=== PATIENT | female | born 1945 | race Caucasian/White ===

== ENCOUNTER → 2016-10-06 | Outpatient (CLI) | payer MEDICARE, BC ==
--- NOTE | 2016-10-06 17:17 | US ---
EXAMINATION TYPE: US venous doppler duplex LE BI DATE OF EXAM: 10/06/2016 4:54 PM COMPARISON: NONE CLINICAL HISTORY: BLE Pain and Swelling M79.661. Complains of bilateral ankle swelling with let ankle pain > right x 6 months SIDE PERFORMED: Bilateral VESSELS IMAGED: Common Femoral Vein Deep Femoral Vein Greater Saphenous Vein * Femoral Vein Popliteal Vein Small Saphenous Vein * Proximal Calf Veins (* superficial vessels) TECHNOLOGIST IMPRESSION: wnl Right Leg: Negative for DVT. Fluid collection is noted at medial malleolus = 2.8 x 0.9 x 0.8cm. Left Leg: Negative for DVT Fluid collection is noted at medial malleolus = 2.1 x 1.1 x 0.8cm. Tech findings called to Pepper at Dr Montanez's Office. IMPRESSION: No evidence of deep venous thrombosis in the left and right leg. Small joint effusions noted involving the ankle joints.
== END | disposition home or self-care (01) ==
LOC: RADUSMAIN 16:12
PROVIDERS: ATTEND Family Medicine
DX: M25.471 Effusion, right ankle (principal); M25.472 Effusion, left ankle; M79.661 Pain in right lower leg; M79.662 Pain in left lower leg; M79.89 Other specified soft tissue disorders
CPT/HCPCS: 93970

== ENCOUNTER → 2017-12-23 | Outpatient (CLI) | payer MEDICARE, BC ==
[2017-12-23 10:24] LABS: HCT 35.3 % (34.0-46.0); HGB 11.5 gm/dL (11.4-16.0); MCH 30.4 pg (25.0-35.0); MCHC 32.6 g/dL (31.0-37.0); MCV 93.2 fL (80.0-100.0); Mean Platelet Volume 7.1; Platelet Count 182 k/uL (150-450); RBC 3.79 m/uL (3.80-5.40); RDW 13.9 % (11.5-15.5); WBC 4.8 k/uL (3.8-10.6)
[2017-12-23 10:31] LABS: Partial Thromboplastin Time 22.9 sec (22.0-30.0); Prothrombin Time 9.8 sec (9.0-12.0)
[2017-12-23 10:34] LABS: Calcium 9.2 mg/dL (8.4-10.2); Potassium 5.1 mmol/L (3.5-5.1); Total Bilirubin 0.4 mg/dL (0.2-1.3); Total Protein 6.2 g/dL (6.3-8.2)
[2017-12-23 10:50] LABS: Appearance,Urine Clear (Clear); Bilirubin,Urine Negative (Negative); Blood,Urine Trace (Negative); Color,Urine Light Yellow; Glucose,Urine (UA) Negative (Negative); Ketones,Urine Negative (Negative); Leukocyte Esterase,Urine Negative (Negative); Mucus,Urine Rare /hpf; Nitrite,Urine Negative (Negative); PH, Urine 5.5 (5.0-8.0); Protein,Urine Negative (Negative); RBC,Urine <1 /hpf (0-5); Specific Gravity,Urine 1.006 (1.001-1.035); Squamous Epithelial Cell,Urine <1 /hpf (0-4); Urobilinogen,Urine <2.0 mg/dL (<2.0)
== END | disposition home or self-care (01) ==
LOC: LABPAT 09:45
PROVIDERS: ATTEND Orthopaedic Surgery
DX: Z01.818 Encounter for other preprocedural examination (principal); Z79.01 Long term (current) use of anticoagulants; Z01.812 Encounter for preprocedural laboratory examination
CPT/HCPCS: 36415; 80053; 81001; 85027; 85610; 85730; 86850; 86900; 86901; 87070; 93005

== ENCOUNTER 2018-01-03 05:34 | Inpatient (IN) | payer MEDICARE, BC ==
[2017-12-27 14:46] VITALS: BMI 34.2
[~2018-01-03 05:34] MED LIST: ACETAMINOPHEN TAB 500 MG TAB PO ONE; LIDOCAINE 1% 20 ML VIAL (10MG/ML) FOR IV START INTRADERMA PRN; MELOXICAM 7.5 MG TAB PO ONE; MORPHINE SULFATE 4 MG/ML SYRINGE IV PRN; ONDANSETRON ODT 4 MG TAB PO ONE; TRANEXAMIC ACID 1,000 MG in SODIUM CHLORIDE 0.9% 100 ML IVPB ONE; ceFAZolin IN SWFI 2 GM/20 ML SYRINGE IVP ONE
[2018-01-03] MEDS ORDERED: ROPIVACAINE 246.25 MG, EPINEPHrine 0.5 MG, KETOROLAC 30 MG, cloNIDine HCL/PF 80 MCG, WA... MISCELLANE ONE ×5 (05:51)
[2018-01-03 06:55] LABS: Glucose,Whole Blood 99 mg/dL (75-99)
[2018-01-03] MEDS: LACTATED RINGERS 1,000 ML IV SCH (06:55)
[2018-01-03] MEDS ORDERED: ONDANSETRON 4 MG/2 ML VIAL IVP ONE (06:55)
[2018-01-03] MEDS ORDERED: HYDROcodone/APAP 5-325MG 1 EACH TAB PO PRN (07:25)
[2018-01-03] MEDS ORDERED: DIAZEPAM 5 MG TAB PO PRN ×2 (07:25)
[2018-01-03] MEDS ORDERED: hydrOXYzine PAMOATE 25 MG CAP PO PRN (07:25)
[2018-01-03] MEDS ORDERED: NALOXONE 0.4 MG/ML 1 ML VIAL IV PRN (07:25)
[2018-01-03] MEDS ORDERED: ONDANSETRON 4 MG/2 ML VIAL IVP PRN (07:25)
[2018-01-03] MEDS ORDERED: MORPHINE SULFATE 4 MG/ML SYRINGE IVP PRN ×3 (07:25)
[2018-01-03] MEDS ORDERED: MAGNESIUM HYDROXIDE 2,400 MG/10 ML CUP PO PRN (07:25)
[2018-01-03] MEDS ORDERED: MIDAZOLAM 2 MG/2 ML VIAL ONE (07:32)
[2018-01-03] MEDS ORDERED: HEPARIN SODIUM,PORCINE 10,000 UNIT/ML 1 ML VIAL ONE (07:32)
[2018-01-03] MEDS ORDERED: TRANEXAMIC ACID 1,000 MG/10 ML VIAL ONE (07:32)
[2018-01-03] MEDS ORDERED: SODIUM CHLORIDE 0.9% IRRIG 1,000 ML BTL IRRIGATION ONE (07:32)
[2018-01-03] MEDS ORDERED: fentaNYL (PF) 50 MCG/ML 2 ML AMP ONE (07:32)
[2018-01-03] MEDS ORDERED: SODIUM CHLORIDE 0.9% 100 ML BAG ONE (07:32)
[2018-01-03] MEDS ORDERED: PHENYLEPHRINE-0.9% NACL SYG 1 MG/10 ML SYRINGE ONE (07:32)
[2018-01-03] MEDS ORDERED: ceFAZolin 3,000 MG in SODIUM CHLORIDE 0.9% IRRIGATIO 3,000 ML IRRIGATION ONE (08:11)
[2018-01-03] MEDS ORDERED: LACTATED RINGERS 1,000 ML IV ONE (09:16)
--- NOTE | 2018-01-03 09:20 | P.OP ---
Date of Procedure: 01/03/18 Preoperative Diagnosis: Severe osteoarthritis left hip Postoperative Diagnosis: Severe osteoarthritis left hip Procedure(s) Performed: Left total hip arthroplasty with a direct anterior approach Implants: Celestin and nephew Polarstem size 1 standard Celestin & Nephew R3, 3 hole acetabular shell, 48 mm Celestin & Nephew reflection 6.5 mm cancellus screw, 20 mm 2 Celestin [employer] Nephew R3, XLPE 20 acetabular liner Celestin & Nephew Oxinium femoral head 32 m, +0 All components were press-fit. The articulation is Oxinium on polyethylene. Anesthesia: spinal Surgeon: Raghu Morris Freight Clerk #1: Marilee Swenson Estimated Blood Loss (ml): 350 (124 mL returned with Cell Saver) Pathology: other (Femoral head) Condition: stable Disposition: PACU Indications for Procedure: After failure of conservative treatment we discussed the surgical and nonsurgical treatment options at length. Patient wishes to proceed with a total hip arthroplasty with a direct anterior approach. Complications specific to this procedure were discussed at length, including but not limited to infection, leg length discrepancy, dislocation, and nerve injury. Patient is aware of all these complications and informed consent was obtained Operative Findings: The operative findings are consistent with severe osteoarthritis of the left hip Description of Procedure: Patient was seen and evaluated in the preoperative area, consent was reviewed, and the surgical site was marked with a skin marker. Patient was then brought to the operating room and given prophylactic antibiotics intravenously. 1 g of Tranexamic acid was also given. A spinal anesthetic was administered by the anesthesia department. The patient was then placed on the [place] table with the bony prominences well-padded. The hip area was then prepped and draped in usual sterile fashion. A universal timeout was then performed, which confirmed the patient's name, surgical site, ALLERGIES, and procedure being performed. Next the incision site was located at 1 cm distal and 1 cm lateral to the anterior superior iliac spine. The skin and subcutaneous tissues were sharply incised. Incision was carefully dissected down to the fascia overlying the tensor fascia priti muscle. This fascia was then incised in line with the incision. Next, using blunt finger dissection, the tensor fascia priti muscle was dissected off its investing fascia. The muscle was then carefully retracted laterally with a cobra retractor over the lateral neck of the femur. Next, the circumflex vessels were identified and cauterized using the AquaMantis device. The anterior hip capsule was then exposed. The capsule was then opened and an inverted T fashion. Cobra retractors were then placed intracapsularly. The proximal femur was then visualized. The femoral neck was then osteotomized appropriate level above the lesser trochanter. Small amount of traction was placed with the [place] table. A small wedge of bone was then removed from the remaining femoral head. Next, using a corkscrew femoral head was easily removed from the acetabulum. On gross visual inspection, the femoral head had complete loss of articular cartilage in multiple periarticular osteophytes. Attention was then turned to the acetabulum. the acetabulum was exposed and any remaining labrum was excised. Sequential reaming of the acetabulum was performed using fluoroscopic guidance. When the appropriate size was reached, a trial was then placed. The position and fit of the trial was checked with fluoroscopy. The trial was then removed. Then, using fluoroscopic guidance, the final implant was impacted at 20 of anteversion and 40 of abduction, and fully seated in the acetabulum. 2 screws were then placed in the acetabulum. Again fluoroscopy was used to check position of the screws. Next, the liner was then impacted, with a 20 elevated liner located in the anterior superior quadrant. Component locking was confirmed. Attention was then directed to the femur. With the aid of the [place] table, the femur was externally rotated to approximately 130, extended, and abducted under the opposite leg. A side hook was then placed under the proximal femur, and the side hook elevator was used to elevate the proximal femur. Retractors were then placed. A capsular release was performed, as well as a release of the conjoined tendon, which afforded excellent visualization of the proximal femur. Next, a box osteotome was used to lateralize the proximal femur. A chicken handler was then used to locate the femoral canal. Sequential broaching was then performed with appropriate size which afforded excellent fixation in the proximal femur. A trial was then placed with appropriate head and neck, and the hip was gently reduced with the aid of the [place] table. Fluoroscopy was then used to check position of the components, as well as to ensure equal leg lengths. The hip was then gently dislocated and the trials were then removed. Final implants were then impacted and the hip was again reduced. Final fluoroscopic x-rays confirmed that the components were in anatomic position, as well as equal leg lengths. The hip was also taken through range of motion, and found to be stable. The hip was then copiously irrigated with antibiotic solution with pulsatile lavage. The hip was then irrigated with Irrisept solution. The soft tissues were then injected with a ropivacaine solution, which consisted of 246.25 mg of ropivacaine, 0.5 mg of epinephrine, 30 mg of Toradol, 80 g of clonidine, and 48.45 mL of sterile water, for a total of 100 mL of fluid injected. A second dose of 1 g of Tranexamic acid was also given. the fascia was then closed with 2-0 strata fix suture. The subcutaneous tissue was closed with 3-0 Vicryl. The subcuticular tissue was closed with 3-0 strata fix suture. The skin was then closed with Dermabond glue and a sterile silver dressing. The patient was then transferred to the recovery room in stable condition. The assistant community director HEATHER Mast was required due to the complexity of surgery, and the need for skilled golf course assistant for positioning, draping, exposure, retraction, and closure of the wound.
--- NOTE | 2018-01-03 09:38 | XR ---
EXAMINATION TYPE: XR Hip Limited LT DATE OF EXAM: 01/03/2018 COMPARISON: NONE HISTORY: Left anterior hip replacement TECHNIQUE: One view submitted. FINDINGS: There is a prosthetic hip in near anatomic alignment. There is soft tissue edema and emphysema. IMPRESSION: 1. Postoperative change. Appears in near-anatomic alignment.
--- NOTE | 2018-01-03 10:00 | FL ---
EXAMINATION TYPE: FL guidance operating room, XR Hip Limited LT DATE OF EXAM: 01/03/2018 CLINICAL HISTORY: Left hip pain TECHNIQUE: Fluoroscopy. COMPARISON: None. FINDINGS: Fluoroscopic guidance was provided during procedure performed by Dr. Morris. A total of 32 seconds of fluoroscopic time was utilized during the procedure and 2 spot images was acquired dem onstrating a left hip arthroplasty.
[2018-01-03 11:19] LABS: Glucose,Whole Blood 105 mg/dL (75-99)
[2018-01-03] MEDS: HYDROcodone/APAP 5-325MG 1 EACH TAB PO PRN ×2 (13:48→22:32)
[2018-01-03] MEDS: ceFAZolin IN SWFI 2 GM/20 ML SYRINGE IVP SCH (15:49)
[2018-01-03 16:59] LABS: Glucose,Whole Blood 145 mg/dL (75-99)
[2018-01-03] MEDS ORDERED: AMITRIPTYLINE HCL 25 MG TAB PO PRN (17:58)
--- NOTE | 2018-01-03 18:06 | P.CONS ---
History of Present Illness - Reason for Consult Recommendations regarding antidepressive medications. - History of Present Illness She was admitted secondary to severe osteoarthritis of the left hip and total left hip arthroplasty direct anterior approach patient successfully underwent surgery did not pass gas yet patient is postoperative day 0 today. Patient denied any fever chills nausea vomiting diarrhea. Does have history of hypertension. Blood pressures in the low normal side which is expected postsurgery because of which showed holding antidepressive medications. Review of Systems REVIEW OF SYSTEMS: CONSTITUTIONAL: No fever, no malaise, no fatigue. HEENT: No recent visual problems or hearing problems. Denied any sore throat. CARDIOVASCULAR: No chest pain, orthopnea, PND, no palpitations, no syncope. PULMONARY: No shortness of breath, no cough, no hemoptysis. GASTROINTESTINAL: No diarrhea, no nausea, no vomiting, no abdominal pain. Normoactive bowel sounds. NEUROLOGICAL: No headaches, no weakness, no numbness. HEMATOLOGICAL: Denies any bleeding or petechiae. GENITOURINARY: Denies any burning micturition, frequency, or urgency. MUSCULOSKELETAL/RHEUMATOLOGICAL: Denies any joint pain, swelling, or any muscle pain. ENDOCRINE: Denies any polyuria or polydipsia. The rest of the 14-point review of systems is negative. Past Medical History Past Medical History: CVA/TIA, Diabetes Mellitus, Eye Disorder, Hyperlipidemia, Hypertension, Osteoarthritis (OA), Thyroid Disorder Additional Past Medical History / Comment(s): MACULAR DEGENERATION, TIA-2016-no residual effects History of Any Multi-Drug Resistant Organisms: None Reported Past Surgical History: Hernia Repair, Joint Replacement, Tonsillectomy Additional Past Surgical History / Comment(s): thyroid removed, bilateral knee replacements, TLHA Past Anesthesia/Blood Transfusion Reactions: Postoperative Nausea & Vomiting ( PONV) Past Psychological History: No Psychological Hx Reported Smoking Status: Never smoker Past Alcohol Use History: None Reported Past Drug Use History: None Reported - Past Family History Brother(s) Family Medical History: Cancer Mother Family Medical History: Myocardial Infarction (OR) Father Family Medical History: Congestive Heart Failure (CHF) Medications and Allergies Home Medications Medication Instructions Recorded Confirmed Type Cholecalciferol [Vitamin D3] 1,000 unit PO DAILY@1200 03/10/15 01/03/18 History Omeprazole [PriLOSEC] 20 mg PO AC-BRKFST 03/10/15 01/03/18 History Vit C/E/Zn/Coppr/Lutein/Zeaxan 1 cap PO BID 03/10/15 01/03/18 History [Preservision Areds 2 Softgel] Aspirin EC [Ecotrin Low Dose] 81 mg PO DAILY #30 tablet. 03/13/15 01/03/18 Rx metFORMIN HCL [Glucophage] 500 mg PO HS #0 03/13/15 01/03/18 Rx Acetaminophen [Tylenol Arthritis] 650 mg PO BID 07/02/16 01/03/18 History Atorvastatin [Lipitor] 20 mg PO HS 07/02/16 01/03/18 History Lisinopril [Zestril] 2.5 mg PO DAILY 07/02/16 01/03/18 History Amitriptyline HCl [Elavil] 25 mg PO HS PRN 12/27/17 01/03/18 History Levothyroxine Sodium [Synthroid] 88 mcg PO DAILY 01/03/18 01/03/18 History Allergies Allergy/AdvReac Type Severity Reaction Status Date / Time No Known Allergies Allergy Verified 01/03/18 12:52 Physical Exam Vitals: Vital Signs Temp Pulse Resp BP BP Pulse Ox 01/03/18 12:30 73 16 109/67 98 01/03/18 12:15 75 16 107/66 98 01/03/18 12:00 73 16 123/73 97 01/03/18 11:45 73 16 123/70 98 01/03/18 11:30 78 16 126/59 82 L 01/03/18 11:15 73 16 121/76 97 01/03/18 11:00 76 16 97/57 95 01/03/18 10:45 75 16 134/77 98 01/03/18 10:30 98.7 F 73 16 129/73 97 01/03/18 10:00 67 18 117/56 95 01/03/18 09:45 68 16 120/53 96 01/03/18 09:39 98.4 F 73 16 118/58 97 01/03/18 06:33 97.6 F 74 16 176/79 95 Intake and Output 01/03/18 01/03/18 01/03/18 06:59 14:59 22:59 Intake Total 100 1431 Output Total 650 Balance 100 781 Intake: IV 100 1131 Sodium Chloride 0.9% 1, 130 000 ml @ 65 mls/hr IV . [id number] [facility] Rx#:[id number] Oral 300 Output: Urine 300 Estimated Blood Loss 350 Other: # Voids 1 Weight 79.379 kg PHYSICAL EXAMINATION: GENERAL: The patient is alert and oriented x3, not in any acute distress. Well developed, well nourished. HEENT: Pupils are round and equally reacting to light. EOMI. No scleral icterus. No conjunctival pallor. Normocephalic, atraumatic. No pharyngeal erythema. No thyromegaly. CARDIOVASCULAR: S1 and S2 present. No murmurs, rubs, or gallops. PULMONARY: Chest is clear to auscultation, no wheezing or crackles. ABDOMEN: Soft, nontender, nondistended, normoactive bowel sounds. No palpable organomegaly. MUSCULOSKELETAL: Deferred to orthopedic surgery EXTREMITIES: No cyanosis, clubbing, or pedal edema. NEUROLOGICAL: Gross neurological examination did not reveal any focal deficits. SKIN: No rashes. Results Labs: Abnormal Lab Results - Last 24 Hours (Table) 01/03/18 01/03/18 Range/Units 11:16 16:56 POC Glucose (mg/dL) 105 H 145 H (75-99) mg/dL Assessment and Plan Plan: Postoperative day 0, left hip arthroplasty: Pain management DVT prophylaxis per primary service -CVA /TIA in the past -type 2 diabetes mellitus: Patient will be resumed on her home regimen along with sliding scale and titrate the diabetes medications according to the blood sugars and sliding scale requirements -Hyperlipidemia -hypertension: Hold off on lisinopril to prevent perioperative hypotension -Hypothyroidism For rest rest of the above chronic medical problems patient will be resumed on appropriate home medications.
[2018-01-03 19:58] LABS: Glucose,Whole Blood 132 mg/dL (75-99)
[2018-01-03] MEDS ORDERED: ACETAMINOPHEN TAB 500 MG TAB PO PRN (21:00)
[2018-01-03] MEDS: ATORVASTATIN 20 MG TAB PO SCH (22:31)
[2018-01-03] MEDS: metFORMIN 500 MG TAB PO SCH (22:31)
[2018-01-03] MEDS: SENNOSIDES-DOCUSATE SODIUM 1 EACH TAB PO SCH (22:32)
[2018-01-03] MEDS: INSULIN ASPART 100 UNIT/ML 1 ML 10 ML VIAL SQ SCH (22:33)
[2018-01-03] MEDS: SODIUM CHLORIDE 0.9% 1,000 ML IV SCH (22:36)
[2018-01-03] MEDS: ASPIRIN 325 MG TAB PO SCH (23:24)
[2018-01-04] MEDS: ceFAZolin IN SWFI 2 GM/20 ML SYRINGE IVP SCH (00:30)
[2018-01-04] MEDS: SODIUM CHLORIDE 0.9% 1,000 ML IV SCH ×2 (00:38→07:51)
[2018-01-04] MEDS: LEVOTHYROXINE 88 MCG TAB PO SCH (07:09)
[2018-01-04 07:19] LABS: Glucose,Whole Blood 128 mg/dL (75-99)
[2018-01-04 07:40] LABS: Basophils % (A) 0 %; Eosinophils % (A) 1 %; HCT 28.3 % (34.0-46.0); Lymphocytes # (A) 0.6 k/uL (1.0-4.8); Lymphocytes % (A) 12 %; MCHC 33.1 g/dL (31.0-37.0); MCV 93.9 fL (80.0-100.0); Mean Platelet Volume 7.8; Monocytes # (A) 0.3 k/uL (0-1.0); Monocytes % (A) 6 %; Neutrophils # (A) 4.2 k/uL (1.3-7.7); Neutrophils % (A) 81 %; Platelet Count 159 k/uL (150-450); RBC 3.02 m/uL (3.80-5.40); RDW 14.4 % (11.5-15.5); WBC 5.2 k/uL (3.8-10.6)
[2018-01-04 07:43] LABS: HGB 9.4 gm/dL (11.4-16.0)
[2018-01-04] MEDS: LACTATED RINGERS 1,000 ML IV SCH (07:47)
[2018-01-04] MEDS: INSULIN ASPART 100 UNIT/ML 1 ML 10 ML VIAL SQ SCH ×4 (07:47→20:52)
[2018-01-04] MEDS: MELOXICAM 7.5 MG TAB PO SCH (07:49)
[2018-01-04] MEDS: PANTOPRAZOLE 40 MG TABLET PO SCH (07:49)
[2018-01-04] MEDS: ASPIRIN 325 MG TAB PO SCH ×2 (07:49→20:47)
[2018-01-04] MEDS ORDERED: ASPIRIN 81 MG PO SCH (09:00)
--- NOTE | 2018-01-04 09:25 | P.PN ---
Subjective Progress Note Date: 01/04/18 This is a 72-year-old female who is status post left total hip arthroplasty. This is postoperative day #1. Patient is seen and evaluated at bedside with Dr. Raghu Morris. Patient does complain of some soreness to the left hip, but states that she has been up and walking with physical therapy. Patient denies any fever/chills, numbness, weakness, tingling, abdominal pain, shortness of breath or chest pain. Objective - Vital Signs Vital signs: Vital Signs Temp 98.4 F 01/04/18 07:41 Pulse 72 01/04/18 07:41 Resp 16 01/04/18 07:42 BP 125/67 01/04/18 07:41 Pulse Ox 96 01/04/18 07:41 Intake & Output 01/03/18 01/04/18 01/04/18 18:59 06:59 18:59 Intake Total 1821 250 Output Total 650 Balance 1171 250 Weight 79.379 kg Intake: IV 1131 Sodium Chloride 0.9% 1, 130 000 ml @ 65 mls/hr IV . [id number] [facility] Rx#:[id number] Oral 690 250 Output: Urine 300 Estimated Blood Loss 350 Other: Voiding Method Toilet Toilet # Voids 1 1 2 - Exam Vital signs are stable. Patient is in no acute distress and is alert and oriented 3. Calf is soft and nontender to palpation. Dressing is clean, dry, and intact. Patient has full foot and ankle motion without pain or difficulty. Neurovascular status and circulatory status are intact. - Labs CBC & Chem 7: 01/04/18 06:52 Labs: Abnormal Lab Results - Last 24 Hours (Table) 01/03/18 01/03/18 01/03/18 Range/Units 11:16 16:56 19:56 RBC (3.80-5.40) m/uL Hgb (11.4-16.0) gm/dL Hct (34.0-46.0) % Lymphocytes # (1.0-4.8) k/uL POC Glucose (mg/dL) 105 H 145 H 132 H (75-99) mg/dL 01/04/18 01/04/18 Range/Units 06:52 07:14 RBC 3.02 L (3.80-5.40) m/uL Hgb 9.4 L D (11.4-16.0) gm/dL Hct 28.3 L (34.0-46.0) % Lymphocytes # 0.6 L (1.0-4.8) k/uL POC Glucose (mg/dL) 128 H (75-99) mg/dL Assessment and Plan (1) S/P total hip arthroplasty Current Visit: Yes Status: Acute Code(s): Z96.649 - PRESENCE OF UNSPECIFIED ARTIFICIAL HIP JOINT SNOMED Code(s): 103751867768 (2) Primary osteoarthritis of left hip Current Visit: Yes Status: Acute Code(s): M16.12 - UNILATERAL PRIMARY OSTEOARTHRITIS, LEFT HIP SNOMED Code(s): 705335561 Plan: Continue routine postop care. Continue antocoagulation with aspirin. Weightbearing as tolerated with a walker. Leave dressing in place for 10 days. Likely discharge home with home care tomorrow.
[2018-01-04] MEDS: HYDROcodone/APAP 5-325MG 1 EACH TAB PO PRN ×2 (09:40→20:45)
[2018-01-04] MEDS ORDERED: HYDROmorphone 2 MG TAB PO PRN ×3 (09:47→09:48)
[2018-01-04 11:13] LABS: Glucose,Whole Blood 133 mg/dL (75-99)
[2018-01-04 16:48] LABS: Glucose,Whole Blood 150 mg/dL (75-99)
--- NOTE | 2018-01-04 20:45 | PN ---
PROGRESS NOTE DATE OF SERVICE: 01/04/2018. INTERVAL HISTORY: This 72-year-old woman who was admitted after left hip arthroplasty is improving significantly. No chest pain. No palpitations. No fever. EXAM: Alert and oriented x3. Pulse 79, blood pressure 112/69, respirations 16, temperature 97.8, pulse ox 100% on room air. HEENT: Conjunctivae normal. NECK: No jugular venous distention. CARDIOVASCULAR: S1, S2 muffled. RESPIRATORY: Breath sounds diminished in the bases. No rhonchi. No crackles. ABDOMEN: Soft, nontender. LEGS: Status post surgery. NERVOUS SYSTEM: No focal deficits. LABS: Hemoglobin 9.5. Accu-Chek 133. ASSESSMENT: 1. Status post left hip arthroplasty. 2. Diabetes mellitus type 2. 3. History of cerebrovascular accident. 4. Hyperlipidemia. 5. Hypertension. 6. Hypothyroidism. RECOMMENDATIONS AND DISCUSSION: Recommend to continue with current medical management and symptomatic treatment. Incentive spirometry, PT/OT evaluation. Closely monitor with Orthopedic Surgery. Further recommendations to follow. MMODL / IJN: [id number] /
[2018-01-04] MEDS: ATORVASTATIN 20 MG TAB PO SCH (20:47)
[2018-01-04] MEDS: metFORMIN 500 MG TAB PO SCH (20:48)
[2018-01-04] MEDS: SENNOSIDES-DOCUSATE SODIUM 1 EACH TAB PO SCH (20:49)
[2018-01-04 21:03] LABS: Glucose,Whole Blood 157 mg/dL (75-99)
[2018-01-05] MEDS: SODIUM CHLORIDE 0.9% 1,000 ML IV SCH (05:00)
[2018-01-05] MEDS: LACTATED RINGERS 1,000 ML IV SCH (05:00)
[2018-01-05 07:03] LABS: Glucose,Whole Blood 132 mg/dL (75-99)
[2018-01-05 08:21] VITALS: BP 131/72; PULSE 95; RESP 16
[2018-01-05] MEDS: LEVOTHYROXINE 88 MCG TAB PO SCH (08:22)
--- NOTE | 2018-01-05 08:29 | P.DS ---
Providers Date of admission: 01/03/18 05:34 Expected date of discharge: 01/05/18 Attending physician: Raghu Morris Consults: 01/03/18 07:25 Consult Physician Routine Consulting Provider: Janny Ortiz Consult Reason/Comments: medical management Do you want consulting provider notified?: Yes Primary care physician: Rupinder Montanez - Discharge Diagnosis(es) (1) Primary osteoarthritis of left hip Current Visit: Yes Status: Acute (2) S/P total hip arthroplasty Current Visit: Yes Status: Acute Hospital Course: This is a 72-year-old female with known history of degenerative arthritis of the left hip. The patient presents for evaluation. After discussion and consideration patient elects to proceed with total hip arthroplasty. The patient is seen preoperatively by her primary care physician and cleared for surgery. Patient is admitted to [facility] on 01/03/2018 for total left hip arthroplasty. The procedures performed without complication or sequelae. The patient is doing well postoperatively. Labs and vital signs are stable on day of discharge. On day of discharge patient's hip incision is healing well. There is minimal erythema. There is no drainage noted at this time. There is minimal soft tissue swelling to the hip and thigh. Patient has full foot and ankle motion without difficulty or pain. Neurovascular status to the left lower extremity is intact. Patient is discharged to home in good condition. Pertinent Studies: Laboratory Tests 01/04/18 06:52 WBC 5.2 RBC 3.02 L Hgb 9.4 L D Hct 28.3 L Patient Condition at Discharge: Stable Plan - Discharge Summary Discharge Rx Participant: Yes New Discharge Prescriptions: New Aspirin 325 mg PO BID #60 tab HYDROcodone/APAP 5-325MG [[place] 5-325] 1 - 2 tab PO Q4-6H PRN #90 tab PRN Reason: Pain Sennosides [Senokot] 1 tab PO BID #60 tablet No Action Omeprazole [PriLOSEC] 20 mg PO AC-BRKFST Vit C/E/Zn/Coppr/Lutein/Zeaxan [Preservision Areds 2 Softgel] 1 cap PO BID Cholecalciferol [Vitamin D3] 1,000 unit PO DAILY@1200 Aspirin EC [Ecotrin Low Dose] 81 mg PO DAILY #30 tablet. metFORMIN HCL [Glucophage] 500 mg PO HS #0 Lisinopril [Zestril] 2.5 mg PO DAILY Atorvastatin [Lipitor] 20 mg PO HS Acetaminophen [Tylenol Arthritis] 650 mg PO BID Amitriptyline HCl [Elavil] 25 mg PO HS PRN PRN Reason: sleep Levothyroxine Sodium [Synthroid] 88 mcg PO DAILY Discharge Medication List Cholecalciferol [Vitamin D3] 1,000 unit PO DAILY@1200 03/10/15 [History] Omeprazole [PriLOSEC] 20 mg PO AC-BRKFST 03/10/15 [History] Vit C/E/Zn/Coppr/Lutein/Zeaxan [Preservision Areds 2 Softgel] 1 cap PO BID 03/10 [History] Aspirin EC [Ecotrin Low Dose] 81 mg PO DAILY #30 tablet. 03/13/15 [Rx] metFORMIN HCL [Glucophage] 500 mg PO HS #0 03/13/15 [Rx] Acetaminophen [Tylenol Arthritis] 650 mg PO BID 07/02/16 [History] Atorvastatin [Lipitor] 20 mg PO HS 07/02/16 [History] Lisinopril [Zestril] 2.5 mg PO DAILY 07/02/16 [History] Amitriptyline HCl [Elavil] 25 mg PO HS PRN 12/27/17 [History] Levothyroxine Sodium [Synthroid] 88 mcg PO DAILY 01/03/18 [History] Aspirin 325 mg PO BID #60 tab 01/04/18 [Rx] HYDROcodone/APAP 5-325MG [[place] 5-325] 1 - 2 tab PO Q4-6H PRN #90 tab 01/04/18 [ Rx] Sennosides [Senokot] 1 tab PO BID #60 tablet 01/04/18 [Rx] Follow up Appointment(s)/Referral(s): [facility], [NON-STAFF] - Rupinder Montanez DO [Primary Care Provider] - 01/11/18 3:15 pm Raghu Morris DO [Doctor of Osteopathic Medicine] - 01/19/18 1:50 pm Activity/Diet/Wound Care/Special Instructions: Weightbearing as tolerated with walker Leave dressing intact. Dressing may be removed by home care nurse in 10 days. May shower with dressing on. Follow-up with [facility] in 2 weeks, please call with any questions or concerns [phone] Discharge Disposition: HOME WITH HOME HEALTH SERVICES
[2018-01-05] MEDS: INSULIN ASPART 100 UNIT/ML 1 ML 10 ML VIAL SQ SCH ×2 (08:37→12:07)
[2018-01-05 08:39] VITALS: TEMP 98.2
[2018-01-05] MEDS: ASPIRIN 325 MG TAB PO SCH (08:39)
[2018-01-05] MEDS: PANTOPRAZOLE 40 MG TABLET PO SCH (08:39)
[2018-01-05] MEDS: MELOXICAM 7.5 MG TAB PO SCH (08:39)
[2018-01-05 11:48] LABS: Glucose,Whole Blood 117 mg/dL (75-99)
--- NOTE | 2018-01-05 15:46 | PN ---
PROGRESS NOTE DATE OF SERVICE: 01/05/2018 This 72-year-old woman who was admitted after left hip arthroplasty is improving significantly. No chest pain. No palpitations. No fever. On exam, alert and oriented x3. Pulse is 95, blood pressure 131/72, respiration 16, temperature 98.2, pulse ox 97% on room air. HEENT: Conjunctivae normal. NECK: No jugular venous distention. CARDIOVASCULAR SYSTEM: S1, S2 muffled. RESPIRATORY SYSTEM: Breath sounds diminished at the bases. No rhonchi. No crackles. ABDOMEN: Soft, non-tender. LEGS: No edema. No swelling. Status post surgery. NERVOUS SYSTEM: No focal deficit. LABS: Hemoglobin 9.4. Accu-Cheks are noted. ASSESSMENT: 1. Status post left hip arthroplasty. 2. Diabetes mellitus, type 2. 3. History of cerebrovascular accident. 4. Hyperlipidemia. 5. Hypertension. 6. Hypothyroidism. RECOMMENDATIONS AND DISCUSSION: I recommend to continue current medication, continue symptomatic treatment. Incentive spirometry. Resume the home medications. The rest of the medications per Orthopedic Surgery. Follow closely with the primary physician in the outpatient setting. Thank you, Dr. Morris. MMROBERTL / MISTYN: [id number] /
== END 2018-01-05 15:05 | disposition home health service (06) | DRG 470 ==
LOC: 2ORMAIN 05:34 → 3SUR 09:35
PROVIDERS: ADMIT Orthopaedic Surgery; ATTEND Orthopaedic Surgery
PROC: 0SRB06A Replacement of Left Hip Joint with Oxidized Zirconium on Polyethylene Synthetic Substitute, Uncemented, Open Approach (ICD-10-PCS; principal; 2018-01-03 07:30)
DX: M16.12 Unilateral primary osteoarthritis, left hip (principal); E11.9 Type 2 diabetes mellitus without complications; E78.5 Hyperlipidemia, unspecified; H35.30 Unspecified macular degeneration; I10 Essential (primary) hypertension; E89.0 Postprocedural hypothyroidism; Z96.653 Presence of artificial knee joint, bilateral; Z79.84 Long term (current) use of oral hypoglycemic drugs; Z79.899 Other long term (current) drug therapy; Z82.49 Family history of ischemic heart disease and other diseases of the circulatory system; Z86.73 Personal history of transient ischemic attack (TIA), and cerebral infarction without residual deficits; Z79.82 Long term (current) use of aspirin; Z79.890 Hormone replacement therapy
CPT/HCPCS: 73501; 85025; 86850; 86900; 86901; 88300

== ENCOUNTER → 2018-03-21 | Outpatient (CLI) | payer MEDICARE, BC ==
--- NOTE | 2018-03-21 10:09 | US ---
EXAMINATION TYPE: US abdomen limited DATE OF EXAM: 03/21/2018 COMPARISON: NONE CLINICAL HISTORY: 72-year-old female K30 Dyspepsia, K80 Cholelithiasis. TECHNIQUE: Multiple sonographic images of the right upper quadrant are obtained. FINDINGS: EXAM MEASUREMENTS: Liver Length: 14.7 cm Gallbladder Wall: 0.2 cm CBD: 0.5 cm Right Kidney: 9.0 x 3.6 x 4.2 cm QUILL COLLECTOR NOTES: Exam limited by excessive midline bowel gas. Pancreas: Only a small portion of the pancreatic neck and body is seen and shows no gross abnormalit y. Limited visualization due to midline bowel gas Liver: visualized portions wnl, visualization limited by midline bowel gas Gallbladder: No abnormal distention, wall thickening, pericholecystic fluid, or shadowing calculi. Evidence for sonographic Carranza's sign: No CBD: wnl Right Kidney: No hydronephrosis. IMPRESSION: Some exam limitations due to shadowing from bowel gas. No specific abnormality seen in the right uppe r quadrant.
--- NOTE | 2018-03-21 11:37 | FL ---
EXAMINATION: Upper GI examination DATE: 03/21/2018 CLINICAL INDICATION: 72-year-old female dysphasia, patient feels hot on the inside and feels bloated/ gassy COMPARISON: None Total Fluoroscopy Time: 1 minute 16 seconds. Coronal images: 36 FINDINGS: The esophagus has a normal course and caliber. There are moderate tertiary peristaltic contractions d emonstrated. The mucosa appears normal. There is a moderate-sized sliding hiatal hernia and severe spontaneous gastroesophageal reflux when t he patient is brought supine. The stomach and duodenum are free of any persistent filling defect and demonstrate a normal mucosal p attern. Small diverticulum of the third portion of the duodenum. IMPRESSION: 1. Moderate-sized sliding hiatal hernia with severe spontaneous gastroesophageal reflux when the franko ent is brought supine. 2. No abnormal narrowing or mucosal abnormality seen. 3. Incidental small diverticulum of the third portion of the duodenum.
== END | disposition home or self-care (01) ==
LOC: RADUSWWP 06:49
PROVIDERS: ATTEND Family Medicine
DX: K44.9 Diaphragmatic hernia without obstruction or gangrene (principal); K21.9 Gastro-esophageal reflux disease without esophagitis; R10.13 Epigastric pain
CPT/HCPCS: 74246; 76705

== ENCOUNTER → 2018-05-23 | Outpatient (CLI) | payer MEDICARE, BC ==
[~2018-05-23] MED LIST changes: -ACETAMINOPHEN TAB 500 MG TAB PO ONE; -LIDOCAINE 1% 20 ML VIAL (10MG/ML) FOR IV START INTRADERMA PRN; -MELOXICAM 7.5 MG TAB PO ONE; -MORPHINE SULFATE 4 MG/ML SYRINGE IV PRN; -ONDANSETRON ODT 4 MG TAB PO ONE; +REGADENOSON 0.4 MG/5 ML SYRINGE IV ONE; -TRANEXAMIC ACID 1,000 MG in SODIUM CHLORIDE 0.9% 100 ML IVPB ONE; -ceFAZolin IN SWFI 2 GM/20 ML SYRINGE IVP ONE
--- NOTE | 2018-05-23 11:56 | NM ---
EXAMINATION TYPE: NM stress lexiscan cardiolite DATE OF EXAM: 05/23/2018 COMPARISON: 03/11/2015 HISTORY: Chest pain TECHNIQUE: After the intravenous administration of 10.31 mCi Tc 99m Sestamibi - Cardiolite resting S PECT images acquired 45 minutes post injection. The patient received 0.4mg Lexiscan, 25.5 mCi Tc 99m Sestamibi - Stress images obtained [address] injection FINDINGS: Review of stress and rest SPECT images demonstrates no distinct perfusion abnormality. Gated analysi s shows normal wall motion with an estimated left ventricular ejection fraction of 67 %. IMPRESSION: No scintigraphic evidence for reversible ischemia.
--- NOTE | 2018-05-23 18:33 | P.STRESS ---
- Stress Test Note Stress Test Results/Findings: Exam Performed: NM stress lexiscan cardiolite Exam Date: 05/23/18 Reason for Exam: Chest Pain Height: 5 ft Weight: 77.111 kg Protocol: Melisa Scan Stage: na Duration of Exercise: na Resting Heart Rate: 74 Resting Blood Pressure: 155/78 Maximum Achieved Heart Rate: 104 Maximum Achieved Blood Pressure: 168/58 85% PMHR: na 100% PMHR: na METS: na Technologist Comment: Stress Test Results/Findings: This is a 72-year-old female with history of hypertension, hypercholesterolemia and family history being evaluated for chest pains. Stress data: Baseline EKG showed sinus rhythm with normal MI interval and QRS duration. Blood pressure at rest is 155/78 with pulse rate of 74. A standard dose of Lexiscan was infused EKGs taken during and after infusion did not reveal any changes of ischemia. Final impression: #1. Negative Lexiscan stress test #2. Report on the nuclear images to be given by the radiologist.
--- NOTE | 2018-05-25 12:24 | EST ---
Stress Test Results/Findings: Exam Performed: NM stress lexiscan cardiolite Exam Date: 05/23/18 Reason for Exam: Chest Pain Height: 5 ft Weight: 77.111 kg Protocol: Melisa Scan Stage: na Duration of Exercise: na Resting Heart Rate: 74 Resting Blood Pressure: 155/78 Maximum Achieved Heart Rate: 104 Maximum Achieved Blood Pressure: 168/58 85% PMHR: na 100% PMHR: na METS: na Technologist Comment: Stress Test Results/Findings: This is a 72-year-old female with history of hypertension, hypercholesterolemia and family history being evaluated for chest pains. Stress data: Baseline EKG showed sinus rhythm with normal NE interval and QRS duration. Blood pressure at rest is 155/78 with pulse rate of 74. A standard dose of Lexiscan was infused EKGs taken during and after infusion did not reveal any changes of ischemia. Final impression: #1. Negative Lexiscan stress test #2. Report on the nuclear images to be given by the radiologist. LENI
== END ==
LOC: RADNMMAIN 08:08
PROVIDERS: ATTEND Family Medicine
DX: E78.5 Hyperlipidemia, unspecified (principal); I10 Essential (primary) hypertension; R07.9 Chest pain, unspecified
CPT/HCPCS: 93017; 78452; A9500; J2785

== ENCOUNTER → 2018-12-22 | Outpatient (CLI) | payer MEDICARE, BC ==
--- NOTE | 2018-12-22 10:47 | MR ---
EXAMINATION TYPE: MR lumbar spine wo con DATE OF EXAM: 12/22/2018 COMPARISON: None HISTORY: Low back pain, spondylosis w/o myelopathy TECHNIQUE: Multiplanar, multisequence images of the lumbar spine were acquired. L1-L2: Posterior broad-based disc bulge causes mild anterior mass effect on the thecal sac. There is some facet arthropathy change present. No significant foraminal encroachment. L2-L3: Facet arthropathy with hypertrophic changes of the ligamentum flavum causes some posterior lat eral mass effect on the thecal sac. No significant central stenosis. Listhesis is noted, circumferent ial extension endplate disc complex causes foraminal encroachment greater on the right. L3-L4: Posterior broad-based disc bulge causes anterior mass effect on the thecal sac, there is moder ate central canal stenosis. Facet arthropathy with hypertrophic change of the ligamentum flavum cause s some posterior lateral mass effect on the thecal sac. Circumferential extension of endplate disc co mplex causes foraminal encroachment greater on the right. L4-L5: Listhesis contributes to cause some moderate to severe central canal stenosis, there is a tref oil appearance to the thecal sac due to facet arthropathy with hypertrophic changes causing posterior lateral mass effect on the thecal sac, broad-based posterior disc bulge contributes with the listhes is to cause some anterior mass effect on the thecal sac. There is bilateral foraminal encroachment no tejinder. L5-S1: Broad-based posterior disc bulge causes mild anterior mass effect on the thecal sac. Facet art hropathy with hypertrophy of the ligamentum flavum causes some posterior lateral mass effect on the t hecal sac. Circumferential extension endplate disc complex results in encroachment bilaterally of the neural foramina. Lumbar segments are intact. No paraspinal masses are identified. Conus medullaris has a normal appe arance. Lumbar vertebral bodies show preserved height. There is anterolisthesis grade 1 L5-S1, L4-5, retrolisthesis grade 1 L3-4, L2-3 and anterolisthesis grade 1 L1-2. Loss of disc height signal is gre atest at L2-3 but also present L4-5, there is associated vacuum phenomenon. Multilevel spondylosis wi th endplate discogenic marrow signal changes are present. There is mild spinal curvature. IMPRESSION: Degenerative disc disease, facet arthropathy, spinal stenosis, foraminal encroachment as described. S marisabel curvature.
== END | disposition home or self-care (01) ==
LOC: RADMRIMAIN 08:49
PROVIDERS: ATTEND Physical Medicine & Rehabilitation
DX: M48.061 Spinal stenosis, lumbar region without neurogenic claudication (principal); M51.37 Other intervertebral disc degeneration, lumbosacral region; M46.97 Unspecified inflammatory spondylopathy, lumbosacral region
CPT/HCPCS: 72148

== ENCOUNTER 2019-10-18 17:34 | Inpatient (IN) | payer BC, MEDICARE ==
[2019-10-18] MEDS ORDERED: ONDANSETRON 4 MG/2 ML VIAL IVP PRN (18:15)
[2019-10-18] MEDS ORDERED: NALOXONE 0.4 MG/ML 1 ML VIAL IV PRN (18:15)
[2019-10-18] MEDS ORDERED: HYDROmorphone 0.5 MG/0.5 ML SYRINGE IVP PRN (18:15)
--- NOTE | 2019-10-18 18:15 | ED ---
General Adult HPI - General Chief complaint: Extremity Injury, Lower Stated complaint: knee injury Time Seen by Provider: 10/18/19 17:37 Source: patient, family, EMS, RN notes reviewed, old records reviewed (Chart reviewed from [facility], [place]) Mode of arrival: EMS Limitations: physical limitation - History of Present Illness Initial comments: Patient is a pleasant 74-year-old female presenting to the emergency Department with right leg injury. Patient was leaning up on a car when she got off with one leg and her other leg and. Patient complained of severe sudden discomfort at that time. Patient was seen at [facility] and diagnosed with a distal femur fracture, just above right knee arthroplasty. Patient states discomfort is tolerable at this time following pain medication and knee immobilizer. Patient denies any other injury or area of concern. No chest or back pain. No abdominal pain. No head injury. No neck pain. Patient had knee surgery done approximately [address] Zavala. Patient did have right hip surgery done within the past year or [address] Morris who did accept transfer of patient. - Related Data Home Medications Medication Instructions Recorded Confirmed Cholecalciferol [Vitamin D3 (25 1,000 unit PO DAILY@1200 03/10/15 01/03/18 Mcg = 1000 Iu)] Omeprazole [PriLOSEC] 20 mg PO AC-BRKFST 03/10/15 01/03/18 Vit C/E/Zn/Coppr/Lutein/Zeaxan 1 cap PO BID 03/10/15 01/03/18 [Preservision Areds 2 Softgel] Acetaminophen [Tylenol Arthritis] 650 mg PO BID 07/02/16 01/03/18 Atorvastatin [Lipitor] 20 mg PO HS 07/02/16 01/03/18 Lisinopril [Zestril] 2.5 mg PO DAILY 07/02/16 01/03/18 Amitriptyline HCl [Elavil] 25 mg PO HS PRN 12/27/17 01/03/18 Levothyroxine Sodium [Synthroid] 88 mcg PO DAILY 01/03/18 01/03/18 Previous Rx's Medication Instructions Recorded Aspirin EC [Ecotrin Low Dose] 81 mg PO DAILY #30 tablet. 03/13/15 metFORMIN HCL [Glucophage] 500 mg PO HS #0 03/13/15 Aspirin 325 mg PO BID #60 tab 01/04/18 HYDROcodone/APAP 5-325MG [Jay 1 - 2 tab PO Q4-6H PRN #90 tab 01/04/18 5-325] Sennosides [Senokot] 1 tab PO BID #60 tablet 01/04/18 Allergies Allergy/AdvReac Type Severity Reaction Status Date / Time No Known Allergies Allergy Verified 10/18/19 17:43 Review of Systems ROS Statement: Those systems with pertinent positive or pertinent negative responses have been documented in the HPI. ROS Other: All systems not noted in ROS Statement are negative. Constitutional: Denies: fever Eyes: Denies: eye pain ENT: Denies: ear pain Respiratory: Denies: cough Cardiovascular: Denies: chest pain Endocrine: Denies: fatigue Gastrointestinal: Denies: vomiting Genitourinary: Denies: dysuria Musculoskeletal: Reports: as per HPI Skin: Denies: rash Neurological: Denies: weakness Past Medical History Past Medical History: Diabetes Mellitus, Eye Disorder, Hyperlipidemia, Osteoarthritis (OA), Thyroid Disorder Additional Past Medical History / Comment(s): SEE DR MELTON'S HISTORY AND PHYSICAL, MACULAR DEGENERATION, History of Any Multi-Drug Resistant Organisms: None Reported Past Surgical History: Hernia Repair, Joint Replacement, Tonsillectomy Additional Past Surgical History / Comment(s): thyroid removed, bilateral knee replacements, TLHA Past Anesthesia/Blood Transfusion Reactions: Postoperative Nausea & Vomiting (PONV) Past Psychological History: No Psychological Hx Reported Smoking Status: Never smoker Past Alcohol Use History: None Reported Past Drug Use History: None Reported - Past Family History Brother(s) Family Medical History: Cancer Mother Family Medical History: Myocardial Infarction ([place]) Father Family Medical History: Congestive Heart Failure (CHF) General Exam Limitations: physical limitation General appearance: alert, in no apparent distress Head exam: Present: normocephalic Eye exam: Present: normal appearance, PERRL ENT exam: Present: normal oropharynx Neck exam: Present: normal inspection. Absent: tenderness Respiratory exam: Present: normal lung sounds bilaterally Cardiovascular Exam: Present: regular rate, normal rhythm Expanded Peripheral pulses: 2+: Dorsalis Pedis (R), Dorsalis Pedis (L) GI/Abdominal exam: Present: soft. Absent: distended, tenderness Extremities exam: Present: tenderness (Superior to the right knee), other (No other areas of tenderness. Distal extremities are neurovascularly intact. Limited range of motion of right knee secondary to pain.) Neurological exam: Present: alert. Absent: motor sensory deficit Psychiatric exam: Present: normal affect, normal mood Skin exam: Present: normal color Course Vital Signs 10/18/19 17:38 Temperature 97.4 F L Pulse Rate 94 Respiratory 16 Rate Blood Pressure 140/70 O2 Sat by Pulse 95 Oximetry Medical Decision Making - Medical Decision Making Case was discussed with Dr. Juarez, who will admit. He does request medical consult for clearance. Disposition Clinical Impression: Femoral distal fracture Disposition: ADMITTED IP TO THIS HOSP Is patient prescribed a controlled substance at d/c from ED?: No Decision Time: 18:15
[2019-10-18] MEDS: SODIUM CHLORIDE 0.9% 1,000 ML IV SCH (18:58)
[2019-10-18 18:59] LABS: Basophils % (A) 0 %; Eosinophils % (A) 0 %; HCT 34.1 % (34.0-46.0); HGB 11.4 gm/dL (11.4-16.0); Lymphocytes # (A) 0.7 k/uL (1.0-4.8); Lymphocytes % (A) 10 %; MCH 31.9 pg (25.0-35.0); MCHC 33.5 g/dL (31.0-37.0); MCV 95.3 fL (80.0-100.0); Mean Platelet Volume 7.5; Monocytes # (A) 0.3 k/uL (0-1.0); Monocytes % (A) 4 %; Neutrophils % (A) 84 %; Platelet Count 248 k/uL (150-450); RBC 3.58 m/uL (3.80-5.40); RDW 13.1 % (11.5-15.5); WBC 7.1 k/uL (3.8-10.6)
[2019-10-18] MEDS: FAMOTIDINE 20 MG TAB PO SCH (22:20)
[2019-10-19 00:42] LABS: Glucose,Whole Blood 135 mg/dL (75-99)
[2019-10-19] MEDS: MORPHINE SULFATE 4 MG/ML SYRINGE IV PRN ×2 (04:44→11:05)
--- NOTE | 2019-10-19 09:03 | P.HPOR ---
History of Present Illness H&P Date: 10/19/19 Chief Complaint: Right femur fracture This is a 74-year-old female transferred from [facility] yesterday after sustaining injury to her right knee. The patient states that she was cleaning windows insider truck and went to step out of her truck when her right foot got caught and she was unable to move. She came out of the truck abruptly with her right foot planted and thinks she may have twisted her right leg. She was unable to ambulate after that. She did not fall to the ground. She states that she remained outside in the cold for about a half hour before someone was able to help her in the house. She continues to complain of pain about the right knee. She was found to have a periprosthetic fracture of the distal femur and transferred to [facility] under the care of Dr. Raghu Morris. Past Medical History Past Medical History: Diabetes Mellitus, Eye Disorder, Hyperlipidemia, Osteoarthritis (OA), Thyroid Disorder Additional Past Medical History / Comment(s): SEE DR MELTON'S HISTORY AND PHYSICAL, MACULAR DEGENERATION, History of Any Multi-Drug Resistant Organisms: None Reported Past Surgical History: Hernia Repair, Joint Replacement, Tonsillectomy Additional Past Surgical History / Comment(s): thyroid removed, bilateral knee replacements, TLHA Past Anesthesia/Blood Transfusion Reactions: Postoperative Nausea & Vomiting (PONV) Past Psychological History: No Psychological Hx Reported Smoking Status: Never smoker Past Alcohol Use History: None Reported Past Drug Use History: None Reported - Past Family History Brother(s) Family Medical History: Cancer Mother Family Medical History: Myocardial Infarction ([place]) Father Family Medical History: Congestive Heart Failure (CHF) Medications and Allergies Home Medications Medication Instructions Recorded Confirmed Type Vit C/E/Zn/Coppr/Lutein/Zeaxan 1 cap PO BID 03/10/15 10/18/19 History [Preservision Areds 2 Softgel] Aspirin EC [Ecotrin Low Dose] 81 mg PO DAILY #30 tablet. 03/13/15 10/18/19 Rx Lisinopril [Zestril] 5 mg PO HS 07/02/16 10/18/19 History Levothyroxine Sodium [Synthroid] 88 mcg PO DAILY 01/03/18 10/18/19 History Acetaminophen Tab [Tylenol Tab] 1,000 mg PO BID 10/18/19 10/18/19 History Atorvastatin [Lipitor] 20 mg PO HS 10/18/19 10/18/19 History Pantoprazole Sodium [Protonix] 40 mg PO BID 10/18/19 10/18/19 History metFORMIN HCL ER [Glucophage Xr] 500 mg PO HS 10/18/19 10/18/19 History Allergies Allergy/AdvReac Type Severity Reaction Status Date / Time No Known Allergies Allergy Verified 10/18/19 19:49 Physical Examination This is a pleasant 74-year-old female in no acute distress. She is alert and oriented 3. Exam of the head neck reveal no obvious deformity. She has full cervical spine motion without difficulty or pain. Exam of the upper extremities reveals no deformity. She has fairly good shoulder, elbow, wrist and finger motion bilaterally. Neurovascular status the upper extremities is intact. Exam of the lower extremities reveals that there is a knee immobilizer in place to the right leg. She has full foot and ankle motion bilaterally. No hip pain with logroll. Neurovascular status to the lower extremities is intact. Results X-rays of the right knee taken in [place] reveal a minimally displaced distal femoral periprosthetic fracture. No other fractures identified. - Labs Labs: Abnormal Lab Results - Last 24 Hours (Table) 10/18/19 10/19/19 Range/Units 18:32 00:38 RBC 3.58 L (3.80-5.40) m/uL Lymphocytes # 0.7 L (1.0-4.8) k/uL POC Glucose (mg/dL) 135 H (75-99) mg/dL H & H 10/18/19 Range/Units 18:32 Hgb 11.4 (11.4-16.0) gm/dL Hct 34.1 (34.0-46.0) % Result Diagrams: 10/18/19 18:32 Assessment and Plan (1) History of total bilateral knee replacement Current Visit: Yes Status: Acute Code(s): Z96.653 - PRESENCE OF ARTIFICIAL KNEE JOINT, BILATERAL SNOMED Code(s): 2252641770683 (2) History of left hip replacement Current Visit: Yes Status: Acute Code(s): Z96.642 - PRESENCE OF LEFT ARTIFICIAL HIP JOINT SNOMED Code(s): 038114667 (3) Femoral distal fracture Current Visit: Yes Status: Acute Code(s): S72.409A - UNSP FRACTURE OF LOWER END OF UNSP FEMUR, INIT FOR CLOS FX SNOMED Code(s): 255445666 (4) Diabetes Current Visit: No Status: Acute Code(s): E11.9 - TYPE 2 DIABETES MELLITUS WITHOUT COMPLICATIONS SNOMED Code(s): 77986411 (5) HTN (hypertension) Current Visit: No Status: Acute Code(s): I10 - ESSENTIAL (PRIMARY) HY PERTENSION SNOMED Code(s): 53437152 (6) Hyperlipemia Current Visit: No Status: Acute Code(s): E78.5 - HYPERLIPIDEMIA, UNSPECIFIED SNOMED Code(s): 41873585 (7) Periprosthetic fracture around internal prosthetic right knee joint Current Visit: Yes Status: Acute Code(s): M97.11XA - PERIPROSTH FRACTURE AROUND INTERNAL PROSTH R KNEE JT, INIT SNOMED Code(s): 742238549 Plan: The clinical and x-ray findings are discussed with the patient. I have reviewed the case with Dr. Raghu Morrsi. We will obtain a computed tomography scan for further assessment of the periprosthetic fracture and will discuss surgical versus non-surgical treatment. At this time she is nonweightbearing to the right lower extremity with a walker. Knee immobilizer should remain in place. I will consult physical therapy to do an evaluation for gait training.
--- NOTE | 2019-10-19 09:55 | XR ---
EXAMINATION TYPE: XR Hip RT and AP Pelvis DATE OF EXAM: 10/19/2019 COMPARISON: None HISTORY: Right hip pain TECHNIQUE: 2 view right hip with AP pelvis FINDINGS: Right femoral head articulates with the acetabulum. Joint spaces narrowed. No acute fractur es identified. Left hip prosthesis is present. Pelvis appears intact. Symphysis pubis and sacroiliac joints are inta ct. Normal bowel gas is present. IMPRESSION: 1. Moderate osteoarthritic degenerative change right hip
--- NOTE | 2019-10-19 10:47 | P.CRDCN ---
History of Present Illness History of present illness: HISTORY OF PRESENTING ILLNESS This is a pleasant 74-year-old female past medical history significant for mild nonobstructive coronary artery disease, diabetes mellitus, hypertension and dyslipidemia. She follows in the office with Dr. Deleon. We have been asked to see in consultation for preoperative evaluation. She states yesterday while she was cleaning the windows in her vehicle and her foot got stuck on the running board and she fell. On arrival to [facility] she was found to have a femur fracture. She was transferred here for further evaluation and surgery. She is seen and examined sitting up in bed with family at bedside in no acute distress. She denies chest pain, shortness of breath, dizziness or palpitations. She denies having any symptoms surrounding her fall. She did not get dizzy and there was no LOC. She recently underwent a Lexiscan stress test in the office August 2019 revealing a normal perfusion study with no evidence of stress-induced reversibility. Most recent echocardiogram obtained in the office July 2019 revealed preserved LV systolic function with ejection fraction 50% and mild MR DIAGNOSTICS EKG reveals sinus mechanism heart rate of 95. Laboratory reviewed, WBC 7.1, hemoglobin 11.4, platelets 248. Current cardiac medications include aspirin 81 mg daily, atorvastatin 20 mg daily and lisinopril 5 mg at bedtime. REVIEW OF SYSTEMS At the time of my exam: CONSTITUTIONAL: Denies fever or chills. CARDIOVASCULAR: Denies chest pain, shortness of breath, orthopnea, PND or palpitations. RESPIRATORY: Denies cough. GASTROINTESTINAL: Denies abdominal pain, diarrhea, constipation, nausea or vomiting. MUSCULOSKELETAL: Denies myalgias. NEUROLOGIC: Denies numbness, tingling or weakness. ENDOCRINE: Denies fatigue, weight change, polydipsia or polyurina. GENITOURINARY: Denies burning, hematuria or urgency with micturation. HEMATOLOGIC: Denies history of anemia or bleeding. PHYSICAL EXAMINATION Blood pressure 148/75 heart rate 83 afebrile and maintaining oxygen saturation on room air. CONSTITUTIONAL: No apparent distress. HEENT: Head is normocephalic. Pupils are equal, round. Sclerae anicteric. Mucous membranes of the mouth are moist. No JVD. No carotid bruit. CHEST EXAMINATION: Lungs are clear to auscultation. No chest wall tenderness is noted on palpation or with deep breathing. HEART EXAMINATION: Regular rate and rhythm. S1, S2 heard. Faint systolic ejection murmur at the left sternal border, no gallops or rub. ABDOMEN: Soft, nontender. Positive bowel sounds. EXTREMITIES: 2+ peripheral pulses, no lower extremity edema and no calf tenderness. NEUROLOGIC EXAMINATION: Patient is awake, alert and oriented x3. ASSESSMENT Right distal femoral fracture Hypertension Dyslipidemia Diabetes mellitus PLAN Stable from a cardiac perspective. No symptoms of angina or shortness of breath. Clinically she is euvolemic. No absolute contraindications to undergo surgical intervention. Recommend cautious fluid administration and optimal blood pressure control. Thank you kindly for this consultation. Nurse Practitioner note has been reviewed, I agree with a documented findings and plan of care. Patient was seen and examined. Past Medical History Past Medical History: Diabetes Mellitus, Eye Disorder, Hyperlipidemia, Osteoarthritis (OA), Thyroid Disorder Additional Past Medical History / Comment(s): SEE DR DELEON'S HISTORY AND PHYSICAL, MACULAR DEGENERATION, History of Any Multi-Drug Resistant Organisms: None Reported Past Surgical History: Hernia Repair, Joint Replacement, Tonsillectomy Additional Past Surgical History / Comment(s): thyroid removed, bilateral knee replacements, TLHA Past Anesthesia/Blood Transfusion Reactions: Postoperative Nausea & Vomiting (PONV) Past Psychological History: No Psychological Hx Reported Smoking Status: Never smoker Past Alcohol Use History: None Reported Past Drug Use History: None Reported - Past Family History Brother(s) Family Medical History: Cancer Mother Family Medical History: Myocardial Infarction ([place]) Father Family Medical History: Congestive Heart Failure (CHF) Medications and Allergies Home Medications Medication Instructions Recorded Confirmed Type Vit C/E/Zn/Coppr/Lutein/Zeaxan 1 cap PO BID 03/10/15 10/18/19 History [Preservision Areds 2 Softgel] Aspirin EC [Ecotrin Low Dose] 81 mg PO DAILY #30 tablet. 03/13/15 10/18/19 Rx Lisinopril [Zestril] 5 mg PO HS 07/02/16 10/18/19 History Levothyroxine Sodium [Synthroid] 88 mcg PO DAILY 01/03/18 10/18/19 History Acetaminophen Tab [Tylenol Tab] 1,000 mg PO BID 10/18/19 10/18/19 History Atorvastatin [Lipitor] 20 mg PO HS 10/18/19 10/18/19 History Pantoprazole Sodium [Protonix] 40 mg PO BID 10/18/19 10/18/19 History metFORMIN HCL ER [Glucophage Xr] 500 mg PO HS 10/18/19 10/18/19 History Allergies Allergy/AdvReac Type Severity Reaction Status Date / Time No Known Allergies Allergy Verified 10/18/19 19:49 Physical Exam Vitals: Vital Signs Temp Pulse Pulse Resp BP BP Pulse Ox 10/19/19 04:35 97.8 F 83 20 148/75 97 10/19/19 00:51 97.6 F 87 20 130/71 96 10/18/19 23:50 87 18 97 10/18/19 23:00 124/59 10/18/19 22:00 117/83 10/18/19 20:00 117/57 98 10/18/19 18:00 90 18 105/60 10/18/19 17:38 97.4 F L 94 16 140/70 95 Intake and Output 10/18/19 10/19/19 10/19/19 22:59 06:59 14:59 Intake Total 0 240 Output Total 600 Balance -600 240 Intake: Oral 0 240 Output: Urine 600 Other: Voiding Method Indwelling Catheter Weight 79.379 kg Results 10/18/19 18:32 CBC 10/18/19 Range/Units 18:32 WBC 7.1 (3.8-10.6) k/uL RBC 3.58 L (3.80-5.40) m/uL Hgb 11.4 (11.4-16.0) gm/dL Hct 34.1 (34.0-46.0) % Plt Count 248 (150-450) k/uL Current Medications Generic Name Dose Route Start Last Admin Trade Name Freq PRN Reason Stop Dose Admin Famotidine 20 mg 10/18/19 21:00 10/18/19 22:20 Pepcid PO 20 mg BID MIGUEL Administration Hydromorphone HCl 0.5 mg 10/18/19 18:15 10/18/19 23:52 Dilaudid IVP 0.5 mg Q3HR PRN Administration Moderate Pain Sodium Chloride 1,000 mls @ 75 mls/hr 10/18/19 18:15 10/18/19 18:58 Saline 0.9% IV 75 mls/hr .[id number] MIGUEL Administration Morphine Sulfate 4 mg 10/18/19 18:15 10/19/19 04:44 Morphine Sulfate (Inj) IV 4 mg Q4HR PRN Administration Severe Pain Naloxone HCl 0.2 mg 10/18/19 18:15 Narcan IV Q2M PRN Opioid Reversal Ondansetron HCl 4 mg 10/18/19 18:15 Zofran IVP Q8HR PRN Nausea And Vomiting Intake and Output 10/18/19 10/19/19 10/19/19 22:59 06:59 14:59 Intake Total 0 240 Output Total 600 Balance -600 240 Intake: Oral 0 240 Output: Urine 600 Other: Voiding Method Indwelling Catheter Weight 79.379 kg 10/18/19 18:32
[2019-10-19] MEDS: FAMOTIDINE 20 MG TAB PO SCH ×2 (10:51→21:33)
[2019-10-19] MEDS: SODIUM CHLORIDE 0.9% 1,000 ML IV SCH ×2 (11:11→20:55)
--- NOTE | 2019-10-19 14:04 | CT ---
EXAMINATION TYPE: CT knee RT wo con DATE OF EXAM: 10/19/2019 COMPARISON: None HISTORY: distal femur periprosthetic fx- surgical planning CT DLP: 886.7 mGycm Automated exposure control for dose reduction was used. FINDINGS: There is an oblique fracture from the dorsal metaphyseal femur to the anterior femoral component. No additional fractures are identified. Beam hardening artifact causes limitation at the level of the prosthesis. IMPRESSION: OBLIQUE FRACTURE DISTAL METAPHYSEAL RIGHT FEMUR EXTENDING TOWARDS THE ANTERIOR SUPERIOR PORTION OF TH E PROSTHESIS.
[2019-10-19] MEDS ORDERED: ACETAMINOPHEN TAB 325 MG TAB PO PRN (16:22)
--- NOTE | 2019-10-19 16:24 | P.CONS ---
History of Present Illness - Reason for Consult Consult date: 10/19/19 Medical management Requesting physician: Raghu Morris - Chief Complaint Femoral fracture - History of Present Illness 74 show female with PMH of diverticulitis, hypothyroidism, hypertension, coronary artery disease presents the ED after mechanical fall. On Wednesday she was attempting to clean her truck when she stepped off the railing in her right foot got caught under the car. Patient denied any loss of consciousness. Patient states that she experienced right lower extremity pain right after the fall and was unable to ambulate after that. She was able to present to [facility] yesterday. CT of the right knee shows oblique fracture distal metaphyseal right femoral extending towards the anterior superior portion of the prosthesis. Patient was transferred to [facility] for orthopedic evaluation. Patient was seen and examined. No acute events overnight. Patient reports well-controlled right lower extremity pain when not moving her extremity. She denies any chest pain, shortness of breath or palpitations. She denies any headache, lower cordell edema, nausea vomiting, fever or chills, cough, changes in urination or bowel habits. No changes in appetite or weight. Review of Systems Pertinent positives and negatives as discussed in HPI, a complete review of systems was performed and all other systems are negative. Past Medical History Past Medical History: Diabetes Mellitus, Eye Disorder, Hyperlipidemia, Osteoarthritis (OA), Thyroid Disorder Additional Past Medical History / Comment(s): SEE DR MELTON'S HISTORY AND PHYSICAL, MACULAR DEGENERATION, History of Any Multi-Drug Resistant Organisms: None Reported Past Surgical History: Hernia Repair, Joint Replacement, Tonsillectomy Additional Past Surgical History / Comment(s): thyroid removed, bilateral knee replacements, TLHA Past Anesthesia/Blood Transfusion Reactions: Postoperative Nausea & Vomiting (PONV) Past Psychological History: No Psychological Hx Reported Smoking Status: Never smoker Past Alcohol Use History: None Reported Past Drug Use History: None Reported - Past Family History Brother(s) Family Medical History: Cancer Mother Family Medical History: Myocardial Infarction (AK) Father Family Medical History: Congestive Heart Failure (CHF) Medications and Allergies Home Medications Medication Instructions Recorded Confirmed Type Vit C/E/Zn/Coppr/Lutein/Zeaxan 1 cap PO BID 03/10/15 10/18/19 History [Preservision Areds 2 Softgel] Aspirin EC [Ecotrin Low Dose] 81 mg PO DAILY #30 tablet. 03/13/15 10/18/19 Rx Lisinopril [Zestril] 5 mg PO HS 07/02/16 10/18/19 History Levothyroxine Sodium [Synthroid] 88 mcg PO DAILY 01/03/18 10/18/19 History Acetaminophen Tab [Tylenol Tab] 1,000 mg PO BID 10/18/19 10/18/19 History Atorvastatin [Lipitor] 20 mg PO HS 10/18/19 10/18/19 History Pantoprazole Sodium [Protonix] 40 mg PO BID 10/18/19 10/18/19 History metFORMIN HCL ER [Glucophage Xr] 500 mg PO HS 10/18/19 10/18/19 History Allergies Allergy/AdvReac Type Severity Reaction Status Date / Time No Known Allergies Allergy Verified 10/18/19 19:49 Physical Exam Vitals: Vital Signs Temp Pulse Pulse Resp BP BP Pulse Ox 10/19/19 12:12 97.7 F 86 16 122/72 96 10/19/19 04:35 97.8 F 83 20 148/75 97 10/19/19 00:51 97.6 F 87 20 130/71 96 10/18/19 23:50 87 18 97 10/18/19 23:00 124/59 10/18/19 22:00 117/83 10/18/19 20:00 117/57 98 10/18/19 18:00 90 18 105/60 10/18/19 17:38 97.4 F L 94 16 140/70 95 Intake and Output 10/19/19 10/19/19 10/19/19 06:59 14:59 22:59 Intake Total 0 560 Output Total 600 900 Balance -600 -340 Intake: Oral 0 560 Output: Urine 600 900 Other: Voiding Method Indwelling Catheter Indwelling Catheter Indwelling Catheter General: [non toxic], [no distress], [appears at stated age] Derm: [warm], [dry] Head: [atraumatic], [normocephalic], [symmetric] Eyes: [EOMI], [no lid lag], [anicteric sclera] Mouth: [no lip lesion], [mucus membranes moist] Cardiovascular: [S1S2 reg], [systolic murmur], [positive posterior tibial pulse bilateral], Lungs: [CTA bilateral], [no rhonchi, no rales] , [no accessory muscle use] Abdominal: [soft], [ nontender to palpation], [no guarding], [no appreciable organomegaly] Ext: [no gross muscle atrophy], [no edema], [no contractures], [right lower extremity brace in place] Neuro: [ CN II-XI grossly intact], [no focal neuro deficits] Psych: [Alert], [oriented], [appropriate affect] Results CBC & Chem 7: 10/18/19 18:32 Labs: Abnormal Lab Results - Last 24 Hours (Table) 10/18/19 10/19/19 Range/Units 18:32 00:38 RBC 3.58 L (3.80-5.40) m/uL Lymphocytes # 0.7 L (1.0-4.8) k/uL POC Glucose (mg/dL) 135 H (75-99) mg/dL Assessment and Plan Assessment: Hypertension Hypothyroidism Coronary artery disease Diabetes mellitus Right distal femoral fracture BP 122/72. Plans: Continue lisinopril. Monitor vitals, justifications as necessary. Plans: Continue Synthroid. Cardiac catheterization in 2014 shows mild LAD disease. Stress test done in 2018 negative. Plans: Resume Lipitor. Hold aspirin. Patient cleared for surgery from cardiology standpoint. Houqe-qg-nbyl glucose 135. Plans: Discontinue metformin. Regular Accu-Cheks. Hypoglycemic precautions Plans: Management as per orthopedic surgery. DVT prophylaxis: [Lovenox] Discussed with: [Patient and family] Anticipated discharge: [1-2 days] Anticipated discharge place: [Home versus rehab] A total of [45] minutes was spent on the care of this complex patient more than 50% of the time was spent in counseling and care coordination. Patient names her Javier decision maker if she can't make decisions for herself. Patient elected to be full code.
[2019-10-19] MEDS: ENOXAPARIN 40 MG/0.4 ML SYRINGE SQ SCH (16:51)
[2019-10-19] MEDS: ASPIRIN 81 MG PO SCH (16:52)
[2019-10-19] MEDS: LISINOPRIL 5 MG TAB PO SCH (21:33)
[2019-10-19] MEDS: ATORVASTATIN 20 MG TAB PO SCH (21:33)
[2019-10-19] MEDS: PANTOPRAZOLE 40 MG TABLET PO SCH (21:33)
[2019-10-19] MEDS: HYDROcodone/APAP 5-325MG 1 EACH TAB PO PRN (21:57)
[2019-10-20] MEDS: LEVOTHYROXINE 88 MCG TAB PO SCH (05:49)
[2019-10-20] MEDS: ENOXAPARIN 40 MG/0.4 ML SYRINGE SQ SCH (08:04)
[2019-10-20] MEDS: SODIUM CHLORIDE 0.9% 1,000 ML IV SCH ×2 (08:04→23:29)
[2019-10-20] MEDS: ASPIRIN 81 MG PO SCH (08:04)
[2019-10-20] MEDS: FAMOTIDINE 20 MG TAB PO SCH (08:04)
[2019-10-20] MEDS: PANTOPRAZOLE 40 MG TABLET PO SCH ×2 (08:04→21:10)
--- NOTE | 2019-10-20 08:54 | P.PN ---
Subjective Progress Note Date: 10/20/19 Principal diagnosis: Periprosthetic fracture right distal femur. This is a 74-year-old female admitted via transfer from [facility] on 10/18/2019 with a periprosthetic fracture to the distal femur. Computed tomography scan was done yesterday which shows the transverse fracture about the distal femur just proximal to the femoral component. The fracture is minimally displaced. The patient is stable from an orthopedic standpoint. She would like to consider inpatient rehab since she will be nonweightbearing to the right lower extremity for several weeks. Objective - Vital Signs Vital signs: Vital Signs Temp 97.9 F 10/20/19 04:33 Pulse 81 10/20/19 04:33 Resp 16 10/20/19 04:33 BP 143/69 10/20/19 04:33 Pulse Ox 95 10/20/19 04:33 Intake & Output 10/19/19 10/20/19 10/20/19 18:59 06:59 18:59 Intake Total 560 Output Total 900 875 Balance -340 -875 Intake: Oral 560 Output: Urine 900 875 Other: Voiding Method Indwelling Catheter Indwelling Catheter Indwelling Catheter # Voids 400 - Exam This is a pleasant 74-year-old female in no acute distress. She is alert and oriented 3. Her family is present at bedside. Exam of the right lower extremity reveals her knee immobilizer is in place. She has full foot and ankle motion without difficulty or pain. Neurovascular status to the lower extremity is intact. Pedal pulse +2/4. - Labs CBC & Chem 7: 10/18/19 18:32 Assessment and Plan (1) History of total bilateral knee replacement Current Visit: Yes Status: Acute Code(s): Z96.653 - PRESENCE OF ARTIFICIAL KNEE JOINT, BILATERAL SNOMED Code(s): 2548429636979 (2) History of left hip replacement Current Visit: Yes Status: Acute Code(s): Z96.642 - PRESENCE OF LEFT ARTIFICIAL HIP JOINT SNOMED Code(s): 392492348 (3) Femoral distal fracture Current Visit: Yes Status: Acute Code(s): S72.409A - UNSP FRACTURE OF LOWER END OF UNSP FEMUR, INIT FOR CLOS FX SNOMED Code(s): 669319806 (4) Diabetes Current Visit: No Status: Acute Code(s): E11.9 - TYPE 2 DIABETES MELLITUS W ITHOUT COMPLICATIONS SNOMED Code(s): 06534245 (5) HTN (hypertension) Current Visit: No Status: Acute Code(s): I10 - ESSENTIAL (PRIMARY) HYPERTENSION SNOMED Code(s): 70338251 (6) Hyperlipemia Current Visit: No Status: Acute Code(s): E78.5 - HYPERLIPIDEMIA, UNSPECIFIED SNOMED Code(s): 59673894 (7) Periprosthetic fracture around internal prosthetic right knee joint Current Visit: Yes Status: Acute Code(s): M97.11XA - PERIPROSTH FRACTURE AROUND INTERNAL PROSTH R KNEE JT, INIT SNOMED Code(s): 219625543 Plan: The clinical and radiographic findings are discussed with the patient. I have reviewed the case with Dr. Raghu Morris. We are electing to proceed with conservative treatment with nonoperative management of the fracture at this time. The patient has not yet been up with physical therapy and has not been evaluated by occupational therapy. We will plan inpatient rehab transfer on Wednesday if she is cleared medically. She is strict nonweightbearing right lower extremity with walker. We will repeat an x-ray Wednesday morning for follow-up prior to her transfer. The family is aware that she will require close monitoring with x-ray.
--- NOTE | 2019-10-20 09:05 | P.PN ---
Subjective Progress Note Date: 10/20/19 Principal diagnosis: Right distal femoral fracture Patient was seen and examined. No acute events overnight. Patient reports well controlled right lower extremity pain. Patient states that she has no pain when not moving. She denies any chest pain, shortness of breath or palpitations. No nausea or vomiting. No fever or chills. Objective - Vital Signs Vital signs: Vital Signs Temp 97.9 F 10/20/19 04:33 Pulse 81 10/20/19 04:33 Resp 16 10/20/19 04:33 BP 143/69 10/20/19 04:33 Pulse Ox 95 10/20/19 04:33 Intake & Output 10/19/19 10/20/19 10/20/19 18:59 06:59 18:59 Intake Total 560 Output Total 900 875 Balance -340 -875 Intake: Oral 560 Output: Urine 900 875 Other: Voiding Method Indwelling Catheter Indwelling Catheter Indwelling Catheter # Voids 400 - Exam General: [non toxic], [no distress], [appears at stated age] Derm: [warm], [dry] Head: [atraumatic], [normocephalic], [symmetric] Eyes: [EOMI], [no lid lag], [anicteric sclera] Mouth: [no lip lesion], [mucus membranes moist] Cardiovascular: [S1S2 reg], [systolic murmur], [positive DP pulse bilateral], Lungs: [CTA bilateral], [no rhonchi, no rales] , [no accessory muscle use] Abdominal: [soft], [ nontender to palpation], [no guarding], [no appreciable organomegaly] Ext: [no gross muscle atrophy], [no edema], [no contractures], [right lower extremity brace in place] Neuro: [no focal neuro deficits] Psych: [Alert], [oriented], [appropriate affect] - Labs CBC & Chem 7: 10/18/19 18:32 Assessment and Plan Assessment: Hypertension Hypothyroidism Coronary artery disease Diabetes mellitus Right distal femoral fracture BP 143/69. Plans: Continue lisinopril. Monitor vitals, justifications as necessary. Plans: Continue Synthroid. Cardiac catheterization in 2015 shows mild LAD disease. Stress test done in 2 018 negative. Plans: Resume Lipitor. No surgical intervention planned. Aspirin restarted. Mxhoc-ru-[id number] glucose 135. Plans: Discontinue metformin. Regular Accu-Cheks. Hypoglycemic precautions Plans: Management as per orthopedic surgery. [Plans for discharge to rehab on Wednesday. Plans for conservative management with orthopedic surgery. Patient will be nonweightbearing on her right lower e xtremity. Currently has Gilliam catheter which I recommend should be discontinued. This was discussed with RN taking care of the patient.]
[2019-10-20 09:26] LABS: Basophils % (A) 0 %; Eosinophils % (A) 1 %; HCT 33.6 % (34.0-46.0); HGB 11.1 gm/dL (11.4-16.0); Lymphocytes % (A) 19 %; MCH 31.6 pg (25.0-35.0); MCV 95.7 fL (80.0-100.0); Mean Platelet Volume 7.5; Monocytes # (A) 0.3 k/uL (0-1.0); Monocytes % (A) 6 %; Neutrophils # (A) 3.8 k/uL (1.3-7.7); Neutrophils % (A) 73 %; Platelet Count 256 k/uL (150-450); RBC 3.51 m/uL (3.80-5.40); RDW 13.3 % (11.5-15.5); WBC 5.2 k/uL (3.8-10.6)
[2019-10-20 09:33] LABS: Calcium 8.9 mg/dL (8.4-10.2); Potassium 4.7 mmol/L (3.5-5.1)
[2019-10-20] MEDS: MORPHINE SULFATE 4 MG/ML SYRINGE IV PRN (15:19)
[2019-10-20] MEDS: ATORVASTATIN 20 MG TAB PO SCH (21:09)
[2019-10-20] MEDS: LISINOPRIL 5 MG TAB PO SCH (21:10)
[2019-10-21] MEDS: LEVOTHYROXINE 88 MCG TAB PO SCH (06:07)
[2019-10-21] MEDS: ENOXAPARIN 40 MG/0.4 ML SYRINGE SQ SCH (08:35)
[2019-10-21] MEDS: FAMOTIDINE 20 MG TAB PO SCH (08:35)
[2019-10-21] MEDS: SODIUM CHLORIDE 0.9% 1,000 ML IV SCH (08:35)
[2019-10-21] MEDS: ASPIRIN 81 MG PO SCH (08:35)
[2019-10-21] MEDS: PANTOPRAZOLE 40 MG TABLET PO SCH ×2 (08:35→21:16)
--- NOTE | 2019-10-21 09:40 | P.PN ---
Subjective Progress Note Date: 10/21/19 This patient is a 74-year-old female who is admitted under the care of Dr. Raghu Morris via transfer from [facility], on 10/18/2019 with a periprosthetic fracture of the distal femur. Computed tomography scan performed on 10/19/19 shows a transverse fracture of the distal femur just proximal to the femoral component. The fracture is minimally displaced. Nonoperative treatment has been recommended with strict nonweightbearing on the right lower extremity and uses a knee immobilizer. Patient is examined bedside this morning. She states she is experiencing no pain currently while laying in bed. She states she only experiences pain when she is up working with PT. She states she worked with physical therapy yesterday, and was able to sit in the bedside chair. She otherwise feels very well this morning. She has no new complaints today. Patient is stable from an orthopedic standpoint. Vital signs stable. Objective - Vital Signs Vital signs: Vital Signs Temp 98.0 F 10/21/19 05:51 Pulse 85 10/21/19 05:51 Resp 16 10/21/19 05:51 BP 147/76 10/21/19 05:51 Pulse Ox 94 L 10/21/19 05:51 Intake & Output 10/20/19 10/21/19 10/21/19 18:59 06:59 18:59 Intake Total 300 Output Total 1600 925 Balance -1600 -925 300 Intake: Oral 300 Output: Urine 1600 925 Other: Voiding Method Indwelling Catheter Indwelling Catheter Indwelling Catheter # Bowel Movements 1 - Exam On examination, the patient is sitting up in bed in no apparent distress. She is alert and oriented 3. On inspection of the right lower extremity, there is a knee immobilizer in place. The patient has good strength and motion of her right ankle and toes. Right lower extremity is warm and well-perfused, dorsalis pedis pulse +2. Neurovascular status is intact to the right lower extremity. Gilliam catheter in place. - Labs CBC & Chem 7: 10/20/19 08:55 10/20/19 08:55 Labs: Abnormal Lab Results - Last 24 Hours (Table) 10/20/19 Range/Units 08:55 Sodium 135 L (137-145) mmol/L BUN 18 H (7-17) mg/dL Glucose 132 H (74-99) mg/dL Assessment and Plan Assessment: Periprosthetic fracture of the right distal femur Plan: We will continue with non-operative treatment. The patient is to remain strictly nonweightbearing on the right lower extremity with a walker. She is to keep the knee immobilizer in place at all times. Continue physical therapy and occupational therapy. Continue pain management PRN. Medical management per internal medicine. We will plan for transfer to inpatient rehab on Wednesday. We will obtain an x-ray Wednesday morning prior to the transfer. Patient will need close monitoring with x- ray after discharge.
[2019-10-21] MEDS: HYDROcodone/APAP 5-325MG 1 EACH TAB PO PRN (12:07)
--- NOTE | 2019-10-21 12:14 | P.PN ---
Subjective Progress Note Date: 10/21/19 Principal diagnosis: Right distal femoral fracture Patient was seen and examined. No acute events overnight. Patient reports well controlled right lower extremity pain. Patient states that she has no pain when not moving. She denies any chest pain, shortness of breath or palpitations. No nausea or vomiting. No fever or chills. She currently has a Gilliam catheter that is inserted. Multiple family members are at bedside. Objective - Vital Signs Vital signs: Vital Signs Temp 98.0 F 10/21/19 05:51 Pulse 85 10/21/19 05:51 Resp 16 10/21/19 05:51 BP 147/76 10/21/19 05:51 Pulse Ox 94 L 10/21/19 05:51 Intake & Output 10/20/19 10/21/19 10/21/19 18:59 06:59 18:59 Intake Total 300 Output Total 1600 925 Balance -1600 -925 300 Intake: Oral 300 Output: Urine 1600 925 Other: Voiding Method Indwelling Catheter Indwelling Catheter Indwelling Catheter # Bowel Movements 1 - Exam General: [non toxic], [no distress], [appears at stated age] Derm: [warm], [dry] Head: [atraumatic], [normocephalic], [symmetric] Eyes: [EOMI], [no lid lag], [anicteric sclera] Mouth: [no lip lesion], [mucus membranes moist] Cardiovascular: [S1S2 reg], [systolic murmur], [positive DP pulse bilateral], Lungs: [CTA bilateral], [no rhonchi, no rales] , [no accessory muscle use] Abdominal: [soft], [ nontender to palpation], [no guarding], [no appreciable organomegaly] Ext: [no gross muscle atrophy], [no edema], [no contractures], [right lower extremity brace in place] Neuro: [no focal neuro deficits] Psych: [Alert], [oriented], [appropriate affect] - Labs CBC & Chem 7: 10/20/19 08:55 10/20/19 08:55 Assessment and Plan Assessment: Hypertension Hypothyroidism Coronary artery disease Diabetes mellitus Right distal femoral fracture BP 147/76. Plans: Continue lisinopril. Monitor vitals, justifications as necessary. Plans: Continue Synthroid. Cardiac catheterization in 2015 shows mild LAD disease. Stress test done in 2018 negative. Plans: Resume Lipitor. No surgical intervention planned. Aspirin restarted. Zlxag-mq-eruw glucose 132. Plans: Discontinue metformin. Regular Accu-Cheks. Hypoglycemic precautions Plans: Management as per orthopedic surgery. [Plans for discharge to rehab [facility] on Wednesday. Plans for conservative management with orthopedic surgery. Patient will be nonweightbearing on her right lower extremity. Currently has Gilliam catheter which will be discontinued this afternoon, I discussed the risks of having Gilliam for prolonged period of time with the family. This was discussed with RN taking care of the patient.]
[2019-10-21] MEDS: LISINOPRIL 5 MG TAB PO SCH (21:16)
[2019-10-21] MEDS: ATORVASTATIN 20 MG TAB PO SCH (21:16)
[2019-10-22] MEDS: SODIUM CHLORIDE 0.9% 1,000 ML IV SCH ×2 (02:08→16:10)
[2019-10-22] MEDS: LEVOTHYROXINE 88 MCG TAB PO SCH (05:13)
[2019-10-22] MEDS: PANTOPRAZOLE 40 MG TABLET PO SCH ×2 (08:03→20:36)
[2019-10-22] MEDS: ENOXAPARIN 40 MG/0.4 ML SYRINGE SQ SCH (08:03)
[2019-10-22] MEDS: ASPIRIN 81 MG PO SCH (08:03)
[2019-10-22] MEDS: FAMOTIDINE 20 MG TAB PO SCH (08:03)
--- NOTE | 2019-10-22 10:42 | P.PN ---
Subjective Progress Note Date: 10/22/19 This patient is a 74-year-old female who is admitted under the care of Dr. Raghu Morris via transfer from [facility], on 10/18/2019 with a right periprosthetic fracture of the distal femur. Computed tomography scan performed on 10/19/19 shows a transverse fracture of the distal femur just proximal to the femoral component. The fracture is minimally displaced. Nonoperative treatment has been recommended with strict nonweightbearing on the right lower extremity and uses a knee immobilizer. Patient is examined bedside this morning. She states the pain in her right knee is well-controlled, she only experiences pain when up out of bed. She has not been up with therapy today. She continues to remain non-weight bearing on the right lower extremity in the knee immobilizer. She has no new complaints today. She denies chest pain, shortness of breath, nausea, vomiting. Vital signs stable. Objective - Vital Signs Vital signs: Vital Signs Temp 98.9 F 10/22/19 06:31 Pulse 82 10/22/19 06:31 Resp 18 10/22/19 06:31 BP 145/74 10/22/19 06:31 Pulse Ox 96 10/22/19 06:31 Intake & Output 10/21/19 10/22/19 10/22/19 18:59 06:59 18:59 Intake Total 600 400 Output Total 650 300 Balance -50 100 Intake: Oral 600 400 Output: Urine 650 300 Other: Voiding Method Bedpan Bedpan # Voids 2 - Exam On examination, the patient is sitting up in bed in no apparent distress. She is alert and oriented 3. On inspection of the right lower extremity, there is a knee immobilizer in place. The patient has good strength and motion of her right ankle and toes. Right lower extremity is warm and well-perfused, dorsalis pedis pulse +2. Neurovascular status is intact to the right lower extremity. Gilliam catheter has been removed. - Labs CBC & Chem 7: 10/20/19 08:55 10/20/19 08:55 Assessment and Plan Assessment: Periprosthetic fracture of the right distal femur Plan: We will continue with non-operative treatment. The patient is to remain strictly nonweightbearing on the right lower extremity with a walker. She is to keep the knee immobilizer in place at all times. Continue physical therapy and occupational therapy. Continue pain management PRN. Medical management per internal medicine. We will plan for transfer to inpatient rehab on Wednesday. We will obtain an x-ray Wednesday morning prior to the transfer. Patient will need close monitoring with x- ray after discharge, which was discussed with the patient.
--- NOTE | 2019-10-22 13:35 | P.PN ---
Subjective Progress Note Date: 10/22/19 Principal diagnosis: Right distal femoral fracture Patient was seen and examined. No acute events overnight. Patient reports well controlled right lower extremity pain. Patient states that she has no pain when not moving. She denies any chest pain, shortness of breath or palpitations. No nausea or vomiting. No fever or chills. Only catheter was discontinued yesterday and switched to external catheter. Objective - Vital Signs Vital signs: Vital Signs Temp 98.9 F 10/22/19 06:31 Pulse 82 10/22/19 06:31 Resp 18 10/22/19 06:31 BP 145/74 10/22/19 06:31 Pulse Ox 96 10/22/19 06:31 Intake & Output 10/21/19 10/22/19 10/22/19 18:59 06:59 18:59 Intake Total 600 400 Output Total 650 300 Balance -50 100 Intake: Oral 600 400 Output: Urine 650 300 Other: Voiding Method Bedpan Bedpan # Voids 2 - Exam General: [non toxic], [no distress], [appears at stated age] Derm: [warm], [dry] Head: [atraumatic], [normocephalic], [symmetric] Eyes: [EOMI], [no lid lag], [anicteric sclera] Mouth: [no lip lesion], [mucus membranes moist] Cardiovascular: [S1S2 reg], [systolic murmur], [positive DP pulse bilateral], Lungs: [CTA bilateral], [no rhonchi, no rales] , [no accessory muscle use] Abdominal: [soft], [ nontender to palpation], [no guarding], [no appreciable organomegaly] Ext: [no gross muscle atrophy], [no edema], [no contractures], [right lower extremity brace in place] Neuro: [no focal neuro deficits] Psych: [Alert], [oriented], [appropriate affect] - Labs CBC & Chem 7: 10/20/19 08:55 10/20/19 08:55 Assessment and Plan Assessment: Hypertension Hypothyroidism Coronary artery disease Diabetes mellitus Right distal femoral fracture BP 145/74. Plans: Continue lisinopril. Monitor vitals, justifications as necessary. Plans: Continue Synthroid. Cardiac catheterization in 2014 shows mild LAD disease. Stress test done in 2018 negative. Plans: Resume Lipitor. No surgical intervention planned. Aspirin restarted. Tcljq-fe-jcqm glucose 132. Plans: Discontinue metformin. Regular Accu-Cheks. Hypoglycemic precautions Plans: Management as per orthopedic surgery. [Plans for discharge to rehab [facility] on Wednesday. Plans for conservati ve management with orthopedic surgery. Patient will be nonweightbearing on her right lower extremity.]
[2019-10-22] MEDS: HYDROcodone/APAP 5-325MG 1 EACH TAB PO PRN (17:56)
[2019-10-22] MEDS: LISINOPRIL 5 MG TAB PO SCH (20:32)
[2019-10-22] MEDS: ATORVASTATIN 20 MG TAB PO SCH (20:32)
[2019-10-22 22:26] VITALS: RESP 18
[2019-10-23] MEDS: SODIUM CHLORIDE 0.9% 1,000 ML IV SCH (05:56)
[2019-10-23] MEDS: LEVOTHYROXINE 88 MCG TAB PO SCH (05:57)
[2019-10-23] MEDS: PANTOPRAZOLE 40 MG TABLET PO SCH (08:20)
[2019-10-23] MEDS: ENOXAPARIN 40 MG/0.4 ML SYRINGE SQ SCH (08:20)
[2019-10-23] MEDS: ASPIRIN 81 MG PO SCH (08:20)
[2019-10-23] MEDS: FAMOTIDINE 20 MG TAB PO SCH (08:20)
--- NOTE | 2019-10-23 09:57 | P.PN ---
Subjective Chart was reviewed patient was seen and examined. She does not have any new complaints today. Objective - Vital Signs Vital signs: Vital Signs Temp 98.3 F 10/23/19 05:00 Pulse 79 10/23/19 05:00 Resp 18 10/23/19 05:00 BP 123/67 10/23/19 05:00 Pulse Ox 96 10/23/19 05:00 Intake & Output 10/22/19 10/23/19 10/23/19 18:59 06:59 18:59 Intake Total 300 300 Output Total 400 200 0 Balance -400 100 300 Intake: Oral 300 300 Output: Urine 400 200 Stool 0 0 Other: Voiding Method Bedpan - Exam Vital Signs: I have reviewed the vital signs. GENERAL awake and alert oriented 3 Eyes: PERRL, extraoculry movements intact, clear conjunctiva Head: : Atraumatic external nose and ears, oropharyngeal mucosa is moist without lesions or exudates Neck: Symmetric, trachea midline, No thyromegaly, no masses or neck vain pulsation, no neck rigidity CVS: +S1/S2, No murmurs or gallops. Peripheral pulses 2+ and equal in all extremities. RESP: Unlabored respiratory effort. Clear to auscultation bilaterally. Abdomen: Bowel sounds present in all 4 quadrants, Soft to palpation, Nontender/Nondistended, No hepatosplenomegaly, no hernias or masses, no CVA tnderness - Labs CBC & Chem 7: 10/20/19 08:55 10/20/19 08:55 Assessment and Plan Assessment: 1. Hypertension 2. Hypothyroidism 3. Type 2 diabetes mellitus 4. Fall Patient is stable for discharge from medicine standpoint and I do not anticipate any changes in her home medication time of discharge. She should certainly follow-up with her primary care physician closely and have TSH checked on outpatient basis.
--- NOTE | 2019-10-23 10:23 | XR ---
EXAMINATION TYPE: XR knee complete RT DATE OF EXAM: 10/23/2019 CLINICAL HISTORY: Follow-up fracture TECHNIQUE: Three views of the right knee are obtained. COMPARISON: October 18, 2019 FINDINGS: There is distal right femoral diametaphyseal fracture noted with mild angulation. Displacem ent of 4.7 mm noted. Total knee arthroplasty noted to be in place with the femoral and tibial compone nts appearing well seated. Associated soft tissue swelling identified. IMPRESSION: Fracture as described.
--- NOTE | 2019-10-23 12:00 | P.DS ---
Providers Date of admission: 10/18/19 18:16 Expected date of discharge: 10/23/19 Attending physician: Raghu Morris Consults: 10/18/19 18:32 Consult Physician Urgent Consulting Provider: Joey Salter Consult Reason/Comments: medical clearance Do you want consulting provider notified?: Yes 10/19/19 08:02 Consult Physician Stat Consulting Provider: Jake Muir Consult Reason/Comments: medical clearance, known CAD Do you want consulting provider notified?: Yes Primary care physician: Rupinder Montanez - Discharge Diagnosis(es) (1) History of total bilateral knee replacement Current Visit: Yes Status: Acute (2) History of left hip replacement Current Visit: Yes Status: Acute (3) Femoral distal fracture Current Visit: Yes Status: Acute (4) Diabetes Current Visit: No Status: Acute (5) HTN (hypertension) Current Visit: No Status: Acute (6) Hyperlipemia Current Visit: No Status: Acute (7) Periprosthetic fracture around internal prosthetic right knee joint Current Visit: Yes Status: Acute Hospital Course: This patient is a 74-year-old female who is admitted under the care of Dr. Raghu Morris via transfer from [facility], on 10/18/2019 with a right periprosthetic fracture of the distal femur. Computed tomography scan performed on 10/19/19 shows a transverse fracture of the distal femur just proximal to the femoral component. The fracture is minimally displaced. Nonoperative treatment has been recommended with strict nonweightbearing on the right lower extremity and uses a knee immobilizer. The patient is doing well on 10/23/2019. She has worked with physical therapy and patient therapy. It is recommended that she be transferred to inpatient rehab for PT and OT. She is strict nonweightbearing to the right lower extremity with walker. Plan - Discharge Summary Discharge Rx Participant: No New Discharge Prescriptions: New HYDROcodone/APAP 5-325MG [[place] 5-325] 1 each PO Q4HR PRN #30 tab PRN Reason: Moderate Pain Continue Aspirin EC [Ecotrin Low Dose] 81 mg PO DAILY #[address] tablet.[address] Usha Cohen Vit C/E/Zn/Coppr/Lutein/Zeaxan [Preservision Areds 2 Softgel] 1 cap PO BID Lisinopril [Zestril] 5 mg PO HS Levothyroxine Sodium [Synthroid] 88 mcg PO DAILY Atorvastatin [Lipitor] 20 mg PO HS Acetaminophen Tab [Tylenol Tab] 1,000 mg PO BID Pantoprazole Sodium [Protonix] 40 mg PO BID metFORMIN HCL ER [Glucophage Xr] 500 mg PO HS Discharge Medication List Vit C/E/Zn/Coppr/Lutein/Zeaxan [Preservision Areds 2 Softgel] 1 cap PO BID 03/10/15 [History] Aspirin EC [Ecotrin Low Dose] 81 mg PO DAILY #30 tablet. 03/13/15 [Rx] Lisinopril [Zestril] 5 mg PO HS 07/02/16 [History] Levothyroxine Sodium [Synthroid] 88 mcg PO DAILY 01/03/18 [History] Acetaminophen Tab [Tylenol Tab] 1,000 mg PO BID 10/18/19 [History] Atorvastatin [Lipitor] 20 mg PO HS 10/18/19 [History] Pantoprazole Sodium [Protonix] 40 mg PO BID 10/18/19 [History] metFORMIN HCL ER [Glucophage Xr] 500 mg PO HS 10/18/19 [History] HYDROcodone/APAP 5-325MG [[place] 5-325] 1 each PO Q4HR PRN #30 tab 10/23/19 [Rx] Follow up Appointment(s)/Referral(s): Rigoberto Deleon MD [STAFF PHYSICIAN] - 4 Weeks Rupinder Montanez DO [Primary Care Provider] - 1-2 days Raghu Morris DO [Doctor of Osteopathic Medicine] - 10 Days Activity/Diet/Wound Care/Special Instructions: Strict nonweightbearing right lower extremity with walker. Check skin daily for sores. Maintain knee immobilizer. Discharge Disposition: TRANSFER TO SNF/ECF
[2019-10-23 14:58] VITALS: BP 121/73; PULSE 80; TEMP 99.2
== END 2019-10-23 16:40 | DRG 534 ==
LOC: EC 17:34 → 4SSUR 18:16 → 6NMEDSUR 23:42
PROVIDERS: ADMIT Orthopaedic Surgery; ATTEND Orthopaedic Surgery
DX: S72.491A Other fracture of lower end of right femur, initial encounter for closed fracture (principal); M97.11XA Periprosthetic fracture around internal prosthetic right knee joint, initial encounter; E78.5 Hyperlipidemia, unspecified; E11.9 Type 2 diabetes mellitus without complications; M19.90 Unspecified osteoarthritis, unspecified site; H35.30 Unspecified macular degeneration; I10 Essential (primary) hypertension; I25.10 Atherosclerotic heart disease of native coronary artery without angina pectoris; R11.2 Nausea with vomiting, unspecified; E03.9 Hypothyroidism, unspecified; X50.1XXA Overexertion from prolonged static or awkward postures, initial encounter; Z79.899 Other long term (current) drug therapy; Z79.890 Hormone replacement therapy; Z79.82 Long term (current) use of aspirin; Z79.84 Long term (current) use of oral hypoglycemic drugs; Z87.19 Personal history of other diseases of the digestive system; Z96.642 Presence of left artificial hip joint; Z96.653 Presence of artificial knee joint, bilateral; Z98.890 Other specified postprocedural states; Z82.49 Family history of ischemic heart disease and other diseases of the circulatory system; Z80.9 Family history of malignant neoplasm, unspecified
CPT/HCPCS: 73502; 80048; 85025; 93005; 96374; 99285

== ENCOUNTER 2019-11-06 09:55 | Inpatient (IN) | payer MEDICARE ==
[2019-11-06] MEDS ORDERED: HYDROcodone/APAP 5-325MG 1 EACH TAB PO PRN (12:00)
[2019-11-06 12:15] LABS: Glucose,Whole Blood 101 mg/dL (75-99)
[2019-11-06 12:40] LABS: Albumin 3.6 g/dL (3.5-5.0); Calcium 8.8 mg/dL (8.4-10.2); Total Bilirubin 0.3 mg/dL (0.2-1.3); Total Protein 6.1 g/dL (6.3-8.2)
[2019-11-06 12:42] LABS: INR 0.9 (<1.2); Partial Thromboplastin Time 22.2 sec (22.0-30.0); Prothrombin Time 9.6 sec (9.0-12.0)
[2019-11-06 13:14] LABS: Basophils % (A) 0 %; Eosinophils # (A) 0.1 k/uL (0-0.7); Eosinophils % (A) 1 %; HCT 34.2 % (34.0-46.0); HGB 11.3 gm/dL (11.4-16.0); Lymphocytes # (A) 0.9 k/uL (1.0-4.8); Lymphocytes % (A) 15 %; MCH 31.9 pg (25.0-35.0); MCHC 33.1 g/dL (31.0-37.0); MCV 96.3 fL (80.0-100.0); Mean Platelet Volume 7.5; Monocytes # (A) 0.3 k/uL (0-1.0); Monocytes % (A) 5 %; Neutrophils # (A) 4.5 k/uL (1.3-7.7); Neutrophils % (A) 77 %; Platelet Count 310 k/uL (150-450); RBC 3.55 m/uL (3.80-5.40); RDW 13.2 % (11.5-15.5); WBC 5.8 k/uL (3.8-10.6)
--- NOTE | 2019-11-06 13:15 | P.HPOR ---
History of Present Illness H&P Date: 11/06/19 This patient is a 74-year-old female who sustained a fall on 10/18/19. She was initially evaluated at [facility], where x-rays were taken and revealed a right periprosthetic fracture of the distal femur. She was transferred to [facility], and was admitted under the care of Dr. Raghu Morris on 10/18/19. Nonoperative treatment was recommended at that time with strict nonweightbearing on the right lower extremity with a walker and a knee immobilizer. Patient was discharged to [facility] on 10/23/19. She was followed by Dr. Morris on an outpatient basis, and operative treatment was recommended at that time. Patient was direct admitted to Dr. Morris on 11/06/19, and is scheduled to undergo an ORIF of right periprosthetic distal femur fracture on 11/07/19 pending medical clearance. Past Medical History Past Medical History: Diabetes Mellitus, Eye Disorder, Hyperlipidemia, Hypertension, Osteoarthritis (OA), Thyroid Disorder Additional Past Medical History / Comment(s): fx rt femur,hx "borderline diabetes", MACULAR DEGENERATION chaz eyes History of Any Multi-Drug Resistant Organisms: None Reported Past Surgical History: Hernia Repair, Tonsillectomy Additional Past Surgical History / Comment(s): thyroid removed, bilateral knee replacements, TLHA Past Anesthesia/Blood Transfusion Reactions: No Reported Reaction Type of Cardiac Device: Loop Device Placement Date:: 2016 left chest Smoking Status: Never smoker - Past Family History Brother(s) Family Medical History: No Reported History Mother Family Medical History: Myocardial Infarction (DC) Father Family Medical History: Congestive Heart Failure (CHF) Medications and Allergies Home Medications Medication Instructions Recorded Confirmed Type Aspirin EC [Ecotrin Low Dose] 81 mg PO DAILY #30 tablet. 03/13/15 11/03/19 Rx Lisinopril [Zestril] 5 mg PO QAM 07/02/16 11/03/19 History Levothyroxine Sodium [Synthroid] 88 mcg PO QAM 01/03/18 11/03/19 History Atorvastatin [Lipitor] 20 mg PO HS 10/18/19 11/03/19 History Pantoprazole Sodium [Protonix] 40 mg PO BID 10/18/19 10/18/19 History metFORMIN HCL ER [Glucophage Xr] 500 mg PO HS 10/18/19 11/03/19 History Acetaminophen Tab [Tylenol] 650 mg PO Q6HR PRN tab 10/23/19 11/03/19 Rx Enoxaparin [Lovenox] 40 mg SQ DAILY syringe 10/23/19 11/03/19 Rx HYDROcodone/APAP 5-325MG [[place] 1 each PO Q4HR PRN #30 tab 10/23/19 11/03/19 Rx 5-325] Vitc/E/Zinc/Copper/Lutein/Zeax 1 each PO BID 11/03/19 11/03/19 History [Icaps Areds2 Tablet] Allergies Allergy/AdvReac Type Severity Reaction Status Date / Time No Known Allergies Allergy Verified 10/18/19 19:49 Physical Examination Patient was examined on 11/03/[address] Morris. Examination reveals pain around the right knee. Immobilizer is intact. Neurovascular circulatory status are intact. Results x-rays of the right knee taken at [facility] dated 11/03/19 shows a periprosthetic fracture of the distal femur with anterior displacement of the proximal fragment. - Labs Labs: Abnormal Lab Results - Last 24 Hours (Table) 11/06/19 Range/Units 12:14 POC Glucose (mg/dL) 101 H (75-99) mg/dL Result Diagrams: 11/06/19 12:14 Assessment and Plan Assessment: Pperiprosthetic fracture right distal femur with displacement. Plan: - We will plan for an ORIF of the right periprosthetic distal femur fracture tomorrow with Dr. Morris, pending medical clearance. - PRN pain management. - NPO diet at midnight. Patient discussed with Dr. Morris.
--- NOTE | 2019-11-06 14:22 | XR ---
EXAMINATION TYPE: XR chest 1V portable DATE OF EXAM: 11/06/2019 COMPARISON: NONE HISTORY: Preoperative clearance TECHNIQUE: Single frontal view of the chest is obtained. FINDINGS: There is no focal air space opacity, pleural effusion, or pneumothorax seen. Cardiac loop recorder is identified. The cardiac silhouette size is within normal limits. The osseous structures are intact but demineralized with degenerative changes of the spine and shoulders. IMPRESSION: No acute process.
[2019-11-06] MEDS ORDERED: ACETAMINOPHEN TAB 325 MG TAB PO PRN (16:41)
[2019-11-06] MEDS ORDERED: ALPRAZolam 0.25 MG TAB PO PRN (16:43)
[2019-11-06] MEDS ORDERED: TEMAZEPAM 15 MG CAP PO PRN (16:43)
[2019-11-06 17:06] LABS: Glucose,Whole Blood 107 mg/dL (75-99)
[2019-11-06] MEDS: INSULIN ASPART (NovoLOG) 100 UNIT/ML VIAL SQ SCH ×2 (17:14→22:30)
[2019-11-06] MEDS: metFORMIN 500 MG TAB PO SCH (17:25)
[2019-11-06] MEDS: VIT A,C & E-LUTEIN-MINERALS 1 EACH TAB PO SCH (20:14)
[2019-11-06] MEDS: PANTOPRAZOLE 40 MG TABLET PO SCH (20:14)
[2019-11-06] MEDS: ATORVASTATIN 20 MG TAB PO SCH (20:14)
[2019-11-06 21:46] LABS: Glucose,Whole Blood 153 mg/dL (75-99)
--- NOTE | 2019-11-06 23:23 | CONS ---
CONSULTATION DATE OF SERVICE: 11/06/2019 REASON FOR CONSULTATION: Advice regarding multiple medical issues including diabetes mellitus as well as preoperative clearance. HISTORY OF PRESENT ILLNESS: This 74-year-old woman with a past medical history of diabetes type 2, hypertension, hyperlipidemia, hypothyroidism, history of thyroid removal, being followed by Dr. Rupinder Montanez in the outpatient setting had suffered a right femur distal periprosthetic fracture. The patient was in [facility] under the care of Dr. Elaine for PT/OT rehabilitation. Dr. Morris is planning surgery tomorrow and the patient directly admitted to [facility] for further evaluation and treatment. There is no history of fever, rigors or chills. No history of headache, loss of consciousness, chest pain, palpitations, shortness of breath, hematochezia or melena at this time. PAST MEDICAL HISTORY: Diabetes type 2, hypertension, history of DJD, history of macular degeneration, history of hernia repair. MEDICATIONS: Medications prior to admission include home medications are: 1. Glucophage XR 500 mg q.h.s. 2. Vitamin C. 3. Zestril 5 mg daily. 4. Synthroid 88 mcg p.o. daily. 5. [place] 5 mg q.4 p.r.n. 6. Lovenox 40 mg subcu daily. 7. Lipitor 20 mg daily. 8. Ecotrin 81 mg p.o. daily. 9. Tylenol 650 q.6h p.r.n. 10.Protonix 40 mg p.o. b.i.d. ALLERGIES: None. FAMILY HISTORY: History of myocardial infarction in the family. SOCIAL HISTORY: No history of smoking. No history of alcohol intake. REVIEW OF SYSTEMS: ENT: No diminished vision. No diminished hearing. CARDIOVASCULAR: No angina or palpitations. Respiration: No cough or hemoptysis. GI no nausea or vomiting. no dysuria. Nervous System: As mentioned earlier. ALLERGY/IMMUNOLOGY: No asthma or hayfever. MUSCULOSKELETAL: As mentioned earlier. HEMATOLOGY/ONCOLOGY: No history of anemia. ENDOCRINE: History of diabetes. CONSTITUTIONAL: As mentioned earlier. DERMATOLOGY: Negative. RHEUMATOLOGY negative. PSYCHIATRY as mentioned earlier. PHYSICAL EXAMINATION: Alert and oriented times three. Pulse 79, blood pressure 127/60, respiration 16, temperature 97.7, pulse ox 94% on room air. HEENT conjunctivae normal. NECK: No JVD. CARDIOVASCULAR: S1, S2 muffled. RESPIRATORY: Breath sounds diminished in the bases. No rhonchi. No crackles. ABDOMEN: Soft, nontender. No mass palpable. LEGS status post hip fracture. NERVOUS SYSTEM: Higher functions as mentioned earlier. Moves all 4 limbs. No focal motor or sensory deficits. LYMPHATICS: No lymph nodes palpable in the neck, axillae or groin. SKIN: No ulcers. No rashes and no bleeding. JOINTS: No active deforming arthropathy. LABS: WBC 5.3, hemoglobin 7.3, sodium 130, potassium 5. Glucose 101, alkaline phosphatase 213, total protein 6.1. ASSESSMENT: 1. Status post right femur periprosthetic fracture. 2. Gait dysfunction. 3. Hyponatremia. 4. Anemia, normocytic anemia of chronic disease. 5. Diabetes mellitus type 2. 6. Hyperlipidemia. 7. Hypertension. 8. History of degenerative joint disease. 9. Hypothyroidism. 10.History of macular degeneration. 11.Anemia. 12.Hyponatremia. RECOMMENDATIONS AND DISCUSSION: This 74-year-old woman who presented with multiple medical issues, at this time, I recommend to continue current medications, management and symptomatic treatment. Continue the home medications. DVT prophylaxis. Incentive spirometry. I would also recommend repeat labs, chest x-ray, EKG. Patient is cleared for surgery at this time. Patient is stable. We will continue to monitor. A copy of this dictation being forwarded to Dr. Rupinder Montanez who is the primary physician. MMROBERTL / MISTYN: [id number] /
[2019-11-07] MEDS: LEVOTHYROXINE 88 MCG TAB PO SCH (05:47)
[2019-11-07 06:51] LABS: Glucose,Whole Blood 104 mg/dL (75-99)
[2019-11-07] MEDS: metFORMIN 500 MG TAB PO SCH ×2 (07:04→20:06)
[2019-11-07] MEDS: INSULIN ASPART (NovoLOG) 100 UNIT/ML VIAL SQ SCH ×3 (07:04→20:12)
[2019-11-07] MEDS: VIT A,C & E-LUTEIN-MINERALS 1 EACH TAB PO SCH ×2 (07:04→20:04)
[2019-11-07] MEDS: LISINOPRIL 5 MG TAB PO SCH (07:04)
[2019-11-07] MEDS: PANTOPRAZOLE 40 MG TABLET PO SCH ×2 (07:04→20:06)
[2019-11-07 11:50] LABS: Glucose,Whole Blood 95 mg/dL (75-99)
[2019-11-07 12:03] VITALS: BMI 32.5
[2019-11-07] MEDS ORDERED: DEXAMETHASONE SOD PHOSPHATE 10 MG/ML 1 ML VIAL IV ONE (12:45)
[2019-11-07] MEDS ORDERED: LIDOCAINE 1% (10MG/ML) FOR IV START INTRADERMA ONE (12:45)
[2019-11-07] MEDS ORDERED: ONDANSETRON 4 MG/2 ML VIAL IVP ONE (12:45)
[2019-11-07] MEDS ORDERED: LACTATED RINGERS 1,000 ML IV ONE ×2 (12:50→15:26)
[2019-11-07 13:05] LABS: Glucose,Whole Blood 90 mg/dL (75-99)
[2019-11-07] MEDS ORDERED: MIDAZOLAM 2 MG/2 ML VIAL ONE (14:36)
[2019-11-07] MEDS ORDERED: KETAMINE 10 MG/ML 20 ML VIAL ONE (14:36)
[2019-11-07] MEDS ORDERED: PROPOFOL 10 MG/ML 20 ML VIAL IV ONE (14:36)
[2019-11-07] MEDS ORDERED: ceFAZolin 3,000 MG in SODIUM CHLORIDE 0.9% IRRIGATIO 3,000 ML IRRIGATION ONE (15:19)
--- NOTE | 2019-11-07 17:20 | P.OP ---
Date of Procedure: 11/07/19 Preoperative Diagnosis: Periprosthetic fracture right distal femur Postoperative Diagnosis: Periprosthetic fracture right distal femur Procedure(s) Performed: Open reduction and internal fixation periprosthetic fracture right distal femur Implants: [employer] Distal Femoral locking plate Anesthesia: spinal Surgeon: Raghu Morris Mine Safety Manager #1: Cassandra Mccann Estimated Blood Loss (ml): 300 Pathology: none sent Condition: stable Disposition: PACU Indications for Procedure: This is a 74-year-old female that presented to the hospital last week after falling. She sustained a periprosthetic fracture of the right distal femur just proximal to a right total knee arthroplasty. Initially the fracture was minimally displaced and patient was treated with closed methods. On her follow- up the fracture found to be displaced. After discussing the surgical nonsurgical treatment options with her and her at length, I recommended open reduction and internal fixation of the distal femur periprosthetic fracture. Informed consent was obtained. Operative Findings: Operative findings are consistent with a comminuted periprosthetic fracture right distal femur just proximal to the right total knee arthroplasty Description of Procedure: The patient was seen and evaluated in the preoperative area. The consent was reviewed and the operative site was marked with a skin marker. Patient was then brought to the operating room and given 2 g of Ancef by the anesthesia department. A general anesthetic was then administered by the anesthesia department. The lower extremity was then prepped and draped in the usual sterile fashion. A universal timeout was then performed which confirmed the patient's name, surgical site, ALLERGIES, and consent. Procedure began by making a lateral incision at the knee and extending the incision down to the lateral epicondyle. Next the appropriate length plate was inserted percutaneously after reduction was obtained. Fluoroscopic x-rays confirmed concentric reduction and placement of the plate laterally and AP. Provisional pins were placed in the plate. Next, the appropriate screws were then drilled and placed distally. Next using the targeting guide, screws then placed proximally through stab incisions. After all the screws been placed the targeting guide was then removed. Fluoroscopic x-rays confirmed concentric reduction of the fracture and anatomic placement of the plate and screws. Wound was then irrigated and closed closed with 2-0 Vicryl for the subcutaneous tissue and madisyn for the skin. Sterile dressings were applied, and a well- padded knee immobilizer was placed. Patient was then transported to the recovery room in stable condition. The visual merchandising assistant Cassandra Mccann NP was required due to the complexity of the surgery and the need for a skilled surgical scheduler.
[2019-11-07] MEDS ORDERED: NA PHOS,M-B/NA PHOS,DI-BA 133 ML ENEMA RECTAL PRN (17:38)
[2019-11-07] MEDS ORDERED: BISACODYL 10 MG SUPP RECTAL PRN (17:38)
[2019-11-07] MEDS ORDERED: HYDROmorphone 0.5 MG/0.5 ML SYRINGE IVP PRN ×3 (17:38)
[2019-11-07] MEDS ORDERED: ONDANSETRON 4 MG/2 ML VIAL IVP PRN (17:38)
[2019-11-07] MEDS ORDERED: hydrOXYzine PAMOATE 25 MG CAP PO PRN (17:38)
[2019-11-07] MEDS ORDERED: MAGNESIUM HYDROXIDE 2,400 MG/10 ML CUP PO PRN (17:38)
[2019-11-07] MEDS ORDERED: HYDROcodone/APAP 5-325MG 1 EACH TAB PO PRN (17:38)
[2019-11-07] MEDS ORDERED: NALOXONE 0.4 MG/ML 1 ML VIAL IV PRN (17:38)
[2019-11-07 20:04] LABS: Glucose,Whole Blood 216 mg/dL (75-99)
[2019-11-07] MEDS: HYDROcodone/APAP 5-325MG 1 EACH TAB PO PRN (20:05)
[2019-11-07] MEDS: SENNOSIDES-DOCUSATE SODIUM 1 EACH TAB PO SCH (20:06)
[2019-11-07] MEDS: ATORVASTATIN 20 MG TAB PO SCH (20:12)
[2019-11-07] MEDS: SODIUM CHLORIDE 0.9% 1,000 ML IV SCH (21:11)
--- NOTE | 2019-11-07 22:56 | PN ---
PROGRESS NOTE DATE OF SERVICE: 11/07/2019 This 74-year-old woman was admitted after right femoral periprosthetic fracture, is being closely monitored. No chest pain. No palpitations. No fever. The patient underwent ORIF today of the right distal femur. EXAM: Alert and oriented times three. Pulse is 80. Blood pressure 140/70, respirations 16, temperature 97 degrees. HEENT is conjunctivae normal. NECK: No JVD. CARDIOVASCULAR: S1, S2 muffled. RESPIRATIONS: Breath sounds diminished in the bases. A few scattered rhonchi and crackles. ABDOMEN is soft, nontender. LEGS are no edema. No swelling. CENTRAL NERVOUS SYSTEM: No focal deficits. LABS: Noted. ASSESSMENT: 1. Status post right femoral periprosthetic fracture and status post ORIF of the periprosthetic fracture right distal femur. 2. Gait dysfunction. 3. Hyponatremia. 4. Anemia, normocytic anemia of chronic disease. 5. Diabetes type 2. 6. Hypertension. 7. Hyperlipidemia. 8. History of degenerative joint disease. 9. History of hypothyroid. 10.History of macular degeneration. 11.Anemia. 12.Hyponatremia. RECOMMENDATIONS AND DISCUSSION: In this 74-year-old woman who presented with multiple complex medical issues. We will monitor the patient closely. Continue the current medications, management and symptomatic treatment. Otherwise, I recommend continue incentive spirometry. DVT prophylaxis. Repeat labs. PT/OT evaluation. The patient has multiple complex medical issues as listed above. The patient might be a candidate for rehab at this time. We will continue to monitor along with Orthopedic surgery. Further recommendations to follow. See orders for details. MMODL / IJN: [id number] /
[2019-11-08] MEDS: LEVOTHYROXINE 88 MCG TAB PO SCH (05:05)
[2019-11-08 06:51] LABS: Glucose,Whole Blood 115 mg/dL (75-99)
[2019-11-08] MEDS: INSULIN ASPART (NovoLOG) 100 UNIT/ML VIAL SQ SCH ×4 (07:27→20:45)
[2019-11-08 07:31] LABS: Basophils % (A) 0 %; Eosinophils % (A) 0 %; HCT 30.6 % (34.0-46.0); HGB 9.9 gm/dL (11.4-16.0); Lymphocytes % (A) 14 %; MCH 31.3 pg (25.0-35.0); MCHC 32.4 g/dL (31.0-37.0); MCV 96.7 fL (80.0-100.0); Mean Platelet Volume 7.7; Monocytes # (A) 0.5 k/uL (0-1.0); Monocytes % (A) 7 %; Neutrophils # (A) 5.4 k/uL (1.3-7.7); Neutrophils % (A) 77 %; Platelet Count 298 k/uL (150-450); RBC 3.16 m/uL (3.80-5.40); RDW 13.2 % (11.5-15.5)
[2019-11-08] MEDS: VIT A,C & E-LUTEIN-MINERALS 1 EACH TAB PO SCH ×2 (08:02→20:47)
[2019-11-08] MEDS: LISINOPRIL 5 MG TAB PO SCH (08:02)
[2019-11-08] MEDS: PANTOPRAZOLE 40 MG TABLET PO SCH ×2 (08:03→20:47)
[2019-11-08] MEDS: RIVAROXABAN 10 MG TAB PO SCH (08:03)
[2019-11-08] MEDS: metFORMIN 500 MG TAB PO SCH ×2 (08:03→17:17)
[2019-11-08] MEDS: HYDROcodone/APAP 5-325MG 1 EACH TAB PO PRN ×2 (08:03→16:28)
--- NOTE | 2019-11-08 08:15 | FL ---
EXAMINATION TYPE: FL guidance operating room DATE OF EXAM: 11/07/2019 HISTORY: Fluoroscopy time 38 seconds of fluoroscopy provided. IMPRESSION: 1. Fluoroscopy time.
--- NOTE | 2019-11-08 08:16 | XR ---
EXAMINATION TYPE: XR femur RT DATE OF EXAM: 11/07/2019 COMPARISON: NONE HISTORY: Postop TECHNIQUE: 2 view submitted FINDINGS: Postsurgical change appears in near-anatomic alignment. IMPRESSION: Postoperative change
--- NOTE | 2019-11-08 08:36 | P.PN ---
Subjective Progress Note Date: 11/08/19 Principal diagnosis: Status post right ORIF distal periprosthetic femur fracture This is a 74 year-old female status post right ORIF distal periprosthetic femur fracture. This is post-op day 1. The patient was evaluated at the bedside today. The patient denies nausea, vomiting, abdominal pain, shortness of breath, and chest pain this morning. She states her pain is controlled at this time. The patient has not been up with physical therapy. Objective - Vital Signs Vital signs: Vital Signs Temp 98.2 F 11/08/19 08:06 Pulse 85 11/08/19 08:06 Resp 16 11/08/19 08:06 BP 108/60 11/08/19 08:06 Pulse Ox 96 11/08/19 08:06 Intake & Output 11/07/19 11/08/19 11/08/19 18:59 06:59 18:59 Intake Total 1801 480 Output Total 470 200 Balance 1331 280 Weight 75.5 kg Intake: IV 1801 Oral 480 Output: Urine 170 200 Estimated Blood Loss 300 Other: Voiding Method Indwelling Catheter # Voids 1 - Exam The patient does not appear in acute distress. Alert and orientated x3. Dressing is clean dry and intact. Incision appears fine with no erythema or active drainage. Calf is soft and nontender. Good foot and ankle motion without difficulty. Sensation and circulatory status is intact. - Labs CBC & Chem 7: 11/08/19 06:30 11/06/19 12:14 Labs: Abnormal Lab Results - Last 24 Hours (Table) 11/07/19 11/08/19 11/08/19 Range/Units 20:02 06:30 06:49 RBC 3.16 L (3.80-5.40) m/uL Hgb 9.9 L (11.4-16.0) gm/dL Hct 30.6 L (34.0-46.0) % POC Glucose (mg/dL) 216 H 115 H (75-99) mg/dL Assessment and Plan (1) Diabetes Current Visit: No Status: Acute Code(s): E11.9 - TYPE 2 DIABETES MELLITUS WITHOUT COMPLICATIONS SNOMED Code(s): 94198078 (2) HTN (hypertension) Current Visit: No Status: Acute Code(s): I10 - ESSENTIAL (PRIMARY) HYPERTENSION SNOMED Code(s): 24996750 (3) Hyperlipemia Current Visit: No Status: Acute Code(s): E78.5 - HYPERLIPIDEMIA, UNSPECIFIED SNOMED Code(s): 64293313 (4) Periprosthetic fracture around internal prosthetic right knee joint Current Visit: No Status: Acute Code(s): M97.11XA - PERIPROSTH FRACTURE AROUND INTERNAL PROSTH R KNEE JT, INIT SNOMED Code(s): 826995470 Plan: 1. Continue pain control 2. Anticoagulation with Xarelto 3. Continue physical therapy and ambulation, non-weightbearing with knee immobilizer in place. 4. Anticipate discharge back to skill rehab tomorrow
[2019-11-08 11:33] LABS: Glucose,Whole Blood 136 mg/dL (75-99)
[2019-11-08 16:39] LABS: Glucose,Whole Blood 172 mg/dL (75-99)
[2019-11-08 20:17] LABS: Glucose,Whole Blood 144 mg/dL (75-99)
[2019-11-08 20:46] LABS: Glucose,Whole Blood 124 mg/dL (75-99)
[2019-11-08] MEDS: SENNOSIDES-DOCUSATE SODIUM 1 EACH TAB PO SCH (20:47)
[2019-11-08] MEDS: ATORVASTATIN 20 MG TAB PO SCH (20:51)
--- NOTE | 2019-11-08 21:20 | PN ---
PROGRESS NOTE DATE OF SERVICE: 11/08/2019 This 74 -year-old gentleman admitted with right femoral periprosthetic fracture, underwent ORIF. The patient being closely monitored. No chest pain. No palpitations. No fever. PHYSICAL EXAMINATION: Alert and oriented times three. Pulse 89. Blood pressure 103/57, respiration 15, temp 98.2, pulse ox 98% on room air. HEENT: Conjunctivae normal. NECK: No JVD. CARDIOVASCULAR: S1, S2 muffled. RESPIRATIONS: Breath sounds diminished in the bases. No rhonchi. No crackles. ABDOMEN is soft, nontender. LEGS are no edema. No swelling. NERVOUS SYSTEM: No focal deficits. LABS: WBC 7, hemoglobin 9.8. Glucose noted. ASSESSMENT: 1. Status post right femoral periprosthetic fracture and status post ORIF of the periprosthetic fracture right distal femur. 2. Gait dysfunction. 3. Hyponatremia. 4. Anemia, normocytic anemia of chronic disease. 5. Diabetes type 2. 6. Hypertension. 7. Hyperlipidemia. 8. History of degenerative joint disease. 9. History of hypothyroidism. 10.History of macular degeneration. 11.Anemia. 12.Hyponatremia. RECOMMENDATIONS AND DISCUSSION: Recommend to continue current medications, management and symptomatic treatment. Otherwise, at this time, we will monitor the patient closely. Continue to monitor blood sugars closely. Otherwise closely follow with Orthopedic surgery. Possible ECF rehab. Further recommendations to follow. MARY / ADIS: [id number] /
[2019-11-09] MEDS: LEVOTHYROXINE 88 MCG TAB PO SCH (05:41)
[2019-11-09 06:56] LABS: Glucose,Whole Blood 124 mg/dL (75-99)
[2019-11-09] MEDS: SODIUM CHLORIDE 0.9% 1,000 ML IV SCH ×2 (07:23→09:02)
[2019-11-09] MEDS: INSULIN ASPART (NovoLOG) 100 UNIT/ML VIAL SQ SCH (07:24)
--- NOTE | 2019-11-09 08:54 | P.DS ---
Providers Date of admission: 11/06/19 10:59 Expected date of discharge: 11/09/19 Attending physician: Raghu Morris Consults: 11/06/19 12:04 Consult Physician Urgent Consulting Provider: Janny Ortiz Consult Reason/Comments: Medical clearance for surgery tomorrow Do you want consulting provider notified?: Yes Primary care physician: Dino Elaine - Discharge Diagnosis(es) (1) Diabetes Current Visit: No Status: Acute (2) HTN (hypertension) Current Visit: No Status: Acute (3) Hyperlipemia Current Visit: No Status: Acute (4) Periprosthetic fracture around internal prosthetic right knee joint Current Visit: No Status: Acute Hospital Course: This is a pleasant 74-year-old female who was admitted 2 weeks ago for a periprosthetic distal femur fracture. The patient was initially treated with closed treatment, knee immobilizer, and was discharged to skilled rehab. She did follow-up in our office and there was further displacement of her fracture and it was decided she will undergo an ORIF. The patient was direct admitted and seen preoperatively and medically cleared for surgery. The patient underwent an ORIF of the right distal femur periprosthetic fracture on 11/09/[address] Raghu Morris. The procedure was performed without complications or sequelae. The patient has done well postoperatively. The patient was seen and evaluated at bedside today and denies any new complaints. Pain is reasonably controlled. Dressing is clean dry and intact. Incision looks fine with no erythema or active drainage. Calf is soft and nontender. The patient has full foot and ankle motion without difficulty. Patient's right lower extremity is neurovascular intact. Patient is orthopedically stable for discharge to skilled rehab today. See medication reconciliation for accurate list of discharge medications Pertinent Studies: Laboratory Tests 11/08/19 11/09/19 06:30 06:53 WBC 7.0 RBC 3.16 L Hgb 9.9 L Hct 30.6 L POC Glucose (mg/dL) 124 H Patient Condition at Discharge: Stable Plan - Discharge Summary Discharge Rx Participant: No New Discharge Prescriptions: New HYDROcodone/APAP 5-325MG [[place] 5] 1 - 2 each PO Q4-6H PRN #56 tab PRN Reason: Pain Sennosides-Docusate Sodium [Senokot-S] 2 tab PO DAILY #30 tablet Rivaroxaban [Xarelto] 10 mg PO DAILY #30 tab No Action Aspirin EC [Ecotrin Low Dose] 81 mg PO DAILY #30 tablet. Lisinopril [Zestril] 5 mg PO QAM Levothyroxine Sodium [Synthroid] 88 mcg PO QAM Atorvastatin [Lipitor] 20 mg PO HS Pantoprazole Sodium [Protonix] 40 mg PO BID metFORMIN HCL ER [Glucophage Xr] 500 mg PO HS HYDROcodone/APAP 5-325MG [[place] 5-325] 1 each PO Q4HR PRN #30 tab PRN Reason: Moderate Pain Enoxaparin [Lovenox] 40 mg SQ DAILY syringe Acetaminophen Tab [Tylenol] 650 mg PO Q6HR PRN tab PRN Reason: Mild Pain Or Fever > 100.5 Vitc/E/Zinc/Copper/Lutein/Zeax [Icaps Areds2 Tablet] 1 each PO BID Discharge Medication List Aspirin EC [Ecotrin Low Dose] 81 mg PO DAILY #30 tablet. 03/13/15 [Rx] Lisinopril [Zestril] 5 mg PO QAM 07/02/16 [History] Levothyroxine Sodium [Synthroid] 88 mcg PO QAM 01/03/18 [History] Atorvastatin [Lipitor] 20 mg PO HS 10/18/19 [History] Pantoprazole Sodium [Protonix] 40 mg PO BID 10/18/19 [History] metFORMIN HCL ER [Glucophage Xr] 500 mg PO HS 10/18/19 [History] Acetaminophen Tab [Tylenol] 650 mg PO Q6HR PRN tab 10/23/19 [Rx] Enoxaparin [Lovenox] 40 mg SQ DAILY syringe 10/23/19 [Rx] HYDROcodone/APAP 5-325MG [[place] 5-325] 1 each PO Q4HR PRN #30 tab 10/23/19 [Rx] Vitc/E/Zinc/Copper/Lutein/Zeax [Icaps Areds2 Tablet] 1 each PO BID 11/03/19 [History] HYDROcodone/APAP 5-325MG [[place] 5] 1 - 2 each PO Q4-6H PRN #56 tab 11/09/19 [Rx] Rivaroxaban [Xarelto] 10 mg PO DAILY #30 tab 11/09/19 [Rx] Sennosides-Docusate Sodium [Senokot-S] 2 tab PO DAILY #30 tablet 11/09/19 [Rx] Follow up Appointment(s)/Referral(s): Raghu Morris DO [Doctor of Osteopathic Medicine] - 2 Weeks Activity/Diet/Wound Care/Special Instructions: Non-weightbearing with walker and knee immobilizer May remove immobilizer for skin checks daily and bathing Keep incisions clean and dry Change dressings daily and as needed. May shower with incisions covered. Xarelto for DVT prophylaxis Renetta to removed in office at follow up appointment. Follow up with Dr. Raghu Morris in 2 weeks. Call [facility] with questions or concerns, Discharge Disposition: TRANSFER TO SNF/ECF
[2019-11-09] MEDS: PANTOPRAZOLE 40 MG TABLET PO SCH (09:01)
[2019-11-09] MEDS: RIVAROXABAN 10 MG TAB PO SCH (09:01)
[2019-11-09] MEDS: LISINOPRIL 5 MG TAB PO SCH (09:01)
[2019-11-09 09:02] VITALS: BP 138/65; PULSE 89; RESP 15; TEMP 98.7
[2019-11-09] MEDS: VIT A,C & E-LUTEIN-MINERALS 1 EACH TAB PO SCH (09:02)
[2019-11-09] MEDS: metFORMIN 500 MG TAB PO SCH (09:02)
[2019-11-09 09:37] LABS: Basophils % (A) 0 %; Eosinophils # (A) 0.1 k/uL (0-0.7); Eosinophils % (A) 1 %; HCT 25.7 % (34.0-46.0); HGB 8.8 gm/dL (11.4-16.0); Lymphocytes % (A) 15 %; MCH 32.5 pg (25.0-35.0); MCHC 34.2 g/dL (31.0-37.0); MCV 95.1 fL (80.0-100.0); Mean Platelet Volume 7.8; Monocytes # (A) 0.4 k/uL (0-1.0); Monocytes % (A) 6 %; Neutrophils # (A) 4.9 k/uL (1.3-7.7); Neutrophils % (A) 77 %; Platelet Count 273 k/uL (150-450); RDW 13.4 % (11.5-15.5); WBC 6.4 k/uL (3.8-10.6)
--- NOTE | 2019-11-09 20:19 | PN ---
PROGRESS NOTE DATE OF SERVICE: 11/09/2019 This 74-year-old woman was admitted with periprosthetic fracture ORIF. No chest pain. No palpitations. ECF rehab is being planned. No fever. No cough. EXAM: Alert and oriented times three. Pulse 89, blood pressure 135/60, respiration 16, temperature 98.7, pulse ox 100 percent on room air. HEENT: Conjunctivae normal. NECK: No JVD. CARDIOVASCULAR: S1, S2 muffled. RESPIRATORY: Breath sounds diminished in the bases. No rhonchi. No crackles. ABDOMEN soft. LEGS status post surgery. CENTRAL NERVOUS SYSTEM: No focal deficits. LABS: Hemoglobin 8.8, glucose 124. ASSESSMENT: 1. Status post right femoral periprosthetic fracture and ORIF of the periprosthetic fracture, right distal femur. 2. Gait dysfunction. 3. Hyponatremia. 4. Anemia, normocytic anemia of chronic disease. 5. Diabetes mellitus type 2. 6. Hypertension. 7. Hyperlipidemia. 8. History of degenerative joint disease. 9. History of hypothyroidism. 10.History of hypothyroidism. 11.History of macular degeneration. 12.History of anemia. 13.History of hyponatremia. RECOMMENDATIONS AND DISCUSSION: Recommend to continue to monitor and symptomatic treatment. Otherwise, at this time, I recommend resume the home medications. DVT prophylaxis. Closely follow with Orthopedic surgery and as well as Dr. Elaine in the outpatient setting. MMODL / IJN: [id number] /
== END 2019-11-09 11:30 | DRG 481 ==
LOC: 4SSUR 10:59 → EDSTATUS 11-07 09:55
PROVIDERS: ADMIT Orthopaedic Surgery; ATTEND Orthopaedic Surgery
PROC: 0QSB04Z Reposition Right Lower Femur with Internal Fixation Device, Open Approach (ICD-10-PCS; principal; 2019-11-07 14:45)
DX: S72.401G Unspecified fracture of lower end of right femur, subsequent encounter for closed fracture with delayed healing (principal); E87.1 Hypo-osmolality and hyponatremia; M97.01XD Periprosthetic fracture around internal prosthetic right hip joint, subsequent encounter; D63.8 Anemia in other chronic diseases classified elsewhere; E03.9 Hypothyroidism, unspecified; E11.9 Type 2 diabetes mellitus without complications; E78.5 Hyperlipidemia, unspecified; Z96.653 Presence of artificial knee joint, bilateral; I10 Essential (primary) hypertension; R26.9 Unspecified abnormalities of gait and mobility; M19.90 Unspecified osteoarthritis, unspecified site; Z79.82 Long term (current) use of aspirin; Z79.84 Long term (current) use of oral hypoglycemic drugs; Z79.890 Hormone replacement therapy; Z79.899 Other long term (current) drug therapy; Z82.49 Family history of ischemic heart disease and other diseases of the circulatory system; W18.30XD Fall on same level, unspecified, subsequent encounter
CPT/HCPCS: 71045; 80053; 85025; 85610; 85730; 86850; 86900; 86901; 93005

== ENCOUNTER → 2020-05-08 | Day surgery (SDC) | payer MEDICARE ==
[2020-05-02 13:23] VITALS: BMI 32.2
[~2020-05-08] MED LIST changes: +LIDOCAINE 1% INJ 10MG/ML (20 ML MDV) ONE; +LIDOCAINE 1% INJ 10MG/ML (20 ML MDV) SQ ONE; +MIDAZOLAM 2 MG/2 ML VIAL IVP ONE; -REGADENOSON 0.4 MG/5 ML SYRINGE IV ONE; +SODIUM CHLORIDE 0.9% 1,000 ML IV SCH; +SODIUM CHLORIDE 0.9% 500 ML 500 ML IV ONE
[2020-05-08 07:00] LABS: Glucose,Whole Blood 97 mg/dL (75-99)
[2020-05-08 07:02] VITALS: RESP 16; TEMP 98.2
--- NOTE | 2020-05-08 07:49 | P.PCN ---
Preoperative Diagnosis: Loop explant under sedation and local anesthesia. Patient was brought to the EP lab in a fasting state. Written informed consent was obtained prior to the procedure. The subcutaneous device was successfully explanted under local anesthesia. Preoperative antibiotics were administered. The wound was closed in layers and dressed per protocol. Result: Successful loop monitor explantation. Patient underwent EP procedure under conscious sedation/moderate sedation, monitoring of the level of consciousness and physiologic parameters including but not limited to vital signs and oxygenation. Patient tolerated the procedure well without any acute complications. Start time: 838 Stop time: 148
[2020-05-08 08:26] VITALS: BP 136/62; PULSE 78
== END | disposition home or self-care (01) ==
LOC: CATHEP 06:23
PROVIDERS: ATTEND Internal Medicine Clinical Cardiac Electrophysiology
DX: Z45.09 Encounter for adjustment and management of other cardiac device (principal); Z86.73 Personal history of transient ischemic attack (TIA), and cerebral infarction without residual deficits; I10 Essential (primary) hypertension; E78.5 Hyperlipidemia, unspecified; I73.9 Peripheral vascular disease, unspecified; I65.23 Occlusion and stenosis of bilateral carotid arteries; I25.10 Atherosclerotic heart disease of native coronary artery without angina pectoris; E11.9 Type 2 diabetes mellitus without complications; Z87.81 Personal history of (healed) traumatic fracture; Z91.81 History of falling; Z98.890 Other specified postprocedural states; Z79.84 Long term (current) use of oral hypoglycemic drugs; Z79.899 Other long term (current) drug therapy; Z79.82 Long term (current) use of aspirin; Z79.890 Hormone replacement therapy
CPT/HCPCS: 33286; J2250; J0690; J2001

== ENCOUNTER → 2020-12-02 | Outpatient (CLI) | payer MEDICARE ==
[2020-12-02 12:04] LABS: Albumin 4.4 g/dL (3.5-5.0); Calcium 9.4 mg/dL (8.4-10.2); Potassium 5.3 mmol/L (3.5-5.1); Total Bilirubin 0.5 mg/dL (0.2-1.3); Total Protein 6.9 g/dL (6.3-8.2)
[2020-12-02 12:14] LABS: INR 0.9 (<1.2); Partial Thromboplastin Time 22.2 sec (22.0-30.0); Prothrombin Time 9.5 sec (9.0-12.0)
[2020-12-02 12:50] LABS: HCT 37.3 % (34.0-46.0); HGB 12.9 gm/dL (11.4-16.0); MCH 33.6 pg (25.0-35.0); MCHC 34.7 g/dL (31.0-37.0); Mean Platelet Volume 7.2; Platelet Count 239 k/uL (150-450); RBC 3.85 m/uL (3.80-5.40); RDW 13.7 % (11.5-15.5); WBC 6.2 k/uL (3.8-10.6)
[2020-12-02 14:13] LABS: Appearance,Urine Clear (Clear); Bacteria,Urine Moderate /hpf; Bilirubin,Urine Negative (Negative); Blood,Urine Small (Negative); Color,Urine Light Yellow; Glucose,Urine (UA) Negative (Negative); Ketones,Urine Negative (Negative); Leukocyte Esterase,Urine Large (Negative); Nitrite,Urine Negative (Negative); Protein,Urine Negative (Negative); RBC,Urine 2 /hpf (0-5); Specific Gravity,Urine 1.003 (1.001-1.035); Squamous Epithelial Cell,Urine <1 /hpf (0-4); Urobilinogen,Urine <2.0 mg/dL (<2.0); WBC,Urine 57 /hpf (0-5)
== END | disposition home or self-care (01) ==
LOC: LABPAT 10:58
PROVIDERS: ATTEND Orthopaedic Surgery
DX: Z01.812 Encounter for preprocedural laboratory examination (principal); Z79.01 Long term (current) use of anticoagulants
CPT/HCPCS: 36415; 80053; 81001; 85027; 85610; 85730; 87070

== ENCOUNTER 2020-12-10 11:55 | Day surgery (SDC) | payer MEDICARE ==
[2020-12-03 13:38] VITALS: BMI 33.2
[~2020-12-10 11:55] MED LIST changes: +ACETAMINOPHEN TAB 500 MG TAB PO PRN; +GABAPENTIN 300 MG CAP PO PRN; +HYDROmorphone 0.5 MG/0.5 ML SYRINGE IVP PRN; +LIDOCAINE 1% (10MG/ML) FOR IV START INTRADERMA PRN; -LIDOCAINE 1% INJ 10MG/ML (20 ML MDV) ONE; -LIDOCAINE 1% INJ 10MG/ML (20 ML MDV) SQ ONE; +MELOXICAM 7.5 MG TAB PO PRN; +MIDAZOLAM 2 MG/2 ML VIAL IV PRN; -MIDAZOLAM 2 MG/2 ML VIAL IVP ONE; -SODIUM CHLORIDE 0.9% 1,000 ML IV SCH; -SODIUM CHLORIDE 0.9% 500 ML 500 ML IV ONE; +TRANEXAMIC ACID 1,000 MG in SODIUM CHLORIDE 0.9% 100 ML IVPB PRN
[2020-12-10] MEDS ORDERED: ONDANSETRON 4 MG/2 ML VIAL ONE (12:42)
[2020-12-10 12:49] LABS: Glucose,Whole Blood 96 mg/dL (75-99)
[2020-12-10] MEDS: LACTATED RINGERS 1,000 ML IV SCH ×2 (12:53→17:05)
[2020-12-10] MEDS ORDERED: DEXAMETHASONE SOD PHOSPHATE 4 MG/ML 1 ML VIAL IV ONE (12:55)
[2020-12-10] MEDS ORDERED: MIDAZOLAM 2 MG/2 ML VIAL ONE (14:15)
[2020-12-10] MEDS ORDERED: HEPARIN SODIUM,PORCINE 10,000 UNIT/ML 1 ML VIAL ONE (14:15)
[2020-12-10] MEDS ORDERED: TRANEXAMIC ACID 1,000 MG/10 ML VIAL ONE (14:15)
[2020-12-10] MEDS ORDERED: SODIUM CHLORIDE 0.9% 100 ML BAG ONE (14:15)
[2020-12-10] MEDS ORDERED: PHENYLEPHRINE-0.9% NACL SYG 1,000 MCG/10 ML SYRINGE ONE (14:15)
[2020-12-10] MEDS ORDERED: PROPOFOL 10 MG/ML 20 ML VIAL IV ONE (14:15)
[2020-12-10] MEDS ORDERED: SODIUM CHLORIDE 0.9% IRRIG 1,000 ML BTL IRRIGATION ONE (14:15)
[2020-12-10] MEDS ORDERED: NALOXONE 0.4 MG/ML 1 ML VIAL IV PRN (14:20)
[2020-12-10] MEDS ORDERED: ONDANSETRON 4 MG/2 ML VIAL IVP PRN (14:20)
[2020-12-10] MEDS ORDERED: HYDROmorphone 0.5 MG/0.5 ML SYRINGE IVP PRN ×2 (14:20)
[2020-12-10] MEDS ORDERED: MAGNESIUM HYDROXIDE 2,400 MG/10 ML CUP PO PRN (14:20)
[2020-12-10] MEDS ORDERED: HYDROmorphone 0.2 MG/1 ML SYRINGE IVP PRN (14:20)
[2020-12-10] MEDS ORDERED: ceFAZolin 3,000 MG in SODIUM CHLORIDE 0.9% IRRIGATIO 3,000 ML IRRIGATION ONE (14:21)
[2020-12-10] MEDS ORDERED: HYDROcodone/APAP 7.5-325MG 1 EACH TAB PO PRN ×2 (14:23)
[2020-12-10] MEDS: ROPIVACAINE 246.25 MG, EPINEPHrine 0.5 MG, KETOROLAC 30 MG, cloNIDine HCL/PF 80 MCG, WA... MISCELLANE PRN ×10 (14:50→15:27)
--- NOTE | 2020-12-10 15:33 | P.OP ---
Date of Procedure: 12/10/20 Preoperative Diagnosis: Severe osteoarthritis right hip Postoperative Diagnosis: Severe osteoarthritis right hip Procedure(s) Performed: Right total hip arthroplasty with a direct anterior approach Implants: [employer] Polarstem standard size 1 [employer] R3, 3 hole hemispherical acetabular shell, 48 mm [employer] Reflection 6.5 mm cancellus screw, 20 mm 2 [employer] R3, XLPE 20 acetabular liner [employer] Oxinium femoral head 32 m, +0 All components were press-fit. The articulation is Oxinium on polyethylene. Anesthesia: spinal Surgeon: Raghu Morris Customer Service Consultant #1: Marilee Swenson Estimated Blood Loss (ml): 250 (120 mL returned with Cell Saver) Pathology: other (Femoral head) Condition: stable Disposition: PACU Indications for Procedure: After failure of conservative treatment we discussed the surgical and nonsurgical treatment options at length. Patient wishes to proceed with a total hip arthroplasty with a direct anterior approach. Complications specific to this procedure were discussed at length, including but not limited to infection, leg length discrepancy, dislocation, nerve injury, and fracture. Covid-19 was also discussed at length with the patient, and they are aware of the current policies and procedures. The patient was given the option of delaying surgery, but they elect to proceed knowing these risks. Patient is aware of all these complications and informed consent was obtained Operative Findings: The operative findings are consistent with severe osteoarthritis of the right hip Description of Procedure: Patient was seen and evaluated in the preoperative area and the consent was reviewed. The operative site was marked with a skin marker. The patient was then brought to the operating room and given preoperative antibiotics intravenously. 1 g of Tranexamic acid was also given intravenously. A spinal anesthetic was administered by the anesthesia department. The patient was then placed on the Bon[place] table with the bony prominences well-padded. The hip area was then prepped with a ChloraPrep solution and draped in the usual sterile fashion. A universal timeout was then performed, which confirmed the patient's name, surgical site, ALLERGIES, and procedure being performed on the consent. Next the incision site was located at 1 cm distal and 1 cm lateral to the anterior superior iliac spine. The skin and subcutaneous tissues were sharply incised. Incision was carefully dissected down to the fascia overlying the tensor fascia priti muscle. This fascia was then incised in line with the incision. Care was taken to stay laterally in order to avoid injuring the lateral femoral cutaneous nerve. Next, using blunt finger dissection, the tensor fascia priti muscle was dissected off its investing fascia. The muscle was then carefully retracted laterally with a cobra retractor over the lateral neck of the femur. Next, the circumflex vessels were identified and cauterized using the AquaMantis device. The anterior hip capsule was then exposed. The capsule was then opened and an inverted T fashion. Cobra retractors were then placed intracapsularly. The retractors were maintained intracapsular throughout the procedure. The proximal femur was then visualized. A small amount of traction was placed on the leg. The femoral neck was then osteotomized appropriate level above the lesser trochanter. A small wedge of bone was then removed from the remaining femoral head. Next, using a corkscrew the femoral head was removed from the acetabulum. On gross visual inspection, the femoral head had complete loss of articular cartilage and multiple periarticular osteophytes. The femoral head was then measured. Attention was then turned to the acetabulum. The acetabulum was exposed and any remaining labrum was excised. Sequential reaming of the acetabulum was performed using fluoroscopic guidance until there was a good bed of bleeding cancellus bone. When the appropriate size was reached, a trial was then placed. The position and fit of the trial was checked with fluoroscopy. The trial was then removed. Then, using fluoroscopic guidance, the final implant was impacted at 20 of anteversion and 40 of abduction, and fully seated in the acetabulum. 2 screws were then placed in the acetabulum. Again fluoroscopy was used to check position of the screws. Next, the liner was then impacted, with a 20 elevated liner located in the anterior superior quadrant. Component locking was confirmed. Attention was then directed to the femur. With the aid of the Boncarbo table, the femur was externally rotated to approximately 130, extended, and adducted under the opposite leg. A side hook was then placed under the proximal femur, and the side hook elevator was used to elevate the proximal femur while releasing the capsule. Retractors were then placed. A capsular release was performed, as well as a release of the conjoined tendon, which afforded excellent visualization of the proximal femur. Next, a box osteotome was used to lateralize the proximal femur. A pull up hand was then used to locate the femoral canal. Sequential broaching was then performed with appropriate size which afforded excellent fixation in the proximal femur. A trial was then placed with appropriate head and neck, and the hip was gently reduced with the aid of the Boncarbo table. Fluoroscopy was then used to check position of the components, as well as to ensure equal leg lengths. The hip was then gently dislocated and the trials were then removed. Final implants were then impacted and the hip was again reduced. Final fluoroscopic x-rays confirmed that the components were in anatomic position, as well as equal leg lengths. The hip was also taken through range of motion, and found to be stable. The hip was then copiously irrigated with antibiotic solution with pulsatile lavage. The hip was then irrigated with Irrisept solution. The soft tissues were then injected with a ropivacaine solution, which consisted of 246.25 mg of ropivacaine, 0.5 mg of epinephrine, 30 mg of Toradol, 80 g of clonidine, and 48.45 mL of sterile water, for a total of 100 mL of fluid injected. A second dose of 1 g of Tranexamic acid was also given intravenously. Any blood collected by Cell Saver was then returned to the patient at this time. The fascia was then closed with 2-0 strata fix suture. The subcutaneous tissue was closed with 3-0 Vicryl. The subcuticular tissue was closed with 3-0 strata fix suture. The skin was then closed with Exofin skin glue. After the glue and dried, and Optifoam silver impregnated dressing was applied. The patient was then transferred to the recovery room in stable condition. The speech pathology assistant HEATHER Mast was required due to the complexity of surgery, and the need for skilled surgical attendant for positioning, draping, exposure, retraction, and closure of the wound.
[2020-12-10] MEDS ORDERED: LACTATED RINGERS 1,000 ML IV ONE ×2 (15:54)
--- NOTE | 2020-12-10 16:17 | XR ---
Fluoroscopy and limited right hip HISTORY: Right hip arthroplasty 19 seconds fluoroscopy time supplied to the referring clinician. 2 intraoperative C-arm images docum ent the procedure. See dictated report from orthopedic surgery.
--- NOTE | 2020-12-10 16:37 | FL ---
Fluoroscopy HISTORY: Hip replacement 19 seconds fluoroscopy time supplied to the referring clinician. 2 intraoperative C-arm images docum ent the procedure. See dictated report from orthopedic surgery.
[2020-12-10 16:57] LABS: Glucose,Whole Blood 161 mg/dL (75-99)
[2020-12-10] MEDS: SODIUM CHLORIDE 0.9% 1,000 ML IV SCH (17:45)
[2020-12-10] MEDS: ASPIRIN 325 MG TAB PO SCH (21:00)
[2020-12-10] MEDS ORDERED: SENNOSIDES-DOCUSATE SODIUM 1 EACH TAB PO SCH (21:00)
[2020-12-11 05:01] VITALS: BP 121/73; PULSE 68; RESP 16; TEMP 97.5
[2020-12-11 07:09] LABS: Basophils % (A) 0 %; Eosinophils % (A) 0 %; HCT 27.6 % (34.0-46.0); Lymphocytes # (A) 0.9 k/uL (1.0-4.8); Lymphocytes % (A) 13 %; MCH 33.1 pg (25.0-35.0); MCHC 34.6 g/dL (31.0-37.0); MCV 95.6 fL (80.0-100.0); Mean Platelet Volume 7.4; Monocytes # (A) 0.5 k/uL (0-1.0); Monocytes % (A) 7 %; Neutrophils # (A) 5.4 k/uL (1.3-7.7); Neutrophils % (A) 79 %; Platelet Count 190 k/uL (150-450); RBC 2.89 m/uL (3.80-5.40); RDW 13.8 % (11.5-15.5); WBC 6.8 k/uL (3.8-10.6)
[2020-12-11 07:19] LABS: HGB 9.6 gm/dL (11.4-16.0)
[2020-12-11] MEDS: SODIUM CHLORIDE 0.9% 1,000 ML IV SCH (09:59)
--- NOTE | 2020-12-11 10:08 | P.DS ---
Providers Expected date of discharge: 12/11/20 Attending physician: Raghu Morris Consults: 12/10/20 14:20 Consult Physician Routine Consulting Provider: Maryann Hernandez Consult Reason/Comments: medical management Do you want consulting provider notified?: Yes Primary care physician: Rupinder Montanez - Discharge Diagnosis(es) (1) Primary osteoarthritis of right hip Current Visit: Yes Status: Acute (2) Status post total hip replacement, right Current Visit: Yes Status: Acute Hospital Course: This is a pleasant 75-year-old female who is seen in her office with complaint of right hip pain. She has failed outpatient conservative treatment and would like to proceed with total hip arthroplasty. Patient is admitted to the [facility] on 12/10/2020 for total right hip arthroplasty with direct anterior approach. She was seen preoperatively by her primary care physician and cleared for surgery.She is doing well postoperatively. Vital signs and labs are stable. The patient may be discharged to home today in good condition. Please see med rec for accurate list of home medications. Patient Condition at Discharge: Good Plan - Discharge Summary Discharge Rx Participant: No New Discharge Prescriptions: New Aspirin 325 mg PO BID #60 tab HYDROcodone/APAP 7.5-325MG [[place] 7.5-325] 1 - 2 tab PO Q6H PRN #32 tab PRN Reason: Pain Sennosides [Senokot] 2 tab PO DAILY PRN #60 tablet PRN Reason: Constipation No Action Aspirin EC [Ecotrin Low Dose] 81 mg PO DAILY #30 tablet. lisinopriL [Zestril] 5 mg PO HS Levothyroxine Sodium [Synthroid] 88 mcg PO QAM Atorvastatin [Lipitor] 20 mg PO HS Pantoprazole Sodium [Protonix] 40 mg PO QAM metFORMIN HCL ER [Glucophage Xr] 500 mg PO DAILY Acetaminophen Tab [Tylenol] 650 mg PO Q6HR PRN tab PRN Reason: Mild Pain Or Fever > 100.5 Vitc/E/Zinc/Copper/Lutein/Zeax [Icaps Areds2 Tablet] 1 each PO BID Melatonin 5 mg PO HS Cholecalciferol [Vitamin D3 (25 Mcg = 1000 Iu)] 1,000 unit PO DAILY Ferrous Sulfate [Iron (65 MG Elemental)] 325 mg PO Q48H Cannabidiol (Cbd) [Epidiolex] 1 dose PO DAILY PRN PRN Reason: Pain Ascorbic Acid [Vitamin C] 500 mg PO DAILY Discharge Medication List Aspirin EC [Ecotrin Low Dose] 81 mg PO DAILY #30 tablet. 03/13/15 [Rx] lisinopriL [Zestril] 5 mg PO HS 07/02/16 [History] Levothyroxine Sodium [Synthroid] 88 mcg PO QAM 01/03/18 [History] Atorvastatin [Lipitor] 20 mg PO HS 10/18/19 [History] Pantoprazole Sodium [Protonix] 40 mg PO QAM 10/18/19 [History] metFORMIN HCL ER [Glucophage Xr] 500 mg PO DAILY 10/18/19 [History] Acetaminophen Tab [Tylenol] 650 mg PO Q6HR PRN tab 10/23/19 [Rx] Vitc/E/Zinc/Copper/Lutein/Zeax [Icaps Areds2 Tablet] 1 each PO BID 11/03/19 [History] Cholecalciferol [Vitamin D3 (25 Mcg = 1000 Iu)] 1,000 unit PO DAILY 05/02/20 [History] Ferrous Sulfate [Iron (65 MG Elemental)] 325 mg PO Q48H 05/02/20 [History] Melatonin 5 mg PO HS 05/02/20 [History] Ascorbic Acid [Vitamin C] 500 mg PO DAILY 12/03/20 [History] Cannabidiol (Cbd) [Epidiolex] 1 dose PO DAILY PRN 12/03/20 [History] Aspirin 325 mg PO BID #60 tab 12/10/20 [Rx] HYDROcodone/APAP 7.5-325MG [[place] 7.5-325] 1 - 2 tab PO Q6H PRN #32 tab 12/10/20 [Rx] Sennosides [Senokot] 2 tab PO DAILY PRN #60 tablet 12/10/20 [Rx] Follow up Appointment(s)/Referral(s): Raghu Morris DO [Doctor of Osteopathic Medicine] - 2 Weeks Activity/Diet/Wound Care/Special Instructions: Weightbearing as tolerated with walker. Leave dressing intact. Dressing may be removed by home care nurse or by patient in 10 days. May shower with dressing on. Please take aspirin 325mg twice daily for 30 days to prevent blood clots. Recommend use of compression stockings daily until follow up to help prevent swelling and blood clots. May remove at night before sleeping. Please follow-up with [facility] in 2 weeks and call with any questions or concerns, . Discharge Disposition: HOME WITH HOME HEALTH SERVICES
[2020-12-11] MEDS: ASPIRIN 325 MG TAB PO SCH ×2 (10:25→10:57)
== END 2020-12-11 12:15 | disposition home health service (06) ==
LOC: OR 11:55 → 5NMEDONC 16:18 → OR 12-11 12:15
PROVIDERS: ATTEND Orthopaedic Surgery
DX: M16.11 Unilateral primary osteoarthritis, right hip (principal); I10 Essential (primary) hypertension; E78.5 Hyperlipidemia, unspecified; E11.9 Type 2 diabetes mellitus without complications; E03.9 Hypothyroidism, unspecified; Z97.3 Presence of spectacles and contact lenses; E89.0 Postprocedural hypothyroidism; Z96.653 Presence of artificial knee joint, bilateral; Z96.642 Presence of left artificial hip joint; Z90.89 Acquired absence of other organs; Z98.49 Cataract extraction status, unspecified eye; Z98.890 Other specified postprocedural states; Z79.84 Long term (current) use of oral hypoglycemic drugs; Z79.890 Hormone replacement therapy; Z79.891 Long term (current) use of opiate analgesic; Z79.899 Other long term (current) drug therapy
CPT/HCPCS: 97110; 97161; 97535; 97165; 86891; 84132; 85025; 87635; 73501; 27130; P9022; C1776; J0171; J1100; J0690 ×3; J2405; J1885; J2795; J0735; 86850; 86900; 86901; 88300

== ENCOUNTER 2022-01-07 17:54 | Observation (INO) | payer MEDICARE ==
--- NOTE | 2022-01-07 19:05 | XR ---
EXAMINATION TYPE: XR chest 2V DATE OF EXAM: 01/07/2022 COMPARISON: 11/06/2019 HISTORY: Chest pain TECHNIQUE: 2 views FINDINGS: Heart is normal. Lungs are clear of infiltrate. No heart failure. There are no hilar masses . Costophrenic angles are clear IMPRESSION: No active cardiopulmonary disease. Normal heart. No change.
--- NOTE | 2022-01-07 19:20 | ED ---
General Adult HPI - General Chief complaint: Weakness Stated complaint: Chest pain Time Seen by Provider: 01/07/22 18:44 Source: patient, RN notes reviewed, old records reviewed Mode of arrival: ambulatory Limitations: no limitations - History of Present Illness Initial comments: 76-year-old female presenting for evaluation of generalized weakness, fatigue, and chest pain. Pain has been present for the past several days, worse with exertion and relieved by rest. She does have some associated dyspnea. No diaphoresis or vomiting. No dysuria or hematuria. No abdominal pain. No fever. Pain in her chest is relieved with rest. She's felt more tired and fatigued than usual. She has no prior history of CAD. - Related Data Home Medications Medication Instructions Recorded Confirmed lisinopriL [Zestril] 5 mg PO HS 07/02/16 12/10/20 Levothyroxine Sodium [Synthroid] 88 mcg PO QAM 01/03/18 12/10/20 Atorvastatin [Lipitor] 20 mg PO HS 10/18/19 12/10/20 Pantoprazole Sodium [Protonix] 40 mg PO QAM 10/18/19 12/10/20 metFORMIN HCL ER [Glucophage XR] 500 mg PO DAILY 10/18/19 12/10/20 Vitc/E/Zinc/Copper/Lutein/Zeax 1 each PO BID 11/03/19 12/10/20 [Icaps Areds2 Tablet] Cholecalciferol [Vitamin D3 (25 1,000 unit PO DAILY 05/02/20 12/10/20 Mcg = 1000 Iu)] Ferrous Sulfate [Iron (65 MG 325 mg PO Q48H 05/02/20 12/10/20 Elemental)] Melatonin 5 mg PO HS 05/02/20 12/10/20 Ascorbic Acid [Vitamin C] 500 mg PO DAILY 12/03/20 12/10/20 Cannabidiol (Cbd) [Epidiolex] 1 dose PO DAILY PRN 12/03/20 12/10/20 Previous Rx's Medication Instructions Recorded Aspirin EC [Ecotrin Low Dose] 81 mg PO DAILY #30 tablet. 03/13/15 Acetaminophen Tab [Tylenol] 650 mg PO Q6HR PRN tab 10/23/19 Aspirin 325 mg PO BID #60 tab 12/10/20 HYDROcodone/APAP 7.5-325MG [[place] 1 - 2 tab PO Q6H PRN #32 tab 12/10/20 7.5-325] Sennosides [Senokot] 2 tab PO DAILY PRN #60 tablet 12/10/20 Allergies Allergy/AdvReac Type Severity Reaction Status Date / Time No Known Allergies Allergy Verified 01/07/22 18:16 Review of Systems ROS Statement: Those systems with pertinent positive or pertinent negative responses have been documented in the HPI. ROS Other: All systems not noted in ROS Statement are negative. Past Medical History Past Medical History: Diabetes Mellitus, Eye Disorder, Hyperlipidemia, Hypertension, Osteoarthritis (OA), Thyroid Disorder Additional Past Medical History / Comment(s): See Dr Deleon H&P, macular degeneration chaz eyes, sciatica left side History of Any Multi-Drug Resistant Organisms: None Reported Past Surgical History: Appendectomy, Heart Catheterization, Hernia Repair, Joint Replacement, Tonsillectomy Additional Past Surgical History / Comment(s): ORIF rt femur, thyroid removed, bilateral knee replacements, left hip replacement, chaz cataracts, loop recorder implant and removed chaz eyelid lift, right hip replaced Past Anesthesia/Blood Transfusion Reactions: Postoperative Nausea & Vomiting (PONV) Type of Cardiac Device: Loop Device Placement Date:: 2016 left chest Past Psychological History: No Psychological Hx Reported Smoking Status: Never smoker Past Alcohol Use History: None Reported Past Drug Use History: None Reported - Past Family History Brother(s) Family Medical History: Cancer Mother Family Medical History: Myocardial Infarction ([place]) Additional Family Medical History / Comment(s): Mother from a massive [place] at the age of 78 or 79 yrs. Father Family Medical History: Congestive Heart Failure (CHF) General Exam Limitations: no limitations General appearance: alert, in no apparent distress Head exam: Present: atraumatic, normocephalic Eye exam: Present: normal appearance, PERRL ENT exam: Present: normal exam Neck exam: Present: normal inspection. Absent: tenderness, meningismus Respiratory exam: Present: normal lung sounds bilaterally. Absent: respiratory distress, wheezes Cardiovascular Exam: Present: regular rate, normal rhythm GI/Abdominal exam: Present: soft. Absent: distended, tenderness, guarding Extremities exam: Present: normal inspection, normal capillary refill. Absent: pedal edema, calf tenderness Neurological exam: Present: alert, oriented X3, CN II-XII intact. Absent: motor sensory deficit Psychiatric exam: Present: normal affect, normal mood Skin exam: Present: warm, dry, intact. Absent: cyanosis, diaphoretic Course Vital Signs 01/07/22 01/07/22 18:16 20:29 Temperature 98 F Pulse Rate 89 80 Respiratory 16 16 Rate Blood Pressure 117/66 130/68 O2 Sat by Pulse 96 98 Oximetry EKG Findings - EKG Comments: EKG Findings:: Sinus rhythm, rate of 87, [place] interval 193, QRS duration 93, QTC [address] segment elevation. Medical Decision Making - Medical Decision Making 76-year-old female presenting for exertional chest pain and dyspnea. Patient has stable vitals upon arrival. She has a nonfocal neurologic exam. No current chest pain. No abdominal pain. No vomiting. No fever. Chest x-ray is unremarkable. Laboratory tests revealed mild elevation in serum creatinine. Negative initial troponin. Patient's does not have a previous history of cardiac disease. Given this central chest pain she will be placed in observation for chest pain rule out. Echo has been ordered. Serial cardiac enzymes ordered. [facility] be [facility]. - Lab Data Result diagrams: 01/07/22 19:15 01/07/22 19:15 Lab Results 01/07/22 01/07/22 01/07/22 Range/Units 19:15 19:15 19:15 WBC 4.8 (3.8-10.6) k/uL RBC 3.64 L (3.80-5.40) m/uL Hgb 12.1 (11.4-16.0) gm/dL Hct 37.0 (34.0-46.0) % MCV 101.8 H (80.0-100.0) fL MCH 33.2 (25.0-35.0) pg MCHC 32.6 (31.0-37.0) g/dL RDW 13.5 (11.5-15.5) % Plt Count 275 (150-450) k/uL MPV 7.4 Neutrophils % 70 % Lymphocytes % 20 % Monocytes % 6 % Eosinophils % 1 % Basophils % 0 % Neutrophils # 3.3 (1.3-7.7) k/uL Lymphocytes # 1.0 (1.0-4.8) k/uL Monocytes # 0.3 (0-1.0) k/uL Eosinophils # 0.1 (0-0.7) k/uL Basophils # 0.0 (0-0.2) k/uL Macrocytosis Slight PT 9.6 (9.0-12.0) sec INR 0.9 (<1.2) APTT 21.9 L (22.0-30.0) sec Sodium (137-145) mmol/L Potassium (3.5-5.1) mmol/L Chloride (98-107) mmol/L Carbon Dioxide (22-30) mmol/L Anion Gap mmol/L BUN (7-17) mg/dL Creatinine (0.52-1.04) mg/dL Est GFR (CKD-EPI)AfAm (>60 ml/min/1.73 sqM) Est GFR (CKD-EPI)NonAf (>60 ml/min/1.73 sqM) Glucose (74-99) mg/dL Plasma Lactic Acid [place] (0.7-2.0) mmol/L Calcium (8.4-10.2) mg/dL Magnesium (1.6-2.3) mg/dL Total Bilirubin (0.2-1.3) mg/dL AST (14-36) U/L ALT (4-34) U/L Alkaline Phosphatase (38-126) U/L Troponin I (0.000-0.034) ng/mL Total Protein (6.3-8.2) g/dL Albumin (3.5-5.0) g/dL Urine Color Light Yellow Urine Appearance Clear (Clear) Urine pH 5.5 (5.0-8.0) Ur Specific [place] 1.009 (1.001-1.035) Urine Protein Negative (Negative) Urine Glucose (UA) Negative (Negative) Urine Ketones Negative (Negative) Urine Blood Small H (Negative) Urine Nitrite Negative (Negative) Urine Bilirubin Negative (Negative) Urine Urobilinogen <2.0 (<2.0) mg/dL Ur Leukocyte Esterase Trace H (Negative) Urine RBC 1 (0-5) /hpf Urine WBC 2 (0-5) /hpf Ur Squamous Epith Cells 2 (0-4) /hpf Urine Bacteria Rare H (None) /hpf Urine Mucus Rare H (None) /hpf 01/07/22 01/07/22 01/07/22 Range/Units 19:15 19:15 19:27 WBC (3.8-10.6) k/uL RBC (3.80-5.40) m/uL Hgb (11.4-16.0) gm/dL Hct (34.0-46.0) % MCV (80.0-100.0) fL MCH (25.0-35.0) pg MCHC (31.0-37.0) g/dL RDW (11.5-15.5) % Plt Count (150-450) k/uL MPV Neutrophils % % Lymphocytes % % Monocytes % % Eosinophils % % Basophils % % Neutrophils # (1.3-7.7) k/uL Lymphocytes # (1.0-4.8) k/uL Monocytes # (0-1.0) k/uL Eosinophils # (0-0.7) k/uL Basophils # (0-0.2) k/uL Macrocytosis PT (9.0-12.0) sec INR (<1.2) APTT (22.0-30.0) sec Sodium 136 L (137-145) mmol/L Potassium 5.3 H (3.5-5.1) mmol/L Chloride 105 (98-107) mmol/L Carbon Dioxide 23 (22-30) mmol/L Anion Gap 8 mmol/L BUN 47 H (7-17) mg/dL Creatinine 1.59 H (0.52-1.04) mg/dL Est GFR (CKD-EPI)AfAm 36 (>60 ml/min/1.73 sqM) Est GFR (CKD-EPI)NonAf 31 (>60 ml/min/1.73 sqM) Glucose 113 H (74-99) mg/dL Plasma Lactic Acid Stanley 0.8 (0.7-2.0) mmol/L Calcium 9.3 (8.4-10.2) mg/dL Magnesium 2.8 H (1.6-2.3) mg/dL Total Bilirubin 0.3 (0.2-1.3) mg/dL AST 26 (14-36) U/L ALT 20 (4-34) U/L Alkaline Phosphatase 94 (38-126) U/L Troponin I <0.012 (0.000-0.034) ng/mL Total Protein 6.6 (6.3-8.2) g/dL Albumin 4.6 (3.5-5.0) g/dL Urine Color Urine Appearance (Clear) Urine pH (5.0-8.0) Ur Specific [place] (1.001-1.035) Urine Protein (Negative) Urine Glucose (UA) (Negative) Urine Ketones (Negative) Urine Blood (Negative) Urine Nitrite (Negative) Urine Bilirubin (Negative) Urine Urobilinogen (<2.0) mg/dL Ur Leukocyte Esterase (Negative) Urine RBC (0-5) /hpf Urine WBC (0-5) /hpf Ur Squamous Epith Cells (0-4) /hpf Urine Bacteria (None) /hpf Urine Mucus (None) /hpf Disposition Clinical Impression: Chest pain Disposition: ADMITTED IP TO THIS HOSP Condition: Stable Is patient prescribed a controlled substance at d/c from ED?: No Referrals: Nonstaff,Physician [REFERRING] - 1-2 days Time of Disposition: 20:58
[2022-01-07 19:35] LABS: Basophils % (A) 0 %; Eosinophils # (A) 0.1 k/uL (0-0.7); Eosinophils % (A) 1 %; HGB 12.1 gm/dL (11.4-16.0); Lymphocytes % (A) 20 %; MCH 33.2 pg (25.0-35.0); MCHC 32.6 g/dL (31.0-37.0); MCV 101.8 fL (80.0-100.0); Macrocytosis Slight; Mean Platelet Volume 7.4; Monocytes # (A) 0.3 k/uL (0-1.0); Monocytes % (A) 6 %; Neutrophils # (A) 3.3 k/uL (1.3-7.7); Neutrophils % (A) 70 %; Platelet Count 275 k/uL (150-450); RBC 3.64 m/uL (3.80-5.40); RDW 13.5 % (11.5-15.5); WBC 4.8 k/uL (3.8-10.6)
[2022-01-07 19:38] LABS: Albumin 4.6 g/dL (3.5-5.0); Calcium 9.3 mg/dL (8.4-10.2); Magnesium 2.8 mg/dL (1.6-2.3); Potassium 5.3 mmol/L (3.5-5.1); Total Bilirubin 0.3 mg/dL (0.2-1.3); Total Protein 6.6 g/dL (6.3-8.2)
[2022-01-07 19:39] LABS: Appearance,Urine Clear (Clear); Bacteria,Urine Rare /hpf; Bilirubin,Urine Negative (Negative); Blood,Urine Small (Negative); Color,Urine Light Yellow; Glucose,Urine (UA) Negative (Negative); Ketones,Urine Negative (Negative); Leukocyte Esterase,Urine Trace (Negative); Mucus,Urine Rare /hpf; Nitrite,Urine Negative (Negative); PH, Urine 5.5 (5.0-8.0); Protein,Urine Negative (Negative); RBC,Urine 1 /hpf (0-5); Specific Gravity,Urine 1.009 (1.001-1.035); Squamous Epithelial Cell,Urine 2 /hpf (0-4); Urobilinogen,Urine <2.0 mg/dL (<2.0); WBC,Urine 2 /hpf (0-5)
[2022-01-07 20:15] LABS: INR 0.9 (<1.2); Prothrombin Time 9.6 sec (9.0-12.0)
[2022-01-07] MEDS ORDERED: SODIUM CHLORIDE 0.9% 500 ML 500 ML IV ONE (20:15)
[2022-01-07 20:21] LABS: Partial Thromboplastin Time 21.9 sec (22.0-30.0)
[2022-01-07] MEDS: SODIUM CHLORIDE 0.9% 1,000 ML IV SCH (20:23)
[2022-01-07] MEDS ORDERED: ASPIRIN 325 MG TAB PO STA (20:38)
[2022-01-07] MEDS ORDERED: NALOXONE 0.4 MG/ML 1 ML VIAL IV PRN (20:54)
[2022-01-07] MEDS ORDERED: ACETAMINOPHEN TAB 325 MG TAB PO PRN (20:54)
[2022-01-08 02:37] VITALS: RESP 16
[2022-01-08] MEDS ORDERED: MELATONIN 5 MG TABLET PO PRN (04:01)
--- NOTE | 2022-01-08 04:02 | P.HPIM ---
History of Present Illness H&P Date: 01/07/22 Patient is 76-year-old female with a PMH of hypothyroidism, hypertension, who presents to the emergency room with complaints of chest discomfort and decreased exercise tolerance. The patient reports that over the past 1-2 weeks, she has noticed exertional chest tightness and dyspnea. Denies experiencing nausea, palpitations, diaphoresis, vomiting. Also denies fever, chills, cough, abdominal pain, diarrhea. EKG in the emergency room revealed sinus rhythm at [address]/T-wave changes noted as reviewed by me. Chest x-ray was unremarkable. Laboratory evaluation was remarkable for troponin less than 0.012, BUN 47, creatinine 1.59, potassium 5.3, troponin less than 0.012. Review of systems: Pertinent positives and negatives as discussed in HPI, a complete review of systems was performed and all other systems are negative. Physical examination: General: non toxic, no distress, appears at stated age, obese Derm: no unusual rashes/lesions no unusual ecchymoses, warm, dry Head: atraumatic, normocephalic, symmetric Eyes: EOMI, no lid lag, anicteric sclera, pupils equal round reactive to light ENT: Nose and ears atraumatic, no thrush, no pharyngeal erythema Neck: No thyromegaly, no cervical lymphadenopathy, trachea midline, supple Mouth: no lip lesion, mucus membranes moist Cardiovascular: S1S2 reg, no murmur, positive posterior tibial pulse bilateral, no edema, capillary refill less than 2 seconds Lungs: CTA bilateral, no rhonchi, no rales , no accessory muscle use Abdominal: soft, nontender to palpation, no guarding, no appreciable organomegaly, normal bowel sounds Ext: no gross muscle atrophy, muscle strength 5 out of 5 in all 4 extremities grossly, no contractures, Neuro: CN II-XI grossly intact, light touch intact all 4 extremities, finger to nose within normal limits, Psych: Alert, oriented, appropriate affect Assessment/plan Chest pain, rule out ACS -Cardiology consult -Cardiac monitoring -Trend troponin -Aspirin, statin Acute kidney injury, prerenal -IV fluids -Monitor BMP Hyperkalemia -Hold home lisinopril Chronic conditions: Hypertension, hypothyroidism, hyperlipidemia -Continue with home meds DVT prophylaxis -Heparin subq The patient is admitted with an anticipated less than 2 midnight stay for evaluation of chest pain CODE STATUS: Full Code Discussed with: Patient Anticipated discharge date: in am Anticipated discharge place: Home Past Medical History Past Medical History: Diabetes Mellitus, Eye Disorder, Hyperlipidemia, Hypertension, Osteoarthritis (OA), Thyroid Disorder Additional Past Medical History / Comment(s): See Dr Deleon H&P, macular degeneration chaz eyes, sciatica left side History of Any Multi-Drug Resistant Organisms: None Reported Past Surgical History: Appendectomy, Heart Catheterization, Hernia Repair, Joint Replacement, Tonsillectomy Additional Past Surgical History / Comment(s): ORIF rt femur, thyroid removed, bilateral knee replacements, left hip replacement, chaz cataracts, loop recorder implant and removed chaz eyelid lift, right hip replaced Past Anesthesia/Blood Transfusion Reactions: Postoperative Nausea & Vomiting (PONV) Type of Cardiac Device: Loop Device Placement Date:: 2016 left chest Past Psychological History: No Psychological Hx Reported Additional Psychological History / Comment(s): . Smoking Status: Never smoker Past Alcohol Use History: None Reported Past Drug Use History: None Reported - Past Family History Brother(s) Family Medical History: Cancer Mother Family Medical History: Myocardial Infarction ([place]) Additional Family Medical History / Comment(s): Mother from a massive [place] at the age of 78 or 79 yrs. Father Family Medical History: Congestive Heart Failure (CHF) Medications and Allergies Home Medications Medication Instructions Recorded Confirmed Type lisinopriL [Zestril] 5 mg PO HS 07/02/16 01/07/22 History Atorvastatin [Lipitor] 20 mg PO HS 10/18/19 01/07/22 History Pantoprazole Sodium [Protonix] 40 mg PO DAILY 10/18/19 01/07/22 History Cholecalciferol [Vitamin D3 (25 25 mcg PO DAILY 05/02/20 01/07/22 History Mcg = 1000 Iu)] Ferrous Sulfate [Iron (65 MG 325 mg PO DAILY 05/02/20 01/07/22 History Elemental)] Melatonin 5 mg PO HS PRN 05/02/20 01/07/22 History Acetaminophen Tab [Tylenol] 650 mg PO BID 01/07/22 01/07/22 History Aspirin EC [Ecotrin Low Dose] 81 mg PO HS 01/07/22 01/07/22 History Levothyroxine Sodium [Synthroid] 100 mcg PO HS 05/11/22 05/11/22 History Vit C/E/Zn/Coppr/Lutein/Zeaxan 1 cap PO BID 01/07/22 01/07/22 History [Preservision Areds 2 Softgel] Allergies Allergy/AdvReac Type Severity Reaction Status Date / Time No Known Allergies Allergy Verified 01/07/22 21:27 Physical Exam Vitals: Vital Signs Temp Pulse Pulse Resp BP BP Pulse Ox 01/07/22 23:14 97.9 F 72 17 134/73 97 01/07/22 22:55 98.0 F 72 18 136/78 98 01/07/22 22:11 78 18 135/65 97 01/07/22 21:30 74 20 136/78 98 01/07/22 20:30 72 18 136/78 98 01/07/22 20:29 80 16 130/68 98 01/07/22 18:16 98 F 89 16 117/66 96 01/07/22 18:00 64 Intake and Output 01/07/22 01/07/22 01/08/22 14:59 22:59 06:59 Other: Weight 76.204 kg Results CBC & Chem 7: 01/07/22 19:15 01/07/22 19:15 Labs: Abnormal Lab Results - Last 24 Hours (Table) 01/07/22 01/07/22 01/07/22 Range/Units 19:15 19:15 19:15 RBC 3.64 L (3.80-5.40) m/uL MCV 101.8 H (80.0-100.0) fL APTT 21.9 L (22.0-30.0) sec Sodium (137-145) mmol/L Potassium (3.5-5.1) mmol/L BUN (7-17) mg/dL Creatinine (0.52-1.04) mg/dL Glucose (74-99) mg/dL Magnesium (1.6-2.3) mg/dL Urine Blood Small H (Negative) Ur Leukocyte Esterase Trace H (Negative) Urine Bacteria Rare H (None) /hpf Urine Mucus Rare H (None) /hpf 01/07/22 Range/Units 19:15 RBC (3.80-5.40) m/uL MCV (80.0-100.0) fL APTT (22.0-30.0) sec Sodium 136 L (137-145) mmol/L Potassium 5.3 H (3.5-5.1) mmol/L BUN 47 H (7-17) mg/dL Creatinine 1.59 H (0.52-1.04) mg/dL Glucose 113 H (74-99) mg/dL Magnesium 2.8 H (1.6-2.3) mg/dL Urine Blood (Negative) Ur Leukocyte Esterase (Negative) Urine Bacteria (None) /hpf Urine Mucus (None) /hpf Thrombosis Risk Factor Assmnt - Choose All That Apply Any of the Below Risk Factors Present?: Yes Each Factor Represents 1 point: Obesity (BMI >25) Other Risk Factors: Yes Each Risk Factor Represents 3 Points: Age 75 years or older Other congenital or acquired thrombophilia - If yes, enter type in comment: No Thrombosis Risk Factor Assessment Total Risk Factor Score: 4 Thrombosis Risk Factor Assessment Level: Moderate Risk
[2022-01-08 06:58] LABS: Glucose,Whole Blood 102 mg/dL (75-99)
[2022-01-08] MEDS: HEPARIN SODIUM,PORCINE/PF 5,000 UNIT/0.5 ML SYRINGE SQ SCH ×2 (07:26→17:29)
[2022-01-08] MEDS ORDERED: DOBUTamine DRIP for NUC MED 500 MG in DEXTROSE/WATER 1 250ML.BAG IV PRN (07:46)
--- NOTE | 2022-01-08 08:29 | P.CRDCN ---
History of Present Illness Consult date: 01/08/22 History of present illness: HISTORY OF PRESENT ILLNESS: This is a 76-year-old female with a past medical history significant for hypertension, hyperlipidemia, hypothyroidism, diabetes and mild nonobstructive CAD. Patient follows in the office with Dr. Deleon. We have been asked to see the patient in consultation for chest pain. Patient examined at the bedside. Patient presented to the hospital with a chief complaint of chest discomfort. She states this has been intermittent for the past 4-6 weeks. She states the pain begins in her shoulder blades and then radiates to the middle of her chest. She reports this time she felt dizzy and short of breath with the discomfort. At the time of examination she denied any chest pain or pressure. * EKG reveals sinus mechanism with no signs of acute ischemia * Chest xray no acute cardiopulmonary disease * Laboratory data: WBC 4.8. Hemoglobin 12.1. Platelet count 275. Sodium 136. Potassium 5.3. BUN 47. Creatinine 1.59. Troponin negative 3 * Current home cardiac medications include lisinopril 5 mg at night, Lipitor 20 mg at night, and aspirin 81 mg daily * Most recent echocardiogram obtained in September 2020 at the office revealed ejection fraction 55%, mild mitral regurgitation * Patient underwent Lexiscan stress test in August 2019 which was negative for ischemia * Cardiac catheterization history: February 2015 revealing 30-40% stenosis of mid LAD and 40-50% stenosis involving circumflex coronary artery. Conclusion mild non obstructive coronary artery disease. Medical management was recommended REVIEW OF SYSTEMS: At the time of my exam: CONSTITUTIONAL: Denies fever or chills. HEENT: Denies blurred vision, vision changes, or eye pain. Denies hemoptysis CARDIOVASCULAR: Denies chest pain. Denies orthopnea. Denies PND. Denies palpitations RESPIRATORY: Denies shortness of breath. GASTROINTESTINAL: Denies abdominal pain. Denies nausea or vomiting. HEMATOLOGIC: Denies bleeding disorders. GENITOURINARY: Denies any blood in urine. SKIN: Denies pruitis. Denies rash. PHYSICAL EXAM: VITAL SIGNS: Reviewed. GENERAL: Well-developed in no acute distress. HEENT: Head is normocephalic. Pupils are equal, round. Sclerae anicteric. Mucous membranes of the mouth are moist. Neck supple. No JVD or thyromegaly LUNGS: Respirations even and unlabored. Lungs essentially clear to auscultation bilaterally. HEART: Regular rate and rhythm. S1 and S2 heard. Systolic murmur noted ABDOMEN: Soft. Nondistended. Nontender. EXTREMITIES: Normal range of motion. No clubbing or cyanosis. Peripheral pulses intact. Trace lower extremity edema NEUROLOGIC: Awake and alert. Oriented x 3. ASSESSMENT: Chest pain Acute kidney injury Hyperkalemia Mild non-obstructive coronary artery disease Hypertension Hyperlipidemia Diabetes Hypothyroidism PLAN: An acute coronary event has been ruled out Resume home cardiac medications Lisinopril on hold secondary to acute kidney injury and hyperkalemia Monitor kidney function Obtain 2-D echo to assess cardiac structure and function Patient to undergo dobutamine stress test today to assess for ischemia Further recommendations pending patient's course Nurse practitioner note has been reviewed by physician. Signing provider agrees with the documented findings, assessment, and plan of care. Past Medical History Past Medical History: Diabetes Mellitus, Eye Disorder, Hyperlipidemia, Hypertension, Osteoarthritis (OA), Thyroid Disorder Additional Past Medical History / Comment(s): See Dr Deleon H&P, macular degeneration chaz eyes, sciatica left side History of Any Multi-Drug Resistant Organisms: None Reported Past Surgical History: Appendectomy, Heart Catheterization, Hernia Repair, Joint Replacement, Tonsillectomy Additional Past Surgical History / Comment(s): ORIF rt femur, thyroid removed, bilateral knee replacements, left hip replacement, chaz cataracts, loop recorder implant and removed chaz eyelid lift, right hip replaced Past Anesthesia/Blood Transfusion Reactions: Postoperative Nausea & Vomiting (PONV) Type of Cardiac Device: Loop Device Placement Date:: 2016 left chest Past Psychological History: No Psychological Hx Reported Additional Psychological History / Comment(s): . Smoking Status: Never smoker Past Alcohol Use History: None Reported Past Drug Use History: None Reported - Past Family History Brother(s) Family Medical History: Cancer Mother Family Medical History: Myocardial Infarction ([place]) Additional Family Medical History / Comment(s): Mother from a massive [place] at the age of 78 or 79 yrs. Father Family Medical History: Congestive Heart Failure (CHF) Medications and Allergies Home Medications Medication Instructions Recorded Confirmed Type lisinopriL [Zestril] 5 mg PO HS 07/02/16 01/07/22 History Atorvastatin [Lipitor] 20 mg PO HS 10/18/19 01/07/22 History Pantoprazole Sodium [Protonix] 40 mg PO DAILY 10/18/19 01/07/22 History Cholecalciferol [Vitamin D3 (25 25 mcg PO DAILY 05/02/20 01/07/22 History Mcg = 1000 Iu)] Ferrous Sulfate [Iron (65 MG 325 mg PO DAILY 05/02/20 01/07/22 History Elemental)] Melatonin 5 mg PO HS PRN 05/02/20 01/07/22 History Acetaminophen Tab [Tylenol] 650 mg PO BID 01/07/22 01/07/22 History Aspirin EC [Ecotrin Low Dose] 81 mg PO HS 01/07/22 01/07/22 History Levothyroxine Sodium [Synthroid] 100 mcg PO HS 01/07/22 01/07/22 History Vit C/E/Zn/Coppr/Lutein/Zeaxan 1 cap PO BID 01/07/22 01/07/22 History [Preservision Areds 2 Softgel] Allergies Allergy/AdvReac Type Severity Reaction Status Date / Time No Known Allergies Allergy Verified 01/07/22 21:27 Physical Exam Vitals: Vital Signs Temp Pulse Pulse Pulse Resp BP BP 01/08/22 07:00 97.7 F 67 16 106/56 01/08/22 01:57 97.7 F 71 16 106/64 01/07/22 23:14 97.9 F 72 17 134/73 01/07/22 22:55 98.0 F 72 18 136/78 01/07/22 22:11 78 18 135/65 01/07/22 21:30 74 20 136/78 01/07/22 20:30 72 18 136/78 01/07/22 20:29 80 16 130/68 01/07/22 18:16 98 F 89 16 117/66 01/07/22 18:00 64 Pulse Ox 01/08/22 07:00 96 01/08/22 01:57 94 L 01/07/22 23:14 97 01/07/22 22:55 98 01/07/22 22:11 97 01/07/22 21:30 98 01/07/22 20:30 98 01/07/22 20:29 98 01/07/22 18:16 96 01/07/22 18:00 Intake and Output 01/07/22 01/08/22 01/08/22 22:59 06:59 14:59 Other: # Voids 2 Weight 76.204 kg Results 01/07/22 19:15 01/07/22 19:15 Cardiac Enzymes 01/07/22 01/07/22 01/07/22 Range/Units 19:15 19:15 23:24 AST 26 (14-36) U/L Troponin I <0.012 <0.012 (0.000-0.034) ng/mL 01/08/22 Range/Units 05:30 AST (14-36) U/L Troponin I <0.012 (0.000-0.034) ng/mL Coagulation 01/07/22 Range/Units 19:15 PT 9.6 (9.0-12.0) sec APTT 21.9 L (22.0-30.0) sec CBC 01/07/22 Range/Units 19:15 WBC 4.8 (3.8-10.6) k/uL RBC 3.64 L (3.80-5.40) m/uL Hgb 12.1 (11.4-16.0) gm/dL Hct 37.0 (34.0-46.0) % Plt Count 275 (150-450) k/uL Comprehensive Metabolic Panel 01/07/22 Range/Units 19:15 Sodium 136 L (137-145) mmol/L Potassium 5.3 H (3.5-5.1) mmol/L Chloride 105 (98-107) mmol/L Carbon Dioxide 23 (22-30) mmol/L BUN 47 H (7-17) mg/dL Creatinine 1.59 H (0.52-1.04) mg/dL Glucose 113 H (74-99) mg/dL Calcium 9.3 (8.4-10.2) mg/dL AST 26 (14-36) U/L ALT 20 (4-34) U/L Alkaline Phosphatase 94 (38-126) U/L Total Protein 6.6 (6.3-8.2) g/dL Albumin 4.6 (3.5-5.0) g/dL Current Medications Generic Name Dose Route Start Last Admin Trade Name Freq PRN Reason Stop Dose Admin Acetaminophen 650 mg 01/07/22 20:54 Acetaminophen Tab 325 Mg Tab PO Q6HR PRN Mild Pain or Fever > 100.5 Aspirin 81 mg 01/08/22 21:00 Aspirin 81 Mg PO HS MIGUEL Atorvastatin Calcium 20 mg 01/08/22 21:00 Atorvastatin 20 Mg Tab PO HS MIGUEL Ferrous Sulfate 325 mg 01/08/22 09:00 01/08/22 07:26 Ferrous Sulfate 325 Mg Tab PO 325 mg DAILY MIGUEL Administration Heparin Sodium (Porcine) 5,000 unit 01/08/22 08:00 01/08/22 07:26 Heparin Sodium,Porcine/Pf 5,000 Unit/0.5 Ml Syringe SQ 5,000 unit Q8HR MIGUEL Administration Sodium Chloride 1,000 mls @ 75 mls/hr 01/07/22 20:15 01/07/22 20:23 Saline 0.9% IV 75 mls/hr .[id number] MIGUEL Administration Dobutamine HCl/Dextrose 500 mg 250 mls @ 22.861 mls/hr 01/08/22 07:46 / IV Solution IV 01/08/22 11:46 .[id number] PRN Per Protocol Protocol 10 MCG/KG/MIN Levothyroxine Sodium 100 mcg 01/08/22 21:00 Levothyroxine 100 Mcg Tab PO HS MIGUEL Melatonin 5 mg 01/08/22 04:01 Melatonin 5 Mg Tablet PO HS PRN Insomnia Naloxone HCl 0.2 mg 01/07/22 20:54 Naloxone 0.4 Mg/Ml 1 Ml Vial IV Q2M PRN Opioid Reversal Pantoprazole Sodium 40 mg 01/08/22 09:00 01/08/22 07:26 Pantoprazole 40 Mg Tablet PO 40 mg DAILY MIGUEL Administration Intake and Output 01/07/22 01/08/22 01/08/22 22:59 06:59 14:59 Other: # Voids 2 Weight 76.204 kg 01/07/22 19:15 01/07/22 19:15
[2022-01-08] MEDS ORDERED: ASPIRIN 81 MG PO SCH ×2 (09:00→21:00)
[2022-01-08] MEDS ORDERED: FERROUS SULFATE 325 MG TAB PO SCH (09:00)
[2022-01-08] MEDS ORDERED: PANTOPRAZOLE 40 MG TABLET PO SCH (09:00)
--- NOTE | 2022-01-08 13:08 | CA ---
Dobutamine Stress Echocardiogram Report Leiyd Christian Age: 76 Gender: F : 1945 Exam Date: 01/08/2022 11:46 Exam Location: [facility] Ordering Physician: Deloris Egan Referring Physician: [id number] Classifications Officer Cc/Cm: Jenny Blake RDCS Technologist: Ht (in): 60 Wt (lb): 168 Procedure CPT: Indication: Chest Pain ICD-9 Codes: Rhythm: Patient History: Cardiac Medications: Medications in past 24 hours: Contrast: Total Dose (mL): Stress Results Protocol: Dobutamine Peak Dose (???g/kg/min): 20 Duration (min:sec): Atropine:(mg) Target HR: 121 Double Product: 23131 Resting HR: 77 Resting BP: 163 / 76 Peak HR: 141 Peak BP: 167 / 66 Max Predicted HR: 142 99 % Max Predicted HR Stress Summary: BP Response: Reason for Termination: Target HR Cardiac Symptoms: NO SYMPTOMS ECG Analysis Resting EKG: Normal sinus rhythm normal axis normal intervals Stress EKG: Normal Arrhythmia: PVCs Echo Analysis Base Echo Analysis: Normal left ventricular size wall motion systolic function Low Echo Anaylsis: Normal increase in contractility Peak Echo Analysis: No dobutamine induced wall motion abnormalities Recovery Echo: Normal MEASUREMENTS (Male/Female) Normal Values CONCLUSIONS Negative stress test by EKG criteria Negative dobutamine stress echo Dr. Miki Crockett MD (Electronically Signed) Final Date: 08 Jan 2022 13:06
--- NOTE | 2022-01-08 13:09 | CA ---
Transthoracic Echo Report Name: Leidy Christian Age: 76 Gender: F : 1945 Exam Date: 01/08/2022 11:36 Exam Location: [facility] Ht (in): 60 Wt (lb): 168 Ordering Physician: Cameron Driscoll MD Attending/Referring Phys: [id number], Americo Octave Board Assembler Jenny Blake RDCS Procedure CPT: Indications: MARIS Cardiac Hx: Technical Quality: Contrast 1: N/A Total Dose (mL): Contrast 2: Total Dose (mL): MEASUREMENTS (Male / Female) Normal Values 2D ECHO LV Diastolic Diameter PLAX 4.9 cm 4.2 - 5.9 / 3.9 - 5.3 cm LV Systolic Diameter PLAX 3.0 cm IVS Diastolic Thickness 0.8 cm 0.6 - 1.0 / 0.6 - 0.9 cm LVPW Diastolic Thickness 0.8 cm 0.6 - 1.0 / 0.6 - 0.9 cm LV Relative Wall Thickness 0.3 RV Internal Dim ED PLAX 1.9 cm LA Systolic Diameter LX 3.8 cm 3.0 - 4.0 / 2.7 - 3.8 cm LA Volume 52.9 cm??? 18 - 58 / 22 - 52 cm??? M-MODE Aortic Root Diameter MM 2.7 cm LA Systolic Diameter MM 3.6 cm LA Ao Ratio MM 1.4 MV E Point Septal Separation 0.2 cm AV Cusp Separation MM 1.4 cm DOPPLER MV Area PHT 4.4 cm??? Mitral E Point Velocity 51.3 cm/s Mitral A Point Velocity 113.8 cm/s Mitral E to A Ratio 0.5 MV Deceleration Time 172.9 ms MV E' Velocity 5.8 cm/s Mitral E to MV E' Ratio 8.8 FINDINGS Left Ventricle Normal left ventricular systolic function with no obvious regional wall motion abnormalities. Right Ventricle Normal right ventricular size and function. Right ventricular systolic pressure within normal limits. Right Atrium Normal right atrial size. Left Atrium Left atrial size at the upper limits of normal. Mitral Valve Mild mitral regurgitation. Aortic Valve Trileaflet aortic valve. Aortic valve sclerosis. Tricuspid Valve Trace to mild tricuspid regurgitation. Pulmonic Valve Structurally normal pulmonic valve. Pericardium Echo free space anterior to the right ventricle likely represents a fat pad. Aorta Normal size aortic root and proximal ascending aorta. CONCLUSIONS Normal left ventricular systolic function Mild mitral regurgitation Previewed by: Dr. Miki Crockett MD (Electronically Signed) Final Date: 08 Jan 2022 13:08
[2022-01-08] MEDS: SODIUM CHLORIDE 0.9% 1,000 ML IV SCH (14:46)
[2022-01-08 15:13] VITALS: BP 103/58; PULSE 83; TEMP 98.2
[2022-01-08 15:19] LABS: HCT 35.3 % (34.0-46.0); HGB 11.1 gm/dL (11.4-16.0); MCH 32.4 pg (25.0-35.0); MCHC 31.4 g/dL (31.0-37.0); MCV 103.3 fL (80.0-100.0); Macrocytosis Slight; Mean Platelet Volume 7.3; Platelet Count 234 k/uL (150-450); RBC 3.42 m/uL (3.80-5.40); RDW 12.8 % (11.5-15.5); WBC 4.2 k/uL (3.8-10.6)
[2022-01-08 15:29] LABS: ALT 19 U/L (4-34); AST 27 U/L (14-36); African American GFR (CKD) 39 (>60 ml/min/1.73 sqM); Albumin 3.7 g/dL (3.5-5.0); Albumin/Globulin Ratio 1.9; Alkaline Phosphatase 64 U/L (38-126); Anion Gap 5 mmol/L; Blood Urea Nitrogen 33 mg/dL (7-17); Calcium 8.5 mg/dL (8.4-10.2); Carbon Dioxide 25 mmol/L (22-30); Chloride 109 mmol/L (98-107); Globulin 1.9 g/dL; Glucose 164 mg/dL (74-99); Non-African American GFR(CKD) 34 (>60 ml/min/1.73 sqM); Potassium 4.8 mmol/L (3.5-5.1); Sodium 139 mmol/L (137-145); Total Bilirubin 0.4 mg/dL (0.2-1.3); Total Protein 5.6 g/dL (6.3-8.2)
--- NOTE | 2022-01-08 18:33 | XR ---
EXAMINATION TYPE: XR cervical spine comp, XR thoracic spine 1V DATE OF EXAM: 01/08/2022 4:11 PM INDICATION: Patient age:Female; 76 years old; Reason for study: Neck and back pain; . COMPARISON: None TECHNIQUE: The cervical spine was imaged in 4 projections. The thoracic spine was imaged in AP view. FINDINGS: There is multilevel disc degeneration changes seen throughout the cervical spine with endplate spurri ng displaced narrowing present. There is calcification of the nuchal ligament. The odontoid views dem onstrate an intact odontoid process. Visualized thoracic spine demonstrates multifocal disc degenerat ion changes. There is atherosclerosis of the aortic arch. Visualized portions of lung are clear. IMPRESSION: 1. No fracture or dislocation. 2. 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
--- NOTE | 2022-01-08 18:33 | P.DS ---
Providers Date of admission: 01/07/22 20:54 Expected date of discharge: 01/08/22 Attending physician: Kennedy Chavis MD Primary care physician: AUDIE Carter Hospital Course: Discharge Diagnosis: Chest pain, acute coronary event ruled out. Back pain, neck pain.. X-ray thoracic and cervical spine revealing mild degenerative disc changes no fractures or dislocations. Acute kidney injury, improving patient to have repeat BMP in 3 days upon discharge with results to be sent to PCP for follow-up and management. Hyperkalemia, resolved. Patient notified that it is important to follow up for repeat lab work in 3 days as she did have some elevated potassium levels and an acute kidney injury. The potassium levels have improved and your back to baseline and renal function is slowly improving. It is important to have a repeat BMP in 3 days and these results will be sent to primary care doctor for follow-up and management. You may need to have her blood pressure medication, lisinopril discontinued and be started on a new medication as this can cause elevated potassium levels. Hypertension Hyperlipidemia Hypothyroidism Hospital Course: Patient is a very pleasant 76-year-old female with a past medical history of hypothyroidism, hypertension, and hyperlipidemia. She presented to the emergency department on 01/07/22 with a chief complaint of chest pain and decreased exercise tolerance beginning approximately 1-2 weeks ago and progressively worsening as she reported noticing exertional chest tightness as well as dyspnea with exertion.. Patient reported this pain begins midsternal chest and radiates straight into her back and up into her neck. She denied any other accompanying factors including headache, lightheadedness, dizziness, palpitations, diaphoresis, nausea, vomiting, or experiencing any numbness/tingling/weakness/swelling in her extremities. Evaluation in the emergency department. An EKG was completed revealing normal sinus rhythm at 87 bpm with no noted T-wave or ST abnormalities showing no signs of acute ischemia. Chest x-ray negative for acute cardiopulmonary process. CBC, coags, and BMP showing no significant abnormalities with the exception of mild hyperkalemia with potassium of 5.3 and acute kidney injury with BUN of 47, creatinine 1.59, and GFR of 31. Troponin was negative at less than 0.012. Patient was admitted under our services with consultation to cardiology. An echocardiogram was completed revealing normal ventricular systolic function with mild mitral regurgitation. Patient then underwent a stress echo which was a negative stress test by EKG criteria and negative dobutamine stress echo. Cardiology recommending outpatient follow-up in their office. Patient had resolution of hyperkalemia and slight improvement of renal function. Patient underwent x-ray thoracic and cervical spine secondary to reports of her back pain and neck pain which was negative for acute fractures or dislocation showing mild degenerative disc disease. Patient notified that it is important to follow up for repeat lab work in 3 days as she did have some elevated potassium levels and an acute kidn ey injury. The potassium levels have improved and your back to baseline and renal function is slowly improving. It is important to have a repeat BMP in 3 days and these results will be sent to primary care doctor for follow-up and management. You may need to have her blood pressure medication, lisinopril discontinued and be started on a new medication as this can cause elevated potassium levels. Patient medically stable for discharge home with family at this time. Physical examination: General: non toxic, no distress, appears at stated age Derm: warm, dry Head: atraumatic, normocephalic, symmetric Eyes: EOMI, no lid lag, anicteric sclera Mouth: no lip lesion, mucus membranes moist Cardiovascular: S1S2 reg, no murmur, positive posterior tibial pulse bilateral, Lungs: CTA bilateral, no rhonchi, no rales , no accessory muscle use Abdominal: soft, nontender to palpation, no guarding, no appreciable organomegaly Ext: no gross muscle atrophy, no edema, no contractures Neuro: CN II-XI grossly intact, no focal neuro deficits Psych: Alert, oriented, appropriate affect A total of 38 minutes of time were spent preparing this complex discharge summary. Pt was discharged on 01/08/22 at 6:34 PM. I reviewed the documentation as provided by the [facility] above, who is the original author of this note. I agree with the documented assessment and plan, with the following changes: none Patient Condition at Discharge: Stable Plan - Discharge Summary Discharge Rx Participant: No New Discharge Prescriptions: Continue lisinopriL [Zestril] 5 mg PO HS Atorvastatin [Lipitor] 20 mg PO HS Pantoprazole Sodium [Protonix] 40 mg PO DAILY Melatonin 5 mg PO HS PRN PRN Reason: Insomnia Cholecalciferol [Vitamin D3 (25 Mcg = 1000 Iu)] 25 mcg PO DAILY Ferrous Sulfate [Iron (65 MG Elemental)] 325 mg PO DAILY Vit C/E/Zn/Coppr/Lutein/Zeaxan [Preservision Areds 2 Softgel] 1 cap PO BID Acetaminophen Tab [Tylenol] 650 mg PO BID Levothyroxine Sodium [Synthroid] 100 mcg PO HS Aspirin EC [Ecotrin Low Dose] 81 mg PO HS Discharge Medication List lisinopriL [Zestril] 5 mg PO HS 07/02/16 [History] Atorvastatin [Lipitor] 20 mg PO HS 10/18/19 [History] Pantoprazole Sodium [Protonix] 40 mg PO DAILY 10/18/19 [History] Cholecalciferol [Vitamin D3 (25 Mcg = 1000 Iu)] 25 mcg PO DAILY 05/02/20 [History] Ferrous Sulfate [Iron (65 MG Elemental)] 325 mg PO DAILY 05/02/20 [History] Melatonin 5 mg PO HS PRN 05/02/20 [History] Acetaminophen Tab [Tylenol] 650 mg PO BID 01/07/22 [History] Aspirin EC [Ecotrin Low Dose] 81 mg PO HS 01/07/22 [History] Levothyroxine Sodium [Synthroid] 100 mcg PO HS 01/07/22 [History] Vit C/E/Zn/Coppr/Lutein/Zeaxan [Preservision Areds 2 Softgel] 1 cap PO BID 01/07/22 [History] Follow up Appointment(s)/Referral(s): Nonstaff,Physician [REFERRING] - 1-2 days Miki Crockett MD [STAFF PHYSICIAN] - 1 Week Ambulatory/Diagnostic Orders: Basic Metabolic Panel [LAB.AMB] Time Frame: 3 Days, Location: None Selected Activity/Diet/Wound Care/Special Instructions: Activity: As tolerated. Take breaks as needed. Diet: Heart healthy and carb consistent diet. Avoid salts, or foods with hidden salts such as canned or boxed foods and frozen dinners. Extra salt makes your heart work harder and traps the fluid in your body for longer. Special Instructions: Take all of your medications as directed and remember to keep all of your doctor's appointments and follow-up as needed. It is very important to follow up for repeat lab work in 3 days as you did have some elevated potassium levels and an acute kidney injury. The potassium levels have improved and your back to baseline and your renal function is slowly improving. It is important to have a repeat BMP in 3 days and these results will be sent to your primary care doctor for follow-up and management. You may need to have her blood pressure medication, lisinopril discontinued and be started on a new medication as this can cause elevated potassium levels. Thank you for allowing us to participate in your care, it was truly a pleasure having you for our patient!!! Discharge Disposition: HOME SELF-CARE
[2022-01-08] MEDS ORDERED: ATORVASTATIN 20 MG TAB PO SCH (21:00)
[2022-01-08] MEDS ORDERED: LEVOTHYROXINE 100 MCG TAB PO SCH (21:00)
== END 2022-01-08 18:30 | disposition home or self-care (01) ==
LOC: EC 17:54 → 6NMEDSUR 20:54
PROVIDERS: ADMIT Internal Medicine; ATTEND Internal Medicine
DX: R07.89 Other chest pain (principal); N17.9 Acute kidney failure, unspecified; E87.5 Hyperkalemia; I25.10 Atherosclerotic heart disease of native coronary artery without angina pectoris; E78.5 Hyperlipidemia, unspecified; E11.9 Type 2 diabetes mellitus without complications; E03.9 Hypothyroidism, unspecified; M54.9 Dorsalgia, unspecified; M54.2 Cervicalgia; I10 Essential (primary) hypertension; R06.09 Other forms of dyspnea; M51.9 Unspecified thoracic, thoracolumbar and lumbosacral intervertebral disc disorder; I34.0 Nonrheumatic mitral (valve) insufficiency; E66.9 Obesity, unspecified; Z68.32 Body mass index [BMI] 32.0-32.9, adult; Z98.41 Cataract extraction status, right eye; Z98.42 Cataract extraction status, left eye; Z96.1 Presence of intraocular lens; H35.30 Unspecified macular degeneration; M19.90 Unspecified osteoarthritis, unspecified site; M54.32 Sciatica, left side; Z79.84 Long term (current) use of oral hypoglycemic drugs; Z79.82 Long term (current) use of aspirin; Z79.890 Hormone replacement therapy; Z79.899 Other long term (current) drug therapy; Z96.643 Presence of artificial hip joint, bilateral; Z96.653 Presence of artificial knee joint, bilateral; Z82.49 Family history of ischemic heart disease and other diseases of the circulatory system; Z71.3 Dietary counseling and surveillance
CPT/HCPCS: 99285; 96372; 96360; 96361; 36415; 93306; 93351; 80053 ×2; 83605; 83735; 84484 ×2; 85025; 85027; 85610; 85730; 81001; 72050; 72020; 71046; G0378 ×2; J1250; J1644

== ENCOUNTER 2022-03-22 19:40 | Emergency (ER) | payer MEDICARE ==
[2022-03-22 20:07] VITALS: BP 147/74; RESP 16; TEMP 97.3
--- NOTE | 2022-03-22 20:30 | ED ---
General Adult HPI - General Chief complaint: Headache Stated complaint: Headache,chest/abd pain Time Seen by Provider: 03/22/22 20:29 Source: patient Mode of arrival: wheelchair Limitations: no limitations - History of Present Illness Initial comments: Patient presents to the ED with her and daughter for evaluation. Patient states that she has had a "throbbing headache" since yesterday. Patient states that her headache is diffuse in her head and was gradual in onset. Patient states that she has been taking Tylenol for her headache. Patient states that her headache has currently improved to 6/10 in severity. Patient states that she has come to the ED today because of this headache, but she also has other chronic symptoms that she is complaining of. Patient states that she has had chest pain intermittently for years, which she attributes to "arthritis and my back". Patient denies any recent change in her chest pain, and she denie s having any chest pain currently. Patient also reports having abdominal pain for the past few months after eating. Patient denies having any abdominal pain currently. Patient states that she is scheduled to see a GI specialist for further evaluation of this abdominal pain. Patient denies trauma or injury, sudden onset of headache, LOC, neck pain or stiffness, fever or chills, focal numbness/weakness/neuro deficit, visual changes, dizziness, neck/arm/jaw/back pain, pleuritic pain, dyspnea, cough or cold symptoms, palpitations, syncope, nausea or vomiting, diarrhea or constipation, bloody or melanotic stool, dysuria or urinary symptoms, leg or calf swelling or pain, or any other symptoms or complaints. - Related Data Home Medications Medication Instructions Recorded Confirmed lisinopriL [Zestril] 5 mg PO HS 07/02/16 01/07/22 Atorvastatin [Lipitor] 20 mg PO HS 10/18/19 01/07/22 Pantoprazole Sodium [Protonix] 40 mg PO DAILY 10/18/19 01/07/22 Cholecalciferol [Vitamin D3 (25 25 mcg PO DAILY 05/02/20 01/07/22 Mcg = 1000 Iu)] Ferrous Sulfate [Iron (65 MG 325 mg PO DAILY 05/02/20 01/07/22 Elemental)] Melatonin 5 mg PO HS PRN 05/02/20 01/07/22 Acetaminophen Tab [Tylenol] 650 mg PO BID 01/07/22 01/07/22 Aspirin EC [Ecotrin Low Dose] 81 mg PO HS 01/07/22 01/07/22 Levothyroxine Sodium [Synthroid] 100 mcg PO HS 01/07/22 01/07/22 Vit C/E/Zn/Coppr/Lutein/Zeaxan 1 cap PO BID 01/07/22 01/07/22 [Preservision Areds 2 Softgel] Allergies Allergy/AdvReac Type Severity Reaction Status Date / Time No Known Allergies Allergy Verified 01/07/22 21:27 Review of Systems ROS Statement: Those systems with pertinent positive or pertinent negative responses have been documented in the HPI. ROS Other: All systems not noted in ROS Statement are negative. Past Medical History Past Medical History: Diabetes Mellitus, Eye Disorder, Hyperlipidemia, Hypertension, Osteoarthritis (OA), Thyroid Disorder Additional Past Medical History / Comment(s): See Dr Deleon H&P, macular degeneration chaz eyes, sciatica left side History of Any Multi-Drug Resistant Organisms: None Reported Past Surgical History: Appendectomy, Heart Catheterization, Hernia Repair, Joint Replacement, Tonsillectomy Additional Past Surgical History / Comment(s): ORIF rt femur, thyroid removed, bilateral knee replacements, left hip replacement, chaz cataracts, loop recorder implant and removed chaz eyelid lift, right hip replaced Past Anesthesia/Blood Transfusion Reactions: Postoperative Nausea & Vomiting (PONV) Type of Cardiac Device: Loop Device Placement Date:: 2016 left chest Past Psychological History: No Psychological Hx Reported Additional Psychological History / Comment(s): . Smoking Status: Never smoker Past Alcohol Use History: None Reported Past Drug Use History: None Reported - Past Family History Brother(s) Family Medical History: Cancer Mother Family Medical History: Myocardial Infarction (MD) Additional Family Medical History / Comment(s): Mother from a massive MD at the age of 78 or 79 yrs. Father Family Medical History: Congestive Heart Failure (CHF) General Exam Limitations: no limitations General appearance: alert, in no apparent distress Head exam: Present: atraumatic, normocephalic Eye exam: Present: normal appearance, PERRL, EOMI ENT exam: Present: normal oropharynx, mucous membranes moist Neck exam: Present: other (Trachea is in midline; no nuchal rigidity or meni ngeal signs are present on exam). Absent: tenderness, meningismus Respiratory exam: Present: normal lung sounds bilaterally. Absent: respiratory distress, wheezes, rales, rhonchi, stridor, chest wall tenderness Cardiovascular Exam: Present: regular rate, normal rhythm, normal heart sounds, other (Normal radial pulses bilaterally) GI/Abdominal exam: Present: soft. Absent: distended, tenderness, guarding Extremities exam: Present: other (Negative Homans sign bilaterally). Absent: tenderness, pedal edema, calf tenderness Neurological exam: Present: alert, oriented X3, CN II-XII intact. Absent: motor sensory deficit Psychiatric exam: Present: normal affect, normal mood Skin exam: Present: warm, dry, intact, normal color Course Vital Signs 03/22/22 03/22/22 20:02 21:12 Temperature 97.3 F L Pulse Rate 109 H 84 Respiratory 16 Rate Blood Pressure 147/74 O2 Sat by Pulse 96 Oximetry - Reevaluation(s) Reevaluation #1: 03/22/22 22:50 Patient states that her headache has improved with ED treatment, and she denies development of any new symptoms or pain while in the ED. Patient remains alert and breathing comfortably. Patient continues to have a normal neurological exam. Patient and family are aware the patient's test results, and patient feels comfortable being discharged home with her family at this time. Patient was counseled about headaches, chest pain, abdominal pain and hyponatremia. Bennie shearer was clearly explained return and follow-up instructions. Patient was instructed to follow up closely with her primary care provider. Patient feels comfortable with this plan. EKG Findings - EKG Comments: EKG Findings:: Normal sinus rhythm, ventricular rate of 77 bpm, no ectopy, normal MI and QRS intervals, normal QT interval, normal axis, no ST or T-wave abnormality Medical Decision Making - Medical Decision Making Patient presents the ED out of concern of her headache for the past couple of days. Patient reports that her chest pain and abdominal pain are chronic in etiology, and I do not suspect either to be an emergent issue at this time. Patient's headache has improved with ED treatment, and her head CT is negative. Patient's labs are fairly unremarkable except for mild hyponatremia. Patient has been treated with IV normal saline in the ED, and have instructed her on fluid restriction and increased salt intake at home. Will discharge patient home with her family at this time with instructions to have her follow up closely with her primary care provider. Patient feels comfortable with this plan. - Lab Data Result diagrams: 03/22/22 20:18 03/22/22 20:18 Lab Results 03/22/22 03/22/22 03/22/22 Range/Units 20:18 20:18 20:18 WBC 5.5 (3.8-10.6) k/uL RBC 3.77 L (3.80-5.40) m/uL Hgb 12.3 (11.4-16.0) gm/dL Hct 37.3 (34.0-46.0) % MCV 98.9 (80.0-100.0) fL MCH 32.6 (25.0-35.0) pg MCHC 33.0 (31.0-37.0) g/dL RDW 12.8 (11.5-15.5) % Plt Count 255 (150-450) k/uL MPV 7.1 Neutrophils % 70 % Lymphocytes % 20 % Monocytes % 7 % Eosinophils % 1 % Basophils % 0 % Neutrophils # 3.9 (1.3-7.7) k/uL Lymphocytes # 1.1 (1.0-4.8) k/uL Monocytes # 0.4 (0-1.0) k/uL Eosinophils # 0.1 (0-0.7) k/uL Basophils # 0.0 (0-0.2) k/uL PT 10.1 (9.0-12.0) sec INR 0.9 (<1.2) APTT 23.9 (22.0-30.0) sec Sodium 126 L (137-145) mmol/L Potassium 4.4 (3.5-5.1) mmol/L Chloride 94 L (98-107) mmol/L Carbon Dioxide 24 (22-30) mmol/L Anion Gap 8 mmol/L BUN 17 (7-17) mg/dL Creatinine 1.21 H (0.52-1.04) mg/dL Est GFR (CKD-EPI)AfAm 50 (>60 ml/min/1.73 sqM) Est GFR (CKD-EPI)NonAf 43 (>60 ml/min/1.73 sqM) Glucose 106 H (74-99) mg/dL Calcium 9.4 (8.4-10.2) mg/dL Magnesium 2.3 (1.6-2.3) mg/dL Total Bilirubin 0.5 (0.2-1.3) mg/dL AST 30 (14-36) U/L ALT 21 (4-34) U/L Alkaline Phosphatase 81 (38-126) U/L Troponin I (0.000-0.034) ng/mL Total Protein 6.5 (6.3-8.2) g/dL Albumin 4.3 (3.5-5.0) g/dL Lipase (23-300) U/L 03/22/22 03/22/22 Range/Units 20:18 20:18 WBC (3.8-10.6) k/uL RBC (3.80-5.40) m/uL Hgb (11.4-16.0) gm/dL Hct (34.0-46.0) % MCV (80.0-100.0) fL MCH (25.0-35.0) pg MCHC (31.0-37.0) g/dL RDW (11.5-15.5) % Plt Count (150-450) k/uL MPV Neutrophils % % Lymphocytes % % Monocytes % % Eosinophils % % Basophils % % Neutrophils # (1.3-7.7) k/uL Lymphocytes # (1.0-4.8) k/uL Monocytes # (0-1.0) k/uL Eosinophils # (0-0.7) k/uL Basophils # (0-0.2) k/uL PT (9.0-12.0) sec INR (<1.2) APTT (22.0-30.0) sec Sodium (137-145) mmol/L Potassium (3.5-5.1) mmol/L Chloride (98-107) mmol/L Carbon Dioxide (22-30) mmol/L Anion Gap mmol/L BUN (7-17) mg/dL Creatinine (0.52-1.04) mg/dL Est GFR (CKD-EPI)AfAm (>60 ml/min/1.73 sqM) Est GFR (CKD-EPI)NonAf (>60 ml/min/1.73 sqM) Glucose (74-99) mg/dL Calcium (8.4-10.2) mg/dL Magnesium (1.6-2.3) mg/dL Total Bilirubin (0.2-1.3) mg/dL AST (14-36) U/L ALT (4-34) U/L Alkaline Phosphatase (38-126) U/L Troponin I <0.012 (0.000-0.034) ng/mL Total Protein (6.3-8.2) g/dL Albumin (3.5-5.0) g/dL Lipase 75 (23-300) U/L - Radiology Data Chest x-ray: No acute cardiopulmonary disease/process. Noncontrast head CT: Negative unenhanced head CT scan Disposition Clinical Impression: Headache, Chronic chest pain, Chronic abdominal pain, Hyponatremia Disposition: HOME SELF-CARE Condition: Stable Instructions (If sedation given, give patient instructions): Chest Pain (ED), Hyponatremia (ED), Acute Headache (ED), Abdominal Pain (ED) Additional Instructions: Return to the ER immediately should you develop new or worsening pain, shortness of breath, a fever, vomiting, numbness or weakness, or new or worsening symptoms. Follow up closely with your primary care provider. Is patient prescribed a controlled substance at d/c from ED?: No Referrals: Daniele Jolly NPC [Primary Care Provider] - 1-2 days Time of Disposition: 22:54
[2022-03-22 20:31] LABS: Basophils % (A) 0 %; Eosinophils # (A) 0.1 k/uL (0-0.7); Eosinophils % (A) 1 %; HCT 37.3 % (34.0-46.0); HGB 12.3 gm/dL (11.4-16.0); Lymphocytes # (A) 1.1 k/uL (1.0-4.8); Lymphocytes % (A) 20 %; MCH 32.6 pg (25.0-35.0); MCV 98.9 fL (80.0-100.0); Mean Platelet Volume 7.1; Monocytes # (A) 0.4 k/uL (0-1.0); Monocytes % (A) 7 %; Neutrophils # (A) 3.9 k/uL (1.3-7.7); Neutrophils % (A) 70 %; Platelet Count 255 k/uL (150-450); RBC 3.77 m/uL (3.80-5.40); RDW 12.8 % (11.5-15.5); WBC 5.5 k/uL (3.8-10.6)
--- NOTE | 2022-03-22 20:39 | XR ---
EXAMINATION TYPE: XR chest 2V DATE OF EXAM: 03/22/2022 8:34 PM COMPARISON: Chest radiographs from 01/07/2022. TECHNIQUE: XR chest 2V Frontal and lateral views of the chest. CLINICAL INDICATION:Female, 76 years old with history of Chest Pain; FINDINGS: Lungs/Pleura: There is no evidence of pleural effusion, focal consolidation, or pneumothorax. Pulmonary vascularity: Unremarkable. Heart/mediastinum: Cardiomediastinal silhouette is unremarkable. Atherosclerotic calcifications are seen in the aorta. Musculoskeletal: Multiple level degenerative disc disease changes seen throughout the spine. No acute osseous abnormality. IMPRESSION: No acute cardiopulmonary disease/process.
[2022-03-22 20:41] LABS: INR 0.9 (<1.2)
[2022-03-22 20:42] LABS: Partial Thromboplastin Time 23.9 sec (22.0-30.0); Prothrombin Time 10.1 sec (9.0-12.0)
[2022-03-22 20:44] LABS: Albumin 4.3 g/dL (3.5-5.0); Calcium 9.4 mg/dL (8.4-10.2); Magnesium 2.3 mg/dL (1.6-2.3); Potassium 4.4 mmol/L (3.5-5.1); Total Bilirubin 0.5 mg/dL (0.2-1.3); Total Protein 6.5 g/dL (6.3-8.2)
[2022-03-22] MEDS ORDERED: METOCLOPRAMIDE 5 MG/ML 2 ML VIAL IVP STA (20:46)
[2022-03-22] MEDS ORDERED: diphenhydrAMINE 50 MG/ML 1 ML VIAL IVP STA (20:46)
[2022-03-22 21:20] VITALS: PULSE 84
[2022-03-22] MEDS ORDERED: SODIUM CHLORIDE 0.9% 1,000 ML IV ONE (22:06)
--- NOTE | 2022-03-22 22:29 | CT ---
EXAMINATION TYPE: CT brain wo con DATE OF EXAM: 03/22/2022 COMPARISON: None HISTORY: HEADACHES CT DLP: 1064.4 mGycm Automated exposure control for dose reduction was used. Ventricles have normal size. There is no mass effect or midline shift. No sign of intracranial hemorr elian. Calvarium is intact. There is normal aeration of the mastoid sinuses. IMPRESSION: Negative unenhanced head CT scan.
== END 2022-03-22 23:17 | disposition home or self-care (01) ==
LOC: EC 19:40
DX: R51.9 Headache, unspecified (principal); R10.9 Unspecified abdominal pain; E87.1 Hypo-osmolality and hyponatremia; E11.9 Type 2 diabetes mellitus without complications; E78.5 Hyperlipidemia, unspecified; E07.9 Disorder of thyroid, unspecified; Z79.899 Other long term (current) drug therapy; Z82.49 Family history of ischemic heart disease and other diseases of the circulatory system
CPT/HCPCS: 36415; 93005; 80053; 83690; 83735; 84484; 85025; 85610; 85730; 71046; 70450; 99284; 96374; 96375; 96361; J1200; J2765

== ENCOUNTER → 2023-04-28 | Day surgery (SDC) | payer MEDICARE ==
[2023-04-15 12:05] VITALS: BMI 32.2
[~2023-04-28] MED LIST changes: -ACETAMINOPHEN TAB 500 MG TAB PO PRN; -GABAPENTIN 300 MG CAP PO PRN; -HYDROmorphone 0.5 MG/0.5 ML SYRINGE IVP PRN; +LIDOCAINE 2% INJ 20 MG/ML (2 ML VIAL) ONE; -MELOXICAM 7.5 MG TAB PO PRN; -MIDAZOLAM 2 MG/2 ML VIAL IV PRN; +PROPOFOL 10 MG/ML 20 ML VIAL IV ONE; -TRANEXAMIC ACID 1,000 MG in SODIUM CHLORIDE 0.9% 100 ML IVPB PRN
[2023-04-28] MEDS: LACTATED RINGERS 1,000 ML IV SCH ×2 (09:35→09:51)
[2023-04-28 09:38] VITALS: TEMP 96.9
--- NOTE | 2023-04-28 10:02 | P.PCN ---
Date of Procedure: 04/28/23 Procedure(s) Performed: BRIEF HISTORY: Patient is a 77-year-old, pleasant, white female scheduled for an upper endoscopy as a part of evaluation of intermittent dysphagia to solids. She does have long-standing history of GERD and presently on Protonix 40 mg daily and Pepcid 20 mg at bedtime.. PROCEDURE PERFORMED: Esophagogastroduodenoscopy with biopsy and dilation. PREOPERATIVE DIAGNOSIS: Intermittent dysphagia to solids. IV sedation per anesthesia. PROCEDURE: After informed consent was obtained, the patient was brought into the endoscopy unit. IV sedation was administered by Anesthesia under continuous monitoring. Initially the Olympus GIF-140 video endoscope was inserted into the mouth. Esophagus intubated without any difficulty. It was gradually advanced into the stomach and duodenum and carefully examined. The bulb and the second part of the duodenum appeared normal. The scope at this time was withdrawn to the stomach, adequately insufflated with air, and upon careful examination, mucosa of the antrum, body, cardia and the fundus appeared normal. Small gastric polyps noted which were biopsied. The scope was then withdrawn into the esophagus. Small hiatal hernia noted. There was a distal esophageal Schatzki's ring identified at the GE junction which was dilated using 18-20 mm TTS balloon in a sequential fashion for 30 seconds. The GE junction was located at 39 cm from the incisors. The esophagus appeared normal. There were no erosions or ulcerations seen and the patient tolerated the procedure well. IMPRESSION: 1. Distal esophageal Schatzki's ring status post balloon dilation using 18-20 mm TTS balloon as described above. 2. Small hiatal hernia 3. Small gastric polyps. RECOMMENDATIONS: The findings of this examination were discussed with the patient as well as a family. She was advised to follow with the biopsy results. She liquids for 2 hours. Continue with Protonix 40 mg daily as well as Pepcid daily and follow antireflux measures.
[2023-04-28 10:05] LABS: Glucose,Whole Blood 108 mg/dL (70-110)
[2023-04-28 10:12] VITALS: RESP 16
[2023-04-28 10:29] VITALS: BP 153/81; PULSE 74
== END ==
LOC: ORWHC2ENDO 09:07
PROVIDERS: ATTEND Internal Medicine Gastroenterology
DX: K31.7 Polyp of stomach and duodenum (principal); K44.9 Diaphragmatic hernia without obstruction or gangrene; K22.2 Esophageal obstruction; I10 Essential (primary) hypertension; E78.5 Hyperlipidemia, unspecified; M19.90 Unspecified osteoarthritis, unspecified site; E11.9 Type 2 diabetes mellitus without complications; K21.9 Gastro-esophageal reflux disease without esophagitis; Z79.82 Long term (current) use of aspirin; Z79.899 Other long term (current) drug therapy
CPT/HCPCS: 88305; 43249; 43239; J2704; J2001; C1726

== ENCOUNTER 2023-06-20 17:30 | Observation (INO) | payer MEDICARE ==
[2023-06-20 18:09] LABS: Basophils % (A) 0 %; Eosinophils % (A) 1 %; HCT 26.9 % (34.0-46.0); HGB 8.8 gm/dL (11.4-16.0); Lymphocytes % (A) 18 %; MCH 32.5 pg (25.0-35.0); MCHC 32.8 g/dL (31.0-37.0); MCV 99.1 fL (80.0-100.0); Mean Platelet Volume 8.5; Monocytes # (A) 0.3 k/uL (0-1.0); Monocytes % (A) 6 %; Neutrophils # (A) 4.2 k/uL (1.3-7.7); Neutrophils % (A) 74 %; Platelet Count 228 k/uL (150-450); RBC 2.72 m/uL (3.80-5.40); WBC 5.8 k/uL (3.8-10.6)
[2023-06-20 18:25] LABS: ALT 19 U/L (4-34); AST 23 U/L (14-36); African American GFR (CKD) 40 (>60 ml/min/1.73 sqM); Albumin 3.6 g/dL (3.5-5.0); Alkaline Phosphatase 83 U/L (38-126); Anion Gap 9 mmol/L; Blood Urea Nitrogen 35 mg/dL (7-17); Calcium 8.9 mg/dL (8.4-10.2); Carbon Dioxide 20 mmol/L (22-30); Chloride 101 mmol/L (98-107); Glucose 132 mg/dL (74-99); Magnesium 2.5 mg/dL (1.6-2.3); Non-African American GFR(CKD) 35 (>60 ml/min/1.73 sqM); Potassium 5.1 mmol/L (3.5-5.1); Sodium 130 mmol/L (137-145); Total Bilirubin 0.4 mg/dL (0.2-1.3); Total Protein 5.7 g/dL (6.3-8.2)
--- NOTE | 2023-06-20 21:14 | ED ---
GI Bleed HPI - General Chief complaint: GI Bleed Stated complaint: weakness,blood in stool Time Seen by Provider: 06/20/23 17:39 Source: patient Mode of arrival: wheelchair Limitations: no limitations - History of Present Illness Initial comments: Leidy is a pleasant 77 -year-old female who presents to ER today with complaint of GI bleeding and generalized weakness. Patient reports she has a history of diverticulitis. She states that on Wednesday she had an episode of grossly bloody stool. She states it was a significantly large volume of blood. Patient states that since that time she's noticed a slight amount of blood when wiping but no significant bleeding. No abdominal pain. However she's feeling quite fatigued, generally weak and tired. - Related Data Home Medications Medication Instructions Recorded Confirmed lisinopriL [Zestril] 20 mg PO HS 07/02/16 04/28/23 Atorvastatin [Lipitor] 20 mg PO HS 10/18/19 04/28/23 Pantoprazole Sodium [Protonix] 40 mg PO DAILY 10/18/19 04/28/23 Cholecalciferol [Vitamin D3 (25 25 mcg PO DAILY 05/02/20 04/28/23 Mcg = 1000 Iu)] Ferrous Sulfate [Iron (65 MG 325 mg PO DAILY 05/02/20 04/28/23 Elemental)] Acetaminophen Tab [Tylenol] 650 mg PO BID 01/07/22 04/28/23 Aspirin EC [Ecotrin Low Dose] 81 mg PO HS 01/07/22 04/28/23 Levothyroxine Sodium [Synthroid] 100 mcg PO HS 01/07/22 04/28/23 Vit C/E/Zn/Coppr/Lutein/Zeaxan 1 cap PO BID 01/07/22 04/28/23 [Preservision Areds 2 Softgel] Famotidine 20 mg PO DAILY 04/15/23 04/28/23 Methenamine Hippurate 1 gm PO DAILY 04/15/23 04/28/23 Allergies Allergy/AdvReac Type Severity Reaction Status Date / Time No Known Allergies Allergy Verified 06/20/23 17:37 Review of Systems ROS Statement: Those systems with pertinent positive or pertinent negative responses have been documented in the HPI. ROS Other: All systems not noted in ROS Statement are negative. Past Medical History Past Medical History: Diabetes Mellitus, Eye Disorder, GERD/Reflux, H yperlipidemia, Hypertension, Osteoarthritis (OA), Thyroid Disorder Additional Past Medical History / Comment(s): macular degeneration chaz eyes, sciatica left side, FREQUENT UTI'S, DIET CONTROL DM, History of Any Multi-Drug Resistant Organisms: None Reported Past Surgical History: Appendectomy, Heart Catheterization, Hernia Repair, Joint Replacement, Tonsillectomy Additional Past Surgical History / Comment(s): ORIF rt femur, thyroid removed, bilateral knee replacements, chaz. hip replacement, chaz cataracts, loop recorder implant and removed, chaz eyelid lift Past Anesthesia/Blood Transfusion Reactions: Postoperative Nausea & Vomiting (PONV) Type of Cardiac Device: Loop Device Placement Date:: 2016 left chest Past Psychological History: No Psychological Hx Reported Smoking Status: Never smoker - Past Family History Brother(s) Family Medical History: Cancer Mother Family Medical History: Myocardial Infarction (IA) Additional Family Medical History / Comment(s): Mother from a massive IA at the age of 78 or 79 yrs. Father Family Medical History: Congestive Heart Failure (CHF) General Exam Limitations: no limitations General appearance: alert Head exam: Present: atraumatic, normocephalic Eye exam: Present: PERRL, other (Conjunctival pallor) ENT exam: Present: normal exam Respiratory exam: Present: normal lung sounds bilaterally. Absent: respiratory distress Cardiovascular Exam: Present: regular rate, systolic murmur GI/Abdominal exam: Present: soft. Absent: distended, tenderness, guarding, re bound Rectal exam: Present: heme (+) stool Extremities exam: Present: full ROM Neurological exam: Present: alert, oriented X3 Psychiatric exam: Present: normal affect, normal mood Course Vital Signs 06/20/23 06/20/23 17:35 17:37 Temperature 98.0 F Pulse Rate 90 85 Respiratory 16 16 Rate Blood Pressure 147/75 135/68 O2 Sat by Pulse 97 98 Oximetry Medical Decision Making - Medical Decision Making Was pt. sent in by a medical professional or institution (, PA, SUPERVISOR [employer]INTENANCE, urgent care, hospital, or [place] health care facility...) When possible be specific @ -No Did you speak to anyone other than the patient for history (EMS, parent, family, police, friend...)? What history was obtained from this source @ -Family Did you review nursing and triage notes (agree or disagree)? Why? @ -I reviewed and agree with nursing and triage notes Were old charts reviewed (outside hosp., previous admission, EMS record, old EKG, old radiological studies, urgent care reports/EKG's, [place] health care facility records)? Report findings @ -Dr. Crockett's previous notes were reviewed Differential Diagnosis (chest pain, altered mental status, abdominal pain women, abdominal pain men, vaginal bleeding, weakness, fever, dyspnea, syncope, headache, dizziness, GI bleed, back pain, seizure, CVA, palpatations, mental health, musculoskeletal)? @ -Differential GI Bleed: Esophageal varices, aortoenteric fistula, Agatha-Yadav, gastritis, peptic ulcer disease, diverticulosis, inflammatory bowel disease, hemorrhoids, fissure, colitis, malignancy, Meckels diverticulum, this is not meant to be an all- inclusive list. EKG interpreted by me (3pts min.). @ -As above X-rays interpreted by me (1pt min.). @ -None done CT interpreted by me (1pt min.). @ -None done U/S interpreted by me (1pt. min.). @ -None done What testing was considered but not performed or refused? (CT, X-rays, U/S, labs)? Why? @ -None What meds were considered but not given or refused? Why? @ -None Did you discuss the management of the patient with other professionals (professionals i.e. , PA, SUPERVISOR [employer]INTENANCE, lab, RT, psych nurse, healthcare social worker, surgical scheduler, teacher, probation officer, hospice case manager)? Give summary @ -No Was smoking cessation discussed for >3mins.? @ -No Was critical care preformed (if so, how long)? @ -No Were there social determinants of health that impacted care today? How? (Homelessness, low income, unemployed, alcoholism, drug addiction, transportation, low edu. Level, literacy, decrease access to med. care, [facility], rehab)? @ -No Was there de-escalation of care discussed even if they declined (Discuss DNR or withdrawal of care, Hospice)? DNR status @ -No What co-morbidities impacted this encounter? (DM, HTN, Smoking, COPD, CAD, Cancer, CVA, ARF, Chemo, Hep., AIDS, mental health diagnosis, sleep apnea, morbid obesity)? @ -None Was patient admitted / discharged? Hospital course, mention meds given and route, prescriptions, significant lab abnormalities, going to OR and other pertinent info. @ -Admit The patient was seen and evaluated, history is obtained from the patient. Upon arrival patient's hemodynamically stable but appears pale. She reports GI bleeding due days ago. No persistent bleeding. No bleeding today. Labs are obtained and patient has acute anemia compared to hemoglobin of 12 last year. Patient does have heme positive stool but again no current GI bleeding. She has a mild NNEKA. Gentle IV fluids were ordered. Patient care was discussed with Dr. Aparicio of the [facility] hospitalist group who accepts the admission with a consult to GI Dr. Crockett Undiagnosed new problem with uncertain prognosis? @ -No Drug Therapy requiring intensive monitoring for toxicity (Heparin, Nitro, Insulin, Cardizem)? @ -No Were any procedures done? @ -No Diagnosis/symptom? @ -Acute anemia, GI bleeding Acute, or Chronic, or Acute on Chronic? @ -Acute Uncomplicated (without systemic symptoms) or Complicated (systemic symptoms)? @ -Complicated Side effects of treatment? @ -No Exacerbation, Progression, or Severe Exacerbation? @ -No Poses a threat to life or bodily function? How? (Chest pain, USA, IA, pneumonia, PE, COPD, DKA, ARF, appy, cholecystitis, CVA, Diverticulitis, Homicidal, Suicidal, threat to staff... and all critical care pts) @ -No - Lab Data Result diagrams: 06/20/23 17:43 06/20/23 17:43 Lab Results 06/20/23 06/20/23 06/20/23 Range/Units 17:43 17:43 17:43 WBC 5.8 (3.8-10.6) k/uL RBC 2.72 L (3.80-5.40) m/uL Hgb 8.8 L (11.4-16.0) gm/dL Hct 26.9 L (34.0-46.0) % MCV 99.1 (80.0-100.0) fL MCH 32.5 (25.0-35.0) pg MCHC 32.8 (31.0-37.0) g/dL RDW 14.0 (11.5-15.5) % Plt Count 228 (150-450) k/uL MPV 8.5 Neutrophils % 74 % Lymphocytes % 18 % Monocytes % 6 % Eosinophils % 1 % Basophils % 0 % Neutrophils # 4.2 (1.3-7.7) k/uL Lymphocytes # 1.0 (1.0-4.8) k/uL Monocytes # 0.3 (0-1.0) k/uL Eosinophils # 0.0 (0-0.7) k/uL Basophils # 0.0 (0-0.2) k/uL APTT 22.4 (22.0-30.0) sec Sodium 130 L (137-145) mmol/L Potassium 5.1 (3.5-5.1) mmol/L Chloride 101 (98-107) mmol/L Carbon Dioxide 20 L (22-30) mmol/L Anion Gap 9 mmol/L BUN 35 H (7-17) mg/dL Creatinine 1.44 H (0.52-1.04) mg/dL Est GFR (CKD-EPI)AfAm 40 (>60 ml/min/1.73 sqM) Est GFR (CKD-EPI)NonAf 35 (>60 ml/min/1.73 sqM) Glucose 132 H (74-99) mg/dL Plasma Lactic Acid Stanley (0.7-2.0) mmol/L Calcium 8.9 (8.4-10.2) mg/dL Magnesium 2.5 H (1.6-2.3) mg/dL Total Bilirubin 0.4 (0.2-1.3) mg/dL AST 23 (14-36) U/L ALT 19 (4-34) U/L Alkaline Phosphatase 83 (38-126) U/L Troponin I (0.000-0.034) ng/mL Total Protein 5.7 L (6.3-8.2) g/dL Albumin 3.6 (3.5-5.0) g/dL Stool Occult Blood (Negative) Blood Type Blood Type Recheck Bld Type Recheck Status Antibody Screen Spec Expiration Date 06/20/23 06/20/23 06/20/23 Range/Units 17:43 17:44 17:48 WBC (3.8-10.6) k/uL RBC (3.80-5.40) m/uL Hgb (11.4-16.0) gm/dL Hct (34.0-46.0) % MCV (80.0-100.0) fL MCH (25.0-35.0) pg MCHC (31.0-37.0) g/dL RDW (11.5-15.5) % Plt Count (150-450) k/uL MPV Neutrophils % % Lymphocytes % % Monocytes % % Eosinophils % % Basophils % % Neutrophils # (1.3-7.7) k/uL Lymphocytes # (1.0-4.8) k/uL Monocytes # (0-1.0) k/uL Eosinophils # (0-0.7) k/uL Basophils # (0-0.2) k/uL APTT (22.0-30.0) sec Sodium (137-145) mmol/L Potassium (3.5-5.1) mmol/L Chloride (98-107) mmol/L Carbon Dioxide (22-30) mmol/L Anion Gap mmol/L BUN (7-17) mg/dL Creatinine (0.52-1.04) mg/dL Est GFR (CKD-EPI)AfAm (>60 ml/min/1.73 sqM) Est GFR (CKD-EPI)NonAf (>60 ml/min/1.73 sqM) Glucose (74-99) mg/dL Plasma Lactic Acid Stanley 1.2 (0.7-2.0) mmol/L Calcium (8.4-10.2) mg/dL Magnesium (1.6-2.3) mg/dL Total Bilirubin (0.2-1.3) mg/dL AST (14-36) U/L ALT (4-34) U/L Alkaline Phosphatase (38-126) U/L Troponin I <0.012 (0.000-0.034) ng/mL Total Protein (6.3-8.2) g/dL Albumin (3.5-5.0) g/dL Stool Occult Blood (Negative) Blood Type A Negative Blood Type Recheck A Neg Bld Type Recheck Status No Antibody Screen NEGATIVE Spec Expiration Date 06/23/2023 - 234706/20/23 Range/Units 17:54 WBC (3.8-10.6) k/uL RBC (3.80-5.40) m/uL Hgb (11.4-16.0) gm/dL Hct (34.0-46.0) % MCV (80.0-100.0) fL MCH (25.0-35.0) pg MCHC (31.0-37.0) g/dL RDW (11.5-15.5) % Plt Count (150-450) k/uL MPV Neutrophils % % Lymphocytes % % Monocytes % % Eosinophils % % Basophils % % Neutrophils # (1.3-7.7) k/uL Lymphocytes # (1.0-4.8) k/uL Monocytes # (0-1.0) k/uL Eosinophils # (0-0.7) k/uL Basophils # (0-0.2) k/uL APTT (22.0-30.0) sec Sodium (137-145) mmol/L Potassium (3.5-5.1) mmol/L Chloride (98-107) mmol/L Carbon Dioxide (22-30) mmol/L Anion Gap mmol/L BUN (7-17) mg/dL Creatinine (0.52-1.04) mg/dL Est GFR (CKD-EPI)AfAm (>60 ml/min/1.73 sqM) Est GFR (CKD-EPI)NonAf (>60 ml/min/1.73 sqM) Glucose (74-99) mg/dL Plasma Lactic Acid Stanley (0.7-2.0) mmol/L Calcium (8.4-10.2) mg/dL Magnesium (1.6-2.3) mg/dL Total Bilirubin (0.2-1.3) mg/dL AST (14-36) U/L ALT (4-34) U/L Alkaline Phosphatase (38-126) U/L Troponin I (0.000-0.034) ng/mL Total Protein (6.3-8.2) g/dL Albumin (3.5-5.0) g/dL Stool Occult Blood Positive H (Negative) Blood Type Blood Type Recheck Bld Type Recheck Status Antibody Screen Spec Expiration Date - EKG Data -: EKG Interpreted by Me (EKG interpreted by me, EKG obtained at 1746 with 93 rhythm is sinus normal.) Disposition Clinical Impression: GI bleed, Acute anemia, Generalized weakness Disposition: ADMITTED IP TO THIS [facility] Condition: Serious Referrals: Cameron Terry MD [Primary Care Provider] - 1-2 days
[2023-06-20] MEDS ORDERED: NALOXONE 0.4 MG/ML 1 ML VIAL IV PRN (21:37)
[2023-06-20] MEDS: SODIUM CHLORIDE 0.9% 1,000 ML IV SCH (21:58)
[2023-06-20 23:32] LABS: Appearance,Urine Cloudy (Clear); Bacteria,Urine Few /hpf; Bilirubin,Urine Negative (Negative); Blood,Urine Large (Negative); Color,Urine Colorless; Glucose,Urine (UA) Negative (Negative); Ketones,Urine Negative (Negative); Leukocyte Esterase,Urine Moderate (Negative); Mucus,Urine Rare /hpf; Nitrite,Urine Negative (Negative); PH, Urine 5.5 (5.0-8.0); Protein,Urine Negative (Negative); RBC,Urine 4 /hpf (0-5); Specific Gravity,Urine 1.004 (1.001-1.035); Urobilinogen,Urine <2.0 mg/dL (<2.0); WBC,Urine 12 /hpf (0-5)
[2023-06-21 06:10] LABS: Basophils % (A) 0 %; Eosinophils # (A) 0.1 k/uL (0-0.7); Eosinophils % (A) 1 %; HCT 26.8 % (34.0-46.0); HGB 8.7 gm/dL (11.4-16.0); Lymphocytes # (A) 1.1 k/uL (1.0-4.8); Lymphocytes % (A) 19 %; MCH 32.2 pg (25.0-35.0); MCHC 32.5 g/dL (31.0-37.0); MCV 99.1 fL (80.0-100.0); Mean Platelet Volume 7.4; Monocytes # (A) 0.4 k/uL (0-1.0); Monocytes % (A) 6 %; Neutrophils # (A) 4.2 k/uL (1.3-7.7); Neutrophils % (A) 72 %; Platelet Count 243 k/uL (150-450); RBC 2.71 m/uL (3.80-5.40); RDW 13.6 % (11.5-15.5); WBC 5.9 k/uL (3.8-10.6)
[2023-06-21 06:21] LABS: ALT 17 U/L (4-34); AST 23 U/L (14-36); African American GFR (CKD) 51 (>60 ml/min/1.73 sqM); Albumin 3.4 g/dL (3.5-5.0); Alkaline Phosphatase 79 U/L (38-126); Anion Gap 7 mmol/L; Blood Urea Nitrogen 27 mg/dL (7-17); Calcium 8.9 mg/dL (8.4-10.2); Carbon Dioxide 22 mmol/L (22-30); Chloride 109 mmol/L (98-107); Glucose 102 mg/dL (74-99); Non-African American GFR(CKD) 44 (>60 ml/min/1.73 sqM); Potassium 5.2 mmol/L (3.5-5.1); Sodium 138 mmol/L (137-145); Total Bilirubin 0.3 mg/dL (0.2-1.3); Total Protein 5.5 g/dL (6.3-8.2)
[2023-06-21] MEDS ORDERED: ACETAMINOPHEN TAB 325 MG TAB PO PRN (12:33)
[2023-06-21] MEDS ORDERED: IOPAMIDOL CONTRAST (ORAL USE) VIAL PO PRN (12:34)
--- NOTE | 2023-06-21 13:02 | P.GSCN ---
History of Present Illness Consult date: 06/21/23 History of present illness: CHIEF COMPLAINT: GI bleeding HISTORY OF PRESENT ILLNESS: This is a 77-year-old female with a history of diverticular bleed about 4 years ago. Patient presents to the ER with weakness and fatigue after having a large bloody bowel movement on Wednesday. She reports there was a large clots that looked like liver Wednesday evening. She reports sh e's been having pain across the lower abdomen more so on the left lower quadrant. She also passed small amount of blood with her stool on Wednesday. She denies any nausea or vomiting. She's had no further bleeding since coming to the hospital. Hemoglobin on admission was 8.8. Stool for occult blood was positive. She reports being on Miguel ache over a week ago and at that time only took it for about 3 days. She is on a baby aspirin otherwise no other blood thinners. Last colonoscopy patient reports 2 years ago and reports showing diverticulosis. Her last EGD was 04/28/[address] Hill which had shown a distal esophageal Schatzki's ring and she is status post dilation also showed a small hiatal hernia and small gastric polyp. Surgical service has been consulted regarding patient's GI bleed. GI service is not available this week. Patient's vitals are stable. PAST MEDICAL HISTORY: See list. PAST SURGICAL HISTORY: See list. MEDICATIONS: See list. ALLERGIES: See list. SOCIAL HISTORY: No illicit drug use. REVIEW OF SYSTEMS: CONSTITUTIONAL: Denies fever or chills. HEENT: Denies blurred vision, vision changes, or eye pain. Denies hemoptysis ENDOCRINE: Denies heat or cold intolerance. CARDIOVASCULAR: Denies chest pain or pressure. RESPIRATORY: No shortness of breath. GASTROINTESTINAL: Please refer to HPI otherwise unremarkable. NEURO: Denies history of seizures. PSYCH: No depression or suicidal ideation HEMATOLOGIC: Denies bleeding disorders. LYMPHATIC: The patient denies any lumps and bumps around the neck. GENITOURINARY: Denies any blood in urine or increased urinary frequency. MUSCULOSKELETAL: Denies myalgias. Denies joint swelling. Denies decreased range of motion beyond patients baseline. SKIN: Denies pruitis. Denies rash. PHYSICAL EXAM: VITAL SIGNS: Reviewed GENERAL: Well-developed in no acute distress. HEENT: No sclera icterus. Extraocular movements grossly intact. Moist buccal mucosa. Head is atraumatic, normocephalic. Hears conversational speech. No nasal drainage. NECK: Supple without lymphadenopathy. CHEST: Non-labored respirations and equal bilateral excursions. CARDIOVASCULAR: Palpable 2+ radial pulses. ABDOMEN: Soft. Nondistended. Tenderness across lower abdomen to palpation more so on the left lower quadrant. MUSCULOSKELETAL: No clubbing or cyanosis. NEUROLOGIC: No focal or lateralizing signs. Cranial nerves II through XII grossly intact. PSYCH: Appropriate affect. Alert and oriented to person, place and time. SKIN: Well perfused. Good skin turgor. LABORATORY DATA: WBC 5.9 Hgb 8.8 on admission to 8.7 Hgb in February 2022 was 12.3 platelets 243 Sodium 138 potassium is 5.2 creatinine 1.17 Stool for occult blood positive IMAGING: ASSESSMENT: 1. Acute diverticulitis with bleeding 2. Acute GI bleed 3. History of diverticular bleed 4. History of chronic kidney disease 5. Diabetes mellitus 6. History of hypertension PLAN: -Start antibiotics for treatment of diverticulitis with bleeding -Patient tentatively scheduled for colonoscopy on 06/23/[address] Alvarado -Continue to monitor hemoglobin -Continue to monitor for any signs or symptoms of bleeding -Continue IV fluids -Follow up on computed tomography scan abdomen and pelvis ordered by medicine service -Start clear liquid diet Physician Recreation Therapy Aide note has been reviewed by physician. Signing provider agrees with the documented findings, assessment, and plan of care. Past Medical History Past Medical History: Diabetes Mellitus, Eye Disorder, GERD/Reflux, Hyperlipide karthik, Hypertension, Osteoarthritis (OA), Thyroid Disorder Additional Past Medical History / Comment(s): macular degeneration chaz eyes, sciatica left side, FREQUENT UTI'S, DIET CONTROL DM, History of Any Multi-Drug Resistant Organisms: None Reported Past Surgical History: Appendectomy, Heart Catheterization, Hernia Repair, Joint Replacement, Tonsillectomy Additional Past Surgical History / Comment(s): ORIF rt femur, thyroid removed, bilateral knee replacements, chaz. hip replacement, chaz cataracts, loop recorder implant and removed, chaz eyelid lift Past Anesthesia/Blood Transfusion Reactions: Postoperative Nausea & Vomiting (PONV) Type of Cardiac Device: Loop Device Placement Date:: 2016 left chest Past Psychological History: No Psychological Hx Reported Smoking Status: Never smoker - Past Family History Brother(s) Family Medical History: Cancer Mother Family Medical History: Myocardial Infarction (MS) Additional Family Medical History / Comment(s): Mother from a massive MS at the age of 78 or 79 yrs. Father Family Medical History: Congestive Heart Failure (CHF) Medications and Allergies Home Medications Medication Instructions Recorded Confirmed Type Atorvastatin [Lipitor] 20 mg PO HS 10/18/19 06/20/23 History Pantoprazole Sodium [Protonix] 40 mg PO BID 10/18/19 06/20/23 History Cholecalciferol [Vitamin D3 (25 50 mcg PO DAILY 05/02/20 06/20/23 History Mcg = 1000 Iu)] Ferrous Sulfate [Iron (65 MG 325 mg PO DAILY 05/02/20 06/20/23 History Elemental)] Acetaminophen Tab [Tylenol] 650 mg PO Q6H PRN 01/07/22 06/20/23 History Aspirin EC [Ecotrin Low Dose] 81 mg PO DAILY 01/07/22 06/20/23 History Levothyroxine Sodium [Synthroid] 100 mcg PO DAILY 01/07/22 06/20/23 History Vit C/E/Zn/Coppr/Lutein/Zeaxan 1 cap PO BID 01/07/22 06/20/23 History [Preservision Areds 2 Softgel] Famotidine 20 mg PO BID 04/15/23 06/20/23 History Alendronate Sodium [Fosamax] 70 mg PO CARMONA 06/20/23 06/20/23 History Calcium Citrate/Vitamin D3 1 tab PO DAILY 06/20/23 06/20/23 History [Citracal + D Maximum Caplet] Escitalopram [Lexapro] 10 mg PO DAILY 06/20/23 06/20/23 History Meloxicam [Mobic] 15 mg PO DAILY 06/20/23 06/20/23 History Mirabegron [Myrbetriq] 25 mg PO DAILY 06/20/23 06/20/23 History Vitamin B Complex W/Folic Acid + 1 tab PO DAILY 06/20/23 06/20/23 History Vitamin C lisinopriL [Zestril] 20 mg PO DAILY 06/20/23 06/20/23 History Allergies Allergy/AdvReac Type Severity Reaction Status Date / Time No Known Allergies Allergy Verified 06/20/23 22:05 Surgical - Exam Vital Signs Temp Pulse Resp BP Pulse Ox 98.0 F 90 16 147/75 97 06/20/23 17:35 06/20/23 17:35 06/20/23 17:35 06/20/23 17:35 06/20/23 17:35 Results - Labs 06/21/23 05:00 06/21/23 05:00 Abnormal Lab Results - Last 24 Hours (Table) 06/20/23 06/20/23 06/20/23 Range/Units 17:43 17:43 17:54 RBC 2.72 L (3.80-5.40) m/uL Hgb 8.8 L (11.4-16.0) gm/dL Hct 26.9 L (34.0-46.0) % Sodium 130 L (137-145) mmol/L Potassium (3.5-5.1) mmol/L Chloride (98-107) mmol/L Carbon Dioxide 20 L (22-30) mmol/L BUN 35 H (7-17) mg/dL Creatinine 1.44 H (0.52-1.04) mg/dL Glucose 132 H (74-99) mg/dL Magnesium 2.5 H (1.6-2.3) mg/dL Total Protein 5.7 L (6.3-8.2) g/dL Albumin (3.5-5.0) g/dL Urine Appearance (Clear) Urine Blood (Negative) Ur Leukocyte Esterase (Negative) Urine WBC (0-5) /hpf Urine Bacteria (None) /hpf Urine Mucus (None) /hpf Stool Occult Blood Positive H (Negative) 06/20/23 06/21/23 06/21/23 Range/Units 22:39 05:00 05:00 RBC 2.71 L (3.80-5.40) m/uL Hgb 8.7 L (11.4-16.0) gm/dL Hct 26.8 L (34.0-46.0) % Sodium (137-145) mmol/L Potassium 5.2 H (3.5-5.1) mmol/L Chloride 109 H (98-107) mmol/L Carbon Dioxide (22-30) mmol/L BUN 27 H (7-17) mg/dL Creatinine 1.17 H (0.52-1.04) mg/dL Glucose 102 H (74-99) mg/dL Magnesium (1.6-2.3) mg/dL Total Protein 5.5 L (6.3-8.2) g/dL Albumin 3.4 L (3.5-5.0) g/dL Urine Appearance Cloudy H (Clear) Urine Blood Large H (Negative) Ur Leukocyte Esterase Moderate H (Negative) Urine WBC 12 H (0-5) /hpf Urine Bacteria Few H (None) /hpf Urine Mucus Rare H (None) /hpf Stool Occult Blood (Negative) Diabetes panel 06/20/23 06/21/23 Range/Units 17:43 05:00 Sodium 130 L 138 (137-145) mmol/L Potassium 5.1 5.2 H (3.5-5.1) mmol/L Chloride 101 109 H (98-107) mmol/L Carbon Dioxide 20 L 22 (22-30) mmol/L BUN 35 H 27 H (7-17) mg/dL Creatinine 1.44 H 1.17 H (0.52-1.04) mg/dL Glucose 132 H 102 H (74-99) mg/dL Calcium 8.9 8.9 (8.4-10.2) mg/dL AST 23 23 (14-36) U/L ALT 19 17 (4-34) U/L Alkaline Phosphatase 83 79 (38-126) U/L Total Protein 5.7 L 5.5 L (6.3-8.2) g/dL Albumin 3.6 3.4 L (3.5-5.0) g/dL Calcium panel 06/20/23 06/21/23 Range/Units 17:43 05:00 Calcium 8.9 8.9 (8.4-10.2) mg/dL Albumin 3.6 3.4 L (3.5-5.0) g/dL Pituitary panel 06/20/23 06/21/23 Range/Units 17:43 05:00 Sodium 130 L 138 (137-145) mmol/L Potassium 5.1 5.2 H (3.5-5.1) mmol/L Chloride 101 109 H (98-107) mmol/L Carbon Dioxide 20 L 22 (22-30) mmol/L BUN 35 H 27 H (7-17) mg/dL Creatinine 1.44 H 1.17 H (0.52-1.04) mg/dL Glucose 132 H 102 H (74-99) mg/dL Calcium 8.9 8.9 (8.4-10.2) mg/dL Adrenal panel 06/20/23 06/21/23 Range/Units 17:43 05:00 Sodium 130 L 138 (137-145) mmol/L Potassium 5.1 5.2 H (3.5-5.1) mmol/L Chloride 101 109 H (98-107) mmol/L Carbon Dioxide 20 L 22 (22-30) mmol/L BUN 35 H 27 H (7-17) mg/dL Creatinine 1.44 H 1.17 H (0.52-1.04) mg/dL Glucose 132 H 102 H (74-99) mg/dL Calcium 8.9 8.9 (8.4-10.2) mg/dL Total Bilirubin 0.4 0.3 (0.2-1.3) mg/dL AST 23 23 (14-36) U/L ALT 19 17 (4-34) U/L Alkaline Phosphatase 83 79 (38-126) U/L Total Protein 5.7 L 5.5 L (6.3-8.2) g/dL Albumin 3.6 3.4 L (3.5-5.0) g/dL
--- NOTE | 2023-06-21 13:41 | HP ---
HISTORY AND PHYSICAL CHIEF COMPLAINT: GI bleed and weakness. HISTORY OF PRESENT ILLNESS: This is a 77-year-old woman with a past medical history of multiple medical problems including possibly diverticular bleed, was having large amount of rectal bleeding on Jay night. The patient came to [facility] and admitted for further evaluation. No further bleeding was noted. Hemoglobin is 8.7. Surgical evaluation in progress. There is no history of any fever, rigor, or chills. PAST MEDICAL HISTORY: History of diverticular bleed and rest of the history and rest of the chart is also reviewed. HOME MEDICATIONS: Zestril, dose and rest of the medications noted. ALLERGIES: None. FAMILY HISTORY: History of myocardial infarction. SOCIAL HISTORY: No history of smoking or alcohol. REVIEW OF SYSTEMS: A 14-point review is negative except as mentioned. PHYSICAL EXAMINATION: VITAL SIGNS: Pulse is 84, blood pressure 140/72, respirations 18. HEENT: Conjunctivae pale. Oral mucosa moist. CARDIOVASCULAR: S1, S2. RESPIRATIONS: Clear to auscultation. ABDOMEN: Soft, obese, nontender. Minimal diffuse discomfort. No guarding, no rigidity. No masses. LEGS: No edema, no swelling. NERVOUS SYSTEM: No focal deficits. SKIN: No ulcer, rash, bleeding. JOINTS: No active deforming arthropathy. LABORATORY DATA: Reviewed. ASSESSMENT: 1. GI bleed with acute blood loss anemia, possibly diverticular bleed. 2. Diabetes mellitus, type 2. 3. Hypertension. 4. Hyperlipidemia. 5. Multiple medical issues. RECOMMENDATIONS AND DISCUSSION: This 77-year-old woman presented with multiple complex medical issues, we will monitor the patient closely. We will keep monitoring the hemoglobin, H and H. Surgical evaluation. Transfuse if necessary. Hold NSAIDs as well as antiplatelet agents. Prognosis guarded. See orders for further details. Further recommendations to follow. MMODL / IJN: [id number] /
[2023-06-21] MEDS: PANTOPRAZOLE 40 MG/10 ML VIAL IVP SCH ×2 (13:45→21:08)
[2023-06-21] MEDS: ESCITALOPRAM 10 MG TAB PO SCH (13:46)
--- NOTE | 2023-06-21 13:50 | XR ---
EXAMINATION TYPE: XR chest 1V portable DATE OF EXAM: 06/21/2023 1:27 PM COMPARISON: Chest radiographs from 03/22/2022 TECHNIQUE: XR chest 1V portable Portable AP radiograph of the chest. CLINICAL INDICATION:Female, 77 years old with history of chf; FINDINGS: Lungs/Pleura: There is no evidence of pleural effusion, focal consolidation, or pneumothorax. Pulmonary vascularity: Unremarkable. Heart/mediastinum: Cardiomediastinal silhouette is prominent in size. Atherosclerotic calcifications are seen in the aorta. Musculoskeletal: No acute osseous pathology. IMPRESSION: No acute cardiopulmonary disease/process.
[2023-06-21] MEDS: SODIUM CHLORIDE 0.9% 1,000 ML IV SCH (14:07)
--- NOTE | 2023-06-21 15:00 | CT ---
EXAMINATION TYPE: CT abdomen pelvis wo con CT DLP: 623.4 mGycm, Automated exposure control for dose reduction was used. DATE OF EXAM: 06/21/2023 2:45 PM COMPARISON: None CLINICAL INDICATION:Female, 77 years old with history of gi bleed; GI bleed, anemia TECHNIQUE: Standard CT of the abdomen and pelvis following the administration of oral contrast. Cor onal and sagittal reformats were performed. FINDINGS: Limited evaluation due to lack of intravenous contrast. Presence of oral contrast limits ev aluation for intraluminal bleed. LOWER CHEST: Left lower lobe pleural-based 4 mm pulmonary nodule. Cardiomegaly. Coronary artery calci fications. ABDOMEN LIVER: Calcified granuloma within the right hepatic dome. GALLBLADDER AND BILE DUCTS: Layering increased densities within the lumen consistent with gallstones are present. PANCREAS: Unremarkable. SPLEEN: Unremarkable. ADRENAL GLANDS: Unremarkable. KIDNEYS AND URETERS: Mild bilateral hydronephrosis without obstructing calculus identified. No renal calculi. PELVIS BLADDER: Moderately distended. REPRODUCTIVE: Unremarkable. ABDOMEN & PELVIS STOMACH AND BOWEL: Small hiatal hernia, duodenum is unremarkable. Distal colonic diverticulosis witho ut evidence for acute diverticulitis. Enteric contrast reaches the distal colon. No evidence of bowel obstruction. PERITONEUM: No evidence of pneumoperitoneum or free fluid. VASCULATURE: Moderate atherosclerotic calcifications are present throughout the abdominal aorta and i ts branches. No evidence of aortic aneurysm. Pelvic phleboliths. MUSCULOSKELETAL: No acute osseous abnormalities. Postsurgical changes from bilateral total hip arthro plasty. This creates streak artifact which limits evaluation. Grade 1 anterolisthesis of L4 on L5 wit h bilateral pars defects. Vertebral hemangioma within the L4 vertebral body. Moderate multilevel dege nerative disc disease and facet arthropathy. LYMPH NODES: No gross evidence for lymphadenopathy. SOFT TISSUE/ABDOMINAL WALL: Unremarkable IMPRESSION: 1. No acute abdominal/pelvic process within limitations. Cannot assess for GI bleed due to enteric c ontrast throughout the colon. 2. Colonic diverticulosis without evidence for acute diverticulitis. 3. Grade 1 anterolisthesis of L4 on L5 with bilateral pars defects. 4. Moderate distended urinary bladder with bilateral hydroureteronephrosis. No obstructing calculus. Consider Gilliam catheter placement. 5. Left lower lobe pleural-based 4 mm pulmonary nodule. In a low-risk patient, no follow-up is recomm ended. In a high-risk patient consider optional CT chest in 12 months.
[2023-06-21] MEDS: PIPERACILLIN-TAZOBACTAM 3.375 GM in SODIUM CHLORIDE 0.9% 100 ML IVPB SCH (16:24)
[2023-06-21] MEDS ORDERED: FAMOTIDINE 20 MG TAB PO SCH (21:00)
[2023-06-21] MEDS: FAMOTIDINE 20 MG TAB PO SCH (21:08)
[2023-06-21] MEDS: ATORVASTATIN 20 MG TAB PO SCH (21:08)
[2023-06-22] MEDS: PIPERACILLIN-TAZOBACTAM 3.375 GM in SODIUM CHLORIDE 0.9% 100 ML IVPB SCH ×3 (01:03→16:21)
[2023-06-22] MEDS: SODIUM CHLORIDE 0.9% 1,000 ML IV SCH ×2 (01:10→15:03)
[2023-06-22] MEDS ORDERED: MAGNESIUM HYDROXIDE 2,400 MG/30 ML CUP PO STA (08:19)
[2023-06-22] MEDS ORDERED: PEG 3350 (420 GM/BTL) + LYTES 4,000 ML BOTTLE PO ONE (08:20)
[2023-06-22] MEDS: LEVOTHYROXINE 100 MCG TAB PO SCH (09:54)
[2023-06-22] MEDS: lisinopriL 20 MG TAB PO SCH (09:54)
[2023-06-22] MEDS: ESCITALOPRAM 10 MG TAB PO SCH (09:54)
[2023-06-22] MEDS: LACTULOSE 20 GM/30 ML CUP PO SCH ×2 (09:55→20:47)
[2023-06-22] MEDS: PANTOPRAZOLE 40 MG/10 ML VIAL IVP SCH ×2 (09:56→20:47)
[2023-06-22] MEDS: NON FORMULARY DRUG (Mirabegron [Myrbetriq] 25 MG Tab.Er.24h) PO SCH (09:56)
[2023-06-22 10:49] LABS: Basophils # (A) 0.02 X 10*3/uL (0.00-0.10); Basophils % (A) 0.4 %; Eosinophils # (A) 0.11 X 10*3/uL (0.04-0.35); HCT 25.8 % (37.2-46.3); HGB 8.3 d/dL (12.0-15.0); Lymphocytes % (A) 19.8 %; MCH 32.7 pg (27.0-32.0); MCHC 32.2 d/dL (32.0-37.0); MCV 101.6 FL (80.0-97.0); Mean Platelet Volume 9.4 FL (9.5-12.2); Monocytes # (A) 0.51 X 10*3/uL (0.20-1.00); Monocytes % (A) 9.2 %; NRBC Per 100 WBC 0 X 10*3/uL (0.00-0.01); Neutrophils % (A) 68.4 %; Platelet Count 230 X 10*3/uL (140-440); RBC 2.54 X 10*6/uL (4.10-5.20); RDW 13.9 % (11.5-14.5); WBC 5.55 X 10*3/uL (4.50-10.00)
[2023-06-22 11:07] LABS: BUN/Creat Ratio 13.64 Ratio (12.00-20.00); Calcium 8.7 mg/dL (8.7-10.3); Carbon Dioxide 23.6 mmol/L (21.6-31.8); Chloride 106 mmol/L (96-109); Glucose 90 mg/dL (70-110); Potassium 5.2 mmol/L (3.5-5.5); Sodium 142 mmol/L (135-145)
[2023-06-22] MEDS: LACTATED RINGERS 1,000 ML IV SCH (11:24)
--- NOTE | 2023-06-22 14:55 | P.PN ---
Subjective Progress Note Date: 06/22/23 CHIEF COMPLAINT: GI bleed HISTORY OF PRESENT ILLNESS: Patient admitted to the hospital with bright red bl ood per rectum. Concerns for possible diverticular bleed. Patient denies any abdominal pain. Her last bowel movement was brown. Computed tomography scan abdomen and pelvis no acute process. Cannot assess GI bleed due to enteric contrast route the colon. Colonic diverticulosis without acute diverticulitis. Afebrile. Hemoglobin stable at 8.3 PHYSICAL EXAM: VITAL SIGNS: Reviewed GENERAL: Well-developed in no acute distress. HEENT: No sclera icterus. Extraocular movements grossly intact. Moist buccal mucosa. Head is atraumatic, normocephalic. Hears conversational speech. No nasal mildred inage. NECK: Supple without lymphadenopathy. CHEST: Non-labored respirations and equal bilateral excursions. CARDIOVASCULAR: Palpable 2+ radial pulses. ABDOMEN: Soft. Nondistended. Nontender. MUSCULOSKELETAL: No clubbing or cyanosis. NEUROLOGIC: No focal or lateralizing signs. Cranial nerves II through XII grossly intact. PSYCH: Appropriate affect. Alert and oriented to person, place and time. SKIN: Well perfused. Good skin turgor. ASSESSMENT: 1. Acute diverticulitis with bleeding 2. Acute GI bleed 3. History of diverticular bleed 4. History of chronic kidney disease 5. Diabetes mellitus 6. History of hypertension PLAN: -Patient scheduled for colonoscopy tomorrow with Dr. Alvarado -Start bowel prep today -Clear liquid diet today -Nothing by mouth after midnight -Continue antibiotics Physician Sprayer Operator note has been reviewed by physician. Signing provider agrees with the documented findings, assessment, and plan of care. Objective - Vital Signs Vital signs: Vital Signs Temp 97.5 F L 06/22/23 11:20 Pulse 85 06/22/23 13:58 Resp 16 06/22/23 13:58 BP 118/71 06/22/23 13:58 Pulse Ox 99 06/22/23 13:58 FiO2 Intake & Output 06/21/23 06/22/23 06/22/23 18:59 06:59 18:59 Output Total 900 1000 Balance -900 -1000 Weight 72.575 kg Output: Urine 900 1000 Uretheral (Gilliam) 900 Other: Voiding Method External Catheter External Catheter # Voids 1 # Bowel Movements 1 1 1 - Labs CBC & Chem 7: 06/22/23 05:21 06/22/23 05:21 Labs: Abnormal Lab Results - Last 24 Hours (Table) 06/22/23 06/22/23 Range/Units 05:21 05:21 RBC 2.54 L (4.10-5.20) X 10*6/uL Hgb 8.3 L (12.0-15.0) d/dL Hct 25.8 L (37.2-46.3) % MCV 101.6 H (80.0-97.0) FL MCH 32.7 H (27.0-32.0) pg MPV 9.4 L (9.5-12.2) FL Anion Gap 12.40 H (4.00-12.00) mmol/L Est GFR (CKD-EPI) 51 L (>=60)
[2023-06-22] MEDS: ATORVASTATIN 20 MG TAB PO SCH (20:48)
[2023-06-22] MEDS: FAMOTIDINE 20 MG TAB PO SCH (20:48)
--- NOTE | 2023-06-22 22:41 | PN ---
PROGRESS NOTE DATE OF SERVICE: 06/22/2023 SUBJECTIVE: This is a 77-year-old woman who was admitted with GI bleed and possibly diverticular bleed, is being closely monitored at this time. CAT scan of the abdomen and pelvis showed 4 mm pulmonary nodule, recommended outpatient followup, otherwise hemoglobin is 8.3 today, endoscopic exam planned. OBJECTIVE: VITAL SIGNS: Pulse is 94, blood pressure 112/68, respirations 17. CHEST: Clear to auscultation. CARDIOVASCULAR: S1, S2. ABDOMEN: Soft, nontender. LABORATORY DATA: Reviewed. ASSESSMENT: 1. Acute GI bleed with acute blood loss anemia, possibly diverticular bleed. 2. Diabetes mellitus, type 2. 3. Hypertension. 4. Hyperlipidemia. 5. Multiple medical issues. 6. A 4 mm pulmonary nodule in the CAT scan for outpatient followup. RECOMMENDATIONS AND DISCUSSION: This 77-year-old woman presented with multiple medical issues. At this time, continue the current management, continue symptomatic treatment, repeat labs, endoscopy, outpatient followup of the Pulmonary nodule as mentioned earlier. Continue to monitor further. Prognosis guarded. Further recommendations to follow. MMODL / IJN: [id number] /
[2023-06-23] MEDS: PIPERACILLIN-TAZOBACTAM 3.375 GM in SODIUM CHLORIDE 0.9% 100 ML IVPB SCH ×3 (01:23→17:01)
[2023-06-23] MEDS: SODIUM CHLORIDE 0.9% 1,000 ML IV SCH ×2 (04:21→17:02)
[2023-06-23 06:15] LABS: Basophils % (A) 0 %; Eosinophils # (A) 0.1 k/uL (0-0.7); Eosinophils % (A) 2 %; HGB 8.1 gm/dL (11.4-16.0); Lymphocytes # (A) 1.2 k/uL (1.0-4.8); Lymphocytes % (A) 23 %; MCH 32.6 pg (25.0-35.0); MCHC 32.5 g/dL (31.0-37.0); MCV 100.1 fL (80.0-100.0); Mean Platelet Volume 7.7; Monocytes # (A) 0.4 k/uL (0-1.0); Monocytes % (A) 7 %; Neutrophils # (A) 3.5 k/uL (1.3-7.7); Neutrophils % (A) 66 %; Platelet Count 269 k/uL (150-450); RBC 2.49 m/uL (3.80-5.40); RDW 13.7 % (11.5-15.5); WBC 5.3 k/uL (3.8-10.6)
[2023-06-23 06:28] LABS: ALT 20 U/L (4-34); AST 32 U/L (14-36); African American GFR (CKD) 59 (>60 ml/min/1.73 sqM); Albumin/Globulin Ratio 1.5; Alkaline Phosphatase 81 U/L (38-126); Anion Gap 5 mmol/L; Blood Urea Nitrogen 12 mg/dL (7-17); Calcium 8.1 mg/dL (8.4-10.2); Carbon Dioxide 25 mmol/L (22-30); Chloride 108 mmol/L (98-107); Glucose 99 mg/dL (74-99); Non-African American GFR(CKD) 51 (>60 ml/min/1.73 sqM); Potassium 4.8 mmol/L (3.5-5.1); Sodium 138 mmol/L (137-145); Total Bilirubin 0.4 mg/dL (0.2-1.3)
[2023-06-23] MEDS: LEVOTHYROXINE 100 MCG TAB PO SCH (08:48)
[2023-06-23] MEDS: ESCITALOPRAM 10 MG TAB PO SCH (08:50)
[2023-06-23] MEDS: PANTOPRAZOLE 40 MG/10 ML VIAL IVP SCH ×2 (08:50→20:14)
[2023-06-23] MEDS: LACTATED RINGERS 1,000 ML IV SCH (08:51)
[2023-06-23] MEDS: NON FORMULARY DRUG (Mirabegron [Myrbetriq] 25 MG Tab.Er.24h) PO SCH (08:51)
[2023-06-23] MEDS: lisinopriL 20 MG TAB PO SCH (08:58)
[2023-06-23] MEDS ORDERED: IV FLUID CONTINUATION 1,000 ML IV ONE (10:58)
[2023-06-23] MEDS ORDERED: LIDOCAINE 1% INJ 10MG/ML (20 ML MDV) ONE (11:02)
[2023-06-23] MEDS ORDERED: PROPOFOL 10 MG/ML 20 ML VIAL IV ONE (11:02)
--- NOTE | 2023-06-23 11:33 | CDI ---
Documentation Clarification Form Date: 06/23/2023 11:06:00 AM From: Concha Rivero RN, CCDS Admit Date: 06/21/2023 12:35:00 PM Patient Name: Leidy Christian Visit Number: [id number] Discharge Date: ATTENTION: The Clinical Documentation Specialists (CDI) and [facility] Coding Staff appreciate your assistance in clarifying documentation. Please respond to the clarification below the line at the bottom and electronically sign. The CDI & [facility] Coding staff will review the response and follow-up if needed. Please note: Queries are made part of the Legal Health Record. If you have any questions, please contact the author of this message via ITS. Dr. Janny Ortiz Your patient has an abnormal lab value on 06/20/23 and on admission 06/21/23. Please clarify if there is an additional diagnosis and/or clinical significance related to this value. History/Risk Factors: Diabetes Mellitus, GERD/Reflux, Hyperlipidemia, Hypertension, Thyroid Disorder, diverticulitis. Clinical indicators: 77 -year-old female who presents to ER today with complaint of large volume of blood in stool. HGB 8.8 HCT 26.9 on admission. Additional Labs: BUN 35 CR 1.44 GFR 35 06/21 BUN 27 CR 1.17 GFR 44 06/23 BUN 12 CR 1.04 GFR 51 06/20 ED assessment: She has a mild NNEKA. Gentle IV fluids were ordered. 06/21 Surgical Consultation: Acute diverticulitis with bleeding. History of chronic kidney disease. Treatment: .9 NS IV @ 75 ML/HR 06/20-06/23 Monitor Labs: CBC, BUN CR, Lytes. Is there an additional diagnosis and/or clinical significance related to the above lab result/information? [ ] Acute on Chronic Kidney Disease (Specify stage of CKD) [ ] Acute Kidney Injury [ ] CKD Stage 3 (GFR 30-59) [ ] CKD Stage 3a (GFR 45-59) [ ] CKD Stage 3b (GFR 30-44) [ ] No additional diagnosis/Not clinically significant [ ] Other, please specify [ ] Unable to determine (Template Last Revised: September 2020) Acute Kidney Injury MTDD
--- NOTE | 2023-06-23 12:44 | P.PCN ---
Date of Procedure: 06/23/23 Description of Procedure: PREOPERATIVE DIAGNOSIS: Acute blood loss anemia Positive occult stool Gastrointestinal bleeding POSTOPERATIVE DIAGNOSIS: Severe sigmoid diverticulosis without bleeding Pandiverticulosis Hyperplastic colon polyp, transverse colon OPERATION: Colonoscopy to the cecum, ileocecal valve and appendiceal orifice SURGEON: Shara Alvarado MD. ANESTHESIA: MAC. INDICATIONS: The patient is a 77-year-old female who presents with gastrointestinal bleeding and positive occult stool. Benefits and risks were described and informed consent was obtained. DESCRIPTION OF PROCEDURE: The patient had undergone attempted Golytely prep 2 L, lactulose and milk of magnesia prep. The patient had been brought into the operating room and laid in the left lateral decubitus position. After adequate intravenous sedation, the rectum was examined with 2% lidocaine jelly. No prolapse external hemorrhoids were identified. Rectal tone was normal skin limits. An Olympus colonoscope was gently advanced to the cecum with clear visualization of the ileocecal valve including appendiceal orifice. The prep was excellent. Severe sigmoid diverticulosis was encountered without active bleeding. No active colonic bleeding was found. No intraluminal masses were identified within the colon. Hyperplastic colonic polyps 3 mm 2 identified at proximal transverse colon were found. No evidence of focal colitis was found. Retroflexion of the scope demonstrated grade 1 internal hemorrhoids without recent inflammation. The colon was desufflated. The patient had tolerated the procedure well. Withdrawal time was over 6 minutes. FINDINGS: Aronchick preparation quality scale 1 (1-5) No thrombosed hemorrhoid identified. No arteriovenous malformations. No focal colitis. Severe sigmoid diverticulosis Pandiverticulosis Hyperplastic colonic polyps 3 mm 2 identified at proximal transverse colon were found. RECOMMENDATIONS: 1. Diet as tolerated 2. Recommend 25-30 g of fiber for sigmoid diverticulosis Plan - Discharge Summary Discharge Rx Participant: No New Discharge Prescriptions: No Action Atorvastatin [Lipitor] 20 mg PO HS Pantoprazole Sodium [Protonix] 40 mg PO BID Cholecalciferol [Vitamin D3 (25 Mcg = 1000 Iu)] 50 mcg PO DAILY Ferrous Sulfate [Iron (65 MG Elemental)] 325 mg PO DAILY Vit C/E/Zn/Coppr/Lutein/Zeaxan [Preservision Areds 2 Softgel] 1 cap PO BID Alendronate Sodium [Fosamax] 70 mg PO CARMONA Calcium Citrate/Vitamin D3 [Citracal + D Maximum Caplet] 1 tab PO DAILY lisinopriL [Zestril] 20 mg PO DAILY Mirabegron [Myrbetriq] 25 mg PO DAILY Acetaminophen Tab [Tylenol] 650 mg PO Q6H PRN PRN Reason: Pain Levothyroxine Sodium [Synthroid] 100 mcg PO DAILY Aspirin EC [Ecotrin Low Dose] 81 mg PO DAILY Famotidine 20 mg PO BID Vitamin B Complex W/Folic Acid + Vitamin C 1 tab PO DAILY Escitalopram [Lexapro] 10 mg PO DAILY Meloxicam [Mobic] 15 mg PO DAILY Discharge Medication List Atorvastatin [Lipitor] 20 mg PO HS 10/18/19 [History] Pantoprazole Sodium [Protonix] 40 mg PO BID 10/18/19 [History] Cholecalciferol [Vitamin D3 (25 Mcg = 1000 Iu)] 50 mcg PO DAILY 05/02/20 [History] Ferrous Sulfate [Iron (65 MG Elemental)] 325 mg PO DAILY 05/02/20 [History] Acetaminophen Tab [Tylenol] 650 mg PO Q6H PRN 01/07/22 [History] Aspirin EC [Ecotrin Low Dose] 81 mg PO DAILY 01/07/22 [History] Levothyroxine Sodium [Synthroid] 100 mcg PO DAILY 01/07/22 [History] Vit C/E/Zn/Coppr/Lutein/Zeaxan [Preservision Areds 2 Softgel] 1 cap PO BID 01/07/22 [History] Famotidine 20 mg PO BID 04/15/23 [History] Alendronate Sodium [Fosamax] 70 mg PO CARMONA 06/20/23 [History] Calcium Citrate/Vitamin D3 [Citracal + D Maximum Caplet] 1 tab PO DAILY 06/20/23 [History] Escitalopram [Lexapro] 10 mg PO DAILY 06/20/23 [History] Meloxicam [Mobic] 15 mg PO DAILY 06/20/23 [History] Mirabegron [Myrbetriq] 25 mg PO DAILY 06/20/23 [History] Vitamin B Complex W/Folic Acid + Vitamin C 1 tab PO DAILY 06/20/23 [History] lisinopriL [Zestril] 20 mg PO DAILY 06/20/23 [History] Follow up Appointment(s)/Referral(s): Cameron Terry MD [Primary Care Provider] - 1-2 days Discharge/Stand Alone Forms: Who Do I Call?, Community Resources
[2023-06-23] MEDS: ATORVASTATIN 20 MG TAB PO SCH (20:14)
[2023-06-23] MEDS: FAMOTIDINE 20 MG TAB PO SCH (20:14)
[2023-06-24] MEDS: PIPERACILLIN-TAZOBACTAM 3.375 GM in SODIUM CHLORIDE 0.9% 100 ML IVPB SCH ×3 (00:09→14:55)
--- NOTE | 2023-06-24 00:41 | PN ---
PROGRESS NOTE DATE OF SERVICE: 06/23/2023 SUBJECTIVE: This 77-year-old woman, admitted with GI bleed, had endoscopies today by Dr. Alvarado, severe sigmoid diverticulosis noted. No chest pain, no palpitation. OBJECTIVE: VITAL SIGNS: Pulse is 87, blood pressure 130/39, and respirations 18. CHEST: Clear to auscultation. CARDIOVASCULAR: S1, S2. ABDOMEN: Soft. NERVOUS SYSTEM: No focal deficits. LABORATORY DATA: Hemoglobin 8.1. ASSESSMENT: 1. Acute GI bleed with acute blood loss anemia, possibly diverticular bleed, status post colonoscopy. 2. Diabetes mellitus, type 2. 3. Hypertension. 4. Hyperlipidemia. 5. Multiple medical issues. 6. A 4 mm pulmonary nodule with a CAT scan for outpatient followup. RECOMMENDATIONS: Recommended to continue current management, continue symptomatic treatment. Repeat labs in the morning. Closely follow with surgery. Repeat hemoglobin. Further recommendations to follow. MMODL / IJN: [id number] /
[2023-06-24] MEDS: SODIUM CHLORIDE 0.9% 1,000 ML IV SCH ×2 (04:46→08:36)
[2023-06-24] MEDS: PANTOPRAZOLE 40 MG/10 ML VIAL IVP SCH (08:34)
[2023-06-24] MEDS: LACTATED RINGERS 1,000 ML IV SCH (08:37)
[2023-06-24] MEDS: NON FORMULARY DRUG (Mirabegron [Myrbetriq] 25 MG Tab.Er.24h) PO SCH (08:37)
[2023-06-24] MEDS: ESCITALOPRAM 10 MG TAB PO SCH (08:42)
[2023-06-24] MEDS: lisinopriL 20 MG TAB PO SCH (08:42)
[2023-06-24] MEDS: LEVOTHYROXINE 100 MCG TAB PO SCH (08:42)
--- NOTE | 2023-06-24 10:38 | P.PN ---
Subjective Progress Note Date: 06/24/23 CHIEF COMPLAINT: GI bleed HISTORY OF PRESENT ILLNESS: Patient is status post colonoscopy with results larry wing severe sigmoid diverticulosis without bleeding, duran diverticulosis and hyperplastic colon polyp of the transverse colon. Patient denies any abdominal pain. She's had no further bleeding. She is tolerating diet. Hemoglobin is staying stable at 8.1 as of yesterday. labs for today pending PHYSICAL EXAM: VITAL SIGNS: Reviewed GENERAL: Well-developed in no acute distress. HEENT: No sclera icterus. Extraocular movements grossly intact. Moist buccal mucosa. Head is atraumatic, normocephalic. Hears conversational speech. No nasal drainage. NECK: Supple without lymphadenopathy. CHEST: Non-labored respirations and equal bilateral excursions. CARDIOVASCULAR: Palpable 2+ radial pulses. ABDOMEN: Soft. Nondistended. Nontender. MUSCULOSKELETAL: No clubbing or cyanosis. NEUROLOGIC: No focal or lateralizing signs. Cranial nerves II through XII grossly intact. PSYCH: Appropriate affect. Alert and oriented to person, place and time. SKIN: Well perfused. Good skin turgor. ASSESSMENT: 1. Acute diverticulitis with bleeding. Status post colonoscopy revealing severe sigmoid diverticulosis without bleeding, duarn diverticulosis and hyperplastic colon polyp the transverse colon 2. Acute GI bleed 3. History of diverticular bleed 4. History of chronic kidney disease 5. Diabetes mellitus 6. History of hypertension PLAN: -Diverticular bleed has resolved. Patient denies any abdominal pain. She is tolerating diet. Hemoglobin is stable. Patient is stable for discharge home. Physician Special Client Bus Driver note has been reviewed by physician. Signing provider agrees with the documented findings, assessment, and plan of care. Objective - Vital Signs Vital signs: Vital Signs Temp 97.6 F 06/24/23 07:51 Pulse 85 06/24/23 07:51 Resp 24 06/24/23 07:51 BP 148/73 06/24/23 07:51 Pulse Ox 95 06/24/23 07:51 FiO2 Intake & Output 06/23/23 06/24/23 06/24/23 18:59 06:59 18:59 Intake Total 100 590 Output Total 375 500 Balance -275 90 Intake: IV 100 Oral 590 Output: Urine 375 500 Other: Voiding Method Indwelling Catheter Indwelling Catheter Indwelling Catheter - Labs CBC & Chem 7: 06/23/23 05:27 06/23/23 05:27
[2023-06-24 10:49] LABS: Basophils # (A) 0.02 X 10*3/uL (0.00-0.10); Basophils % (A) 0.5 %; Eosinophils # (A) 0.09 X 10*3/uL (0.04-0.35); Eosinophils % (A) 2.1 %; HCT 22.8 % (37.2-46.3); HGB 7.2 d/dL (12.0-15.0); Lymphocytes # (A) 1.27 X 10*3/uL (0.90-5.00); MCH 32.4 pg (27.0-32.0); MCHC 31.6 d/dL (32.0-37.0); MCV 102.7 FL (80.0-97.0); Mean Platelet Volume 9.4 FL (9.5-12.2); Monocytes # (A) 0.41 X 10*3/uL (0.20-1.00); Monocytes % (A) 9.7 %; NRBC Per 100 WBC 0 X 10*3/uL (0.00-0.01); Neutrophils # (A) 2.43 X 10*3/uL (1.80-7.70); Neutrophils % (A) 57.2 %; Platelet Count 218 X 10*3/uL (140-440); RBC 2.22 X 10*6/uL (4.10-5.20); RDW 14.2 % (11.5-14.5); WBC 4.24 X 10*3/uL (4.50-10.00)
[2023-06-24 11:25] LABS: Blood Urea Nitrogen 8.6 mg/dL (9.0-27.0); Calcium 7.9 mg/dL (8.7-10.3); Chloride 111 mmol/L (96-109); Glucose 117 mg/dL (70-110); Potassium 4.6 mmol/L (3.5-5.5); Sodium 140 mmol/L (135-145)
[2023-06-24 17:22] VITALS: PULSE 79; RESP 18; TEMP 97.5
[2023-06-24 17:59] VITALS: BP 163/79
--- NOTE | 2023-06-25 14:43 | P.DS ---
Providers Date of admission: 06/21/23 12:35 Expected date of discharge: 06/24/23 Attending physician: Angel Aparicio MD Consults: 06/21/23 12:17 Consult Physician Routine Consulting Provider: Shara Alvarado Consult Reason/Comments: GI bleed Do you want consulting provider notified?: Already Contacted Primary care physician: Cameron Terry Hospital Course: Final diagnosis Acute GI bleed with acute blood loss anemia, possibly diverticular bleed status post colonoscopy Diabetes mellitus, type II Acute kidney injury, possibly related to GI losses, improving Hypertension history Hyperlipidemia 4 mm pulmonary nodule with CAT scan for outpatient follow-up Obesity with a BMI of 31.2 GI prophylaxis DVT prophylaxis Full code Discharge disposition Patient is being discharged in a stable condition with guarded prognosis to home. Patient will follow-up with Dr. Terry in the outpatient setting upon discharge. Patient is to continue with oral Augmentin twice daily for 4 days and close outpatient follow-up with primary care provider, general surgery, and urology as scheduled. Prescription provided for repeat labs in the next few days to monitor hemoglobin. Total time taken is greater than 35 minutes. Hospital course This is a 77-year-old female who was recently admitted with concerns for GI bleed having large bloody bowel movement being closely monitored with general surgery. Patient underwent EGD/colonoscopy showing diverticulosis and a polyp that was removed. Hemoglobin on day of discharge was 7.2 and will transfuse a unit prior to discharge and recommend close outpatient follow-up. Patient should follow-up with primary care provider to discuss hematology evaluation as well. Patient to follow-up with general surgery outpatient in one week. Patient has been instructed to hold aspirin for now and prescription was provided for follow-up labs in the next 2 days. Please refer to other consultation notes for further HPI. Diet recommendations also provided on discharge. Currently no reports of chest pain, shortness of breath, or palpitations. Patient is afebrile. No reports of nausea or vomiting and patient is tolerating diet. Patient will be discharged home today. Guarded prognosis and high risk for readmission. Patient was instructed to call 911 or report to the local ER if bleeding persists. Physical exam: Gen: This is a 77-year-old female who is awake, alert and oriented 3, well- developed, well-nourished, obese HEENT: Head is atraumatic, normocephalic. Pupils equal, round. Sclerae is anicteric. NECK: Supple. No JVD. No lymphadenopathy. No thyromegaly. LUNGS: Clear to auscultation. No wheezes or rhonchi. No intercostal retractions. HEART: Regular rate and rhythm. No murmur. ABDOMEN: Soft. Bowel sounds are present. No masses. No tenderness. EXTREMITIES: No pedal edema. No calf tenderness. NEUROLOGICAL: Patient is awake, alert and oriented x3. Cranial nerves 2 through 12 are grossly intact. Please refer to medication reconciliation sheet for a list of medications. The impression and plan of care has been dictated by Mandy Mcdaniels, Nurse Practitioner as directed. Dr. Angel MD I have performed a history and examination and MDM of this patient, discussed the same with the dictator, and agree with the dictator's assessment and plan as written ,documented as a scribe. Based on total visit time, I have performed more than 50% of the visit. Patient Condition at Discharge: Fair Plan - Discharge Summary Discharge Rx Participant: No New Discharge Prescriptions: New Amoxic-Pot Clav 875-125Mg [Augmentin 875-125] 1 tab PO Q12HR 4 Days #8 tab Continue Atorvastatin [Lipitor] 20 mg PO HS Pantoprazole Sodium [Protonix] 40 mg PO BID Cholecalciferol [Vitamin D3 (25 Mcg = 1000 Iu)] 50 mcg PO DAILY Ferrous Sulfate [Iron (65 MG Elemental)] 325 mg PO DAILY Vit C/E/Zn/Coppr/Lutein/Zeaxan [Preservision Areds 2 Softgel] 1 cap PO BID Alendronate Sodium [Fosamax] 70 mg PO CARMONA Calcium Citrate/Vitamin D3 [Citracal + D Maximum Caplet] 1 tab PO DAILY lisinopriL [Zestril] 20 mg PO DAILY Mirabegron [Myrbetriq] 25 mg PO DAILY Acetaminophen Tab [Tylenol] 650 mg PO Q6H PRN PRN Reason: Pain Levothyroxine Sodium [Synthroid] 100 mcg PO DAILY Famotidine 20 mg PO BID Vitamin B Complex W/Folic Acid + Vitamin C 1 tab PO DAILY Escitalopram [Lexapro] 10 mg PO DAILY Discontinued Aspirin EC [Ecotrin Low Dose] 81 mg PO DAILY Meloxicam [Mobic] 15 mg PO DAILY Discharge Medication List Atorvastatin [Lipitor] 20 mg PO HS 10/18/19 [History] Pantoprazole Sodium [Protonix] 40 mg PO BID 10/18/19 [History] Cholecalciferol [Vitamin D3 (25 Mcg = 1000 Iu)] 50 mcg PO DAILY 05/02/20 [History] Ferrous Sulfate [Iron (65 MG Elemental)] 325 mg PO DAILY 05/02/20 [History] Acetaminophen Tab [Tylenol] 650 mg PO Q6H PRN 01/07/22 [History] Levothyroxine Sodium [Synthroid] 100 mcg PO DAILY 01/07/22 [History] Vit C/E/Zn/Coppr/Lutein/Zeaxan [Preservision Areds 2 Softgel] 1 cap PO BID 01/07 [History] Famotidine 20 mg PO BID 04/15/23 [History] Alendronate Sodium [Fosamax] 70 mg PO CARMONA 06/20/23 [History] Calcium Citrate/Vitamin D3 [Citracal + D Maximum Caplet] 1 tab PO DAILY 06/20/23 [History] Escitalopram [Lexapro] 10 mg PO DAILY 06/20/23 [History] Mirabegron [Myrbetriq] 25 mg PO DAILY 06/20/23 [History] Vitamin B Complex W/Folic Acid + Vitamin C 1 tab PO DAILY 06/20/23 [History] lisinopriL [Zestril] 20 mg PO DAILY 06/20/23 [History] Amoxic-Pot Clav 875-125Mg [Augmentin 875-125] 1 tab PO Q12HR 4 Days #8 tab 06/24/23 [Rx] Follow up Appointment(s)/Referral(s): Alvaro Woodall MD [STAFF PHYSICIAN] - 07/01/23 7:20 am (appointment with Dr. Quintana) Shara Alvarado MD [STAFF PHYSICIAN] - 07/06/23 3:15 pm Cameron Terry MD [Primary Care Provider] - 06/29/23 11:00 am Ambulatory/Diagnostic Orders: Complete Blood Count w/diff [LAB.AMB] Time Frame: 3 Days, Location: None Selected Patient Instructions/Handouts: Amoxicillin/Clavulanate Potassium (By mouth), Diverticulosis (DC), Low Fiber Diet (DC), Gilliam Catheter Placement and Care (DC), Chronic Urinary Retention in Women (DC), Anemia (DC), Blood Transfusion (DC) Activity/Diet/Wound Care/Special Instructions: Activity Limited until follow-up Follow-up with primary care provider on discharge Follow-up surgery outpatient Continue holding aspirin for now Follow-up on repeat labs in the next few days Continue antibiotics for the next 4 days until finished Discharge/Stand Alone Forms: Who Do I Call?, Community Resources Discharge Disposition: HOME SELF-CARE
== END 2023-06-24 18:15 | disposition home or self-care (01) ==
LOC: EC 17:30 → 5NMEDONC 21:37 → INTOOBSV 06-21 12:35 → OBSVTOIN 06-21 12:35 → 5NMEDONC 06-21 13:23 → UNDODISIN 06-24 18:15
PROVIDERS: ADMIT Internal Medicine; ATTEND Internal Medicine
DX: K63.5 Polyp of colon (principal); K57.30 Diverticulosis of large intestine without perforation or abscess without bleeding; K64.0 First degree hemorrhoids; K57.33 Diverticulitis of large intestine without perforation or abscess with bleeding; D62 Acute posthemorrhagic anemia; N17.9 Acute kidney failure, unspecified; I12.9 Hypertensive chronic kidney disease with stage 1 through stage 4 chronic kidney disease, or unspecified chronic kidney disease; N18.9 Chronic kidney disease, unspecified; E11.22 Type 2 diabetes mellitus with diabetic chronic kidney disease; R53.1 Weakness; K21.9 Gastro-esophageal reflux disease without esophagitis; E78.5 Hyperlipidemia, unspecified; E89.0 Postprocedural hypothyroidism; R91.1 Solitary pulmonary nodule; E66.9 Obesity, unspecified; Z68.31 Body mass index [BMI] 31.0-31.9, adult; Z79.82 Long term (current) use of aspirin; Z79.899 Other long term (current) drug therapy
CPT/HCPCS: 96376 ×4; 36430; 96361 ×2; 96365; 96366 ×4; 96375; 99285; 36415; 93005; 97116; 97530 ×2; 97162; 97535; 97166; 86900 ×2; 86901 ×2; 80053 ×3; 80048 ×2; 83605; 83735; 84484; 85025 ×5; 85730; 86850 ×2; 86920; 82272; 81001; 71045; 74176; 45378; G0378 ×6; P9016; J2543 ×4; J2001; J2704; C9113 ×4; 96374

== ENCOUNTER → 2023-07-01 | Outpatient (CLI) | payer MEDICARE ==
--- NOTE | 2023-07-01 11:06 | CT ---
EXAMINATION TYPE: CT chest wo con DATE OF EXAM: 07/01/2023 COMPARISON: CT abdomen and pelvis 06/21/2023 HISTORY: Solitary pulmonary nodule CT DLP: 247.70 mGycm, Automated exposure control for dose reduction was used. CONTRAST: Performed injected with 0 mL of Isovue 300. TECHNIQUE: Axial images were obtained at 5 mm thick sections. Reconstructed images are reviewed on [employer] computer in the coronal plane. FINDINGS: Portion of the thyroid visualized is normal. There is some linear opacity in the anterior medial right apex may be some atelectasis or scarring. T here is a 0.4 cm pleural-based density posterior medial left lung base corresponding to the prior CT finding. Series 4 image 44. No enlarged mediastinal or hilar adenopathy is evident. A few small shoddy lymph nodes are noted. Th e ascending aorta diameter at the level of the main pulmonary artery is 3.3 cm. The main pulmonary a rtery diameter at the bifurcation is 2.3 cm. Moderate coronary artery calcification is noted. Limited CT sections are obtained through the upper abdomen. Small calcified granulomas within the pos terior superior right lobe liver. IMPRESSION: 1. No suspicious acute chest findings. Small 0.4 cm pleural-based densities in the posterior medial l eft lung base is stable from the recent exam. Follow-up CT chest in 6 months can be performed.
== END | disposition home or self-care (01) ==
LOC: RADCTMAIN 10:15
PROVIDERS: ATTEND Family Medicine
DX: J98.4 Other disorders of lung (principal); R91.1 Solitary pulmonary nodule
CPT/HCPCS: 71250

== ENCOUNTER 2023-08-23 11:12 | Emergency (ER) | payer MEDICARE ==
[2023-08-23 11:36] VITALS: RESP 16; TEMP 97.8
--- NOTE | 2023-08-23 11:50 | ED ---
General Adult HPI - General Chief complaint: Dizziness Stated complaint: Weakness Time Seen by Provider: 08/23/23 11:23 Source: patient, RN notes reviewed Mode of arrival: EMS Limitations: no limitations - History of Present Illness Initial comments: 77-year-old female presents to the emergency department for evaluation. Patient states that at around 9:00 this morning she took a cannabis product at about 1 hour later she noticed a prickly sensation down her body with some lightheadedness. The products that the patient used was RSO THC. in the room states that she took more than she was supposed to on accident. She states that she has never taken anything like this in the past. She states that she was attempting to help her chronic back pain. She denies recent fever, chills, cough, congestion. Denies urinary symptoms. Denies headache. - Related Data Home Medications Medication Instructions Recorded Confirmed Atorvastatin [Lipitor] 20 mg PO HS 10/18/19 06/20/23 Pantoprazole Sodium [Protonix] 40 mg PO BID 10/18/19 06/20/23 Cholecalciferol [Vitamin D3 (25 50 mcg PO DAILY 05/02/20 06/20/23 Mcg = 1000 Iu)] Ferrous Sulfate [Iron (65 MG 325 mg PO DAILY 05/02/20 06/20/23 Elemental)] Acetaminophen Tab [Tylenol] 650 mg PO Q6H PRN 01/07/22 06/20/23 Levothyroxine Sodium [Synthroid] 100 mcg PO DAILY 01/07/22 06/20/23 Vit C/E/Zn/Coppr/Lutein/Zeaxan 1 cap PO BID 01/07/22 06/20/23 [Preservision Areds 2 Softgel] Famotidine 20 mg PO BID 04/15/23 06/20/23 Alendronate Sodium [Fosamax] 70 mg PO CARMONA 06/20/23 06/20/23 Calcium Citrate/Vitamin D3 1 tab PO DAILY 06/20/23 06/20/23 [Citracal + D Maximum Caplet] Escitalopram [Lexapro] 10 mg PO DAILY 06/20/23 06/20/23 Mirabegron [Myrbetriq] 25 mg PO DAILY 06/20/23 06/20/23 Vitamin B Complex W/Folic Acid + 1 tab PO DAILY 06/20/23 06/20/23 Vitamin C lisinopriL [Zestril] 20 mg PO DAILY 06/20/23 06/20/23 Previous Rx's Medication Instructions Recorded Amoxic-Pot Clav 875-125Mg 1 tab PO Q12HR 4 Days #8 tab 06/24/23 [Augmentin 875-125] Allergies Allergy/AdvReac Type Severity Reaction Status Date / Time No Known Allergies Allergy Verified 06/20/23 22:05 Review of Systems ROS Statement: Those systems with pertinent positive or pertinent negative responses have been documented in the HPI. ROS Other: All systems not noted in ROS Statement are negative. Past Medical History Past Medical History: Diabetes Mellitus, Eye Disorder, GERD/Reflux, Hyperlipidemia, Hypertension, Osteoarthritis (OA), Thyroid Disorder Additional Past Medical History / Comment(s): macular degeneration chaz eyes, sciatica left side, FREQUENT UTI'S, DIET CONTROL DM, History of Any Multi-Drug Resistant Organisms: None Reported Past Surgical History: Appendectomy, Heart Catheterization, Hernia Repair, Joint Replacement, Tonsillectomy Additional Past Surgical History / Comment(s): ORIF rt femur, thyroid removed, bilateral knee replacements, chaz. hip replacement, chaz cataracts, loop recorder implant and removed, chaz eyelid lift Past Anesthesia/Blood Transfusion Reactions: Postoperative Nausea & Vomiting (PONV) Type of Cardiac Device: Loop Device Placement Date:: 2016 left chest Past Psychological History: No Psychological Hx Reported Smoking Status: Never smoker - Past Family History Brother(s) Family Medical History: Cancer Mother Family Medical History: Myocardial Infarction ([place]) Additional Family Medical History / Comment(s): Mother from a massive [place] at the age of 78 or 79 yrs. Father Family Medical History: Congestive Heart Failure (CHF) General Exam Limitations: no limitations General appearance: alert, in no apparent distress Head exam: Present: atraumatic, normocephalic, normal inspection Eye exam: Present: normal appearance, PERRL, EOMI. Absent: scleral icterus, conjunctival injection, periorbital swelling ENT exam: Present: normal exam, mucous membranes moist Neck exam: Present: normal inspection, full ROM. Absent: tenderness, meningismus, lymphadenopathy Respiratory exam: Present: normal lung sounds bilaterally. Absent: respiratory distress, wheezes, rales, rhonchi, stridor Cardiovascular Exam: Present: regular rate, normal rhythm, normal heart sounds. Absent: systolic murmur, diastolic murmur, rubs, gallop, clicks GI/Abdominal exam: Present: soft, normal bowel sounds. Absent: distended, tende rness, guarding, rebound, rigid Extremities exam: Present: normal inspection, full ROM, normal capillary refill. Absent: tenderness, pedal edema, joint swelling, calf tenderness Back exam: Present: normal inspection Neurological exam: Present: alert, oriented X3 Psychiatric exam: Present: normal affect, normal mood Skin exam: Present: warm, dry, intact, normal color. Absent: rash Course Vital Signs 08/23/23 08/23/23 08/23/23 11:19 11:22 13:22 Temperature 97.8 F Pulse Rate 95 94 90 Respiratory 16 16 20 Rate Blood Pressure 145/59 145/59 135/60 O2 Sat by Pulse 96 97 98 Oximetry 08/23/23 14:22 Temperature Pulse Rate 96 Respiratory 16 Rate Blood Pressure 140/67 O2 Sat by Pulse 95 Oximetry Medical Decision Making - Medical Decision Making Was pt. sent in by a medical professional or institution (HEATHER Frias, [employer], urgent care, hospital, or fci...) When possible be specific @ -No Did you speak to anyone other than the patient for history (EMS, parent, family, police, friend...)? What history was obtained from this source @ -No Did you review nursing and triage notes (agree or disagree)? Why? @ -I reviewed and agree with nursing and triage notes Were old charts reviewed (outside hosp., previous admission, EMS record, old EKG, old radiological studies, urgent care reports/EKG's, fci records)? Report findings @ -No old charts were reviewed Differential Diagnosis (chest pain, altered mental status, abdominal pain women, abdominal pain men, vaginal bleeding, weakness, fever, dyspnea, syncope, headache, dizziness, GI bleed, back pain, seizure, CVA, palpatations, mental health, musculoskeletal)? @ -Differential Dizziness: Benign paroxysmal positional Vertigo, Menieres disease, otitis media, acoustic neuroma, vertebrobasilar insufficiency, cerebellar stroke, encephalitis, hypovolemic, arrhythmia, coronary artery syndrome, anemia, this is not meant to be an all-inclusive list, drug ingestion EKG interpreted by me (3pts min.). @ -EKG@1124 shows sinus rhythm rate 94, MN 187, QRS 89, QTQTc [id number] X-rays interpreted by me (1pt min.). @ -Chest x-ray shows no acute process chronic \\ changes CT interpreted by me (1pt min.). @ -None done U/S interpreted by me (1pt. min.). @ -None done What testing was considered but not performed or refused? (CT, X-rays, U/S, labs)? Why? @ -None What meds were considered but not given or refused? Why? @ -None Did you discuss the management of the patient with other professionals (professionals i.e. , PA, [employer], lab, RT, psych nurse, social media editor, metal hardener, teacher, parachute/combatant diver officer, case filler)? Give summary @ -No Was smoking cessation discussed for >3mins.? @ -No Was critical care preformed (if so, how long)? @ -No Were there social determinants of health that impacted care today? How? (Homele ssness, low income, unemployed, alcoholism, drug addiction, transportation, low edu. Level, literacy, decrease access to med. care, alf, rehab)? @ -No Was there de-escalation of care discussed even if they declined (Discuss DNR or withdrawal of care, Hospice)? DNR status @ -No What co-morbidities impacted this encounter? (DM, HTN, Smoking, COPD, CAD, Cancer, CVA, ARF, Chemo, Hep., AIDS, mental health diagnosis, sleep apnea, morbid obesity)? @ -None Was patient admitted / discharged? Hospital course, mention meds given and route, prescriptions, significant lab abnormalities, going to OR and other pertinent info. @ -Discharged. Patient presented to the emergency department for evaluation of lightheadedness after consumption of THC product which patient has never taken before. She states that she took this at 9 AM this morning and started feeling "odd "one hour after. Laboratory studies were obtained today. CBC shows WBC 5.7, hemoglobin 11.7 which is improved from prior. CMP shows sodium 136, potassium 5.5, creatinine 1.26 patient was hydrated with 1 L of normal saline as she appears slightly dehydrated. Troponin less than 0.012. Patient states that she feels like she is improving with time. She will be discharged home. Advised patient to increase hydration status and follow-up with her primary care provider next week. Patient understanding agreeable plan. Patient stable at time of discharge. Case discussed with Dr. Reeder. Undiagnosed new problem with uncertain prognosis? @ -No Drug Therapy requiring intensive monitoring for toxicity (Heparin, Nitro, Insulin, Cardizem)? @ -No Were any procedures done? @ -No Diagnosis/symptom? @ -THC ingestion Acute, or Chronic, or Acute on Chronic? @ -acute Uncomplicated (without systemic symptoms) or Complicated (systemic symptoms)? @ -uncomplicated Side effects of treatment? @ -No Exacerbation, Progression, or Severe Exacerbation? @ -No Poses a threat to life or bodily function? How? (Chest pain, [place], [place], pneumonia, PE, COPD, DKA, ARF, appy, cholecystitis, CVA, Diverticulitis, Homicidal, Suicidal, threat to staff... and all critical care pts) @ -No - Lab Data Result diagrams: 08/23/23 11:59 08/23/23 11:59 Lab Results 08/23/23 08/23/23 08/23/23 Range/Units 11:47 11:59 11:59 WBC 5.7 (3.8-10.6) k/uL RBC 3.55 L (3.80-5.40) m/uL Hgb 11.7 D (11.4-16.0) gm/dL Hct 35.1 (34.0-46.0) % MCV 98.8 (80.0-100.0) fL MCH 32.9 (25.0-35.0) pg MCHC 33.3 (31.0-37.0) g/dL RDW 13.2 (11.5-15.5) % Plt Count 238 (150-450) k/uL MPV 7.9 Neutrophils % 83 % Lymphocytes % 11 % Monocytes % 4 % Eosinophils % 0 % Basophils % 0 % Neutrophils # 4.7 (1.3-7.7) k/uL Lymphocytes # 0.6 L (1.0-4.8) k/uL Monocytes # 0.2 (0-1.0) k/uL Eosinophils # 0.0 (0-0.7) k/uL Basophils # 0.0 (0-0.2) k/uL PT 9.7 L (10.0-12.5) sec INR 0.9 (<1.2) APTT 22.4 (22.0-30.0) sec Sodium 136 L (137-145) mmol/L Potassium 5.5 H (3.5-5.1) mmol/L Chloride 102 (98-107) mmol/L Carbon Dioxide 24 (22-30) mmol/L Anion Gap 10 mmol/L BUN 43 H (7-17) mg/dL Creatinine 1.26 H (0.52-1.04) mg/dL Est GFR (CKD-EPI)AfAm 47 (>60 ml/min/1.73 sqM) Est GFR (CKD-EPI)NonAf 41 (>60 ml/min/1.73 sqM) Glucose 120 H (74-99) mg/dL Calcium 9.3 (8.4-10.2) mg/dL Total Bilirubin 0.4 (0.2-1.3) mg/dL AST 24 (14-36) U/L ALT 17 (4-34) U/L Alkaline Phosphatase 93 (38-126) U/L Troponin I (0.000-0.034) ng/mL Total Protein 6.3 (6.3-8.2) g/dL Albumin 4.1 (3.5-5.0) g/dL 08/23/23 Range/Units 11:59 WBC (3.8-10.6) k/uL RBC (3.80-5.40) m/uL Hgb (11.4-16.0) gm/dL Hct (34.0-46.0) % MCV (80.0-100.0) fL MCH (25.0-35.0) pg MCHC (31.0-37.0) g/dL RDW (11.5-15.5) % Plt Count (150-450) k/uL MPV Neutrophils % % Lymphocytes % % Monocytes % % Eosinophils % % Basophils % % Neutrophils # (1.3-7.7) k/uL Lymphocytes # (1.0-4.8) k/uL Monocytes # (0-1.0) k/uL Eosinophils # (0-0.7) k/uL Basophils # (0-0.2) k/uL PT (10.0-12.5) sec INR (<1.2) APTT (22.0-30.0) sec Sodium (137-145) mmol/L Potassium (3.5-5.1) mmol/L Chloride (98-107) mmol/L Carbon Dioxide (22-30) mmol/L Anion Gap mmol/L BUN (7-17) mg/dL Creatinine (0.52-1.04) mg/dL Est GFR (CKD-EPI)AfAm (>60 ml/min/1.73 sqM) Est GFR (CKD-EPI)NonAf (>60 ml/min/1.73 sqM) Glucose (74-99) mg/dL Calcium (8.4-10.2) mg/dL Total Bilirubin (0.2-1.3) mg/dL AST (14-36) U/L ALT (4-34) U/L Alkaline Phosphatase (38-126) U/L Troponin I <0.012 (0.000-0.034) ng/mL Total Protein (6.3-8.2) g/dL Albumin (3.5-5.0) g/dL Disposition Clinical Impression: Cannabis intoxication, Dehydration Disposition: HOME SELF-CARE Condition: Stable Instructions (If sedation given, give patient instructions): Dizziness (ED) Additional Instructions: Please increase hydration and follow up with your primary care provider next week. Return to the emergency department for new or worsening symptoms. Is patient prescribed a controlled substance at d/c from ED?: No Referrals: Cameron Terry MD [Primary Care Provider] - 1-2 days
--- NOTE | 2023-08-23 12:31 | XR ---
EXAMINATION TYPE: XR chest 2V DATE OF EXAM: 08/23/2023 COMPARISON: 06/21/2023 HISTORY: 77-year-old female with dizziness and pain TECHNIQUE: AP and lateral views FINDINGS: Heart normal size. Atherosclerotic arch calcifications. Interstitial prominence is unchanged. No cons olidation or pleural effusion. IMPRESSION: Chronic changes. No definite acute process.
[2023-08-23 12:37] LABS: ALT 17 U/L (4-34); AST 24 U/L (14-36); African American GFR (CKD) 47 (>60 ml/min/1.73 sqM); Albumin 4.1 g/dL (3.5-5.0); Alkaline Phosphatase 93 U/L (38-126); Anion Gap 10 mmol/L; Blood Urea Nitrogen 43 mg/dL (7-17); Calcium 9.3 mg/dL (8.4-10.2); Carbon Dioxide 24 mmol/L (22-30); Chloride 102 mmol/L (98-107); Glucose 120 mg/dL (74-99); Non-African American GFR(CKD) 41 (>60 ml/min/1.73 sqM); Potassium 5.5 mmol/L (3.5-5.1); Sodium 136 mmol/L (137-145); Total Bilirubin 0.4 mg/dL (0.2-1.3); Total Protein 6.3 g/dL (6.3-8.2)
[2023-08-23 12:48] LABS: Basophils % (A) 0 %; Eosinophils % (A) 0 %; HCT 35.1 % (34.0-46.0); Lymphocytes # (A) 0.6 k/uL (1.0-4.8); Lymphocytes % (A) 11 %; MCH 32.9 pg (25.0-35.0); MCHC 33.3 g/dL (31.0-37.0); MCV 98.8 fL (80.0-100.0); Mean Platelet Volume 7.9; Monocytes # (A) 0.2 k/uL (0-1.0); Monocytes % (A) 4 %; Neutrophils # (A) 4.7 k/uL (1.3-7.7); Neutrophils % (A) 83 %; Platelet Count 238 k/uL (150-450); RBC 3.55 m/uL (3.80-5.40); RDW 13.2 % (11.5-15.5); WBC 5.7 k/uL (3.8-10.6)
[2023-08-23 12:59] LABS: HGB 11.7 gm/dL (11.4-16.0)
[2023-08-23 13:06] LABS: INR 0.9 (<1.2); Partial Thromboplastin Time 22.4 sec (22.0-30.0); Prothrombin Time 9.7 sec (10.0-12.5)
[2023-08-23] MEDS ORDERED: SODIUM CHLORIDE 0.9% 500 ML 500 ML IV ONE ×2 (13:21→14:20)
[2023-08-23 16:52] VITALS: BP 130/78; PULSE 68
== END 2023-08-23 16:34 | disposition home or self-care (01) ==
LOC: EC 11:12
DX: E86.0 Dehydration (principal); F12.929 Cannabis use, unspecified with intoxication, unspecified; E11.36 Type 2 diabetes mellitus with diabetic cataract; E78.5 Hyperlipidemia, unspecified; I10 Essential (primary) hypertension; K21.9 Gastro-esophageal reflux disease without esophagitis; M19.90 Unspecified osteoarthritis, unspecified site; E07.9 Disorder of thyroid, unspecified; Z79.890 Hormone replacement therapy; Z79.899 Other long term (current) drug therapy
CPT/HCPCS: 36415; 71046; 80053; 84484; 85025; 85610; 85730; 93005; 96360; 96361; 99284

== ENCOUNTER → 2024-01-05 | Outpatient (CLI) | payer MEDICARE ==
--- NOTE | 2024-01-05 14:43 | CT ---
EXAMINATION TYPE: CT chest wo con CT DLP: 638 mGycm, Automated exposure control for dose reduction was used. DATE OF EXAM: 01/05/2024 2:33 PM COMPARISON: 07/01/2023. CLINICAL INDICATION:Female, 78 years old with history of R94.1 Lung nodule see on imaging study; PHH, lung nodule TECHNIQUE: Multiple axial images were obtained through the chest. Sagittal and coronal reformats were created for review. Contrast used: mL of (None if empty) Oral contrast used: (None if empty) FINDINGS: LUNGS/ PLEURA: Posterior medial left lung base subpleural nodule measuring 3 mm is unchanged. No evid ence for focal consolidation, pneumothorax or pleural fusion. There is low lung volumes with diffuse haziness compatible with atelectasis. AIRWAY: Patent and unremarkable. HEART: Size within normal limits. Severe coronary artery atherosclerosis. MEDIASTINUM: No gross evidence of adenopathy. VASCULATURE: No aortic aneurysm. Atherosclerosis of the carotid bifurcations. MUSCULOSKELETAL: No acute osseous abnormalities SOFT TISSUES/LYMPH NODES: Left chest wall loop recorder. LOWER NECK: No significant findings. Thyroid gland is not definitively visualized. UPPER ABDOMEN: Layering debris in the gallbladder compatible with biliary sludge. Multiple colonic di verticula present. IMPRESSION: 1. No new or enlarging pulmonary nodules. Stable left lower lung 4 mm nodule. Continued yearly low-d ose lung cancer screening recommended. 2. Severe coronary artery atherosclerosis. 3. Biliary sludge/cholelithiasis. 4. Colonic diverticulosis. 5. Follow up recommendations for incidental pulmonary nodules, if there are any, are per [employer] or [employer]. https://radiopaedia.org/articles/mqaglflqav-[email or web address]-[email or web address]-[email or web address]?lang=us
== END | disposition home or self-care (01) ==
LOC: RADCTMAIN 13:35
PROVIDERS: ATTEND Family Medicine
DX: R91.1 Solitary pulmonary nodule (principal); I25.10 Atherosclerotic heart disease of native coronary artery without angina pectoris; K80.20 Calculus of gallbladder without cholecystitis without obstruction; K57.30 Diverticulosis of large intestine without perforation or abscess without bleeding
CPT/HCPCS: 71250

== ENCOUNTER 2024-03-06 19:41 | Inpatient (IN) | payer MEDICARE ==
--- NOTE | 2024-03-06 20:14 | ED ---
Abdominal Pain HPI - General Source: patient, RN notes reviewed Mode of arrival: EMS Limitations: no limitations <Ishan Jarrett - Last Filed: 03/06/24 20:14> <Cameron Driscoll - Last Filed: 03/07/24 06:06> - General Chief Complaint: Abdominal Pain Stated Complaint: Rectal Bleeding Time Seen by Provider: 03/06/24 20:08 - History of Present Illness Initial Comments: Quicknote 78-year-old female presents to the ED with a chief complaint of abdominal pain. Patient states today onset of some lower abdominal pain with loose stools and blood in her stool. States history of diverticulitis and reports symptoms feel similar to this. Currently reports improvement of abdominal pain. (Ishan Jarrett) 78-year-old female presenting for evaluation of lower abdominal cramping and rectal bleeding. Patient has previous history of gastrointestinal hemorrhage secondary to diverticulosis. She denies anticoagulation. Denies fever. Denies vomiting. Patient states her abdominal pain is resolved at this time. She had at least 3 episodes of bright red rectal bleeding prior to arrival. She states she had a colonoscopy within the last year which showed diverticulosis and this was performed by Dr. Alvarado (Cameron Driscoll) - Related Data Home Medications Medication Instructions Recorded Confirmed Atorvastatin [Lipitor] 20 mg PO HS 10/18/19 06/20/23 Pantoprazole Sodium [Protonix] 40 mg PO BID 10/18/19 06/20/23 Cholecalciferol [Vitamin D3 (25 50 mcg PO DAILY 05/02/20 06/20/23 Mcg = 1000 Iu)] Ferrous Sulfate [Iron (65 MG 325 mg PO DAILY 05/02/20 06/20/23 Elemental)] Acetaminophen Tab [Tylenol] 650 mg PO Q6H PRN 01/07/22 06/20/23 Levothyroxine Sodium [Synthroid] 100 mcg PO DAILY 01/07/22 06/20/23 Vit C/E/Zn/Coppr/Lutein/Zeaxan 1 cap PO BID 01/07/22 06/20/23 [Preservision Areds 2 Softgel] Famotidine 20 mg PO BID 04/15/23 06/20/23 Alendronate Sodium [Fosamax] 70 mg PO CARMONA 06/20/23 06/20/23 Calcium Citrate/Vitamin D3 1 tab PO DAILY 06/20/23 06/20/23 [Citracal + D Maximum Caplet] Escitalopram [Lexapro] 10 mg PO DAILY 06/20/23 06/20/23 Mirabegron [Myrbetriq] 25 mg PO DAILY 06/20/23 06/20/23 Vitamin B Complex W/Folic Acid + 1 tab PO DAILY 06/20/23 06/20/23 Vitamin C lisinopriL [Zestril] 20 mg PO DAILY 06/20/23 06/20/23 Previous Rx's Medication Instructions Recorded Amoxic-Pot Clav 875-125Mg 1 tab PO Q12HR 4 Days #8 tab 06/24/23 [Augmentin 875-125] Allergies Allergy/AdvReac Type Severity Reaction Status Date / Time No Known Allergies Allergy Verified 03/06/24 20:08 Review of Systems ROS Other: All systems not noted in ROS Statement are negative. <Ishan Jarrett - Last Filed: 03/06/24 20:14> ROS Other: All systems not noted in ROS Statement are negative. <Cameron Driscoll - Last Filed: 03/07/24 06:06> ROS Statement: Those systems with pertinent positive or pertinent negative responses have been documented in the HPI. Past Medical History Past Medical History: Diabetes Mellitus, Eye Disorder, GERD/Reflux, Hyperlipide karthik, Hypertension, Osteoarthritis (OA), Thyroid Disorder Additional Past Medical History / Comment(s): macular degeneration chaz eyes, sciatica left side, FREQUENT UTI'S, DIET CONTROL DM, History of Any Multi-Drug Resistant Organisms: None Reported Past Surgical History: Appendectomy, Heart Catheterization, Hernia Repair, Joint Replacement, Tonsillectomy Additional Past Surgical History / Comment(s): ORIF rt femur, thyroid removed, bilateral knee replacements, chaz. hip replacement, chaz cataracts, loop recorder implant and removed, chaz eyelid lift Past Anesthesia/Blood Transfusion Reactions: Postoperative Nausea & Vomiting (PONV) Type of Cardiac Device: Loop Device Placement Date:: 2016 left chest Past Psychological History: No Psychological Hx Reported Smoking Status: Never smoker Past Alcohol Use History: None Reported Past Drug Use History: None Reported - Past Family History Brother(s) Family Medical History: Cancer Mother Family Medical History: Myocardial Infarction ([place]) Additional Family Medical History / Comment(s): Mother from a massive [place] at the age of 78 or 79 yrs. Father Family Medical History: Congestive Heart Failure (CHF) <Ishan Jarrett - Last Filed: 03/06/24 20:14> General Exam Limitations: no limitations <Ishan Jarrett - Last Filed: 03/06/24 20:14> General appearance: alert, in no apparent distress Head exam: Present: atraumatic, normocephalic Eye exam: Present: normal appearance, PERRL ENT exam: Present: normal exam Neck exam: Present: normal inspection. Absent: tenderness, meningismus Respiratory exam: Present: normal lung sounds bilaterally. Absent: respiratory distress Cardiovascular Exam: Present: regular rate, normal rhythm GI/Abdominal exam: Present: soft, tenderness (Mild lower abdominal tenderness). Absent: distended Neurological exam: Present: alert, oriented X3 Psychiatric exam: Present: normal affect, normal mood Skin exam: Present: warm, dry, intact. Absent: cyanosis, diaphoretic <Cameron Driscoll - Last Filed: 03/07/24 06:06> - General Exam Comments Initial Comments: Visual Physical Exam Vital signs reviewed General: Well-appearing, nontoxic, no acute distress. Head: Normocephalic, atraumatic Eyes: PERRLA, EOMI ENT: Airway patent Chest: Nonlabored breathing Skin: No visual rash, normal skin tone Neuro: Alert and oriented 3 Musculoskeletal: No gross abnormalities (Ishan Jarrett) Course Vital Signs 03/06/24 03/07/24 03/07/24 20:05 01:23 03:15 Temperature 97.9 F 97.9 F Pulse Rate 91 89 92 Respiratory 18 16 15 Rate Blood Pressure 104/64 147/60 147/55 O2 Sat by Pulse 97 97 97 Oximetry 03/07/24 04:13 Temperature Pulse Rate 86 Respiratory 15 Rate Blood Pressure 108/48 O2 Sat by Pulse 94 L Oximetry Medical Decision Making <Ishan Jarrett - Last Filed: 03/06/24 20:14> - Lab Data Result diagrams: 03/07/24 00:57 03/07/24 00:57 <Cameron Driscoll - Last Filed: 03/07/24 06:06> - Medical Decision Making Quicknote portion performed. Signed Ishan Jarrett PA-C (Ishan Jarrett) Was pt. sent in by a medical professional or institution ([facility], HAND SLITTER, urgent care, hospital, or [facility]...) When possible be specific @ -No Did you speak to anyone other than the patient for history (EMS, parent, family, police, friend...)? What history was obtained from this source @Patient's children who are at bedside Did you review nursing and triage notes (agree or disagree)? Why? @ -I reviewed and agree with nursing and triage notes Were old charts reviewed (outside hosp., previous admission, EMS record, old EKG, old radiological studies, urgent care reports/EKG's, [facility] records)? Report findings @ -No old charts were reviewed Differential GI Bleed: Esophageal varices, aortoenteric fistula, Agatha-Yadav, gastritis, peptic ulcer disease, diverticulosis, inflammatory bowel disease, hemorrhoids, fissure, colitis, malignancy, Meckels diverticulum, this is not meant to be an all-inclusive list. EKG interpreted by me (3pts min.). @ -Sinus rhythm rate of 87, NV interval 173, QRS duration 89, QTc [address] segment elevation. X-rays interpreted by me (1pt min.). @ -None done CT interpreted by me (1pt min.). @ -CT evidence of diverticulosis] U/S interpreted by me (1pt. min.). @ -None done What testing was considered but not performed or refused? (CT, X-rays, U/S, labs)? Why? @ -None What meds were considered but not given or refused? Why? @ -None Did you discuss the management of the patient with other professionals (professionals i.e. [facility]as, HAND SLITTER, lab, RT, psych nurse, social media intern, grouter helper, teacher, vice squad police officer, geriatric case manager)? Give summary @ -Shanna covering for [facility] Was smoking cessation discussed for >3mins.? @ -No Was critical care preformed (if so, how long)? @ -No Were there social determinants of health that impacted care today? How? (Homelessness, low income, unemployed, alcoholism, drug addiction, transportation, low edu. Level, literacy, decrease access to med. care, prison, rehab)? @ -No Was there de-escalation of care discussed even if they declined (Discuss DNR or withdrawal of care, Hospice)? DNR status @ -No What co-morbidities impacted this encounter? (DM, HTN, Smoking, COPD, CAD, Cancer, CVA, ARF, Chemo, Hep., AIDS, mental health diagnosis, sleep apnea, morbid obesity)? @ -[Diverticulosis Was patient admitted / discharged? Hospital course, mention meds given and route, prescriptions, significant lab abnormalities, going to OR and other pertinent info. @ --year-old female with lower GI bleed, history of diverticulosis. Patient's hemoglobin is stable and vital signs are stable. No further bleeding while in the emergency department. She is admitted for monitoring, repeat hemoglobin check and consultation with Dr. Alvarado. Undiagnosed new problem with uncertain prognosis? @ -No Drug Therapy requiring intensive monitoring for toxicity (Heparin, Nitro, Insulin, Cardizem)? @ -No Were any procedures done? @ -No Diagnosis/symptom? @ -GI bleed Acute, or Chronic, or Acute on Chronic? @Acute Uncomplicated (without systemic symptoms) or Complicated (systemic symptoms)? @ -Default Side effects of treatment? @ -No Exacerbation, Progression, or Severe Exacerbation? @ -No Poses a threat to life or bodily function? How? (Chest pain, USA, DE, pneumonia, PE, COPD, DKA, ARF, appy, cholecystitis, CVA, Diverticulitis, Homicidal, Suicidal, threat to staff... and all critical care pts) @ -yes, gi bleed (Cameron Driscoll) - Lab Data Lab Results 03/07/24 03/07/24 03/07/24 Range/Units 00:57 00:57 00:57 WBC 6.9 (3.8-10.6) k/uL RBC 3.40 L (3.80-5.40) m/uL Hgb 11.0 L (11.4-16.0) gm/dL Hct 33.7 L (34.0-46.0) % MCV 99.0 (80.0-100.0) fL MCH 32.2 (25.0-35.0) pg MCHC 32.5 (31.0-37.0) g/dL RDW 13.2 (11.5-15.5) % Plt Count 230 (150-450) k/uL MPV 8.1 Neutrophils % 71 % Lymphocytes % 21 % Monocytes % 6 % Eosinophils % 1 % Basophils % 0 % Neutrophils # 4.8 (1.3-7.7) k/uL Lymphocytes # 1.5 (1.0-4.8) k/uL Monocytes # 0.4 (0-1.0) k/uL Eosinophils # 0.0 (0-0.7) k/uL Basophils # 0.0 (0-0.2) k/uL PT 10.2 (10.0-12.5) sec INR 0.9 (<1.2) APTT 22.1 (22.0-30.0) sec Sodium 133 L (137-145) mmol/L Potassium 4.6 (3.5-5.1) mmol/L Chloride 103 (98-107) mmol/L Carbon Dioxide 23 (22-30) mmol/L Anion Gap 7 mmol/L BUN 41 H (7-17) mg/dL Creatinine 1.16 H (0.52-1.04) mg/dL Est GFR (CKD-EPI)AfAm 52 (>60 ml/min/1.73 sqM) Est GFR (CKD-EPI)NonAf 45 (>60 ml/min/1.73 sqM) Glucose 106 H (74-99) mg/dL Calcium 9.3 (8.4-10.2) mg/dL Total Bilirubin 0.5 (0.2-1.3) mg/dL AST 21 (14-36) U/L ALT 13 (4-34) U/L Alkaline Phosphatase 80 (38-126) U/L Total Protein 6.0 L (6.3-8.2) g/dL Albumin 3.9 (3.5-5.0) g/dL Amylase 48 (30-110) U/L Lipase 55 (23-300) U/L Disposition <Ishan Jarrett - Last Filed: 03/06/24 20:14> Is patient prescribed a controlled substance at d/c from ED?: No Time of Disposition: 06:06 <Cameron Driscoll - Last Filed: 03/07/24 06:06> Clinical Impression: GI bleed Disposition: ADMITTED IP TO THIS HOSP Condition: Stable Referrals: Cameron Terry MD [Primary Care Provider] - 1-2 days
[2024-03-07 01:19] LABS: Basophils % (A) 0 %; Eosinophils % (A) 1 %; HCT 33.7 % (34.0-46.0); Lymphocytes # (A) 1.5 k/uL (1.0-4.8); Lymphocytes % (A) 21 %; MCH 32.2 pg (25.0-35.0); MCHC 32.5 g/dL (31.0-37.0); Mean Platelet Volume 8.1; Monocytes # (A) 0.4 k/uL (0-1.0); Monocytes % (A) 6 %; Neutrophils # (A) 4.8 k/uL (1.3-7.7); Neutrophils % (A) 71 %; Platelet Count 230 k/uL (150-450); RDW 13.2 % (11.5-15.5); WBC 6.9 k/uL (3.8-10.6)
[2024-03-07 01:39] LABS: INR 0.9 (<1.2); Partial Thromboplastin Time 22.1 sec (22.0-30.0); Prothrombin Time 10.2 sec (10.0-12.5)
[2024-03-07 02:11] LABS: ALT 13 U/L (4-34); AST 21 U/L (14-36); African American GFR (CKD) 52 (>60 ml/min/1.73 sqM); Albumin 3.9 g/dL (3.5-5.0); Alkaline Phosphatase 80 U/L (38-126); Amylase 48 U/L (30-110); Anion Gap 7 mmol/L; Blood Urea Nitrogen 41 mg/dL (7-17); Calcium 9.3 mg/dL (8.4-10.2); Carbon Dioxide 23 mmol/L (22-30); Chloride 103 mmol/L (98-107); Glucose 106 mg/dL (74-99); Lipase 55 U/L (23-300); Non-African American GFR(CKD) 45 (>60 ml/min/1.73 sqM); Potassium 4.6 mmol/L (3.5-5.1); Sodium 133 mmol/L (137-145); Total Bilirubin 0.5 mg/dL (0.2-1.3)
[2024-03-07] MEDS: SODIUM CHLORIDE 0.9% 1,000 ML IV SCH (02:44)
--- NOTE | 2024-03-07 05:35 | CT ---
EXAM: CT Abdomen and Pelvis With Intravenous Contrast CLINICAL HISTORY: ITS.REASON CT Reason: abd pain, blood in the stool,hx diverticulititis TECHNIQUE: Axial computed tomography images of the abdomen and pelvis with intravenous contrast. CTDI is 20.97 mGy and DLP is 965.5 mGy-cm. This CT exam was performed using one or more of the following dose reduction techniques: automated exposure control, adjustment of the mA and/or kV according to patient size, and/or use of iterative reconstruction technique. COMPARISON: No relevant prior studies available. FINDINGS: Lung bases: Unremarkable. No mass. No consolidation. Heart: Coronary artery calcifications. Cardiomegaly. Mediastinum: Small hiatal hernia. ABDOMEN: Liver: Unremarkable. No mass. Gallbladder and bile ducts: Dependent high attenuation material in the gallbladder which may relate to sludge and/or calculi. No ductal dilation. Pancreas: Unremarkable. No mass. No ductal dilation. Spleen: Unremarkable. No splenomegaly. Adrenals: Unremarkable. No mass. Kidneys and ureters: Unremarkable. No solid mass. No hydronephrosis. Stomach and bowel: Extensive colonic diverticulosis. No evidence of diverticulitis. No obstruction. PELVIS: Appendix: No findings to suggest acute appendicitis. Bladder: Unremarkable. No mass. Reproductive: Unremarkable as visualized. ABDOMEN and PELVIS: Intraperitoneal space: Unremarkable. No free air. No significant fluid collection. Bones/joints: Degenerative changes in the spine. Bilateral total hip arthroplasty changes. 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 No acute fracture. No dislocation. Soft tissues: Umbilical hernia containing fat. Vasculature: Atherosclerotic disease. Lymph nodes: Unremarkable. No enlarged lymph nodes. IMPRESSION: 1. Extensive colonic diverticulosis. No evidence of diverticulitis. 2. Dependent high attenuation material in the gallbladder which may relate to sludge and/or calculi. 3. No other acute findings. 4. Incidental findings as described.
[2024-03-07] MEDS ORDERED: ONDANSETRON 4 MG/2 ML VIAL IVP PRN (05:55)
[2024-03-07] MEDS ORDERED: ACETAMINOPHEN TAB 325 MG TAB PO PRN (05:55)
[2024-03-07] MEDS ORDERED: NALOXONE 0.4 MG/ML 1 ML VIAL IV PRN (05:55)
[2024-03-07] MEDS ORDERED: MORPHINE SULFATE 4 MG/ML SYRINGE IV PRN (05:55)
[2024-03-07 07:17] LABS: Appearance,Urine Cloudy (Clear); Bacteria,Urine Few /hpf; Bilirubin,Urine Negative (Negative); Blood,Urine Large (Negative); Color,Urine Colorless; Glucose,Urine (UA) Negative (Negative); Ketones,Urine Negative (Negative); Leukocyte Esterase,Urine Small (Negative); Mucus,Urine Rare /hpf; Nitrite,Urine Negative (Negative); Protein,Urine Negative (Negative); RBC,Urine 3 /hpf (0-5); Specific Gravity,Urine 1.022 (1.001-1.035); Squamous Epithelial Cell,Urine 6 /hpf (0-4); Urobilinogen,Urine <2.0 mg/dL (<2.0); WBC,Urine 4 /hpf (0-5)
[2024-03-07 08:42] LABS: Basophils % (A) 0 %; Eosinophils # (A) 0.1 k/uL (0-0.7); Eosinophils % (A) 1 %; HCT 31.5 % (34.0-46.0); HGB 10.3 gm/dL (11.4-16.0); Lymphocytes # (A) 1.1 k/uL (1.0-4.8); Lymphocytes % (A) 21 %; MCH 32.5 pg (25.0-35.0); MCHC 32.7 g/dL (31.0-37.0); MCV 99.3 fL (80.0-100.0); Mean Platelet Volume 8.2; Monocytes # (A) 0.2 k/uL (0-1.0); Monocytes % (A) 5 %; Neutrophils # (A) 3.7 k/uL (1.3-7.7); Neutrophils % (A) 71 %; Platelet Count 215 k/uL (150-450); RBC 3.17 m/uL (3.80-5.40); RDW 13.2 % (11.5-15.5); WBC 5.2 k/uL (3.8-10.6)
[2024-03-07] MEDS: ESCITALOPRAM 10 MG TAB PO SCH (14:08)
--- NOTE | 2024-03-07 14:18 | P.HPIM ---
History of Present Illness Patient is an 78-year-old female with known history of diverticulosis from her previous colonoscopy came in with complaints of blood per blood per rectum going on for about 3 days painless rectal bleeding. Probably secondary to divert iculosis. Patient did not have any blood in the stool stool since yesterday patient hemoglobin in month of July 2023 was around 11.7 presently 10.3. Jenny surgeon who did the procedure previously was consulted. Patient is also on iron supplements REVIEW OF SYSTEMS: CONSTITUTIONAL: No fever, no malaise, no fatigue. HEENT: No recent visual problems or hearing problems. Denied any sore throat. CARDIOVASCULAR: No chest pain, orthopnea, PND, no palpitations, no syncope. PULMONARY: No shortness of breath, no cough, no hemoptysis. GASTROINTESTINAL: As mentioned in HPI NEUROLOGICAL: No headaches, no weakness, no numbness. HEMATOLOGICAL: Denies any bleeding or petechiae. GENITOURINARY: Denies any burning micturition, frequency, or urgency. MUSCULOSKELETAL/RHEUMATOLOGICAL: Denies any joint pain, swelling, or any muscle pain. ENDOCRINE: Denies any polyuria or polydipsia. The rest of the 14-point review of systems is negative. PHYSICAL EXAMINATION: GENERAL: The patient is alert and oriented x3, not in any acute distress. Well developed, well nourished. HEENT: Pupils are round and equally reacting to light. EOMI. No scleral icterus. No conjunctival pallor. Normocephalic, atraumatic. No pharyngeal erythema. No thyromegaly. CARDIOVASCULAR: S1 and S2 present. No murmurs, rubs, or gallops. PULMONARY: Chest is clear to auscultation, no wheezing or crackles. ABDOMEN: Soft, nontender, nondistended, normoactive bowel sounds. No palpable organomegaly. MUSCULOSKELETAL: No joint swelling or deformity. EXTREMITIES: No cyanosis, clubbing, or pedal edema. NEUROLOGICAL: Gross neurological examination did not reveal any focal deficits. SKIN: No rashes. Assessment and plan -Lower GI bleed: Mostly diverticular as her bleeding stopped will monitor her overnight General surgery Dr. Alvarado was consulted. If she continues to bleed may need lower GI endoscopy patient does not take any antiplatelet medications or anticoagulant medications -Mild acute renal failure secondary to GI bleed patient was started on IV fluids gentle hydration -Hypovolemic hyponatremia expected to improve with IV fluids -Syncope patient had a syncopal episode yesterday patient blood pressure was low this syncope secondary to GI bleed and low blood pressure lisinopril will be held -Hyperlipidemia -Depression -Possible gastritis or peptic ulcer disease for which patient was started on IV Protonix patient is complaining of gastritis symptoms. DVT prophylaxis: SCDs Past Medical History Past Medical History: Diabetes Mellitus, Eye Disorder, GERD/Reflux, Hyperlipidemia, Hypertension, Osteoarthritis (OA), Thyroid Disorder Additional Past Medical History / Comment(s): macular degeneration chaz eyes, sc iatica left side, FREQUENT UTI'S, DIET CONTROL DM, History of Any Multi-Drug Resistant Organisms: None Reported Past Surgical History: Appendectomy, Heart Catheterization, Hernia Repair, Joint Replacement, Tonsillectomy Additional Past Surgical History / Comment(s): ORIF rt femur, thyroid removed, bilateral knee replacements, chaz. hip replacement, chaz cataracts, loop recorder implant and removed, chaz eyelid lift Past Anesthesia/Blood Transfusion Reactions: Postoperative Nausea & Vomiting (PONV) Type of Cardiac Device: Loop Device Placement Date:: 2016 left chest Past Psychological History: No Psychological Hx Reported Smoking Status: Never smoker Past Alcohol Use History: None Reported Past Drug Use History: None Reported - Past Family History Brother(s) Family Medical History: Cancer Mother Family Medical History: Myocardial Infarction ([place]) Additional Family Medical History / Comment(s): Mother from a massive [place] at the age of 78 or 79 yrs. Father Family Medical History: Congestive Heart Failure (CHF) Medications and Allergies Home Medications Medication Instructions Recorded Confirmed Type Atorvastatin [Lipitor] 20 mg PO DAILY 10/18/19 03/07/24 History Pantoprazole Sodium [Protonix] 40 mg PO BID 10/18/19 03/07/24 History Cholecalciferol [Vitamin D3 (25 50 mcg PO DAILY 05/02/20 03/07/24 History Mcg = 1000 Iu)] Ferrous Sulfate [Iron (65 MG 325 mg PO DAILY 05/02/20 03/07/24 History Elemental)] Acetaminophen Tab [Tylenol] 650 mg PO Q6H PRN 01/07/22 03/07/24 History Levothyroxine Sodium [Synthroid] 100 mcg PO DAILY 01/07/22 03/07/24 History Vit C/E/Zn/Coppr/Lutein/Zeaxan 1 cap PO BID 01/07/22 03/07/24 History [Preservision Areds 2 Softgel] Famotidine 20 mg PO BID 04/15/23 03/07/24 History Alendronate Sodium [Fosamax] 70 mg PO CARMONA 06/20/23 03/07/24 History Calcium Citrate/Vitamin D3 1 tab PO DAILY 06/20/23 03/07/24 History [Citracal + D Maximum Caplet] Escitalopram [Lexapro] 10 mg PO DAILY 06/20/23 03/07/24 History Vitamin B Complex W/Folic Acid + 1 tab PO DAILY 06/20/23 03/07/24 History Vitamin C lisinopriL [Zestril] 20 mg PO DAILY 06/20/23 03/07/24 History Mirabegron [Myrbetriq] 50 mg PO DAILY 03/07/24 03/07/24 History Allergies Allergy/AdvReac Type Severity Reaction Status Date / Time No Known Allergies Allergy Verified 03/07/24 09:28 Physical Exam Vitals: Vital Signs Temp Pulse Resp BP Pulse Ox 03/07/24 14:00 88 16 136/67 96 03/07/24 13:00 80 16 127/57 96 03/07/24 11:00 90 20 137/63 98 03/07/24 10:00 92 20 114/49 96 03/07/24 07:31 90 20 130/63 96 03/07/24 06:30 98.7 F 90 16 108/49 96 03/07/24 05:30 92 15 130/55 96 03/07/24 04:13 86 15 108/48 94 L 03/07/24 03:15 92 15 147/55 97 03/07/24 01:23 97.9 F 89 16 147/60 97 03/06/24 20:05 97.9 F 91 18 104/64 97 Intake and Output 03/06/24 03/07/24 03/07/24 22:59 06:59 14:59 Other: Weight 75.296 kg Results CBC & Chem 7: 03/07/24 08:33 03/07/24 00:57 Labs: Abnormal Lab Results - Last 24 Hours (Table) 03/07/24 03/07/24 03/07/24 Range/Units 00:57 00:57 06:47 RBC 3.40 L (3.80-5.40) m/uL Hgb 11.0 L (11.4-16.0) gm/dL Hct 33.7 L (34.0-46.0) % Sodium 133 L (137-145) mmol/L BUN 41 H (7-17) mg/dL Creatinine 1.16 H (0.52-1.04) mg/dL Glucose 106 H (74-99) mg/dL Total Protein 6.0 L (6.3-8.2) g/dL Urine Appearance Cloudy H (Clear) Urine Blood Large H (Negative) Ur Leukocyte Esterase Small H (Negative) Ur Squamous Epith Cells 6 H (0-4) /hpf Urine Bacteria Few H (None) /hpf Urine Mucus Rare H (None) /hpf 03/07/24 Range/Units 08:33 RBC 3.17 L (3.80-5.40) m/uL Hgb 10.3 L (11.4-16.0) gm/dL Hct 31.5 L (34.0-46.0) % Sodium (137-145) mmol/L BUN (7-17) mg/dL Creatinine (0.52-1.04) mg/dL Glucose (74-99) mg/dL Total Protein (6.3-8.2) g/dL Urine Appearance (Clear) Urine Blood (Negative) Ur Leukocyte Esterase (Negative) Ur Squamous Epith Cells (0-4) /hpf Urine Bacteria (None) /hpf Urine Mucus (None) /hpf
[2024-03-07] MEDS ORDERED: PANTOPRAZOLE 40 MG TABLET PO SCH (21:00)
[2024-03-07] MEDS: PANTOPRAZOLE 40 MG/10 ML VIAL IVP SCH (21:50)
[2024-03-08] MEDS: LEVOTHYROXINE 100 MCG TAB PO SCH (06:38)
[2024-03-08] MEDS: ATORVASTATIN 20 MG TAB PO SCH (09:42)
--- NOTE | 2024-03-08 11:45 | P.GSCN ---
History of Present Illness Consult date: 03/08/24 History of present illness: CHIEF COMPLAINT: Rectal bleeding HISTORY OF PRESENT ILLNESS: This is a 78-year-old female with prior history of diverticular bleed. Patient presented to hospital with complaints of bright red blood from rectum with pain across the lower abdomen x 3 days. Patient reports that she has had no further blood in her stools since Wednesday. She denies any nausea or vomiting. She is not on any blood thinners. She was hospitalized in May 2023 for a diverticular GI bleed. She had a colonoscopy completed at that time which had revealed diverticulosis no active bleeding and a polyp in the transverse colon. Surgical service consulted for diverticulosis and GI bleed. PAST MEDICAL HISTORY: See below PAST SURGICAL HISTORY: See below MEDICATIONS: See below ALLERGIES: See below SOCIAL HISTORY: No illicit drug use. REVIEW OF SYSTEMS: CONSTITUTIONAL: Denies fever or chills. HEENT: Denies blurred vision, vision changes, or eye pain. Denies hemoptysis CARDIOVASCULAR: Denies chest pain or pressure. RESPIRATORY: No shortness of breath. GASTROINTESTINAL: See HPI for pertinent findings HEMATOLOGIC: Denies bleeding disorders. GENITOURINARY: Denies any blood in urine or increased urinary frequency. SKIN: Denies pruitis. Denies rash. PHYSICAL EXAM: VITAL SIGNS: Reviewed GENERAL: Well-developed in no acute distress. HEENT: No sclera icterus. Extraocular movements grossly intact. Moist buccal mucosa. Head is atraumatic, normocephalic. No nasal drainage. ABDOMEN: Soft. Nondistended. Tenderness palpation left lower quadrant and lower mid abdomen. Right upper quadrant nontender NEUROLOGIC: Alert and oriented. Cranial nerves II through XII grossly intact. LABORATORY DATA: WBC 5.2 Hgb 11 down to 10.3 platelets 215 Sodium 133 potassium is 4.6 creatinine 1.16 IMAGING: CT scan abdomen pelvis reports extensive colonic diverticulosis. No evidence of diverticulitis. Dependent high attenuation material in the gallbladder which may relate to sludge and/or calculi. No other acute findings. ASSESSMENT: 1. Acute GI bleed likely due to diverticular bleed 2. History of diverticulosis and prior diverticular GI bleed 3. History of chronic kidney disease 4. Diabetes mellitus 5. History of hypertension PLAN: -Start clear liquid diet -Continue to monitor for any signs or symptoms of bleeding -Continue to monitor hemoglobin Physician Lean Leader note has been reviewed by physician. Signing provider agrees with the documented findings, assessment, and plan of care. Please see additional documentation below Patient a recent colonoscopy less than 8 months to 9 months ago. Patient has pre-existing history of diverticulitis. Findings consistent with diverticular bleed. Do recommend IV antibiotics. Clear liquid diet. At this time no current colonoscopy needed. Past Medical History Past Medical History: Diabetes Mellitus, Eye Disorder, GERD/Reflux, Hyp erlipidemia, Hypertension, Osteoarthritis (OA), Thyroid Disorder Additional Past Medical History / Comment(s): macular degeneration chaz eyes, sciatica left side, FREQUENT UTI'S, DIET CONTROL DM, History of Any Multi-Drug Resistant Organisms: None Reported Past Surgical History: Appendectomy, Heart Catheterization, Hernia Repair, Joint Replacement, Tonsillectomy Additional Past Surgical History / Comment(s): ORIF rt femur, thyroid removed, bilateral knee replacements, chaz. hip replacement, chaz cataracts, loop recorder implant and removed, chaz eyelid lift Past Anesthesia/Blood Transfusion Reactions: Postoperative Nausea & Vomiting (PONV) Type of Cardiac Device: Loop Device Placement Date:: 2016 left chest Past Psychological History: No Psychological Hx Reported Additional Psychological History / Comment(s): . Smoking Status: Never smoker Past Alcohol Use History: None Reported Past Drug Use History: None Reported - Past Family History Brother(s) Family Medical History: Cancer Mother Family Medical History: Myocardial Infarction (HI) Additional Family Medical History / Comment(s): Mother from a massive HI at the age of 78 or 79 yrs. Father Family Medical History: Congestive Heart Failure (CHF) Medications and Allergies Home Medications Medication Instructions Recorded Confirmed Type Atorvastatin [Lipitor] 20 mg PO DAILY 10/18/19 03/07/24 History Pantoprazole Sodium [Protonix] 40 mg PO BID 10/18/19 03/07/24 History Cholecalciferol [Vitamin D3 (25 50 mcg PO DAILY 05/02/20 03/07/24 History Mcg = 1000 Iu)] Ferrous Sulfate [Iron (65 MG 325 mg PO DAILY 05/02/20 03/07/24 History Elemental)] Acetaminophen Tab [Tylenol] 650 mg PO Q6H PRN 01/07/22 03/07/24 History Levothyroxine Sodium [Synthroid] 100 mcg PO DAILY 01/07/22 03/07/24 History Vit C/E/Zn/Coppr/Lutein/Zeaxan 1 cap PO BID 01/07/22 03/07/24 History [Preservision Areds 2 Softgel] Famotidine 20 mg PO BID 04/15/23 03/07/24 History Alendronate Sodium [Fosamax] 70 mg PO CARMONA 06/20/23 03/07/24 History Calcium Citrate/Vitamin D3 1 tab PO DAILY 06/20/23 03/07/24 History [Citracal + D Maximum Caplet] Escitalopram [Lexapro] 10 mg PO DAILY 06/20/23 03/07/24 History Vitamin B Complex W/Folic Acid + 1 tab PO DAILY 06/20/23 03/07/24 History Vitamin C lisinopriL [Zestril] 20 mg PO DAILY 06/20/23 03/07/24 History Mirabegron [Myrbetriq] 50 mg PO DAILY 03/07/24 03/07/24 History Allergies Allergy/AdvReac Type Severity Reaction Status Date / Time No Known Allergies Allergy Verified 03/07/24 09:28 Surgical - Exam Vital Signs Temp Pulse Resp BP Pulse Ox 97.9 F 91 18 104/64 97 03/06/24 20:05 03/06/24 20:05 03/06/24 20:05 03/06/24 20:05 03/06/24 20:05 Results - Labs 03/07/24 08:33 03/07/24 00:57
[2024-03-08] MEDS: PIPERACILLIN-TAZOBACTAM 3.375 GM in SODIUM CHLORIDE 0.9% 100 ML IVPB SCH (14:52)
--- NOTE | 2024-03-08 22:17 | P.PN ---
Subjective Progress Note Date: 03/08/24 Patient is an 78-year-old female with known history of diverticulosis from her previous colonoscopy came in with complaints of blood per blood per rectum going on for about 3 days painless rectal bleeding. Probably secondary to diverticulosis. Patient did not have any blood in the stool stool since yesterday patient hemoglobin in month of July 2023 was around 11.7 presently 10.3. Jenny surgeon who did the procedure previously was consulted. Patient is also on iron supplements 03/08/2024 Patient is evaluated today on the medical floor in follow up. Remains NPO. Rectal bleeding has resolved. No other acute complaints. REVIEW OF SYSTEMS: CONSTITUTIONAL: No fever, no malaise, no fatigue. HEENT: No recent visual problems or hearing problems. Denied any sore throat. CARDIOVASCULAR: No chest pain, orthopnea, PND, no palpitations, no syncope. PULMONARY: No shortness of breath, no cough, no hemoptysis. GASTROINTESTINAL: As mentioned in HPI NEUROLOGICAL: No headaches, no weakness, no numbness. PHYSICAL EXAMINATION: GENERAL: The patient is alert and oriented x3, not in any acute distress. Well developed, well nourished. HEENT: Pupils are round and equally reacting to light. EOMI. No scleral icterus. No conjunctival pallor. Normocephalic, atraumatic. No pharyngeal erythema. No thyromegaly. CARDIOVASCULAR: S1 and S2 present. No murmurs, rubs, or gallops. PULMONARY: Chest is clear to auscultation, no wheezing or crackles. ABDOMEN: Soft, nontender, nondistended, normoactive bowel sounds. No palpable organomegaly. MUSCULOSKELETAL: No joint swelling or deformity. EXTREMITIES: No cyanosis, clubbing, or pedal edema. NEUROLOGICAL: Gross neurological examination did not reveal any focal deficits. SKIN: No rashes. Assessment and plan -Lower GI bleed: Mostly diverticular as her bleeding stopped will monitor her overnight General surgery Dr. Alvarado was consulted. Patient will gof or EGD/Colonoscopy tomorrow. -Mild acute renal failure secondary to GI bleed patient was started on IV fluids gentle hydration -Hypovolemic hyponatremia expected to improve with IV fluids -Syncope patient had a syncopal episode yesterday patient blood pressure was low this syncope secondary to GI bleed and low blood pressure lisinopril will be held -Hyperlipidemia -Depression -Possible gastritis or peptic ulcer disease for which patient was started on IV Protonix patient is complaining of gastritis symptoms. DVT prophylaxis: SCDs The impression and plan of care has been dictated by Shanna Pearce, Nurse Practitioner as directed. Dr. Mary MD I have performed a history and physical examination and medical decision making of this patient, discussed the same with the dictator, and agree with the dictators assessment and plan as written, documented as a scribe. Based on total visit time, I have performed more than 50% of this visit. Objective - Vital Signs Vital signs: Vital Signs Temp 98.1 F 03/08/24 08:20 Pulse 91 03/08/24 08:20 Resp 16 03/08/24 08:20 BP 132/69 03/08/24 08:20 Pulse Ox 97 03/08/24 08:20 FiO2 Intake & Output 03/07/24 03/08/24 03/08/24 18:59 06:59 18:59 Weight 75.296 kg Other: Voiding Method External Catheter # Voids 1 # Bowel Movements 1 - Labs CBC & Chem 7: 03/07/24 08:33 03/07/24 00:57 Assessment and Plan Time with Patient: Less than 30
[2024-03-09 08:55] LABS: Basophils # (A) 0.01 X 10*3/uL (0.00-0.10); Basophils % (A) 0.1 %; Eosinophils # (A) 0.09 X 10*3/uL (0.04-0.35); HGB 9.1 g/dL (12.0-15.0); Lymphocytes # (A) 0.94 X 10*3/uL (0.90-5.00); Lymphocytes % (A) 9.9 %; MCHC 33.7 g/dL (32.0-37.0); MCV 97.8 FL (80.0-97.0); Mean Platelet Volume 9.8 FL (9.5-12.2); Monocytes # (A) 0.71 X 10*3/uL (0.20-1.00); Monocytes % (A) 7.5 %; NRBC Per 100 WBC 0 X 10*3/uL (0.00-0.01); Neutrophils # (A) 7.67 X 10*3/uL (1.80-7.70); Neutrophils % (A) 81.1 %; Platelet Count 196 X 10*3/uL (140-440); RBC 2.76 X 10*6/uL (4.10-5.20); RDW 13.3 % (11.5-14.5); WBC 9.46 X 10*3/uL (4.50-10.00)
[2024-03-09 09:02] LABS: BUN/Creat Ratio 17.33 Ratio (12.00-20.00); Calcium 8.3 mg/dL (8.7-10.3); Carbon Dioxide 20.3 mmol/L (21.6-31.8); Chloride 104 mmol/L (96-109); Glucose 124 mg/dL (70-110); Potassium 4.2 mmol/L (3.5-5.5); Sodium 135 mmol/L (135-145)
--- NOTE | 2024-03-09 13:57 | P.PN ---
Subjective Progress Note Date: 03/09/24 CHIEF COMPLAINT: Diverticular bleed HISTORY OF PRESENT ILLNESS: Patient reports improving abdominal pain. She has had no further bleeding. No bowel movement. Afebrile. Hemoglobin 9.1 PHYSICAL EXAM: VITAL SIGNS: Reviewed GENERAL: Well-developed in no acute distress. HEENT: No sclera icterus. Extraocular movements grossly intact. Moist buccal mucosa. Head is atraumatic, normocephalic. Hears conversational speech. No nasal drainage. NECK: Supple without lymphadenopathy. CHEST: Non-labored respirations and equal bilateral excursions. CARDIOVASCULAR: Palpable 2+ radial pulses. ABDOMEN: Soft. Nondistended. Mild tenderness with palpation left lower quadrant MUSCULOSKELETAL: No clubbing or cyanosis. NEUROLOGIC: No focal or lateralizing signs. Cranial nerves II through XII grossly intact. PSYCH: Appropriate affect. Alert and oriented to person, place and time. SKIN: Well perfused. Good skin turgor. ASSESSMENT: 1. Acute GI bleed likely due to diverticular bleed with diverticulitis 2. History of diverticulosis and prior diverticular GI bleed 3. History of chronic kidney disease 4. Diabetes mellitus 5. History of hypertension PLAN: -Advance diet to low fiber. Patient can be discharged if tolerating diet. Patient has had no further bleeding. -Recommend continue oral antibiotics for possible diverticulitis at discharge -No plans for colonoscopy at this time Physician Patient Consumer Marketer note has been reviewed by physician. Signing provider agrees with the documented findings, assessment, and plan of care. Skin Objective - Vital Signs Vital signs: Vital Signs Temp 98.0 F 03/09/24 07:00 Pulse 86 03/09/24 07:00 Resp 15 03/09/24 07:00 BP 120/62 03/09/24 07:00 Pulse Ox 95 03/09/24 07:00 FiO2 Intake & Output 03/08/24 03/09/24 03/09/24 18:59 06:59 18:59 Intake Total 240 118 Output Total 300 800 Balance -60 -800 118 Weight 75.296 kg Intake: Oral 240 118 Output: Urine 300 800 Other: Voiding Method External Catheter External Catheter # Voids 1 # Bowel Movements 1 - Labs CBC & Chem 7: 03/09/24 05:48 03/09/24 05:48 Labs: Abnormal Lab Results - Last 24 Hours (Table) 03/09/24 03/09/24 Range/Units 05:48 05:48 RBC 2.76 L (4.10-5.20) X 10*6/uL Hgb 9.1 L (12.0-15.0) g/dL Hct 27.0 L (37.2-46.3) % MCV 97.8 H (80.0-97.0) FL MCH 33.0 H (27.0-32.0) pg Carbon Dioxide 20.3 L (21.6-31.8) mmol/L Est GFR (CKD-EPI) 35 L (>=60) Glucose 124 H (70-110) mg/dL Calcium 8.3 L (8.7-10.3) mg/dL
--- NOTE | 2024-03-09 16:14 | P.PN ---
Subjective Progress Note Date: 03/09/24 Patient is an 78-year-old female with known history of diverticulosis from her previous colonoscopy came in with complaints of blood per blood per rectum going on for about 3 days painless rectal bleeding. Probably secondary to diverticulosis. Patient did not have any blood in the stool stool since yeste rday patient hemoglobin in month of July 2023 was around 11.7 presently 10.3. Jenny surgeon who did the procedure previously was consulted. Patient is also on iron supplements 03/08/2024 Patient is evaluated today on the medical floor in follow up. Remains NPO. Rectal bleeding has resolved. No other acute complaints. 03/09/2024 Patient is evaluated today resting in bed. She does report improved abdominal discomfort. She is not reported any bloody stool earlier in the day however ted westfall on this afternoon did have a black tarry stool. Continues on IV Zosyn for concern for acute diverticulitis. Hemoglobin today is 9.1. Sodium level is 135. REVIEW OF SYSTEMS: CONSTITUTIONAL: No fever, no malaise, no fatigue. HEENT: No recent visual problems or hearing problems. Denied any sore throat. CARDIOVASCULAR: No chest pain, orthopnea, PND, no palpitations, no syncope. PULMONARY: No shortness of breath, no cough, no hemoptysis. GASTROINTESTINAL: As mentioned in HPI NEUROLOGICAL: No headaches, no weakness, no numbness. PHYSICAL EXAMINATION: GENERAL: The patient is alert and oriented x3, not in any acute distress. Well developed, well nourished. HEENT: Pupils are round and equally reacting to light. EOMI. No scleral icterus. No conjunctival pallor. Normocephalic, atraumatic. No pharyngeal erythema. No thyromegaly. CARDIOVASCULAR: S1 and S2 present. No murmurs, rubs, or gallops. PULMONARY: Chest is clear to auscultation, no wheezing or crackles. ABDOMEN: Soft, nontender, nondistended, normoactive bowel sounds. No palpable organomegaly. MUSCULOSKELETAL: No joint swelling or deformity. EXTREMITIES: No cyanosis, clubbing, or pedal edema. NEUROLOGICAL: Gross neurological examination did not reveal any focal deficits. SKIN: No rashes. Assessment and plan -Lower GI bleed: Mostly diverticular as her bleeding stopped will monitor her overnight General surgery Dr. Alvarado was consulted. Patient will go for EGD/Colonoscopy tomorrow. -Mild acute renal failure secondary to GI bleed patient was started on IV fluids gentle hydration -Hypovolemic hyponatremia expected to improve with IV fluids -Syncope patient had a syncopal episode yesterday patient blood pressure was low this syncope secondary to GI bleed and low blood pressure lisinopril will be held -Hyperlipidemia -Depression -Possible gastritis or peptic ulcer disease for which patient was started on IV Protonix patient is complaining of gastritis symptoms. DVT prophylaxis: SCDs The impression and plan of care has been dictated by Shanna Pearce, Nurse Practitioner as directed. Dr. Mary MD I have performed a history and physical examination and medical decision making of this patient, discussed the same with the dictator, and agree with the dictators assessment and plan as written, documented as a scribe. Based on total visit time, I have performed more than 50% of this visit. Objective - Vital Signs Vital signs: Vital Signs Temp 98.0 F 03/09/24 07:00 Pulse 86 03/09/24 07:00 Resp 15 03/09/24 07:00 BP 120/62 03/09/24 07:00 Pulse Ox 95 03/09/24 07:00 FiO2 Intake & Output 03/08/24 03/09/24 03/09/24 18:59 06:59 18:59 Intake Total 240 118 Output Total 300 800 Balance -60 -800 118 Weight 75.296 kg Intake: Oral 240 118 Output: Urine 300 800 Other: Voiding Method External Catheter External Catheter # Voids 1 # Bowel Movements 1 - Labs CBC & Chem 7: 03/09/24 05:48 03/09/24 05:48 Labs: Abnormal Lab Results - Last 24 Hours (Table) 03/09/24 03/09/24 Range/Units 05:48 05:48 RBC 2.76 L (4.10-5.20) X 10*6/uL Hgb 9.1 L (12.0-15.0) g/dL Hct 27.0 L (37.2-46.3) % MCV 97.8 H (80.0-97.0) FL MCH 33.0 H (27.0-32.0) pg Carbon Dioxide 20.3 L (21.6-31.8) mmol/L Est GFR (CKD-EPI) 35 L (>=60) Glucose 124 H (70-110) mg/dL Calcium 8.3 L (8.7-10.3) mg/dL Assessment and Plan Time with Patient: Less than 30
[2024-03-09] MEDS: MAGNESIUM HYDROXIDE 2,400 MG/30 ML CUP PO STA (16:33)
[2024-03-09] MEDS: LACTULOSE 20 GM/30 ML CUP PO ONE (16:33)
[2024-03-09] MEDS: PEG 3350 (420 GM/BTL) + LYTES 4,000 ML BOTTLE PO ONE (16:56)
[2024-03-10 03:59] LABS: HCT 27.4 % (34.0-46.0); HGB 9.1 gm/dL (11.4-16.0); MCH 32.6 pg (25.0-35.0); MCHC 33.2 g/dL (31.0-37.0); MCV 98.3 fL (80.0-100.0); Mean Platelet Volume 8.6; Platelet Count 180 k/uL (150-450); RBC 2.79 m/uL (3.80-5.40); RDW 13.4 % (11.5-15.5); WBC 9.5 k/uL (3.8-10.6)
[2024-03-10 09:05] LABS: BUN/Creat Ratio 9.89 Ratio (12.00-20.00); Blood Urea Nitrogen 27.7 mg/dL (9.0-27.0); Carbon Dioxide 18.6 mmol/L (21.6-31.8); Chloride 101 mmol/L (96-109); Glucose 136 mg/dL (70-110); Potassium 3.8 mmol/L (3.5-5.5); Sodium 133 mmol/L (135-145)
[2024-03-10] MEDS: IV FLUID CONTINUATION 1,000 ML IV ONE ×2 (13:53→14:15)
[2024-03-10] MEDS ORDERED: PROPOFOL 10 MG/ML 20 ML VIAL IV ONE (13:53)
[2024-03-10] MEDS: TAMSULOSIN 0.4 MG CAP.ER.24H PO SCH (18:35)
[2024-03-10] MEDS: PIPERACILLIN-TAZOBACTAM 3.375 GM in SODIUM CHLORIDE 0.9% 100 ML IVPB SCH (21:48)
--- NOTE | 2024-03-10 22:08 | P.PN ---
Subjective Progress Note Date: 03/10/24 Patient is an 78-year-old female with known history of diverticulosis from her previous colonoscopy came in with complaints of blood per blood per rectum going on for about 3 days painless rectal bleeding. Probably secondary to diverticulosis. Patient did not have any blood in the stool stool since yeste rday patient hemoglobin in month of July 2023 was around 11.7 presently 10.3. Jenny surgeon who did the procedure previously was consulted. Patient is also on iron supplements 03/08/2024 Patient is evaluated today on the medical floor in follow up. Remains NPO. Rectal bleeding has resolved. No other acute complaints. 03/09/2024 Patient is evaluated today resting in bed. She does report improved abdominal discomfort. She is not reported any bloody stool earlier in the day however ted ateisaac on this afternoon did have a black tarry stool. Continues on IV Zosyn for concern for acute diverticulitis. Hemoglobin today is 9.1. Sodium level is 135. 03/10/2024 Patient is evaluated today in follow up resting in bed. Does report abdominal discomfort today her suprapubic region is distended significantly and patient reports having less urine output. Her bladder scan reveals over 1 Liter in the urinary bladder. Patient remains on IV zosyn. Had an episode of black stool last night. None so far today. Creatinine up to 2.8. REVIEW OF SYSTEMS: CONSTITUTIONAL: No fever, no malaise, no fatigue. HEENT: No recent visual problems or hearing problems. Denied any sore throat. CARDIOVASCULAR: No chest pain, orthopnea, PND, no palpitations, no syncope. PULMONARY: No shortness of breath, no cough, no hemoptysis. GASTROINTESTINAL: As mentioned in HPI NEUROLOGICAL: No headaches, no weakness, no numbness. PHYSICAL EXAMINATION: GENERAL: The patient is alert and oriented x3, not in any acute distress. Well developed, well nourished. HEENT: Pupils are round and equally reacting to light. EOMI. No scleral icterus. No conjunctival pallor. Normocephalic, atraumatic. No pharyngeal erythema. No thyromegaly. CARDIOVASCULAR: S1 and S2 present. No murmurs, rubs, or gallops. PULMONARY: Chest is clear to auscultation, no wheezing or crackles. ABDOMEN: Soft, nontender, nondistended, normoactive bowel sounds. No palpable organomegaly. MUSCULOSKELETAL: No joint swelling or deformity. EXTREMITIES: No cyanosis, clubbing, or pedal edema. NEUROLOGICAL: Gross neurological examination did not reveal any focal deficits. SKIN: No rashes. Assessment and plan -Lower GI bleed: Patient scheduled for EGD/Colonoscopy today -Mild acute renal failure secondary to GI bleed patient was started on IV fluids gentle hydration; had improved and now creatinine up to 2.8 secondary to urinary retention expected to improve with strait catheterization. Started on flomax. -Hypovolemic hyponatremia expected to improve with IV fluids -Syncope patient had a syncopal episode yesterday patient blood pressure was low this syncope secondary to GI bleed. Lisinopril was held. Will remain on hold due to renal dysfunction. Blood pressure improving. -Hyperlipidemia -Depression -Possible gastritis or peptic ulcer disease for which patient was started on IV Protonix patient is complaining of gastritis symptoms. DVT prophylaxis: SCDs GI prophylaxis: Protonix Full Code The impression and plan of care has been dictated by Shanna Pearce Nurse Practitioner as directed. Dr. Mary MD I have performed a history and physical examination and medical decision making of this patient, discussed the same with the dictator, and agree with the dictators assessment and plan as written, documented as a scribe. Based on total visit time, I have performed more than 50% of this visit. Objective - Vital Signs Vital signs: Vital Signs Temp 98.2 F 03/10/24 07:42 Pulse 95 03/10/24 07:42 Resp 16 03/10/24 07:42 BP 146/67 03/10/24 07:42 Pulse Ox 95 03/10/24 07:42 FiO2 Intake & Output 03/09/24 03/10/24 03/10/24 18:59 06:59 18:59 Intake Total 118 300 Output Total 900 Balance 118 -600 Intake: IV 300 Oral 118 Output: Urine 900 Straight 900 Other: Voiding Method Diaper Diaper Incontinent Incontinent # Voids 2 # Bowel Movements 1 2 - Labs CBC & Chem 7: 03/10/24 03:35 03/10/24 03:35 Labs: Abnormal Lab Results - Last 24 Hours (Table) 03/10/24 03/10/24 Range/Units 03:35 03:35 RBC 2.79 L (3.80-5.40) m/uL Hgb 9.1 L (11.4-16.0) gm/dL Hct 27.4 L (34.0-46.0) % Sodium 133 L (135-145) mmol/L Carbon Dioxide 18.6 L (21.6-31.8) mmol/L Anion Gap 13.40 H (4.00-12.00) mmol/L BUN 27.7 H (9.0-27.0) mg/dL Creatinine 2.8 H (0.6-1.5) mg/dL Est GFR (CKD-EPI) 17 L (>=60) BUN/Creatinine Ratio 9.89 L (12.00-20.00) Ratio Glucose 136 H (70-110) mg/dL Calcium 8.0 L (8.7-10.3) mg/dL Assessment and Plan Time with Patient: Less than 30
[2024-03-11 07:15] LABS: Amorphous Sediment,Urine Rare /hpf; Appearance,Urine Turbid (Clear); Bacteria,Urine Many /hpf; Bilirubin,Urine Negative (Negative); Blood,Urine Large (Negative); Budding Yeast,Urine Few /hpf; Color,Urine Yellow; Glucose,Urine (UA) Negative (Negative); Ketones,Urine Negative (Negative); Leukocyte Esterase,Urine Large (Negative); Nitrite,Urine Positive (Negative); Protein,Urine 1+ (Negative); RBC,Urine >182 /hpf (0-5); Squamous Epithelial Cell,Urine 9 /hpf (0-4); Urobilinogen,Urine <2.0 mg/dL (<2.0); WBC,Urine >182 /hpf (0-5)
[2024-03-11 07:24] LABS: Specific Gravity,Urine 1.012 (1.001-1.035)
--- NOTE | 2024-03-11 08:30 | P.PCN ---
Date of Procedure: 03/10/24 Description of Procedure: PREOPERATIVE DIAGNOSIS: Acute blood loss anemia Gastrointestinal bleeding with melena POSTOPERATIVE DIAGNOSIS: Severe sigmoid diverticulosis without bleeding OPERATION: Colonoscopy to the cecum, ileocecal valve and appendiceal orifice SURGEON: Shara Alvarado MD. ANESTHESIA: MAC. INDICATIONS: The patient is a 78-year-old female who presents with gastrointestinal bleeding and melena. Benefits and risks were described and informed consent was obtained. DESCRIPTION OF PROCEDURE: The patient had undergone attempted Golytely prep 2 L including lactulose and milk of magnesia. The patient had been brought into the operating room and laid in the left lateral decubitus position. After adequate intravenous sedation, the rectum was examined with 2% lidocaine jelly. Rectal tone within normal limits. An Olympus colonoscope was gently advanced to the cecum with clear vi sualization of the ileocecal valve including appendiceal orifice. The prep was fair with semisolid stool. Severe sigmoid diverticulosis was encountered without active bleeding. No active colonic bleeding was found. No intraluminal masses were identified within the colon. No colonic polyps were found. No evidence of focal colitis was found. Retroflexion of the scope demonstrated grade 3 internal hemorrhoids with recent inflammation. The colon was desufflated. The patient had tolerated the procedure well. Withdrawal time was over 6 minutes. FINDINGS: Aronchick preparation quality scale 3 (1-5) Internal hemorrhoids, grade 3 No thrombosed hemorrhoid identified. No arteriovenous malformations. No large adenomatous polyps. No focal colitis. Severe sigmoid diverticulosis without active bleeding RECOMMENDATIONS: 1. May start low fiber diet 2. Upper endoscopy identified as source of bleeding
--- NOTE | 2024-03-11 08:33 | P.PCN ---
Date of Procedure: 03/10/24 Description of Procedure: PREOPERATIVE DIAGNOSIS: Acute gastrointestinal bleeding Melena POSTOPERATIVE DIAGNOSIS: Acute gastrointestinal bleeding Melena Acute gastritis with bleeding Gastric polyps Diaphragmatic hiatal hernia OPERATION: Esophagogastroduodenoscopy SURGEON: Shara Alvarado MD ANESTHESIA: MAC. INDICATIONS: The patient is a 78-year-old female who presents with gastrointestinal bleeding. Benefits and risks of the procedure were described. Informed consent was obtained. DESCRIPTION: The patient was brought into the endoscopy suite and laid in the left lateral decubitus position. An Olympus gastroscope was passed along the posterior oropharynx down to the distal esophagus where the squamocolumnar junction was encountered at 38 cm from the incisors. The stomach was entered and no bile reflux was found. Additional findings are listed below. The first through third portion of the duodenum was examined and unremarkable. Retroflexion of the scope confirmed Hill grade 4 lower esophageal valve. The squamocolumnar junction demonstrated LA grade C erosive esophagitis. The stomach was desufflated. The patient tolerated the procedure well. FINDINGS: Squamocolumnar junction 38 cm from the incisors. Diaphragmatic hiatus at 40 cm. Hiatal hernia, 2 cm Hill grade 4 lower esophageal valve. LA grade C erosive esophagitis. No active duodenitis. Acute gastritis along gastric cardia with bleeding Hyperplastic benign gastric polyps, 4 mm in size along gastric body, few RECOMMENDATIONS: 1. Recommend Protonix 40 mg twice daily for 2 weeks 2. Proceed with lower endoscopy to exclude additional lower GI source of bleeding Plan - Discharge Summary New Discharge Prescriptions: New Amoxic-Pot Clav 875-125Mg [Augmentin 875-125] 1 tab PO Q12HR 7 Days #14 tab Continue RX: Atorvastatin [Lipitor] 20 mg PO DAILY RX: Pantoprazole Sodium [Protonix] 40 mg PO BID RX: Cholecalciferol [Vitamin D3 (25 Mcg = 1000 Iu)] 50 mcg PO DAILY RX: Ferrous Sulfate [Iron (65 MG Elemental)] 325 mg PO DAILY RX: Vit C/E/Zn/Coppr/Lutein/Zeaxan [Preservision Areds 2 Softgel] 1 cap PO BID RX: Alendronate Sodium [Fosamax] 70 mg PO CARMONA RX: Calcium Citrate/Vitamin D3 [Citracal + D Maximum Caplet] 1 tab PO DAILY RX: Mirabegron [Myrbetriq] 50 mg PO DAILY RX: Acetaminophen Tab [Tylenol] 650 mg PO Q6H PRN PRN Reason: Pain RX: Levothyroxine Sodium [Synthroid] 100 mcg PO DAILY RX: Famotidine 20 mg PO BID Vitamin B Complex W/Folic Acid + Vitamin C 1 tab PO DAILY RX: Escitalopram [Lexapro] 10 mg PO DAILY Discontinued RX: lisinopriL [Zestril] 20 mg PO DAILY Discharge Medication List RX: Atorvastatin [Lipitor] 20 mg PO DAILY 10/18/19 [History] RX: Pantoprazole Sodium [Protonix] 40 mg PO BID 10/18/19 [History] RX: Cholecalciferol [Vitamin D3 (25 Mcg = 1000 Iu)] 50 mcg PO DAILY 05/02/20 [History] RX: Ferrous Sulfate [Iron (65 MG Elemental)] 325 mg PO DAILY 05/02/20 [History] RX: Acetaminophen Tab [Tylenol] 650 mg PO Q6H PRN 01/07/22 [History] RX: Levothyroxine Sodium [Synthroid] 100 mcg PO DAILY 01/07/22 [History] RX: Vit C/E/Zn/Coppr/Lutein/Zeaxan [Preservision Areds 2 Softgel] 1 cap PO BID 01/07/22 [History] RX: Famotidine 20 mg PO BID 04/15/23 [History] RX: Alendronate Sodium [Fosamax] 70 mg PO CARMONA 06/20/23 [History] RX: Calcium Citrate/Vitamin D3 [Citracal + D Maximum Caplet] 1 tab PO DAILY 06/20/23 [History] RX: Escitalopram [Lexapro] 10 mg PO DAILY 06/20/23 [History] Vitamin B Complex W/Folic Acid + Vitamin C 1 tab PO DAILY 06/20/23 [History] RX: Mirabegron [Myrbetriq] 50 mg PO DAILY 03/07/24 [History] Amoxic-Pot Clav 875-125Mg [Augmentin 875-125] 1 tab PO Q12HR 7 Days #14 tab 03/09/24 [Rx] Follow up Appointment(s)/Referral(s): Shara Alvarado MD [STAFF PHYSICIAN] - 1 Week Cameron Terry MD [Primary Care Provider] - 1-2 days Ambulatory/Diagnostic Orders: Basic Metabolic Panel [LAB.AMB] Time Frame: 3 Days, Location: None Selected Complete Blood Count w/diff [LAB.AMB] Location: None Selected Patient Instructions/Handouts: Diverticulitis (DC) Discharge Disposition: HOME SELF-CARE
[2024-03-11 09:27] LABS: Basophils # (A) 0.02 X 10*3/uL (0.00-0.10); Basophils % (A) 0.2 %; Eosinophils # (A) 0.05 X 10*3/uL (0.04-0.35); Eosinophils % (A) 0.6 %; HCT 23.4 % (37.2-46.3); HGB 7.9 g/dL (12.0-15.0); Lymphocytes # (A) 0.93 X 10*3/uL (0.90-5.00); Lymphocytes % (A) 11.4 %; MCH 32.6 pg (27.0-32.0); MCHC 33.8 g/dL (32.0-37.0); MCV 96.7 FL (80.0-97.0); Mean Platelet Volume 10.1 FL (9.5-12.2); Monocytes # (A) 0.64 X 10*3/uL (0.20-1.00); Monocytes % (A) 7.8 %; NRBC Per 100 WBC 0 X 10*3/uL (0.00-0.01); Neutrophils # (A) 6.51 X 10*3/uL (1.80-7.70); Neutrophils % (A) 79.8 %; Platelet Count 182 X 10*3/uL (140-440); RBC 2.42 X 10*6/uL (4.10-5.20); RDW 13.1 % (11.5-14.5); WBC 8.17 X 10*3/uL (4.50-10.00)
[2024-03-11 12:39] LABS: BUN/Creat Ratio 11.67 Ratio (12.00-20.00); Calcium 7.8 mg/dL (8.7-10.3); Carbon Dioxide 17.7 mmol/L (21.6-31.8); Chloride 109 mmol/L (96-109); Glucose 123 mg/dL (70-110); Magnesium 1.9 mg/dL (1.5-2.4); Potassium 3.6 mmol/L (3.5-5.5); Sodium 137 mmol/L (135-145)
--- NOTE | 2024-03-11 13:46 | P.PN ---
Progress Note - Text Progress Note Date: 03/11/24 CHIEF COMPLAINT: Diverticular bleed HISTORY OF PRESENT ILLNESS: NAEO PHYSICAL EXAM: VITAL SIGNS: Reviewed GENERAL: Well-developed in no acute distress. HEENT: No sclera icterus. Extraocular movements grossly intact. Moist buccal mucosa. Head is atraumatic, normocephalic. Hears conversational speech. No nasal drainage. NECK: Supple without lymphadenopathy. CHEST: Non-labored respirations and equal bilateral excursions. CARDIOVASCULAR: Palpable 2+ radial pulses. ABDOMEN: Soft. Nondistended. Mild tenderness with palpation left lower quadrant MUSCULOSKELETAL: No clubbing or cyanosis. NEUROLOGIC: No focal or lateralizing signs. Cranial nerves II through XII grossly intact. PSYCH: Appropriate affect. Alert and oriented to person, place and time. SKIN: Well perfused. Good skin turgor. ASSESSMENT: 1. Acute GI bleed likely due to diverticular bleed with diverticulitis s/p EGD and Colonoscopy 2. History of diverticulosis and prior diverticular GI bleed 3. History of chronic kidney disease 4. Diabetes mellitus 5. History of hypertension PLAN: -Advance diet to low fiber. Patient can be discharged if tolerating diet. -Protonix 40 mg BID
--- NOTE | 2024-03-11 20:51 | P.PN ---
Subjective Progress Note Date: 03/11/24 Patient is an 78-year-old female with known history of diverticulosis from her previous colonoscopy came in with complaints of blood per blood per rectum going on for about 3 days painless rectal bleeding. Probably secondary to diverticulosis. Patient did not have any blood in the stool stool since yeste rday patient hemoglobin in month of July 2023 was around 11.7 presently 10.3. Jenyn surgeon who did the procedure previously was consulted. Patient is also on iron supplements 03/08/2024 Patient is evaluated today on the medical floor in follow up. Remains NPO. Rectal bleeding has resolved. No other acute complaints. 03/09/2024 Patient is evaluated today resting in bed. She does report improved abdominal discomfort. She is not reported any bloody stool earlier in the day however ted westfall on this afternoon did have a black tarry stool. Continues on IV Zosyn for concern for acute diverticulitis. Hemoglobin today is 9.1. Sodium level is 135. 03/10/2024 Patient is evaluated today in follow up resting in bed. Does report abdominal discomfort today her suprapubic region is distended significantly and patient reports having less urine output. Her bladder scan reveals over 1 Liter in the urinary bladder. Patient remains on IV zosyn. Had an episode of black stool last night. None so far today. Creatinine up to 2.8. 03/11/2024 Patient is evaluated today in follow up on the medical floor. Patient is currently resting in bed. Patient underwent EGD and colonoscopy with upper GI findings as source of bleeding with gastritis with active bleeding. Patient currently has on more reports of dark stool and has been started on low fiber diet. Patient has indwelling catheter in place was found to have significant urinary retention. Patient remains on normal saline infusion and IV zosyn. Hemoglobin 7.9, white blood cell count 8.17. Sodium 137, BUN 21, creatinine 1.8. Urinalysis is significantly abnormal with positive nitrate, large leukocyte esterase, many bacteria. Hemodynamically she is stable. REVIEW OF SYSTEMS: CONSTITUTIONAL: No fever, no malaise, no fatigue. HEENT: No recent visual problems or hearing problems. Denied any sore throat. CARDIOVASCULAR: No chest pain, orthopnea, PND, no palpitations, no syncope. PULMONARY: No shortness of breath, no cough, no hemoptysis. GASTROINTESTINAL: As mentioned in HPI NEUROLOGICAL: No headaches, no weakness, no numbness. PHYSICAL EXAMINATION: GENERAL: The patient is alert and oriented x3, not in any acute distress. Well developed, well nourished. HEENT: Pupils are round and equally reacting to light. EOMI. No scleral icterus. No conjunctival pallor. Normocephalic, atraumatic. No pharyngeal erythema. No thyromegaly. CARDIOVASCULAR: S1 and S2 present. No murmurs, rubs, or gallops. PULMONARY: Chest is clear to auscultation, no wheezing or crackles. ABDOMEN: Soft, nontender, nondistended, normoactive bowel sounds. No palpable organomegaly. MUSCULOSKELETAL: No joint swelling or deformity. EXTREMITIES: No cyanosis, clubbing, or pedal edema. NEUROLOGICAL: Gross neurological examination did not reveal any focal deficits. SKIN: No rashes. Assessment and plan -GI bleed acute upper GI bleeding with gastritis and active bleeding noted on EGD. -Mild acute renal failure secondary to GI bleed patient was started on IV fluids gentle hydration; had improved and now creatinine up to 2.8 secondary to urinary retention now with indwelling catheter, started on flomax. Creatinine improving. -Hypovolemic hyponatremia expected to improve with IV fluids -Syncope patient blood pressure was low this syncope secondary to GI bleed. Lisinopril was held. Will remain on hold due to renal dysfunction. Blood pre ssure improving. -Hyperlipidemia -Depression -Possible gastritis or peptic ulcer disease for which patient was started on IV Protonix patient is complaining of gastritis symptoms. DVT prophylaxis: SCDs GI prophylaxis: Protonix Full Code The impression and plan of care has been dictated by Shanna Pearce, Nurse Practitioner as directed. Dr. Mary MD I have performed a history and physical examination and medical decision making of this patient, discussed the same with the dictator, and agree with the dictators assessment and plan as written, documented as a scribe. Based on total visit time, I have performed more than 50% of this visit. Objective - Vital Signs Vital signs: Vital Signs Temp 97.8 F 03/11/24 13:34 Pulse 90 03/11/24 13:34 Resp 16 03/11/24 13:34 BP 105/60 03/11/24 13:34 Pulse Ox 94 L 03/11/24 13:34 FiO2 Intake & Output 03/11/24 03/11/24 03/12/24 06:59 18:59 06:59 Intake Total 1090 Output Total 2900 1000 Balance -2900 90 Intake: Oral 1090 Output: Urine 2900 1000 Straight 1900 Other: Voiding Method Diaper Indwelling Catheter Incontinent - Labs CBC & Chem 7: 03/11/24 03:58 03/11/24 03:58 Labs: Abnormal Lab Results - Last 24 Hours (Table) 03/11/24 03/11/24 03/11/24 Range/Units 03:58 03:58 06:45 RBC 2.42 L (4.10-5.20) X 10*6/uL Hgb 7.9 L (12.0-15.0) g/dL Hct 23.4 L (37.2-46.3) % MCH 32.6 H (27.0-32.0) pg Carbon Dioxide 17.7 L (21.6-31.8) mmol/L Creatinine 1.8 H (0.6-1.5) mg/dL Est GFR (CKD-EPI) 28 L (>=60) BUN/Creatinine Ratio 11.67 L (12.00-20.00) Ratio Glucose 123 H (70-110) mg/dL Calcium 7.8 L (8.7-10.3) mg/dL Urine Appearance Turbid H (Clear) Urine Protein 1+ H (Negative) Urine Blood Large H (Negative) Urine Nitrite Positive H (Negative) Ur Leukocyte Esterase Large H (Negative) Urine RBC >182 H (0-5) /hpf Urine WBC >182 H (0-5) /hpf Urine WBC Clumps Many H (None) /hpf Ur Squamous Epith Cells 9 H (0-4) /hpf Amorphous Sediment Rare H (None) /hpf Urine Bacteria Many H (None) /hpf Urine Yeast (Budding) Few H (None) /hpf Assessment and Plan Time with Patient: Less than 30
[2024-03-12 09:46] LABS: Blood Urea Nitrogen 13.7 mg/dL (9.0-27.0); Calcium 7.8 mg/dL (8.7-10.3); Carbon Dioxide 21.9 mmol/L (21.6-31.8); Chloride 109 mmol/L (96-109); Glucose 125 mg/dL (70-110); Magnesium 1.9 mg/dL (1.5-2.4); Potassium 3.9 mmol/L (3.5-5.5); Sodium 140 mmol/L (135-145)
--- NOTE | 2024-03-12 10:17 | P.PN ---
Subjective Progress Note Date: 03/12/24 Principal diagnosis: GI bleed Covering for surgical services. Patient evaluated this morning. Denies abdominal pain. Denies any rectal bleeding. States she plans to go home in the next day or 2. Morning hemoglobin is pending. Yesterday 7.9. Objective - Vital Signs Vital signs: Vital Signs Temp 98.0 F 03/12/24 07:42 Pulse 84 03/12/24 07:42 Resp 17 03/12/24 07:42 BP 134/69 03/12/24 07:42 Pulse Ox 96 03/12/24 07:42 FiO2 Intake & Output 03/11/24 03/12/24 03/12/24 18:59 06:59 18:59 Intake Total 1090 Output Total 1000 1300 Balance 90 -1300 Intake: Oral 1090 Output: Urine 1000 1300 Other: Voiding Method Indwelling Catheter Indwelling Catheter - Exam Abdomen: Soft, nontender, nondistended - Labs CBC & Chem 7: 03/11/24 03:58 03/12/24 04:53 Labs: Abnormal Lab Results - Last 24 Hours (Table) 03/11/24 03/12/24 Range/Units 03:58 04:53 Carbon Dioxide 17.7 L (21.6-31.8) mmol/L Creatinine 1.8 H (0.6-1.5) mg/dL Est GFR (CKD-EPI) 28 L 57 L (>=60) BUN/Creatinine Ratio 11.67 L (12.00-20.00) Ratio Glucose 123 H 125 H (70-110) mg/dL Calcium 7.8 L 7.8 L (8.7-10.3) mg/dL Assessment and Plan (1) GI bleed Narrative/Plan: 78-year-old female with GI bleed. Doing well today. No active bleeding currently. Await morning hemoglobin. Continue regular diet. Current Visit: Yes Status: Acute Code(s): K92.2 - GASTROINTESTINAL HEMORRHAGE, UNSPECIFIED SNOMED Code(s): 41080066
[2024-03-12 10:46] LABS: Basophils # (A) 0.02 X 10*3/uL (0.00-0.10); Basophils % (A) 0.4 %; Eosinophils # (A) 0.17 X 10*3/uL (0.04-0.35); Eosinophils % (A) 3.1 %; HCT 23.2 % (37.2-46.3); HGB 7.9 g/dL (12.0-15.0); Lymphocytes # (A) 1.06 X 10*3/uL (0.90-5.00); Lymphocytes % (A) 19.1 %; MCH 33.2 pg (27.0-32.0); MCHC 34.1 g/dL (32.0-37.0); MCV 97.5 FL (80.0-97.0); Mean Platelet Volume 9.9 FL (9.5-12.2); Monocytes # (A) 0.55 X 10*3/uL (0.20-1.00); Monocytes % (A) 9.9 %; NRBC Per 100 WBC 0 X 10*3/uL (0.00-0.01); Neutrophils # (A) 3.72 X 10*3/uL (1.80-7.70); Platelet Count 181 X 10*3/uL (140-440); RBC 2.38 X 10*6/uL (4.10-5.20); RDW 13.2 % (11.5-14.5); WBC 5.55 X 10*3/uL (4.50-10.00)
[2024-03-12 10:47] LABS: RBC Morphology Normal (Normal)
[2024-03-12] MEDS: PIPERACILLIN-TAZOBACTAM 3.375 GM in SODIUM CHLORIDE 0.9% 100 ML IVPB SCH (15:34)
--- NOTE | 2024-03-12 23:04 | P.PN ---
Subjective Progress Note Date: 03/12/24 Patient is an 78-year-old female with known history of diverticulosis from her previous colonoscopy came in with complaints of blood per blood per rectum going on for about 3 days painless rectal bleeding. Probably secondary to diverticulosis. Patient did not have any blood in the stool stool since yeste rday patient hemoglobin in month of July 2023 was around 11.7 presently 10.3. Jenny surgeon who did the procedure previously was consulted. Patient is also on iron supplements 03/08/2024 Patient is evaluated today on the medical floor in follow up. Remains NPO. Rectal bleeding has resolved. No other acute complaints. 03/09/2024 Patient is evaluated today resting in bed. She does report improved abdominal discomfort. She is not reported any bloody stool earlier in the day however ted westfall on this afternoon did have a black tarry stool. Continues on IV Zosyn for concern for acute diverticulitis. Hemoglobin today is 9.1. Sodium level is 135. 03/10/2024 Patient is evaluated today in follow up resting in bed. Does report abdominal discomfort today her suprapubic region is distended significantly and patient reports having less urine output. Her bladder scan reveals over 1 Liter in the urinary bladder. Patient remains on IV zosyn. Had an episode of black stool last night. None so far today. Creatinine up to 2.8. 03/11/2024 Patient is evaluated today in follow up on the medical floor. Patient is currently resting in bed. Patient underwent EGD and colonoscopy with upper GI findings as source of bleeding with gastritis with active bleeding. Patient currently has on more reports of dark stool and has been started on low fiber diet. Patient has indwelling catheter in place was found to have significant urinary retention. Patient remains on normal saline infusion and IV zosyn. Hemoglobin 7.9, white blood cell count 8.17. Sodium 137, BUN 21, creatinine 1.8. Urinalysis is significantly abnormal with positive nitrate, large leukocyte esterase, many bacteria. Hemodynamically she is stable. 03/12/2024 Patient is evaluated today on the medical floor. Patient is more awake and alert. Has no acute bleeding overnight. Indwelling catheter remains in place and patient is on flomax. White blood cell 5.5, hemoglobin stable at 7.9. Sodium is 140, potassium 3.9, BUN 13.7, creatinine 1.0. Magnesium 1.9. Urine culture is showing gram negative bacilli. REVIEW OF SYSTEMS: CONSTITUTIONAL: No fever, no malaise, no fatigue. HEENT: No recent visual problems or hearing problems. Denied any sore throat. CARDIOVASCULAR: No chest pain, orthopnea, PND, no palpitations, no syncope. PULMONARY: No shortness of breath, no cough, no hemoptysis. GASTROINTESTINAL: As mentioned in HPI NEUROLOGICAL: No headaches, no weakness, no numbness. PHYSICAL EXAMINATION: GENERAL: The patient is alert and oriented x3, not in any acute distress. Well developed, well nourished. HEENT: Pupils are round and equally reacting to light. EOMI. No scleral icterus. No conjunctival pallor. Normocephalic, atraumatic. No pharyngeal erythema. No thyromegaly. CARDIOVASCULAR: S1 and S2 present. No murmurs, rubs, or gallops. PULMONARY: Chest is clear to auscultation, no wheezing or crackles. ABDOMEN: Soft, nontender, nondistended, normoactive bowel sounds. No palpable organomegaly. MUSCULOSKELETAL: No joint swelling or deformity. EXTREMITIES: No cyanosis, clubbing, or pedal edema. NEUROLOGICAL: Gross neurological examination did not reveal any focal deficits. SKIN: No rashes. Assessment and plan -GI bleed acute upper GI bleeding with gastritis and active bleeding noted on EGD. No further reports of bloody stool. -Mild acute renal failure secondary to GI bleed patient was started on IV fluids gentle hydration; had improved and now creatinine up to 2.8 secondary to urinary retention now with indwelling catheter, started on flomax. Creatinine improving. -Urinary retention requiring indwelling alarcon catheter -Urinary tract infection without sepsis possibly asymptomatic bacteriuria. Urine culture showing gram negative bacilli. On IV zosyn. -Hypovolemic hyponatremia normalized with IV fluids normal saline. -Syncope patient blood pressure was low this syncope secondary to GI bleed. Lisinopril was held. Will remain on hold due to renal dysfunction. Blood pressure improving. -Hyperlipidemia -Depression -Possible gastritis or peptic ulcer disease for which patient was started on IV Protonix, symptoms have resolved. -Generalized weakness due to medical debility and deconditioning PT /OT consultation patient may require subacute rehab DVT prophylaxis: SCDs GI prophylaxis: Protonix Full Code The impression and plan of care has been dictated by Shanna Pearce, Nurse Practitioner as directed. Dr. Mary MD I have performed a history and physical examination and medical decision making of this patient, discussed the same with the dictator, and agree with the dictators assessment and plan as written, documented as a scribe. Based on total visit time, I have performed more than 50% of this visit. Objective - Vital Signs Vital signs: Vital Signs Temp 98.6 F 03/12/24 18:37 Pulse 91 03/12/24 18:37 Resp 17 03/12/24 18:37 BP 147/76 03/12/24 18:37 Pulse Ox 95 03/12/24 18:37 FiO2 Intake & Output 03/12/24 03/12/24 03/13/24 06:59 18:59 06:59 Output Total 1300 1100 Balance -1300 -1100 Output: Urine 1300 1100 Other: Voiding Method Indwelling Catheter Indwelling Catheter - Labs CBC & Chem 7: 03/12/24 04:53 03/12/24 04:53 Labs: Abnormal Lab Results - Last 24 Hours (Table) 03/12/24 03/12/24 Range/Units 04:53 04:53 RBC 2.38 L (4.10-5.20) X 10*6/uL Hgb 7.9 L (12.0-15.0) g/dL Hct 23.2 L (37.2-46.3) % MCV 97.5 H (80.0-97.0) FL MCH 33.2 H (27.0-32.0) pg Est GFR (CKD-EPI) 57 L (>=60) Glucose 125 H (70-110) mg/dL Calcium 7.8 L (8.7-10.3) mg/dL Microbiology - Last 24 Hours (Table) 03/11/24 06:45 Urine Culture - Preliminary Urine,Voided Gram Neg Bacilli Assessment and Plan Time with Patient: Less than 30
--- NOTE | 2024-03-13 11:27 | P.PN ---
Subjective Progress Note Date: 03/13/24 CHIEF COMPLAINT: GI bleed HISTORY OF PRESENT ILLNESS: The patient is a 78-year-old female admitted with GI bleed. Her hemoglobin has been stable for the last 48 hours. Upper endoscopy demonstrated diffuse gastritis with bleeding. Lower endoscopy was unremarkable for bleeding. She is tolerating diet. No reports of abdominal pain. No reports of further bleeding. ROS: No reports of nausea and vomiting. No fevers or chills. No new chest pain. PHYSICAL EXAM: VITAL SIGNS: Reviewed CONSTITUTIONAL: Well developed and in no acute distress. EYES: Conjuctivae without sclera icterus. Extraocular movements grossly intact. HEAD, EARS, NOSE, THROAT: Moist buccal mucosa. Head is atraumatic, normocephalic. Hears conversational speech. No nasal drainage. RESPIRATORY: Non-labored respirations and equal bilateral excursions. CARDIOVASCULAR: Palpable 2+ radial pulses. ABDOMEN: Nontender. MUSCULOSKELETAL: No gross deformity of the lower extremities noted. No clubbing. No cyanosis. SKIN: Good skin turgor. Well perfused. NEUROLOGIC: Cranial nerves II through XII grossly intact. No focal or lateralizing signs. PSYCH: Appropriate affect. Alert and oriented to person, place and time. CLINICAL LABS: Reviewed. Hemoglobin 7.9 for 2 days. Anemia. ASSESSMENT: 1. Gastrointestinal bleed due to gastritis with bleeding 2. Acute blood loss anemia 3. Diverticulosis PLAN: 1. Patient has been stable. Recommend omeprazole 40 mg daily due to recurrent history of GI bleed upper GI source. 2. Patient is stable from a surgical standpoint for discharge Objective - Vital Signs Vital signs: Vital Signs Temp 98.1 F 03/13/24 08:00 Pulse 81 03/13/24 08:00 Resp 18 03/13/24 08:00 BP 153/72 03/13/24 08:00 Pulse Ox 93 L 03/13/24 08:00 FiO2 Intake & Output 03/12/24 03/13/24 03/13/24 18:59 06:59 18:59 Intake Total 180 Output Total 1100 500 Balance -1100 -500 180 Intake: Oral 180 Output: Urine 1100 500 Other: Voiding Method Indwelling Catheter Indwelling Catheter Indwelling Catheter - Labs CBC & Chem 7: 03/12/24 04:53 03/12/24 04:53 Labs: Microbiology - Last 24 Hours (Table) 03/11/24 06:45 Urine Culture - Preliminary Urine,Voided Gram Neg Bacilli
--- NOTE | 2024-03-13 13:54 | P.PN ---
Subjective Progress Note Date: 03/13/24 Patient is an 78-year-old female with known history of diverticulosis from her previous colonoscopy came in with complaints of blood per blood per rectum going on for about 3 days painless rectal bleeding. Probably secondary to diverticulosis. Patient did not have any blood in the stool stool since yeste rday patient hemoglobin in month of July 2023 was around 11.7 presently 10.3. Jenny surgeon who did the procedure previously was consulted. Patient is also on iron supplements 03/08/2024 Patient is evaluated today on the medical floor in follow up. Remains NPO. Rectal bleeding has resolved. No other acute complaints. 03/09/2024 Patient is evaluated today resting in bed. She does report improved abdominal discomfort. She is not reported any bloody stool earlier in the day however ted westfall on this afternoon did have a black tarry stool. Continues on IV Zosyn for concern for acute diverticulitis. Hemoglobin today is 9.1. Sodium level is 135. 03/10/2024 Patient is evaluated today in follow up resting in bed. Does report abdominal discomfort today her suprapubic region is distended significantly and patient reports having less urine output. Her bladder scan reveals over 1 Liter in the urinary bladder. Patient remains on IV zosyn. Had an episode of black stool last night. None so far today. Creatinine up to 2.8. 03/11/2024 Patient is evaluated today in follow up on the medical floor. Patient is currently resting in bed. Patient underwent EGD and colonoscopy with upper GI findings as source of bleeding with gastritis with active bleeding. Patient currently has on more reports of dark stool and has been started on low fiber diet. Patient has indwelling catheter in place was found to have significant urinary retention. Patient remains on normal saline infusion and IV zosyn. Hemoglobin 7.9, white blood cell count 8.17. Sodium 137, BUN 21, creatinine 1.8. Urinalysis is significantly abnormal with positive nitrate, large leukocyte esterase, many bacteria. Hemodynamically she is stable. 03/12/2024 Patient is evaluated today on the medical floor. Patient is more awake and alert. Has no acute bleeding overnight. Indwelling catheter remains in place and patient is on flomax. White blood cell 5.5, hemoglobin stable at 7.9. Sodium is 140, potassium 3.9, BUN 13.7, creatinine 1.0. Magnesium 1.9. Urine culture is showing gram negative bacilli. 03/13/2024 Patient is evaluated today on the medical floor sitting up in the chair, mentation is significantly improved and she is more awake and alert. Patient is tolerating diet this time has no more signs of active bleeding. We would recommend to complete a voiding trial today. Patient has Pseudomonas showing in the urine which is possibly an asymptomatic bacteriuria will treat for urinary tract infection and antibiotics will be changed to oral Cipro. Will treat for urinary tract infection and antibiotics will be changed to oral Cipro and Flagyl. REVIEW OF SYSTEMS: CONSTITUTIONAL: No fever, no malaise, no fatigue. HEENT: No recent visual problems or hearing problems. Denied any sore throat. CARDIOVASCULAR: No chest pain, orthopnea, PND, no palpitations, no syncope. PULMONARY: No shortness of breath, no cough, no hemoptysis. GASTROINTESTINAL: As mentioned in HPI NEUROLOGICAL: No headaches, no weakness, no numbness. PHYSICAL EXAMINATION: GENERAL: The patient is alert and oriented x3, not in any acute distress. Well developed, well nourished. HEENT: Pupils are round and equally reacting to light. EOMI. No scleral icterus. No conjunctival pallor. Normocephalic, atraumatic. No pharyngeal erythema. No thyromegaly. CARDIOVASCULAR: S1 and S2 present. No murmurs, rubs, or gallops. PULMONARY: Chest is clear to auscultation, no wheezing or crackles. ABDOMEN: Soft, nontender, nondistended, normoactive bowel sounds. No palpable organomegaly. MUSCULOSKELETAL: No joint swelling or deformity. EXTREMITIES: No cyanosis, clubbing, or pedal edema. NEUROLOGICAL: Gross neurological examination did not reveal any focal deficits. SKIN: No rashes. Assessment and plan -GI bleed acute upper GI bleeding with gastritis and active bleeding noted on EGD. No further reports of bloody stool. -Mild acute renal failure secondary to GI bleed patient was started on IV fluids gentle hydration; had improved and now creatinine up to 2.8 secondary to urinary retention now with indwelling catheter, started on flomax. Creatinine improving. -Urinary retention requiring indwelling alarcon catheter -Urinary tract infection without sepsis possibly asymptomatic bacteriuria. Urine culture showing gram negative bacilli. On IV zosyn. -Hypovolemic hyponatremia normalized with IV fluids normal saline. -Syncope patient blood pressure was low this syncope secondary to GI bleed. Lisinopril was held. Will remain on hold due to renal dysfunction. Blood pressure improving. -Hyperlipidemia -Depression -Possible gastritis or peptic ulcer disease for which patient was started on IV Protonix, symptoms have resolved. -Generalized weakness due to medical debility and deconditioning PT /OT consultation patient may require subacute rehab DVT prophylaxis: SCDs GI prophylaxis: Protonix Full Code Completed trial of void today and remove the indwelling Alarcon catheter patient will remain on Flomax. If patient is found to be retaining urine after her voiding trial has been completed would recommend to replace the Alarcon catheter and have patient see urology on an outpatient basis. Urine culture comes back showing Pseudomonas and patient was recommended to discharge on Augmentin by general surgery we will need to change this to recommending a 4-day course of oral Cipro with oral metronidazole. It is noted that Cipro can cause confusion in the elderly. Continue with IV hydration and oral intake Patient is pending authorization for discharge to rehab. The impression and plan of care has been dictated by Shanna Pearce Nurse Practitioner as directed. Dr. Mary MD I have performed a history and physical examination and medical decision making of this patient, discussed the same with the dictator, and agree with the dictators assessment and plan as written, documented as a scribe. Based on total visit time, I have performed more than 50% of this visit. Objective - Vital Signs Vital signs: Vital Signs Temp 98.1 F 03/13/24 08:00 Pulse 81 03/13/24 08:00 Resp 18 03/13/24 08:00 BP 153/72 03/13/24 08:00 Pulse Ox 93 L 03/13/24 08:00 FiO2 Intake & Output 03/12/24 03/13/24 03/13/24 18:59 06:59 18:59 Intake Total 180 Output Total 9629 658 1413 Balance -1100 -500 -1120 Intake: Oral 180 Output: Urine 1606 623 [id number] Other: Voiding Method Indwelling Catheter Indwelling Catheter Indwelling Catheter - Labs CBC & Chem 7: 03/12/24 04:53 03/12/24 04:53 Labs: Microbiology - Last 24 Hours (Table) 03/11/24 06:45 Urine Culture - Final Urine,Voided Pseudomonas aeruginosa Assessment and Plan Time with Patient: Less than 30
[2024-03-13 15:24] VITALS: RESP 16
[2024-03-13] MEDS: CIPROFLOXACIN HCL 500 MG TAB PO SCH (15:42)
[2024-03-13] MEDS: metroNIDAZOLE 500 MG TAB PO SCH (15:42)
[2024-03-14 07:39] VITALS: BP 139/66; PULSE 82; TEMP 97.6
[2024-03-14 11:32] LABS: African American GFR (CKD) >90 (>60 ml/min/1.73 sqM); Anion Gap 4 mmol/L; Blood Urea Nitrogen 11 mg/dL (7-17); Calcium 8.6 mg/dL (8.4-10.2); Carbon Dioxide 22 mmol/L (22-30); Chloride 109 mmol/L (98-107); Glucose 112 mg/dL (74-99); Non-African American GFR(CKD) 80 (>60 ml/min/1.73 sqM); Potassium 3.8 mmol/L (3.5-5.1); Sodium 135 mmol/L (137-145)
--- NOTE | 2024-03-14 11:42 | P.DS ---
Providers Date of admission: 03/09/24 07:30 Attending physician: Janny Ortiz Consults: 03/07/24 05:55 Consult Physician Routine Consulting Provider: Shara Alvarado Consult Reason/Comments: Diverticulosis, lower GI bleed Do you want consulting provider notified?: Yes Primary care physician: Cameron Harrison [facility] Course: Final Diagnosis -GI bleed acute upper GI bleeding with gastritis and active bleeding noted on EGD. No further reports of bloody stool. -Mild acute renal failure secondary to GI bleed patient was started on IV fluids gentle hydration; had improved and now creatinine up to 2.8 secondary to urinary retention now with indwelling catheter, started on flomax. Creatinine improving. -Urinary retention requiring indwelling alarcon catheter patient has passed voiding trial and IDC has been discontinued. -Urinary tract infection without sepsis possibly asymptomatic bacteriuria. Urine culture showing Pseudomonas -Hypovolemic hyponatremia normalized with IV fluids normal saline. -Syncope patient blood pressure was low this syncope secondary to GI bleed. Lisinopril was held. Will remain on hold due to renal dysfunction. Blood pressure improving. -Hyperlipidemia -Depression -Possible gastritis or peptic ulcer disease for which patient was started on IV Protonix, symptoms have resolved. -Generalized weakness due to medical debility and deconditioning PT /OT consultation patient may require subacute rehab Discharge Disposition Patient is stable for discharge to subacute rehabilitation. Patient will need to follow-up with general surgery in 1 week on discharge. Recommendations include to continue on Flomax, patient will discharge on antibiotic therapy with a 3-day course of ciprofloxacin 500 mg twice a day as well as metronidazole 500 mg 3 times a day. Patient has been taken off of her lisinopril secondary to hypotension her blood pressure remains normotensive at this time. Patient will continue on her oral iron tablets as well as bowel regimen recommended. Hospital Course This is a pleasant 78-year-old female with medical history of diverticulosis with her prior colonoscopy. Patient came in with reports of blood in her stool this was 3 days of painless rectal bleeding. This was felt due to the diverticulosis however patient came in found to have a hemoglobin of 10.3 it was up 11.7 back in July 2023. Patient was admitted to the hospital and general surgery consultation. She has been maintained on oral iron outpatient. Patient underwent abdominal pelvis CT was started on IV Zosyn for concern for diverticulitis. She did have a large black bowel movement and decision was made to take patient for EGD colonoscopy. Additionally patient was having significant suprapubic distention and tenderness was found to have significant urinary retention requiring indwelling Alarcon catheter because of this urinary retention her creatinine did go up to 2.8 which was peaked and has now since normalized. Patient was started on Flomax. A urinalysis was significantly abnormal with cultures showing Pseudomonas. Patient did have EGD colonoscopy done with findings source of bleeding with gastritis with active bleeding noted. Patient has had no further reports of black stool she has been started on low fiber diet. Patient to continue with indwelling catheter for 2 days. This is since been discontinued as patient did pass her voiding trial. Antibiotics were changed to Cipro and Flagyl secondary to the Pseudomonas found in the urine. We would consider this a possibility of an asymptomatic bacteriuria as patient was not having much urinary symptoms with the exception of the urinary retention. She has clinically improved she is awake alert oriented she is not having any shortness of breath or chest pain she is not having any nausea vomiting or diarrhea. Her lungs are clear S1-S2 is auscultated abdomen is soft and nontender. Patient was noted by physical therapy due to weakness developed while in the hospital she was recommended for a course of subacute rehab and patient has received authorization and will discharge. Recent blood work shows a white blood cell count of 5.55, hemoglobin 7.9, sodium level of 135, potassium 3.8, BUN of 11, creatinine of 0.72, magnesium 1.9. Please see medication reconciliation for a list of current medications. Thank you for allowing us to participate in the care of this patient. The impression and plan of care has been dictated by Shanna Pearce, Nurse Practitioner as directed. Dr. Mary MD I have performed a history and physical examination and medical decision making of this patient, discussed the same with the dictator, and agree with the dictators assessment and plan as written, documented as a scribe. Based on total visit time, I have performed more than 50% of this visit. Patient Condition at Discharge: Stable Plan - Discharge Summary New Discharge Prescriptions: New Tamsulosin [Flomax] 0.4 mg PO PC-SUPPER cap Ciprofloxacin HCl [Cipro] 500 mg PO BID 3 Days #6 tab metroNIDAZOLE [Flagyl] 500 mg PO TID 3 Days #9 tab Continue Atorvastatin [Lipitor] 20 mg PO DAILY Pantoprazole Sodium [Protonix] 40 mg PO BID Cholecalciferol [Vitamin D3 (25 Mcg = 1000 Iu)] 50 mcg PO DAILY Ferrous Sulfate [Iron (65 MG Elemental)] 325 mg PO DAILY Vit C/E/Zn/Coppr/Lutein/Zeaxan [Preservision Areds 2 Softgel] 1 cap PO BID Alendronate Sodium [Fosamax] 70 mg PO CARMONA Calcium Citrate/Vitamin D3 [Citracal + D Maximum Caplet] 1 tab PO DAILY Mirabegron [Myrbetriq] 50 mg PO DAILY Acetaminophen Tab [Tylenol] 650 mg PO Q6H PRN PRN Reason: Pain Levothyroxine Sodium [Synthroid] 100 mcg PO DAILY Famotidine 20 mg PO BID Vitamin B Complex W/Folic Acid + Vitamin C 1 tab PO DAILY Escitalopram [Lexapro] 10 mg PO DAILY Discontinued lisinopriL [Zestril] 20 mg PO DAILY Discharge Medication List Atorvastatin [Lipitor] 20 mg PO DAILY 10/18/19 [History] Pantoprazole Sodium [Protonix] 40 mg PO BID 10/18/19 [History] Cholecalciferol [Vitamin D3 (25 Mcg = 1000 Iu)] 50 mcg PO DAILY 05/02/20 [Histo ry] Ferrous Sulfate [Iron (65 MG Elemental)] 325 mg PO DAILY 05/02/20 [History] Acetaminophen Tab [Tylenol] 650 mg PO Q6H PRN 01/07/22 [History] Levothyroxine Sodium [Synthroid] 100 mcg PO DAILY 01/07/22 [History] Vit C/E/Zn/Coppr/Lutein/Zeaxan [Preservision Areds 2 Softgel] 1 cap PO BID 01/07/22 [History] Famotidine 20 mg PO BID 04/15/23 [History] Alendronate Sodium [Fosamax] 70 mg PO CARMONA 06/20/23 [History] Calcium Citrate/Vitamin D3 [Citracal + D Maximum Caplet] 1 tab PO DAILY 06/20/23 [History] Escitalopram [Lexapro] 10 mg PO DAILY 06/20/23 [History] Vitamin B Complex W/Folic Acid + Vitamin C 1 tab PO DAILY 06/20/23 [History] Mirabegron [Myrbetriq] 50 mg PO DAILY 07/09/24 [History] Ciprofloxacin HCl [Cipro] 500 mg PO BID 3 Days #6 tab 03/14/24 [Rx] Tamsulosin [Flomax] 0.4 mg PO PC-SUPPER cap 03/14/24 [Rx] metroNIDAZOLE [Flagyl] 500 mg PO TID 3 Days #9 tab 03/14/24 [Rx] Follow up Appointment(s)/Referral(s): Shara Alvarado MD [STAFF PHYSICIAN] - 1 Week Cameron Terry MD [Primary Care Provider] - 1-2 days Ambulatory/Diagnostic Orders: Basic Metabolic Panel [LAB.AMB] Time Frame: 3 Days, Location: None Selected Complete Blood Count w/diff [LAB.AMB] Location: None Selected Patient Instructions/Handouts: Diverticulitis (DC) Discharge Disposition: HOME SELF-CARE
--- NOTE | 2024-03-14 14:37 | P.PN ---
Subjective Progress Note Date: 03/14/24 CHIEF COMPLAINT: GI bleed HISTORY OF PRESENT ILLNESS: The patient is a 78-year-old female admitted with GI bleed. Her hemoglobin has been stable for the last 48 hours. Upper endoscopy demonstrated diffuse gastritis with bleeding. Lower endoscopy was unremarkable for bleeding. She is tolerating diet. No reports of abdominal pain. No reports of further bleeding. PHYSICAL EXAM: VITAL SIGNS: Reviewed GENERAL: Well-developed in no acute distress. HEENT: No sclera icterus. Extraocular movements grossly intact. Moist buccal mucosa. Head is atraumatic, normocephalic. Hears conversational speech. No nasal drainage. NECK: Supple without lymphadenopathy. CHEST: Non-labored respirations and equal bilateral excursions. CARDIOVASCULAR: Palpable 2+ radial pulses. ABDOMEN: Soft. Nondistended. MUSCULOSKELETAL: No clubbing or cyanosis. NEUROLOGIC: No focal or lateralizing signs. Cranial nerves II through XII grossly intact. PSYCH: Appropriate affect. Alert and oriented to person, place and time. SKIN: Well perfused. Good skin turgor. ASSESSMENT: 1. Gastrointestinal bleed due to gastritis with bleeding 2. Acute blood loss anemia 3. Diverticulosis PLAN: -Patient is stable from surgical standpoint for discharge -Recommend omeprazole 40 mg daily due to recent history of upper GI bleed Physician Federal Agent note has been reviewed by physician. Signing provider agrees with the documented findings, assessment, and plan of care. Skin Objective - Vital Signs Vital signs: Vital Signs Temp 97.6 F 03/14/24 07:38 Pulse 82 03/14/24 07:38 Resp 16 03/14/24 07:38 BP 139/66 03/14/24 07:38 Pulse Ox 94 L 03/14/24 07:38 FiO2 Intake & Output 03/13/24 03/14/24 03/14/24 18:59 06:59 18:59 Intake Total 720 240 Output Total 1400 300 Balance -680 -300 240 Intake: Oral 720 240 Output: Urine 1400 300 Other: Voiding Method Indwelling Catheter Bedside Commode # Voids 1 # Bowel Movements 1 1 1 - Labs CBC & Chem 7: 03/12/24 04:53 03/14/24 10:50 Labs: Abnormal Lab Results - Last 24 Hours (Table) 03/14/24 Range/Units 10:50 Sodium 135 L (137-145) mmol/L Chloride 109 H (98-107) mmol/L Glucose 112 H (74-99) mg/dL Microbiology - Last 24 Hours (Table) 03/11/24 06:45 Urine Culture - Final Urine,Voided Pseudomonas aeruginosa
[2024-03-15] MEDS ORDERED: polyethylene glycoL 3350 17 GM POWD.PACK PO SCH (09:00)
--- NOTE | 2024-03-20 19:52 | CDI ---
Documentation Clarification Form Date: 03/13/2024 11:41:00 AM From: Concha Rivero Phone: [phone] Admit Date: 03/09/2024 07:30:00 AM Patient Name: Leidy Christian Visit Number: [id number] Discharge Date: 03/14/2024 02:00:00 PM ATTENTION: The Clinical Documentation Specialists (CDI) and [facility] Coding Staff appreciate your assistance in clarifying documentation. Please respond to the clarification below the line at the bottom and electronically sign. The CDI & [facility] C[facility] staff will review the response and follow-up if needed. Please note: Queries are made part of the Legal Health Record. If you have any questions, please contact the author of this message via ITS. Shanna ALBERTO Urinary tract infection is documented in the attending progress notes on 03/13/24. For each diagnosis, documentation must be clear to determine if the condition was present at the time of the patients inpatient admission or developed during the hospital stay. Additional clarification regarding the urinary tract infection is requested. History/Risk Factors: Diabetes Mellitus, Eye Disorder, GERD/Reflux, Hyperlipidemia, Hypertension, Osteoarthritis (OA), Thyroid Disorder, Frequent UTI'S Clinical Indicators: 78-year-old female present on 03/09/24 with complaints of blood per rectum. She has history of frequent UTI's. 03/07 UA: Large blood, Ur Leukocyte Esterase Small 03/11 UA: Urine Nitrate Positive, Ur Leukocyte Esterase Large, Urine wbc >182 03/11 Urine Culture: Psuedomonas aeruginosa Treatment: Flomax 0.4 MG PO PC Supper Zosyn 3.375 GM IVPB Q 8HRS 03/08- Cipro 500 MG PO BID 03/14-03/14 Flagyl 500 MG PO TID 03/13-03/14 Definition of Present on Admission (POA): A diagnosis present at the time the order for admission to inpatient status was written. Please clarify if the UTI was POA [ x ] Y = Yes, UTI was present at the time of the order for inpatient admission. [ ] N = No, UTI was not present at the time of the order for inpatient admission. [ ] W = Clinically undetermined if UTI was present at the time of the order for inpatient admission. (Template Last Revised: October 2020) MTDD
== END 2024-03-14 14:00 | DRG 378 ==
LOC: EC 19:41 → 6NMEDSUR 03-07 05:55 → OBSVTOIN 03-09 07:30
PROVIDERS: ADMIT Hospitalist; ATTEND Hospitalist
PROC: 0DJD8ZZ Inspection of Lower Intestinal Tract, Via Natural or Artificial Opening Endoscopic (ICD-10-PCS; principal; 2024-03-10 08:15)
PROC: 0DJ08ZZ Inspection of Upper Intestinal Tract, Via Natural or Artificial Opening Endoscopic (ICD-10-PCS; principal; 2024-03-10 08:15)
DX: K29.01 Acute gastritis with bleeding (principal); D62 Acute posthemorrhagic anemia; N17.9 Acute kidney failure, unspecified; E87.1 Hypo-osmolality and hyponatremia; K22.10 Ulcer of esophagus without bleeding; N39.0 Urinary tract infection, site not specified; E86.1 Hypovolemia; E11.22 Type 2 diabetes mellitus with diabetic chronic kidney disease; I12.9 Hypertensive chronic kidney disease with stage 1 through stage 4 chronic kidney disease, or unspecified chronic kidney disease; N18.9 Chronic kidney disease, unspecified; F32.A Depression, unspecified; B96.5 Pseudomonas (aeruginosa) (mallei) (pseudomallei) as the cause of diseases classified elsewhere; K31.7 Polyp of stomach and duodenum; K44.9 Diaphragmatic hernia without obstruction or gangrene; K57.30 Diverticulosis of large intestine without perforation or abscess without bleeding; E07.9 Disorder of thyroid, unspecified; K64.2 Third degree hemorrhoids; K21.9 Gastro-esophageal reflux disease without esophagitis; E78.5 Hyperlipidemia, unspecified; R33.9 Retention of urine, unspecified; M19.90 Unspecified osteoarthritis, unspecified site; H35.30 Unspecified macular degeneration; M54.32 Sciatica, left side; Z79.83 Long term (current) use of bisphosphonates; Z79.890 Hormone replacement therapy; Z79.899 Other long term (current) drug therapy; Z87.440 Personal history of urinary (tract) infections; Z96.653 Presence of artificial knee joint, bilateral; Z96.643 Presence of artificial hip joint, bilateral
CPT/HCPCS: 36415; 43235; 45378; 74177; 80048; 80053; 81001; 82150; 83690; 83735; 85025; 85027; 85610; 85730; 87077; 87086; 87186; 93005; 96374; 99285

== ENCOUNTER 2024-05-26 02:28 | Observation (INO) | payer MEDICARE ==
--- NOTE | 2024-05-26 03:03 | ED ---
Chest Pain HPI - General Source: patient, RN notes reviewed Mode of arrival: ambulatory Limitations: no limitations - History of Present Illness MD Complaint: chest pain <Andreia Prieto - Last Filed: 05/27/24 12:14> <Louie Fisher - Last Filed: 06/02/24 01:48> - General Chief Complaint: Chest Pain Stated Complaint: Chest pain Time Seen by Provider: 05/26/24 02:43 - History of Present Illness Initial Comments: This is an 78-year-old female who presents to the emergency department for chest pain. Reports intermittent chest pain over the last couple of weeks. Pain gets worse with exertion. States that pain goes into her mid to upper back as well and between her shoulder blades. Pain is described as a pressure sensation when it is present. Small activities like doing the dishes causes her to become fatigued very quickly and she has to take a break part way in between. Denies any history of heart attacks. (Andreia Prieto) - Related Data Home Medications Medication Instructions Recorded Confirmed Pantoprazole Sodium [Protonix] 40 mg PO BID 10/18/19 05/26/24 Ferrous Sulfate [Iron (65 MG 325 mg PO DAILY 05/02/20 05/26/24 Elemental)] Levothyroxine Sodium [Synthroid] 100 mcg PO DAILY 01/07/22 05/26/24 Vit C/E/Zn/Coppr/Lutein/Zeaxan 1 cap PO BID 01/07/22 05/26/24 [Preservision Areds 2 Softgel] Alendronate Sodium [Fosamax] 70 mg PO CARMONA 06/20/23 05/26/24 Calcium Citrate/Vitamin D3 1 tab PO DAILY 06/20/23 05/26/24 [Citracal + D Maximum Caplet] Escitalopram [Lexapro] 10 mg PO HS 06/20/23 05/26/24 Mirabegron [Myrbetriq] 50 mg PO HS 03/07/24 05/26/24 Acetaminophen [Tylenol 8 Hour] 650 mg PO BID 05/26/24 05/26/24 Ascorbic Acid [Vitamin C] 1,000 mg PO HS 05/26/24 05/26/24 Cyanocobalamin (Vitamin B-12) 1,000 mcg PO HS 05/26/24 05/26/24 [Vitamin B-12] Previous Rx's Medication Instructions Recorded Aspirin 81 mg PO DAILY tab 05/27/24 Atorvastatin [Lipitor] 40 mg PO HS 30 Days #30 tab 05/27/24 Losartan [Cozaar] 25 mg PO HS 30 Days #30 tab 05/27/24 Allergies Allergy/AdvReac Type Severity Reaction Status Date / Time No Known Allergies Allergy Verified 05/26/24 08:51 Review of Systems ROS Other: All systems not noted in ROS Statement are negative. <Andreia Prieto - Last Filed: 05/27/24 12:14> ROS Other: All systems not noted in ROS Statement are negative. <Louie Fisher - Last Filed: 06/02/24 01:48> ROS Statement: Those systems with pertinent positive or pertinent negative responses have been documented in the HPI. EKG Findings - EKG Results: EKG: interpreted by ERMD, sinus rhythm (Rate 82 bpm), normal axis, normal QRS, normal ST/T, no acute changes <Louie Fisher - Last Filed: 06/02/24 01:48> Past Medical History Past Medical History: Diabetes Mellitus, Eye Disorder, GERD/Reflux, Hyperlipidemia, Hypertension, Osteoarthritis (OA), Thyroid Disorder Additional Past Medical History / Comment(s): macular degeneration chaz eyes, sciatica left side, FREQUENT UTI'S, DIET CONTROL DM, History of Any Multi-Drug Resistant Organisms: None Reported Past Surgical History: Appendectomy, Heart Catheterization, Hernia Repair, Joint Replacement, Tonsillectomy Additional Past Surgical History / Comment(s): ORIF rt femur, thyroid removed, bilateral knee replacements, chaz. hip replacement, chaz cataracts, loop recorder implant and removed, chaz eyelid lift Past Anesthesia/Blood Transfusion Reactions: Postoperative Nausea & Vomiting (PONV) Type of Cardiac Device: Loop Device Placement Date:: 2016 left chest Past Psychological History: No Psychological Hx Reported Smoking Status: Never smoker Past Alcohol Use History: None Reported Past Drug Use History: None Reported - Past Family History Brother(s) Family Medical History: Cancer Mother Family Medical History: Myocardial Infarction ([place]) Additional Family Medical History / Comment(s): Mother from a massive [place] at the age of 78 or 79 yrs. Father Family Medical History: Congestive Heart Failure (CHF) <Andreia Prieto - Last Filed: 05/27/24 12:14> General Exam Limitations: no limitations General appearance: alert, in no apparent distress Head exam: Present: atraumatic, normocephalic, normal inspection Respiratory exam: Present: normal lung sounds bilaterally. Absent: respiratory distress, wheezes, rales, rhonchi, stridor Cardiovascular Exam: Present: regular rate, normal rhythm, normal heart sounds. Absent: systolic murmur, diastolic murmur, rubs, gallop, clicks Neurological exam: Present: alert, oriented X3, CN II-XII intact Psychiatric exam: Present: normal affect, normal mood Skin exam: Present: warm, dry, intact, normal color. Absent: rash <Andreia Prieto - Last Filed: 05/27/24 12:14> Course Vital Signs 05/26/24 05/26/24 05/26/24 02:29 03:00 03:24 Temperature 97.7 F Pulse Rate 86 78 Pulse Rate [ 74 Baggage [place] ] Respiratory 18 18 Rate Blood Pressure 163/80 166/74 O2 Sat by Pulse 97 98 Oximetry 05/26/24 05/26/24 05/26/24 04:15 07:00 09:03 Temperature Pulse Rate 78 74 82 Pulse Rate [ Baggage [place] ] Respiratory 16 16 16 Rate Blood Pressure 127/64 135/70 145/70 O2 Sat by Pulse 98 95 95 Oximetry 05/26/24 12:40 Temperature Pulse Rate 86 Pulse Rate [ Baggage [place] ] Respiratory 16 Rate Blood Pressure 156/74 O2 Sat by Pulse 97 Oximetry Chest Pain MDM <Andreia Prieto - Last Filed: 05/27/24 12:14> <Louie Fisher - Last Filed: 06/02/24 01:48> - MDM This is an 78-year-old female who presents to the emergency department for chest pain. Was pt. sent in by a medical professional or institution? @ -No Did you speak to anyone other than the patient for history? @ -No Did you review nursing and triage notes? @ -Yes, and I agree, it is accurate with regards to the patient's symptoms. Were old charts reviewed? @ -No Differential Diagnosis? @ -Differential Chest Pain: Stable Angina, Unstable Angina, STEMI, NSTEMI Aortic Dissection, Pneumothorax, Musculoskeletal, Esophageal Spasm GERD, Cholecystitis, Pancreatitis, Zoster, this is not meant to be an all-inclusive list. EKG interpreted by me (3pts min.)? @ -EKG interpreted by me demonstrating the following: Sinus rhythm. Ventricular rate 82 bpm, AL interval 190 ms, QRS duration 89 ms, QTc 383 ms. X-rays interpreted by me (1pt min.)? @ -Chest x-ray obtained, my interpretation identifies no localized consolidations or infiltrates. CT interpreted by me (1pt min.)? @ -Not obtained U/S interpreted by me (1pt. min.)? @ -Not obtained What testing was considered but not performed? (CT, X-rays, U/S, labs)? Why? @ -None What meds were considered but not given? Why? @ -None Did you discuss the management of the patient with other professionals? @ -No Did you reconcile home meds? @ -No Was smoking cessation discussed for >3mins.? @ -No Was critical care preformed (if so, how long)? @ -No Were there social determinants of health that impacted care today? How? (Homelessness, low income, unemployed, alcoholism, drug addiction, transportation, low edu. Level, literacy, decrease access to med. care, fci, rehab)? @ -No Was there de-escalation of care discussed even if they declined? (Discuss DNR or withdrawal of care, Hospice)? @ -No What co-morbidities impacted this encounter? (DM, HTN, Smoking, COPD, CAD, Cancer, CVA, Hep., AIDS, mental health diagnosis, sleep apnea, morbid obesity)? @ -DM, HLD, HTN Was patient admitted / discharged? @ -When patient first arrived to the emergency department and she said that the pain was not currently present. It then later returned and she was given aspirin and nitroglycerin. She is unsure if this was effective or not and was somewhat difficult to get history from. Case was signed out to ED attending Dr. Fisher at shift completion pending chest x-ray and lab work results. (Andreia Prieto) Was patient admitted / discharged? Hospital course, mention meds given and route, prescriptions, significant lab abnormalities, going to OR and other pertinent info. @ -[The patient did continue to have intermittent symptoms and in light of this is admitted to have cardiology consultation. Undiagnosed new problem with uncertain prognosis? @ -[No] Drug Therapy requiring intensive monitoring for toxicity (Heparin, Nitro, Insulin, Cardizem)? @ -[No] Were any procedures done? @ -[No] Diagnosis/symptom? @ -[Acute chest pain Acute, or Chronic, or Acute on Chronic? @ -[Acute Uncomplicated (without systemic symptoms) or Complicated (systemic symptoms)? @ -[Uncomplicated Side effects of treatment? @ -[No] Exacerbation, Progression, or Severe Exacerbation? @ -[No] Poses a threat to life or bodily function? How? (Chest pain, [place], [place], pneumonia, PE, COPD, DKA, ARF, appy, cholecystitis, CVA, Diverticulitis, Homicidal, Suicidal, threat to staff... and all critical care pts) @ -[Requires further cardiology evaluation to determine (Louie Fihser) Disposition <Andreia Prieto - Last Filed: 05/27/24 12:14> <Louie Fisher - Last Filed: 06/02/24 01:48> Clinical Impression: Chest pain Disposition: ADMITTED IP TO THIS [facility] Condition: Stable
[2024-05-26] MEDS: ASPIRIN 81 MG PO STA (03:19)
[2024-05-26] MEDS: NITROGLYCERIN SL TABS 0.4 MG TAB SUBLINGUAL STA (03:21)
[2024-05-26 03:51] LABS: INR 0.9 (<1.2); Partial Thromboplastin Time 22.7 sec (22.0-30.0); Prothrombin Time 10.1 sec (10.0-12.5)
[2024-05-26 04:01] LABS: ALT 17 U/L (4-34); AST 45 U/L (14-36); African American GFR (CKD) 68 (>60 ml/min/1.73 sqM); Albumin 4.3 g/dL (3.5-5.0); Alkaline Phosphatase 64 U/L (38-126); Anion Gap 2 mmol/L; Blood Urea Nitrogen 30 mg/dL (7-17); Calcium 9.3 mg/dL (8.4-10.2); Carbon Dioxide 26 mmol/L (22-30); Chloride 106 mmol/L (98-107); Glucose 103 mg/dL (74-99); Magnesium 2.2 mg/dL (1.6-2.3); Non-African American GFR(CKD) 59 (>60 ml/min/1.73 sqM); Sodium 134 mmol/L (137-145); Total Bilirubin 1.2 mg/dL (0.2-1.3); Total Protein 6.7 g/dL (6.3-8.2)
--- NOTE | 2024-05-26 04:01 | XR ---
EXAM: XR Chest, 2 Views CLINICAL HISTORY: ITS.REASON XR Reason: Chest Pain TECHNIQUE: Frontal and lateral views of the chest. COMPARISON: Chest radiograph on 08/23/2023 FINDINGS: Hardware: Loop recorder projected over the left lower chest. Lungs/pleura: Mild lower lung atelectasis. No focal consolidation. No pleural effusion or pneumothorax. Heart/mediastinum: Borderline size of the cardiac silhouette. Atherosclerotic changes in the aorta. Soft tissues: Unremarkable. Bones: No acute fracture. Upper abdomen: Normal. IMPRESSION: No acute disease identified.
[2024-05-26 04:07] LABS: NT-Pro-B-Type Natriuretic Pept 62 pg/mL
[2024-05-26 04:17] LABS: Basophils % (A) 0 %; Eosinophils # (A) 0.1 k/uL (0-0.7); Eosinophils % (A) 2 %; HCT 36.4 % (34.0-46.0); HGB 11.8 gm/dL (11.4-16.0); Lymphocytes # (A) 1.3 k/uL (1.0-4.8); Lymphocytes % (A) 29 %; MCH 31.8 pg (25.0-35.0); MCHC 32.6 g/dL (31.0-37.0); MCV 97.7 fL (80.0-100.0); Mean Platelet Volume 7.8; Monocytes # (A) 0.3 k/uL (0-1.0); Monocytes % (A) 6 %; Neutrophils # (A) 2.7 k/uL (1.3-7.7); Neutrophils % (A) 60 %; Platelet Count 246 k/uL (150-450); RBC 3.72 m/uL (3.80-5.40); RDW 14.6 % (11.5-15.5); WBC 4.6 k/uL (3.8-10.6)
[2024-05-26] MEDS: SODIUM ZIRCONIUM CYCLOSILICATE 10 GM PACKET PO ONE (05:28)
[2024-05-26] MEDS ORDERED: NITROGLYCERIN SL TABS 0.4 MG TAB SUBLINGUAL PRN (06:35)
[2024-05-26] MEDS: SODIUM CHLORIDE 0.9% 1,000 ML IV SCH ×2 (06:47→10:41)
--- NOTE | 2024-05-26 10:17 | P.CRDCN ---
History of Present Illness History of present illness: HISTORY OF PRESENT ILLNESS: This is a 78-year-old female with a past medical history significant for mild coronary artery disease, hypertension, hyperlipidemia, diabetes, and atrial tachycardia. Patient follows in the office with Dr. Deleon. We have been asked to see the patient in consultation for chest pain. Patient examined at the bedside in the ER. Patient states she has been getting sensations of feeling hot all over her body. She states when changing positions she is getting lightheaded. She states this happened yesterday while doing housework. She also reports having some pain in her back. She denies chest pain or pressure. She denies shortness of breath. She denies any episodes of syncope. The patient does report about a month ago her lisinopril was discontinued secondary to her kidney function. She states her symptoms have not really gotten better or worse since this was discontinued. Patient's blood pressure was elevated in the 140s when she was recently seen in the office. Her blood pressure remains elevated with systolic blood pressure between [id number] in the hospital. DIAGNOSTICS: - EKG reveals sinus mechanism with no signs of acute ischemia - Chest xray negative for acute process. Loop recorder projecting over left lower chest. - Laboratory data: WBC 4.6. Hemoglobin 11.8. Platelet count 246. Sodium 134. Potassium unavailable due to hemolyzed specimen. BUN 30. Creatinine 0.92. Magnesium 2.2. Troponin negative x 1. proBNP 62. - Current home cardiac medications include Lipitor 20 mg at night and amlodipine 2.5 mg at night - Most recent echocardiogram obtained in October 2023 revealed ejection fraction 55% with mild MR and trace to mild TR - Patient underwent Lexiscan in September 2023 which was negative for ischemia - Cardiac catheterization history: April 2015 revealing mild nonobstructive CAD REVIEW OF SYSTEMS: At the time of my exam: CONSTITUTIONAL: Denies fever or chills. HEENT: Denies blurred vision, vision changes, or eye pain. Denies hemoptysis CARDIOVASCULAR: Denies chest pain. Denies orthopnea. Denies PND. Denies palpitations RESPIRATORY: Denies shortness of breath. GASTROINTESTINAL: Denies abdominal pain. Denies nausea or vomiting. HEMATOLOGIC: Denies bleeding disorders. GENITOURINARY: Denies any blood in urine. SKIN: Denies pruitis. Denies rash. PHYSICAL EXAM: VITAL SIGNS: Reviewed. GENERAL: Well-developed in no acute distress. HEENT: Head is normocephalic. Pupils are equal, round. Sclerae anicteric. Mucous membranes of the mouth are moist. Neck supple. No JVD or thyromegaly LUNGS: Respirations even and unlabored. Lungs essentially clear to auscultation bilaterally. HEART: Regular rate and rhythm. S1 and S2 heard. ABDOMEN: Soft. Nondistended. Nontender. EXTREMITIES: Normal range of motion. No clubbing or cyanosis. Peripheral pulses intact. No lower extremity edema NEUROLOGIC: Awake and alert. Oriented x 3. ASSESSMENT: Episodes of lightheadedness and feeling hot, rule out orthostatic hypotension Chest pain, rule out, patient denies having any chest pain or pressure Mild coronary artery disease Hypertension Hyperlipidemia Diabetes Atrial tachycardia PLAN: An acute coronary event has been ruled out No need to obtain echocardiogram Resume home cardiac medications Check D-Dimer Obtain orthostatic blood pressures Patient to undergo tilt table testing today with Dr. Deleon Further recommendations pending patient course Nurse practitioner note has been reviewed by physician. Signing provider agrees with the documented findings, assessment, and plan of care documented by ENVIRONMENTAL PROGRAM MANAGER as a scribe. Past Medical History Past Medical History: Diabetes Mellitus, Eye Disorder, GERD/Reflux, Hyperlipidemia, Hypertension, Osteoarthritis (OA), Thyroid Disorder Additional Past Medical History / Comment(s): macular degeneration chaz eyes, sciatica left side, FREQUENT UTI'S, DIET CONTROL DM, History of Any Multi-Drug Resistant Organisms: None Reported Past Surgical History: Appendectomy, Heart Catheterization, Hernia Repair, Joint Replacement, Tonsillectomy Additional Past Surgical History / Comment(s): ORIF rt femur, thyroid removed, bilateral knee replacements, chaz. hip replacement, chaz cataracts, loop recorder implant and removed, chaz eyelid lift Past Anesthesia/Blood Transfusion Reactions: Postoperative Nausea & Vomiting (PONV) Type of Cardiac Device: Loop Device Placement Date:: 2016 left chest Past Psychological History: No Psychological Hx Reported Smoking Status: Never smoker Past Alcohol Use History: None Reported Past Drug Use History: None Reported - Past Family History Brother(s) Family Medical History: Cancer Mother Family Medical History: Myocardial Infarction ([place]) Additional Family Medical History / Comment(s): Mother from a massive [place] at the age of 78 or 79 yrs. Father Family Medical History: Congestive Heart Failure (CHF) Medications and Allergies Home Medications Medication Instructions Recorded Confirmed Type Atorvastatin [Lipitor] 20 mg PO HS 10/18/19 05/26/24 History Pantoprazole Sodium [Protonix] 40 mg PO BID 10/18/19 05/26/24 History Ferrous Sulfate [Iron (65 MG 325 mg PO DAILY 05/02/20 05/26/24 History Elemental)] Levothyroxine Sodium [Synthroid] 100 mcg PO DAILY 01/07/22 05/26/24 History Vit C/E/Zn/Coppr/Lutein/Zeaxan 1 cap PO BID 01/07/22 05/26/24 History [Preservision Areds 2 Softgel] Alendronate Sodium [Fosamax] 70 mg PO CARMONA 06/20/23 05/26/24 History Calcium Citrate/Vitamin D3 1 tab PO DAILY 06/20/23 05/26/24 History [Citracal + D Maximum Caplet] Escitalopram [Lexapro] 10 mg PO HS 06/20/23 05/26/24 History Mirabegron [Myrbetriq] 50 mg PO HS 03/07/24 05/26/24 History Acetaminophen [Tylenol 8 Hour] 650 mg PO BID 05/26/24 05/26/24 History Ascorbic Acid [Vitamin C] 1,000 mg PO HS 05/26/24 05/26/24 History Cyanocobalamin (Vitamin B-12) 1,000 mcg PO HS 05/26/24 05/26/24 History [Vitamin B-12] amLODIPine [Norvasc] 2.5 mg PO HS 05/26/24 05/26/24 History Allergies Allergy/AdvReac Type Severity Reaction Status Date / Time No Known Allergies Allergy Verified 05/26/24 08:51 Physical Exam Vitals: Vital Signs Temp Pulse Pulse Resp BP Pulse Ox 05/26/24 07:00 74 16 135/70 95 05/26/24 04:15 78 16 127/64 98 05/26/24 03:24 78 18 166/74 98 05/26/24 03:00 74 05/26/24 02:29 97.7 F 86 18 163/80 97 Intake and Output 05/25/24 05/26/24 05/26/24 22:59 06:59 14:59 Other: Weight 72.575 kg Results 05/26/24 02:56 05/26/24 07:10 Cardiac Enzymes 05/26/24 05/26/24 Range/Units 02:56 02:56 AST 45 H (14-36) U/L Troponin I <0.012 (0.000-0.034) ng/mL Coagulation 05/26/24 Range/Units 02:56 PT 10.1 (10.0-12.5) sec APTT 22.7 (22.0-30.0) sec CBC 05/26/24 Range/Units 02:56 WBC 4.6 (3.8-10.6) k/uL RBC 3.72 L (3.80-5.40) m/uL Hgb 11.8 (11.4-16.0) gm/dL Hct 36.4 (34.0-46.0) % Plt Count 246 (150-450) k/uL Comprehensive Metabolic Panel 05/26/24 Range/Units 02:56 Sodium 134 L (137-145) mmol/L Potassium (3.5-5.1) mmol/L Chloride 106 (98-107) mmol/L Carbon Dioxide 26 (22-30) mmol/L BUN 30 H (7-17) mg/dL Creatinine 0.92 (0.52-1.04) mg/dL Glucose 103 H (74-99) mg/dL Calcium 9.3 (8.4-10.2) mg/dL AST 45 H (14-36) U/L ALT 17 (4-34) U/L Alkaline Phosphatase 64 (38-126) U/L Total Protein 6.7 (6.3-8.2) g/dL Albumin 4.3 (3.5-5.0) g/dL Current Medications Generic Name Dose Route Start Last Admin Trade Name Freq PRN Reason Stop Dose Admin Sodium Chloride 1,000 mls @ 20 mls/hr 05/26/24 06:45 05/26/24 06:47 Saline 0.9% IV 20 mls/hr .Q24H MIGUEL Administration Nitroglycerin 0.4 mg 05/26/24 06:35 Nitroglycerin Sl Tabs 0.4 Mg Tab SUBLINGUAL Q5M PRN Chest Pain Intake and Output 05/25/24 05/26/24 05/26/24 22:59 06:59 14:59 Other: Weight 72.575 kg 05/26/24 02:56 05/26/24 02:56
[2024-05-26] MEDS: amLODIPine 2.5 MG TAB PO SCH (10:41)
--- NOTE | 2024-05-26 12:01 | P.EPPROC ---
- EP Procedure Note Electrophysiology Procedure Note: Diagnosis. Feeling hot and very dizzy and lightheaded after standing up Twelve-lead EKG shows sinus rhythm 0.[address] elevation inferiorly and in the lateral precordial leads of V5 and V6 Tilt table test Baseline blood pressure 157/71 mmHg, heart rate 86 beats a minute sinus mechanism She was tilted upright at an angle of 70 degrees per protocol There was a gradual progressive drop in blood pressure. Lowest blood pressure of 72/40 mmHg Mild increase in heart rate to 102 beats a minute When she was laid supine her blood pressure improved 148/69 mmHg She complained of being lightheaded feeling warm and then hot all over Her symptoms improved and she did not feel hot any longer when she was laid supine This reproduced her clinical symptoms as she had described to me Impression Normal twelve-lead EKG with early repolarization abnormality inferior laterally of 0.5 to 1 mm. This is her baseline Orthostatic hypotension syndrome, symptomatic The tilt table test reproduced her clinical symptoms that she presented with on admission Currently the patient is on amlodipine 2.5 mg p.o. daily She was on JYOTI inhibitors/angiotensin receptor blockers but this was discontinued in February on account of creatinine of 2.8. She had acute renal failure in the setting of lower GI bleeding and diverticulosis/diverticulitis Her creatinine has now normalized Based on small clinical studies by the dysautonomia group in [place], I will consider switching to angiotensin receptor blockers in the evening and stopping amlodipine There is no reason to withhold angiotensin receptor blockers based on her creatinine of 2.8 which occurred in the setting of lower GI bleeding and diverticulitis in the month of February of this year Renal function will be followed Adequate hydration Normal salt intake
--- NOTE | 2024-05-26 12:30 | CT ---
EXAMINATION TYPE: CT chest angio for PE CT DLP: 290 mGycm, Automated exposure control for dose reduction was used. DATE OF EXAM: 05/26/2024 12:20 PM COMPARISON: CT chest 01/05/2024, 07/01/2023 CLINICAL INDICATION:Female, 78 years old with history of elevated d-dimer, lightheaded, r/o PE; elena TECHNIQUE/CONTRAST: CTA scan of the thorax is performed with IV Contrast, patient injected with 100 ml mL of Isovue 370, pulmonary embolism protocol. MIP images are created and reviewed. FINDINGS: Pulmonary Artery: There is no evidence for a filling defect within the pulmonary vasculature to sugge st acute pulmonary embolism. The pulmonary artery is of normal size. Lungs/Pleura: No pneumothorax, pleural effusion, focal consolidation. Right apical linear scarring an d/or atelectasis. Airway: Large airways are patent. Heart: Mildly enlarged. No pericardial effusion. Vasculature: No evidence of aortic aneurysm. Atherosclerotic calcification of the aorta and its branc hes. Moderate stenosis at the origin of the left subclavian artery secondary to calcified plaque. Mediastinum: No evidence of adenopathy. Musculoskeletal: No acute osseous abnormalities. Bilateral shoulder arthropathy with left greater sarai n right. Multilevel degenerative disease of the visualized spine. Remote manubrial fracture. Soft Tissues: Unremarkable. Lower neck: Thyroid is atrophic versus surgically absent. Upper Abdomen: Small hiatal hernia. Hydropic gallbladder with increased density. Subcentimeter left r enal cyst. IMPRESSION: 1. No evidence of pulmonary embolism or acute thoracic process. 2. Hydropic gallbladder with sludge and/or cholelithiasis. [facility], , 05/26/2024 12:28 PM
[2024-05-26] MEDS: ATORVASTATIN 40 MG TAB PO SCH (21:17)
[2024-05-26] MEDS: LOSARTAN 25 MG TAB PO SCH (21:17)
[2024-05-27] MEDS: ASPIRIN 81 MG PO SCH (08:02)
[2024-05-27] MEDS ORDERED: ASPIRIN 325 MG TAB PO SCH (09:00)
[2024-05-27 11:27] LABS: Chol/HDL Ratio 2.86 Ratio; LDL Cholesterol,Calculated 99.3 mg/dL (0.0-131.0); VLDL Calculation 17.76 mg/dL (5.00-40.00)
--- NOTE | 2024-05-27 12:34 | P.PN ---
Subjective Progress Note Date: 05/27/24 This is a 78-year-old female with a past medical history significant for mild coronary artery disease, hypertension, hyperlipidemia, diabetes, and atrial tachycardia. Patient follows in the office with Dr. Deleon. We have been asked to see the patient in consultation for chest pain. Patient examined at the bedside in the ER. Patient states she has been getting sensations of feeling hot all over her body. She states when changing positions she is getting lightheaded. She states this happened yesterday while doing housework. She also reports having some pain in her back. She denies chest pain or pressure. She denies shortness of breath. She denies any episodes of syncope. The patient does report about a month ago her lisinopril was discontinued secondary to her kidney function. She states her symptoms have not really gotten better or worse since this was discontinued. Patient's blood pressure was elevated in the 140s when she was recently seen in the office. Her blood pressure remains elevated with systolic blood pressure between [id number] in the hospital. DIAGNOSTICS: - EKG reveals sinus mechanism with no signs of acute ischemia - Chest xray negative for acute process. Loop recorder projecting over left lower chest. - Laboratory data: WBC 4.6. Hemoglobin 11.8. Platelet count 246. Sodium 134. Potassium 4.5. BUN 30. Creatinine 0.92. Magnesium 2.2. Troponin negative x 4. proBNP 62, D-dimer 1.68. - Current home cardiac medications include Lipitor 20 mg at night and amlodipine 2.5 mg at night - Most recent echocardiogram obtained in October 2023 revealed ejection fraction 55% with mild MR and trace to mild TR - Patient underwent Lexiscan in September 2023 which was negative for ischemia - Cardiac catheterization history: April 2015 revealing mild nonobstructive CAD - Tilt Table Test 05/26/2024: Orthostatic hypotension syndrome, symptomatic - Chest CTA 05/26/2024: No evidence of embolism or acute thoracic process, Hydropic bladder with sludge and/or cholelithiasis 05/27/2024 Patient was seen and examined resting comfortably in bed. She continues to have positional dizziness with evidence of positive orthostatic hypotension. She has had no syncope. She continues to have a warm sensation throughout her entire body that is occurring when she is feeling anxious. She denies any chest discomfort, shortness of breath, orthopnea or PND. She has had no edema. She has had no palpitations. She denies any abdominal pain, nausea, reflux or indigestion. Objective - Vital Signs Vital signs: Vital Signs Temp 97.5 F L 05/27/24 07:00 Pulse 77 05/27/24 07:00 Resp 16 05/27/24 07:00 BP 131/73 05/27/24 07:00 Pulse Ox 96 05/27/24 07:00 FiO2 Intake & Output 05/26/24 05/27/24 05/27/24 18:59 06:59 18:59 Intake Total 118 Balance 118 Weight 72.575 kg Intake: Oral 118 Other: Voiding Method Toilet Toilet Toilet # Voids 1 1 # Bowel Movements 1 - Exam PHYSICAL EXAM: VITAL SIGNS: Reviewed. GENERAL: Well-developed in no acute distress. HEENT: Head is normocephalic. Pupils are equal, round. Sclerae anicteric. Mucous membranes of the mouth are moist. Neck supple. No JVD or thyromegaly LUNGS: Respirations even and unlabored. Lungs essentially clear to auscultation bilaterally. HEART: Regular rate and rhythm. S1 and S2 heard. ABDOMEN: Soft. Nondistended. Nontender. EXTREMITIES: Normal range of motion. No clubbing or cyanosis. Peripheral pulses intact. No lower extremity edema NEUROLOGIC: Awake and alert. Oriented x 3. - Labs CBC & Chem 7: 05/26/24 02:56 05/26/24 07:10 Assessment and Plan Assessment: Orthostatic hypotension syndrome, symptomatic Chest pain, rule out, patient denies having any chest pain or pressure Mild coronary artery disease Hypertension Hyperlipidemia Diabetes Atrial tachycardia Plan: From cardiology's perspective patient may be discharged home. Discussed with the patient the need for adequate fluid intake, rising slowly from supine or seated position, avoiding prolonged sitting, lying or standing, importance of foot and leg movements when seated for any length of time. Also discussed use of compression socks. Patient will follow-up in the office with Dr. Deleon. CAD APPLICATION SUPPORT SPECIALIST note has been reviewed, I agree with a documented findings and plan of care. Patient was seen and examined.
[2024-05-27 14:24] VITALS: BP 102/62; PULSE 91; RESP 15; TEMP 97.6
== END 2024-05-27 16:06 | disposition home or self-care (01) ==
LOC: EC 02:28 → 6NMEDSUR 06:37
PROVIDERS: ADMIT Hospitalist; ATTEND Hospitalist
DX: I95.1 Orthostatic hypotension (principal); R07.89 Other chest pain; E11.9 Type 2 diabetes mellitus without complications; E78.5 Hyperlipidemia, unspecified; I10 Essential (primary) hypertension; I25.10 Atherosclerotic heart disease of native coronary artery without angina pectoris; I47.19 Other supraventricular tachycardia; M54.9 Dorsalgia, unspecified; Z79.890 Hormone replacement therapy; Z79.83 Long term (current) use of bisphosphonates; Z79.899 Other long term (current) drug therapy
CPT/HCPCS: 36415; 71046; 71275; 80053; 80061; 83735; 83880; 84132; 84484; 85025; 85379; 85610; 85730; 93005; 93660; 99285